=== PATIENT | male | born 1945 | race Caucasian/White ===

== ENCOUNTER 2021-11-27 13:04 | Inpatient (IN) ==
[2021-11-27 14:27] LABS: Albumin Globulin Ratio 0.7 (0.9-2); BUN Creatinine Ratio 15.4 (10-20); Bilirubin,Total 0.8 mg/dl (0.2-1.0); C Reactive Protein 9.21 mg/dl (0-0.5); Calcium 8.5 mg/dl (8.5-10.1); Est GFR (African American) 26.4 ml/min; Est GFR (Non-African American) 22.8 ml/min; Globulin 4.2 gm/dl (2.5-4.0); Potassium 5.4 mmol/L (3.5-5.1); Total Protein 7.2 gm/dl (6.0-8.3)
[2021-11-27 14:32] LABS: Hematocrit (blood only) 29.6 % (40.1-51.0); Hemoglobin 9.3 g/dl (14.0-18.0); Mean Corpuscular Hemoglobin 31.2 pg (25.0-34.0); Mean Corpuscular Hgb Conc 31.4 g/dL (32.0-36.0); Mean Corpuscular Volume 99.3 fL (80.0-100.0); Mean Platelet Volume 11.6 fL (9.4-12.4); Platelet Count 112 K/uL (130-400); RDW Coefficient of Variation 16.9 % (11.5-14.5); RDW Standard Deviation 61.1 fL (36.4-46.3); Red Blood Count 2.98 M/uL (4.63-6.08); White Blood Count 4.57 K/ul (4.8-10.8)
[2021-11-27 15:18] LABS: Basophils # (auto) 0.01 K/uL (0-0.2); Basophils % (auto) 0.2 %; Immature Granulocytes # (auto) 0.17 K/uL (0.00-0.02); Immature Granulocytes % (auto) 3.7 %; Lymphocytes # (auto) 1.21 K/uL (1.2-3.4); Lymphocytes % (auto) 26.5 %; Monocytes # (auto) 0.73 K/uL (0.24-0.82); Neutrophils # (auto) 2.45 K/uL (1.4-6.5); Neutrophils % (auto) 53.6 %
--- NOTE | 2021-11-27 15:30 | CT Scan Report ---
ABDOMEN AND PELVIS CT WITHOUT CONTRAST CT DOSE: 477.08 mGycm HISTORY: Acute right lower quadrant abdominal pain RLQ abd pain TECHNIQUE: Multiaxial CT images of the abdomen and pelvis were performed without contrast. A dose lo wering technique was utilized adhering to the principles of ALARA. COMPARISON STUDY: None. FINDINGS: Limited exam secondary to upper extremity positioning, respiratory motion artifact and lack of contrast. Trace right pleural effusion. Cardiomegaly with partially imaged pacer leads in extensi ve coronary artery calcifications. Mild right hemidiaphragmatic elevation. Mild subsegmental bibasila r atelectasis. No pneumatosis or pneumoperitoneum. The unenhanced spleen, moderately atrophic pancreas and adrenal glands are unremarkable. Cholelithias is without CT evidence of acute cholecystitis. No biliary ductal dilation. Unremarkable liver. No uro lith or hydronephrosis. Small amount of air within the urinary bladder lumen. Prostamegaly. Atheroscl erosis of the aorta without aneurysm. No lymphadenopathy. Mild nonspecific distal esophageal wall thickening. Mild periesophageal stranding. No bowel obstructi on. Normal appendix. Mild inferior rectal wall thickening with trace perirectal stranding. Colonic di verticulosis. Mild wall thickening of the sigmoid is likely chronic. Left upper quadrant varicosities of unknown etiology. Unremarkable soft tissues. Degenerative changes of the spine, pelvis and hips. There is no acute fracture identified. IMPRESSION: 1. No bowel obstruction or pneumoperitoneum. Normal appendix. 2. Colonic diverticulosis without definite CT evidence of acute diverticulitis. 3. Mild rectal wall thickening with trace perirectal stranding. Correlate clinically to exclude a mil d proctitis. 4. Cholelithiasis. 5. Trace right pleural effusion. 6. Mild distal esophageal wall thickening may represent esophagitis. 7. Small amount of air within the urinary bladder lumen may be secondary to instrumentation versus ga s-forming organism. Correlate with urinalysis. ACT 112: Negative or not required by law. The above report was generated using voice recognition software. It may contain grammatical, syntax o r spelling errors. Electronically signed by: Alexx Ordonez M.D. 11/27/2021 3:29 PM
--- NOTE | 2021-11-27 15:49 | CT Scan Report ---
CT foot LT wo con CLINICAL HISTORY: left heel wound recent poss osteo on 11/21 ct COMPARISON STUDY: 11/21/2021 CT DOSE: TECHNIQUE: Standard CT of the left foot is performed without IV contrast. Multiplanar reconstruction is performed. A dose lowering technique was utilized adhering to the principles of ALARA. FINDINGS: Bones: Bones are osteopenic. There is again resection of the dorsal calcaneus with indistinctness of the resection margin. Findings are again most characteristic for osteomyelitis. The remaining bones are intact. There is no evidence for an acute fracture or dislocation. There are no lytic or blastic lesions. Joints: The joint spaces are maintained. The bones are in anatomic alignment. Soft tissues: There is soft tissue deformity present involving the heel. However, there is no longer air within the soft tissues. Findings are again characteristic of cellulitis. There are no focal flui d collections. IMPRESSION: 1. Compared to the previous examination, CT findings are again most characteristic of osteomyelitis i nvolving the resected calcaneal margin. 2. Adjacent cellulitis is present with no evidence for air within the soft tissues. ACT 112: Negative or not required by law. Electronically signed by: Manohar Coto M.D. 11/27/2021 3:47 PM
[2021-11-27] MEDS ORDERED: DAPTOmycin 400 MG in SYRINGE 0 ML IV STA (16:09)
[2021-11-27] MEDS ORDERED: PIPERACILLIN/TAZOBACTAM 4.5 GM/120 ML BAG IV ONE (16:15)
--- NOTE | 2021-11-27 18:38 | History & Physical Report ---
Date of Service November 27, 2021 Assessment & Plan (1) Osteomyelitis of foot, left, acute: Plan: -Admit to medicine -Patient was only on Rocephin at [facility] -Inflammatory markers and procal elevated -Will continue with zosyn and dapto for now, tailor treatment to infectious workup -Will give fluid bolus as patient appears dry -Can consider ID consult for assistance with long-term abx treatment Present on Admission?: Yes (2) Fever: Plan: -Multiple different possible etiologies including OM of the left foot, covid +, possible UTI (UA pending) -Covered broadly with Abx at the current time, continue to monitor (3) COVID-19: Plan: -Unsure of vaccination status -Currently afebrile, hemodynamically stable and stable on RA -Continue symptomatic tx for now, start Dex and rem if no contraindications if patient becomes hypoxic (4) Hyperkalemia: Plan: -Noted to be 5.4 on ED labs -Likely due to dehydration -No acute EKG changes noted -Will give 1L NSS bolus now, monitor on tele, and repeat potassium later this evening (5) HTN (hypertension): Plan: -Will hold [employer]ER [employer]ACH[employer] antihypertensives for now with high risk of hypotensive with current infection (6) Hyperlipidemia: Plan: -[employer] statin (7) DM II (diabetes mellitus, type II), controlled: Plan: --Goal BSG Range: Qwx379 mg/dL, High 140mg/dL --Correction Factor: 35mg/dL/unit --Carbohydrate ratio = 11 g/unit --BSGs ACHS if eating, q6h if npo (8) CAD (coronary artery disease): Plan: -[employer] statin (9) PAD (peripheral artery disease): Plan: -[employer] statin (10) Stage 3b chronic kidney disease (CKD): Plan: -Monitor renal function (11) Lacunar stroke: Plan: -Appears to be at baseline neurologic status -Continue [employer] plavix Plan The patient was discussed with Dr. Ram at the time of admission History of Present Illness Chief Complaint: Fevers with known heel infection Primary Care Provider: Lynn Casey Justin is a 76 year old male with a PMH significant for known left heel wound after penetrating injury S/P Calcanectomy, Previous Lacunar stroke with baseline right-sided weakness and waxing mentation/orientation, sacral pressure injury, HTN, DLD, CAD S/P biventricular pacemaker placement, Systolic CHF, CKD stage 3B, PAD, DMII who presented to the [facility] ED for fevers. Per chart review and discussions with [facility] staff, the patient has been at [facility] for treatment of his left heel ulcer. It appears the heel cultures has grown MRSA and Enterobacter but [facility] was treating him with Ceftriaxone only. There was concern for possible osteomyelitis which increased since the patient has been spiking fevers while on ceftriaxone. In the ED the patient was found to have an elevated procal at 2.85, C- reactive protein at 9.21, ESR of 44, potassium of 5.4, and was found to be Coivd positive. Xray of the left foot revealed OM of the heel and surrounding cellulitis. CT of the abdomen and pelvis revealed mild rectal wall thickening with trace perirectal stranding. The patient was started on Zosyn and Daptomycin for the osteomyelitis and was found to be stable on room air. Per chart review and discussions with staff at [facility] the patient has baseline right-sided weakness with waxing mentation and orientation as a result of his previous stroke. EMS confirmed with nursing staff upon arrival that the patient was at his baseline neurologic status. At the time of the exam the patient was lying in bed in no acute distress. He was alert and responded to sternal rubbing and would answer questions for a short period of time. He noted some abdominal pain during my abdominal exam but would not interact more during the rest of my exam. Allergies Allergy/AdvReac Type Severity Reaction Status Date / Time atorvastatin Allergy Unknown Unknown Verified 11/27/21 18:05 ezetimibe Allergy Unknown Unknown Verified 11/27/21 18:05 rivaroxaban Allergy Unknown Unknown Verified 11/27/21 18:05 simvastatin Allergy Unknown Unknown Verified 11/27/21 18:05 sitagliptin Allergy Unknown Unknown Verified 11/27/21 18:05 sulfamethoxazole Allergy Unknown Unknown Verified 11/27/21 18:05 [From Bactrim] trimethoprim [From Bactrim] Allergy Unknown Unknown Verified 11/27/21 18:05 lactose AdvReac Unknown Unknown Verified 11/27/21 18:05 Home Medications Medication Instructions Recorded Confirmed Type acetaminophen 325 mg tablet 650 mg PO Q4H PRN Pain 11/27/21 11/27/21 History (Tylenol) ascorbic acid (vitamin C) 500 mg 500 mg PO BIDM 11/27/21 11/27/21 History tablet (Vitamin C) bisacodyl 10 mg rectal suppository 10 mg MI DAILY PRN Constipation 11/27/21 11/27/21 History ceftriaxone 1 gram intravenous 1 g IV DAILY 11/27/21 11/27/21 History solution clopidogrel 75 mg tablet (Plavix) 75 mg PO DAILY 11/27/21 11/27/21 History difluprednate 0.05 % eye drops 1 drp OPL DAILY 11/27/21 11/27/21 History diltiazem HCl 30 mg tablet 30 mg PO DAILY 11/27/21 11/27/21 History docusate sodium 100 mg capsule 100 mg PO BID 11/27/21 11/27/21 History enoxaparin 30 mg/0.3 mL 30 mg subcut QPM 11/27/21 11/27/21 History subcutaneous syringe (Lovenox) ferrous sulfate 325 mg (65 mg 325 mg PO BIDM 11/27/21 11/27/21 History iron) tablet folic acid 1 mg tablet 1 mg PO DAILY 11/27/21 11/27/21 History insulin regular human 100 unit/mL 1 sliding scale dose subcut ACHS 11/27/21 11/27/21 History injection solution (Humulin R Regular U-100 Insulin) latanoprost 0.005 % eye drops 1 drp OPB HS 11/27/21 11/27/21 History magnesium hydroxide 400 mg/5 mL 30 ml PO DAILY PRN Constipation 11/27/21 11/27/21 History oral suspension (Milk of Magnesia) mirtazapine 15 mg tablet 15 mg PO HS 11/27/21 11/27/21 History naloxone 4 mg/actuation nasal spray 4 mg intranasal ONCE PRN 11/27/21 11/27/21 History OVERSEDATION netarsudil 0.02 % eye drops 1 drp OPR HS 11/27/21 11/27/21 History nystatin 100,000 unit/mL oral 5 ml PO TID 11/27/21 11/27/21 History suspension ondansetron HCl 4 mg tablet 4 mg PO Q6H PRN NAUSEA/VOMITING 11/27/21 11/27/21 History oxycodone 5 mg tablet 10 mg PO Q8H PRN Pain 11/27/21 11/27/21 History pantoprazole 40 mg tablet,delayed 40 mg PO BID 11/27/21 11/27/21 History release polyethylene glycol 3350 17 17 g PO QDL PRN Constipation 11/27/21 11/27/21 History gram/dose oral powder (Miralax) potassium chloride 10 mEq 20 meq PO DAILY 11/27/21 11/27/21 History capsule,extended release rosuvastatin 10 mg tablet 5 mg PO DAILY 11/27/21 11/27/21 History sennosides 8.6 mg-docusate sodium 1 tab-cap PO QDL PRN Constipation 11/27/21 11/27/21 History 50 mg tablet (Senokot-S) tamsulosin 0.4 mg capsule 0.4 mg PO DAILY 11/27/21 11/27/21 History timolol 0.5 % eye drops 1 drp OPB BID 11/27/21 11/27/21 History Past Med/Surg History Medical History (Updated 11/28/21 @ 12:18 by GEORGE Linda) Lacunar stroke Systolic heart failure Social History Smoking Status: Never smoker Hx Alcohol Use: No Hx Substance Use: No Preferred Language: Malaysian 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: No Current Living Situation: Alone Current Living Situation Comment: Patient reports living at home alone Feels Safe at Home: Yes Safety Concerns: Feels Safe At This Time Assistive Devices: Walker Review of Systems Review of Systems: Patient would not interact or answer ROS questions Physical Exam Physical Exam: Physical Exam: General: In no acute distress, older than stated age, chachetic, poor hygiene, chronically ill HEENT: Normocephalic, atraumatic, no scleral icterus, left pupil is dilated and non-reactive to light (baseline per encompass), right pupil is round and reactive to light, dry mucus membranes, trachea midline, no thyromegaly Chest/Pulm: No respiratory distress, symmetrical chest expansion, clear breath sounds throughout Cardiac: RRR, no murmurs noted Abdomen: Negative for ascites and bruising, normoactive bowel sounds, soft, tender to palpation in the lower abdomen Musculoskeletal: patient with severe atrophy of the muscles of the BL upper and lower extremities, chronic left heel wound with surround erythema, right garcia skin tear noted, patient would move extremities voluntarily but with right weaker than left Neuro: Alert, sporadically cooperates with neuro exam, CN II-XII tested with chronic findings from previous stroke as listed above Psych: No acute distress, calm, not aggressive Results & Data Results & Data ([facility]) Vital Signs (Past 12 Hours) Vital Signs Temp Pulse Pulse Resp BP BP Pulse Ox 11/27/21 16:59 76 18 114/50 L 95 11/27/21 15:36 67 16 110/53 L 93 11/27/21 13:11 36.7 C 78 18 118/60 96 O2 Del Method 11/27/21 16:59 Room Air 11/27/21 15:36 11/27/21 13:11 Room Air Laboratory Results Abnormal lab results 11/27/21 11/27/21 11/27/21 Range/Units 13:57 13:57 13:57 WBC 4.57 L (4.8-10.8) K/ul RBC 2.98 L (4.63-6.08) M/uL Hgb 9.3 L (14.0-18.0) g/dl Hct 29.6 L (40.1-51.0) % MCHC 31.4 L (32.0-36.0) g/dL RDW Std Deviation 61.1 H (36.4-46.3) fL RDW Coeff of Rusty 16.9 H (11.5-14.5) % Plt Count 112 L (130-400) K/uL Immature Gran # (Auto) 0.17 H (0.00-0.02) K/uL ESR 44 H (0-20) mm/hr Potassium 5.4 H (3.5-5.1) mmol/L BUN 40 H (6-23) mg/dl Creatinine 2.60 H (0.6-1.4) mg/dl Glucose 209 H (70-99(Fasting)) mg/dl AST 59 H (13-39) U/L Alkaline Phosphatase 105 H (34-104) U/L C-Reactive Protein 9.21 H (0-0.5) mg/dl Albumin 3.0 L (3.4-5.0) gm/dl Globulin 4.2 H (2.5-4.0) gm/dl Albumin/Globulin Ratio 0.7 L (0.9-2) Procalcitonin (0-0.5) ng/ml SARS-CoV-2, RNA, NAAT (NEGATIVE) 11/27/21 11/27/21 Range/Units 13:57 14:20 WBC (4.8-10.8) K/ul RBC (4.63-6.08) M/uL Hgb (14.0-18.0) g/dl Hct (40.1-51.0) % MCHC (32.0-36.0) g/dL RDW Std Deviation (36.4-46.3) fL RDW Coeff of Rusty (11.5-14.5) % Plt Count (130-400) K/uL Immature Gran # (Auto) (0.00-0.02) K/uL ESR (0-20) mm/hr Potassium (3.5-5.1) mmol/L BUN (6-23) mg/dl Creatinine (0.6-1.4) mg/dl Glucose (70-99(Fasting)) mg/dl AST (13-39) U/L Alkaline Phosphatase (34-104) U/L C-Reactive Protein (0-0.5) mg/dl Albumin (3.4-5.0) gm/dl Globulin (2.5-4.0) gm/dl Albumin/Globulin Ratio (0.9-2) Procalcitonin 2.85 H (0-0.5) ng/ml SARS-CoV-2, RNA, NAAT POSITIVE A* (NEGATIVE) Diagnostic Findings Abdomen/Pelvis CT 11/27/21 14:[address] WITHOUT CONTRAST CT DOSE: 477.08 mGycm HISTORY: Acute right lower quadrant abdominal pain RLQ abd pain TECHNIQUE: Multiaxial CT images of the abdomen and pelvis were performed without contrast. A dose lowering technique was utilized adhering to the principles of ALARA. COMPARISON STUDY: None. FINDINGS: Limited exam secondary to upper extremity positioning, respiratory motion artifact and lack of contrast. Trace right pleural effusion. Cardiomegaly with partially imaged pacer leads in extensive coronary artery calcifications. Mild right hemidiaphragmatic elevation. Mild subsegmental bibasilar atelectasis. No pneumatosis or pneumoperitoneum. The unenhanced spleen, moderately atrophic pancreas and adrenal glands are unremarkable. Cholelithiasis without CT evidence of acute cholecystitis. No biliary ductal dilation. Unremarkable liver. No urolith or hydronephrosis. Small amount of air within the urinary bladder lumen. Prostamegaly. Atherosclerosis of the aorta without aneurysm. No lymphadenopathy. Mild nonspecific distal esophageal wall thickening. Mild periesophageal stranding. No bowel obstruction. Normal appendix. Mild inferior rectal wall thickening with trace perirectal stranding. Colonic diverticulosis. Mild wall thickening of the sigmoid is likely chronic. Left upper quadrant varicosities of unknown etiology. Unremarkable soft tissues. Degenerative changes of the spine, pelvis and hips. There is no acute fracture identified. IMPRESSION: 1. No bowel obstruction or pneumoperitoneum. Normal appendix. 2. Colonic diverticulosis without definite CT evidence of acute diverticulitis. 3. Mild rectal wall thickening with trace perirectal stranding. Correlate clinically to exclude a mild proctitis. 4. Cholelithiasis. 5. Trace right pleural effusion. 6. Mild distal esophageal wall thickening may represent esophagitis. 7. Small amount of air within the urinary bladder lumen may be secondary to instrumentation versus gas-forming organism. Correlate with urinalysis. ACT 112: Negative or not required by law. The above report was generated using voice recognition software. It may contain grammatical, syntax or spelling errors. Electronically signed by: Alexx Ordonez M.D. 11/27/2021 3:[address] 11/27/21 14:24 CT foot LT wo con CLINICAL HISTORY: left heel wound recent poss osteo on 11/21 ct COMPARISON STUDY: 11/21/2021 CT DOSE: TECHNIQUE: Standard CT of the left foot is performed without IV contrast. Multiplanar reconstruction is performed. A dose lowering technique was utilized adhering to the principles of ALARA. FINDINGS: Bones: Bones are osteopenic. There is again resection of the dorsal calcaneus with indistinctness of the resection margin. Findings are again most characteristic for osteomyelitis. The remaining bones are intact. There is no evidence for an acute fracture or dislocation. There are no lytic or blastic lesions. Joints: The joint spaces are maintained. The bones are in anatomic alignment. Soft tissues: There is soft tissue deformity present involving the heel. However, there is no longer air within the soft tissues. Findings are again characteristic of cellulitis. There are no focal fluid collections. IMPRESSION: 1. Compared to the previous examination, CT findings are again most characteristic of osteomyelitis involving the resected calcaneal margin. 2. Adjacent cellulitis is present with no evidence for air within the soft tissues. ACT 112: Negative or not required by law. Electronically signed by: Manohar Coto M.D. 11/27/2021 3:47 PM ECG Additional Comments: Atrial-sensed ventricular-paced rhythm with prolonged AV conduction Abnormal ECG No previous ECGs available Code Status & VTE Plan Code Status Full code VTE Prophylaxis Plan VTE Prophylaxis will be ordered: Yes Supervising Physician Co-Signing Physician Notes Patient seen and examined, chart reviewed, case discussed with Karlo Lraa PA-C and I agree with the assessment and plan as above except as otherwise noted. Labs and images reviewed Patient is 76-year-old male who presents with osteomyelitis of the left foot. On exam he appears chronically ill/cachectic, but no respiratory distress, heart rate is regular without murmurs. Left heel is with surrounding erythema and ulceration is weak compared to the right to dorsi/plantarflexion baseline left pupil nonreactive as noted. Antibiotics expanded to Zosyn/Dapto. Patient is COVID-positive, but asymptomatic without oxygen requirement. Does not meet criteria for remdesivir or dexamethasone at this time. Continue to follow O2, initiate steroids/remdesivir if hypoxia develops. CRP trended. Foot CT compared to prior shows osteomyelitis with resected calcaneal margin. Adjacent cellulitis without evidence of air/gas. Antibiotics expanded to Zosyn/Dapto, prior wound culture with pinpoint growth. Continue broad antibiotics, may consider ID consultation for long-term recommendations given failure to improve previously. Chronic issues/management as noted. PG Care Time/CCT Total # of Minutes Spent Total Time Spent with Patient: Total time spent is greater than 50% in coordination of care (as documented) at patient's floor/unit and/or counseling patient: [place] [address] Initial Inpt Care Lvl 1 Patient Type New Medical Decision Making Moderate Complexity Diagnoses Osteomyelitis of foot, left, acute M86.172 Fever R50.9 COVID-19 U07.1 Hyperkalemia E87.5 HTN (hypertension) I10 Hyperlipidemia E78.5 DM II (diabetes mellitus, type II), controlled E11.9 CAD (coronary artery disease) I25.10 PAD (peripheral artery disease) I73.9 Stage 3b chronic kidney disease (CKD) N18.32 Lacunar stroke I63.81
[2021-11-27 19:22] LABS: Appearance Urine Cloudy (Clear); Bilirubin Urine Negative (Negative); Blood Urine Negative (Negative); Color Urine Dark Yellow; Glucose Urine UA Negative (Negative); Ketones Urine Trace (Negative); Leukocyte Esterase Urine Negative (Negative); Nitrite Urine Negative (Negative); Protein Urine 2+ (Negative); RBC Urine Automated 0-4 /hpf (0-4); Specific Gravity Urine 1.023 (1.000-1.030); Urobilinogen Urine Negative (Negative)
[2021-11-27 19:47] LABS: Bacteria Urine Automated 1+ (Negative); Cast Urine Automated 0 /lpf (0-5)
[2021-11-27] MEDS ORDERED: SODIUM CHLORIDE 0.9% 1000ML 1,000 ML IV ONE (20:04)
--- NOTE | 2021-11-27 20:05 | Emergency Department Note ---
Impression & Plan Osteomyelitis of foot, left, acute, COVID-19, Cellulitis, Pancytopenia ED Provider Note INFORMANT: Patient is well as covering provider, Tarik Melendez [facility] PROVIDER(S): Froylan Bell MD CHIEF COMPLAINT: Fever PLAN: Disposition: Admitted Condition: Good Outpatient prescription management: none Referral: None MEDICAL DECISION MAKING: Patient presented to emergency department because of fever and issues with a left foot wound. A work-up was initiated. The patient was found to have a pancytopenia. He had an elevated creatinine at 2.6. No prior for comparison. The patient did have elevated inflammatory markers event with a ESR 44 and CRP of 9.2. Patient's LFTs were not significantly abnormal. Procalcitonin was elevated at 2.8. The patient had CT imaging done and this was concerning for cellulitis as well as osteomyelitis. Radiology questioned proctitis however no other acute intra-abdominal findings were noted. The patient was cultured from the blood as well as from the wound. I discussed this with the ED pharmacist and daptomycin and Zosyn were recommended for broad-spectrum coverage. I did contact his covering provider at [facility] and they noted the patient's surgeon did request that he be evaluated in the ER for an infectious work-up and IV antibiotics due to concerns about infection in the left heel. CT imaging does reveal osteomyelitis. The antibiotics above should cover. The patient does have a history of MRSA. Patient did also have a COVID test performed and this did reveal a positive result. Charge nurse did contact the [facility] to notify them. Patient's urinalysis did not reveal any gross abnormalities. [facility] The patient was evaluated in the emergency department and admitted for further management. Triage Nursing notes reviewed and agree them. Vital Signs: reviewed and remarkable for no significant abnormalities Differential diagnosis: Cellulitis, abscess, MRSA infection, DVT, necrotizing fasciitis, dermatitis, drug eruption, allergic reaction, as well as other pathologies. Diagnostics interpreted by me: ECG: Twelve-lead ECG reveals an atrial sensed ventricular paced rhythm with prolonged AV conduction at 76 bpm. No PVCs noted. Cardiac Monitoring: Cardiac monitoring ordered by me: The patient was placed on continuous cardiac monitoring and observed. Paced rhythm at 76. Imaging studies: CT scan of the abdomen pelvis revealed possible proctitis however no other acute intra-abdominal pathology noted. CT scan of the foot is concerning for cellulitis as well as osteomyelitis. No subcutaneous gas collections or abscesses reported. HPI: The patient is a 76 year old male who presents to the Emergency Room with complaints of fever. Patient was directed here from [facility] rehab. He was over there due to an infected wound on a left heel resection. The patient developed a fever despite being on IV Rocephin and the provider there was concerned. They contacted his surgeon in the [place] area and he was directed to be transferred to the emergency department here for an infectious work-up. The fever was noted today. The patient also notes the following associated symptoms, generalized weakness, some mild abdominal discomfort on the right side. Current pain is rated as 7/10. Pt denies LOC, headache, chills, diaphoresis, visual changes, neck pain, chest pain, breathing difficulties, nausea, vomiting,back pain, melena, hematochezia, urinary symptoms, numbness, lymphadenopathy, or other complaints. ROS: See above HPI for pertinent positives & negatives. A total of 10 systems reviewed and were otherwise negative. PAST MEDICAL HISTORY:See Below , right leg cellulitis, diabetes PAST SURGICAL HISTORY:See Below, FAMILY HISTORY:See Below SOCIAL HISTORY:See Below, non-smoker HOME MEDICATIONS:See Below ALLERGIES:See Below VITALS:See Below PHYSICAL EXAMINATION: GENERAL: Awake, uncomfortable appearing, in no distress HENT: Normocephalic, atraumatic. Oropharynx unremarkable. EYES: Normal conjunctiva. Sclera non-icteric. NECK: Inspection normal. Non-tender. Supple. No nuchal rigidity. FROM. No masses. RESPIRATORY: Clear to auscultation. No wheezes. No rales. Normal respiratory effort. CARDIAC: Normal rate. Normal rhythm. No murmurs. No rubs. Extremities warm and well perfused. Pulses equal. No JVD. GI: Soft, non-distended. Right flank tenderness to palpation. No rebound or guarding. No masses. RECTAL: Deferred. MUSCULOSKELETAL: Atraumatic. Chest examination reveals no tenderness. The back is symmetrical on inspection without obvious abnormality. There is no CVA tenderness to palpation. No joint edema. LOWER EXTREMITIES: Calves are equal size bilaterally and non-tender. No edema. Chronic venous discoloration noted on the right side. Examination of the left lower extremity reveals some erythema surrounding a surgical wound on the right heel. There is some mild purulence present. There is an eschar noted on the right second toe without purulence. NEURO: Normal sensorium. Mild decrease sensation in the toes and feet however no other focal sensory or motor deficits noted. SKIN: No rash or jaundice noted. Froylan Bell MD Past Med/Surg History Medical History (Updated 11/27/21 @ 19:58 by Karlo Lara PA-C) Lacunar stroke Systolic heart failure Social History Smoking Status: Never smoker Preferred Language: American Feels Safe at Home: Yes Allergies Allergies Allergy/AdvReac Type Severity Reaction Status Date / Time atorvastatin Allergy Unknown Unknown Verified 11/27/21 18:05 ezetimibe Allergy Unknown Unknown Verified 11/27/21 18:05 rivaroxaban Allergy Unknown Unknown Verified 11/27/21 18:05 simvastatin Allergy Unknown Unknown Verified 11/27/21 18:05 sitagliptin Allergy Unknown Unknown Verified 11/27/21 18:05 sulfamethoxazole Allergy Unknown Unknown Verified 11/27/21 18:05 [From Bactrim] trimethoprim [From Bactrim] Allergy Unknown Unknown Verified 11/27/21 18:05 lactose AdvReac Unknown Unknown Verified 11/27/21 18:05 Home Meds Home Medications Medication Instructions Recorded Confirmed acetaminophen 325 mg tablet 650 mg PO Q4H PRN Pain 11/27/21 11/27/21 (Tylenol) ascorbic acid (vitamin C) 500 mg 500 mg PO BIDM 11/27/21 11/27/21 tablet (Vitamin C) bisacodyl 10 mg rectal suppository 10 mg NV DAILY PRN Constipation 11/27/21 11/27/21 ceftriaxone 1 gram intravenous 1 g IV DAILY 11/27/21 11/27/21 solution clopidogrel 75 mg tablet (Plavix) 75 mg PO DAILY 11/27/21 11/27/21 difluprednate 0.05 % eye drops 1 drp OPL DAILY 11/27/21 11/27/21 diltiazem HCl 30 mg tablet 30 mg PO DAILY 11/27/21 11/27/21 docusate sodium 100 mg capsule 100 mg PO BID 11/27/21 11/27/21 enoxaparin 30 mg/0.3 mL 30 mg subcut QPM 11/27/21 11/27/21 subcutaneous syringe (Lovenox) ferrous sulfate 325 mg (65 mg 325 mg PO BIDM 11/27/21 11/27/21 iron) tablet folic acid 1 mg tablet 1 mg PO DAILY 11/27/21 11/27/21 insulin regular human 100 unit/mL 1 sliding scale dose subcut ACHS 11/27/21 11/27/21 injection solution (Humulin R Regular U-100 Insulin) latanoprost 0.005 % eye drops 1 drp OPB HS 11/27/21 11/27/21 magnesium hydroxide 400 mg/5 mL 30 ml PO DAILY PRN Constipation 11/27/21 11/27/21 oral suspension (Milk of Magnesia) mirtazapine 15 mg tablet 15 mg PO HS 11/27/21 11/27/21 naloxone 4 mg/actuation nasal spray 4 mg intranasal ONCE PRN 11/27/21 11/27/21 OVERSEDATION netarsudil 0.02 % eye drops 1 drp OPR HS 11/27/21 11/27/21 nystatin 100,000 unit/mL oral 5 ml PO TID 11/27/21 11/27/21 suspension ondansetron HCl 4 mg tablet 4 mg PO Q6H PRN NAUSEA/VOMITING 11/27/21 11/27/21 oxycodone 5 mg tablet 10 mg PO Q8H PRN Pain 11/27/21 11/27/21 pantoprazole 40 mg tablet,delayed 40 mg PO BID 11/27/21 11/27/21 release polyethylene glycol 3350 17 17 g PO QDL PRN Constipation 11/27/21 11/27/21 gram/dose oral powder (Miralax) potassium chloride 10 mEq 20 meq PO DAILY 11/27/21 11/27/21 capsule,extended release rosuvastatin 10 mg tablet 5 mg PO DAILY 11/27/21 11/27/21 sennosides 8.6 mg-docusate sodium 1 tab-cap PO QDL PRN Constipation 11/27/21 11/27/21 50 mg tablet (Senokot-S) tamsulosin 0.4 mg capsule 0.4 mg PO DAILY 11/27/21 11/27/21 timolol 0.5 % eye drops 1 drp OPB BID 11/27/21 11/27/21 Results & Data (ED) Vital Signs Vital Signs - 24 hr 11/27/21 13:11 11/27/21 15:36 11/27/21 16:59 Temperature 36.7 C Temperature Source Oral Pulse Rate 78 Pulse Rate [Left Finger] 67 76 Respiratory Rate 18 16 18 Blood Pressure 118/60 Blood Pressure [Left Arm] 110/53 L 114/50 L Blood Pressure Mean 79 Blood Pressure Mean [Left Arm] 72 71 Blood Pressure Position [Left Arm] Sitting Pulse Oximetry 96 93 95 Oxygen Delivery Method Room Air Room Air Sepsis Recent Fever Within 48 Hours Yes Sepsis New/Unexplained Change in Mental Status No Sepsis Action Taken by Nursing No Action Required 11/27/21 18:59 Temperature Temperature Source Pulse Rate Pulse Rate [Left Finger] Respiratory Rate 18 Blood Pressure Blood Pressure [Left Arm] 105/52 L Blood Pressure Mean Blood Pressure Mean [Left Arm] 69 Blood Pressure Position [Left Arm] Semi-fowlers Pulse Oximetry 95 Oxygen Delivery Method Room Air Sepsis Recent Fever Within 48 Hours Sepsis New/Unexplained Change in Mental Status Sepsis Action Taken by Nursing Laboratory Data Result diagrams: 11/27/21 13:57 11/27/21 13:57 Lab Results 11/27/21 11/27/21 11/27/21 Range/Units 13:57 13:57 13:57 WBC 4.57 L (4.8-10.8) K/ul RBC 2.98 L (4.63-6.08) M/uL Hgb 9.3 L (14.0-18.0) g/dl Hct 29.6 L (40.1-51.0) % MCV 99.3 (80.0-100.0) fL MCH 31.2 (25.0-34.0) pg MCHC 31.4 L (32.0-36.0) g/dL RDW Std Deviation 61.1 H (36.4-46.3) fL RDW Coeff of Rusty 16.9 H (11.5-14.5) % Plt Count 112 L (130-400) K/uL MPV 11.6 (9.4-12.4) fL Immature Gran % (Auto) 3.7 % Neut % (Auto) 53.6 % Lymph % (Auto) 26.5 % Moca % (Auto) 16.0 % Eos % (Auto) 0.0 % Baso % (Auto) 0.2 % Neut # (Auto) 2.45 (1.4-6.5) K/uL Lymph # (Auto) 1.21 (1.2-3.4) K/uL Moca # (Auto) 0.73 (0.24-0.82) K/uL Eos # (Auto) 0.00 (0-0.50) K/uL Baso # (Auto) 0.01 (0-0.2) K/uL Immature Gran # (Auto) 0.17 H (0.00-0.02) K/uL ESR 44 H (0-20) mm/hr Sodium 138 (136-145) mmol/L Potassium 5.4 H (3.5-5.1) mmol/L Chloride 105 (98-107) mmol/L Carbon Dioxide 25 (21-32) mmol/L Anion Gap 8 (3-11) BUN 40 H (6-23) mg/dl Creatinine 2.60 H (0.6-1.4) mg/dl Est Cr Clr Drug Dosing 23.0 ml/min Est GFR ( Amer) 26.4 ml/min Est GFR (Non-Af Amer) 22.8 ml/min BUN/Creatinine Ratio 15.4 (10-20) Glucose 209 H (70-99(Fasting)) mg/dl Lactate (0.4-2.0) mmol/L Calcium 8.5 (8.5-10.1) mg/dl Total Bilirubin 0.8 (0.2-1.0) mg/dl AST 59 H (13-39) U/L ALT 18 (7-52) U/L Alkaline Phosphatase 105 H (34-104) U/L C-Reactive Protein 9.21 H (0-0.5) mg/dl Total Protein 7.2 (6.0-8.3) gm/dl Albumin 3.0 L (3.4-5.0) gm/dl Globulin 4.2 H (2.5-4.0) gm/dl Albumin/Globulin Ratio 0.7 L (0.9-2) Procalcitonin (0-0.5) ng/ml Urine Color Urine Appearance (Clear) Urine pH (4.5-7.5) Ur Specific Eagle (1.000-1.030) Urine Protein (Negative) Urine Glucose (UA) (Negative) Urine Ketones (Negative) Urine Blood (Negative) Urine Nitrite (Negative) Urine Bilirubin (Negative) Urine Urobilinogen (Negative) Ur Leukocyte Esterase (Negative) Urine WBC (Auto) (0-5) /hpf Urine RBC (Auto) (0-4) /hpf U Hyaline Cast (Auto) (0-5) /lpf U Epithel Cells (Auto) (0-5) /lpf Urine Bacteria (Auto) (Negative) Urine Yeast SARS-CoV-2, RNA, NAAT (NEGATIVE) 11/27/21 11/27/21 11/27/21 Range/Units 13:57 14:20 15:48 WBC (4.8-10.8) K/ul RBC (4.63-6.08) M/uL Hgb (14.0-18.0) g/dl Hct (40.1-51.0) % MCV (80.0-100.0) fL MCH (25.0-34.0) pg MCHC (32.0-36.0) g/dL RDW Std Deviation (36.4-46.3) fL RDW Coeff of Rusty (11.5-14.5) % Plt Count (130-400) K/uL MPV (9.4-12.4) fL Immature Gran % (Auto) % Neut % (Auto) % Lymph % (Auto) % Moca % (Auto) % Eos % (Auto) % Baso % (Auto) % Neut # (Auto) (1.4-6.5) K/uL Lymph # (Auto) (1.2-3.4) K/uL Moca # (Auto) (0.24-0.82) K/uL Eos # (Auto) (0-0.50) K/uL Baso # (Auto) (0-0.2) K/uL Immature Gran # (Auto) (0.00-0.02) K/uL ESR (0-20) mm/hr Sodium (136-145) mmol/L Potassium (3.5-5.1) mmol/L Chloride (98-107) mmol/L Carbon Dioxide (21-32) mmol/L Anion Gap (3-11) BUN (6-23) mg/dl Creatinine (0.6-1.4) mg/dl Est Cr Clr Drug Dosing ml/min Est GFR ( Amer) ml/min Est GFR (Non-Af Amer) ml/min BUN/Creatinine Ratio (10-20) Glucose (70-99(Fasting)) mg/dl Lactate 1.8 (0.4-2.0) mmol/L Calcium (8.5-10.1) mg/dl Total Bilirubin (0.2-1.0) mg/dl AST (13-39) U/L ALT (7-52) U/L Alkaline Phosphatase (34-104) U/L C-Reactive Protein (0-0.5) mg/dl Total Protein (6.0-8.3) gm/dl Albumin (3.4-5.0) gm/dl Globulin (2.5-4.0) gm/dl Albumin/Globulin Ratio (0.9-2) Procalcitonin 2.85 H (0-0.5) ng/ml Urine Color Urine Appearance (Clear) Urine pH (4.5-7.5) Ur Specific [place] (1.000-1.030) Urine Protein (Negative) Urine Glucose (UA) (Negative) Urine Ketones (Negative) Urine Blood (Negative) Urine Nitrite (Negative) Urine Bilirubin (Negative) Urine Urobilinogen (Negative) Ur Leukocyte Esterase (Negative) Urine WBC (Auto) (0-5) /hpf Urine RBC (Auto) (0-4) /hpf U Hyaline Cast (Auto) (0-5) /lpf U Epithel Cells (Auto) (0-5) /lpf Urine Bacteria (Auto) (Negative) Urine Yeast SARS-CoV-2, RNA, NAAT POSITIVE A* (NEGATIVE) 11/27/21 Range/Units 18:28 WBC (4.8-10.8) K/ul RBC (4.63-6.08) M/uL Hgb (14.0-18.0) g/dl Hct (40.1-51.0) % MCV (80.0-100.0) fL MCH (25.0-34.0) pg MCHC (32.0-36.0) g/dL RDW Std Deviation (36.4-46.3) fL RDW Coeff of Rusty (11.5-14.5) % Plt Count (130-400) K/uL MPV (9.4-12.4) fL Immature Gran % (Auto) % Neut % (Auto) % Lymph % (Auto) % Moca % (Auto) % Eos % (Auto) % Baso % (Auto) % Neut # (Auto) (1.4-6.5) K/uL Lymph # (Auto) (1.2-3.4) K/uL Moca # (Auto) (0.24-0.82) K/uL Eos # (Auto) (0-0.50) K/uL Baso # (Auto) (0-0.2) K/uL Immature Gran # (Auto) (0.00-0.02) K/uL ESR (0-20) mm/hr Sodium (136-145) mmol/L Potassium (3.5-5.1) mmol/L Chloride (98-107) mmol/L Carbon Dioxide (21-32) mmol/L Anion Gap (3-11) BUN (6-23) mg/dl Creatinine (0.6-1.4) mg/dl Est Cr Clr Drug Dosing ml/min Est GFR ( Amer) ml/min Est GFR (Non-Af Amer) ml/min BUN/Creatinine Ratio (10-20) Glucose (70-99(Fasting)) mg/dl Lactate (0.4-2.0) mmol/L Calcium (8.5-10.1) mg/dl Total Bilirubin (0.2-1.0) mg/dl AST (13-39) U/L ALT (7-52) U/L Alkaline Phosphatase (34-104) U/L C-Reactive Protein (0-0.5) mg/dl Total Protein (6.0-8.3) gm/dl Albumin (3.4-5.0) gm/dl Globulin (2.5-4.0) gm/dl Albumin/Globulin Ratio (0.9-2) Procalcitonin (0-0.5) ng/ml Urine Color Dark Yellow Urine Appearance Cloudy A (Clear) Urine pH 5.0 (4.5-7.5) Ur Specific [place] 1.023 (1.000-1.030) Urine Protein 2+ H (Negative) Urine Glucose (UA) Negative (Negative) Urine Ketones Trace H (Negative) Urine Blood Negative (Negative) Urine Nitrite Negative (Negative) Urine Bilirubin Negative (Negative) Urine Urobilinogen Negative (Negative) Ur Leukocyte Esterase Negative (Negative) Urine WBC (Auto) 1-5 (0-5) /hpf Urine RBC (Auto) 0-4 (0-4) /hpf U Hyaline Cast (Auto) 0 (0-5) /lpf U Epithel Cells (Auto) 5-10 H (0-5) /lpf Urine Bacteria (Auto) 1+ H (Negative) Urine Yeast Not Reportable SARS-CoV-2, RNA, NAAT (NEGATIVE) Administered Medications Discontinued Medications Piperacillin Sod/Tazobactam Sod (Zosyn) 4.5 gm in 120 mls @ 240 mls/hr IV NOW ONE Stop: 11/27/21 16:44 Last Infusion: 11/27/21 16:55 Dose: 0 mls/hr Documented By: Admin: 11/27/21 16:22 Dose: 240 mls/hr Documented By: RUBI Daptomycin 400 mg/ Syringe 8 mls @ 4 mls/min IV NOW STA; Protocol Stop: 11/27/21 16:10 Last Admin: 11/27/21 17:42 Dose: 4 mls/min Documented By: MARILEE Imaging Data Radiologist's Impression: Abdomen/Pelvis CT 11/27/21 14:[address] WITHOUT CONTRAST CT DOSE: 477.08 mGycm HISTORY: Acute right lower quadrant abdominal pain RLQ abd pain TECHNIQUE: Multiaxial CT images of the abdomen and pelvis were performed without contrast. A dose lowering technique was utilized adhering to the principles of ALARA. COMPARISON STUDY: None. FINDINGS: Limited exam secondary to upper extremity positioning, respiratory motion artifact and lack of contrast. Trace right pleural effusion. Cardiomegaly with partially imaged pacer leads in extensive coronary artery calcifications. Mild right hemidiaphragmatic elevation. Mild subsegmental bibasilar atelectasis. No pneumatosis or pneumoperitoneum. The unenhanced spleen, moderately atrophic pancreas and adrenal glands are unremarkable. Cholelithiasis without CT evidence of acute cholecystitis. No biliary ductal dilation. Unremarkable liver. No urolith or hydronephrosis. Small amount of air within the urinary bladder lumen. Prostamegaly. Atherosclerosis of the aorta without aneurysm. No lymphadenopathy. Mild nonspecific distal esophageal wall thickening. Mild periesophageal stranding. No bowel obstruction. Normal appendix. Mild inferior rectal wall thickening with trace perirectal stranding. Colonic diverticulosis. Mild wall thickening of the sigmoid is likely chronic. Left upper quadrant varicosities of unknown etiology. Unremarkable soft tissues. Degenerative changes of the spine, pelvis and hips. There is no acute fracture identified. IMPRESSION: 1. No bowel obstruction or pneumoperitoneum. Normal appendix. 2. Colonic diverticulosis without definite CT evidence of acute diverticulitis. 3. Mild rectal wall thickening with trace perirectal stranding. Correlate clinically to exclude a mild proctitis. 4. Cholelithiasis. 5. Trace right pleural effusion. 6. Mild distal esophageal wall thickening may represent esophagitis. 7. Small amount of air within the urinary bladder lumen may be secondary to instrumentation versus gas-forming organism. Correlate with urinalysis. ACT 112: Negative or not required by law. The above report was generated using voice recognition software. It may contain grammatical, syntax or spelling errors. Electronically signed by: Alexx Ordonez M.D. 11/27/2021 3:[address] 11/27/21 14:24 CT foot LT wo con CLINICAL HISTORY: left heel wound recent poss osteo on 11/21 ct COMPARISON STUDY: 11/21/2021 CT DOSE: TECHNIQUE: Standard CT of the left foot is performed without IV contrast. Multiplanar reconstruction is performed. A dose lowering technique was utilized adhering to the principles of ALARA. FINDINGS: Bones: Bones are osteopenic. There is again resection of the dorsal calcaneus with indistinctness of the resection margin. Findings are again most characteristic for osteomyelitis. The remaining bones are intact. There is no evidence for an acute fracture or dislocation. There are no lytic or blastic lesions. Joints: The joint spaces are maintained. The bones are in anatomic alignment. Soft tissues: There is soft tissue deformity present involving the heel. However, there is no longer air within the soft tissues. Findings are again yovanny racteristic of cellulitis. There are no focal fluid collections. IMPRESSION: 1. Compared to the previous examination, CT findings are again most characteristic of osteomyelitis involving the resected calcaneal margin. 2. Adjacent cellulitis is present with no evidence for air within the soft tissues. ACT 112: Negative or not required by law. Electronically signed by: Manohar Coto M.D. 11/27/2021 3:47 PM Discharge Plan Visit Data Chief Complaint: Foot Injury/Pain Stated Complaint: L HEEL PAIN, REFFERRED BY PCP ED Provider: Froylan Bell Discharge Problem: Osteomyelitis of foot, left, acute, COVID-19, Cellulitis, Pancytopenia Forms Stand Alone Forms: [facility] Prescriptions Prescriptions: No Action latanoprost 0.005 % Drops 1 drp OPB HS nystatin 100,000 unit/mL Suspension 5 ml PO TID Rx Instructions: swish and swallow potassium chloride 10 mEq Capsule, Extended Release 20 meq PO DAILY acetaminophen [Tylenol] 325 mg Tablet 650 mg PO Q4H PRN (Reason: Pain) ondansetron HCl [Zofran] 4 mg Tablet 4 mg PO Q6H PRN (Reason: NAUSEA/VOMITING) sennosides-docusate sodium [Senokot-S] 8.6-50 mg Tablet 1 tab-cap PO QDL PRN (Reason: Constipation) clopidogrel [Plavix] 75 mg Tablet 75 mg PO DAILY ceftriaxone 1 gram Recon Soln 1 g IV DAILY Rx Instructions: UNSURE WHEN STARTED, NOT ON MED LIST magnesium hydroxide [Milk of Magnesia] 400 mg/5 mL Suspension 30 ml PO DAILY PRN (Reason: Constipation) ascorbic acid (vitamin C) [Vitamin C] 500 mg Tablet 500 mg PO BIDM tamsulosin 0.4 mg Capsule 0.4 mg PO DAILY bisacodyl 10 mg Suppository 10 mg NV DAILY PRN (Reason: Constipation) timolol 0.5 % Drops 1 drp OPB BID pantoprazole 40 mg Tablet,Delayed Release (Dr/Ec) 40 mg PO BID Rx Instructions: PRIOR TO MEALS. ferrous sulfate 325 mg (65 mg iron) Tablet 325 mg PO BIDM Humulin R Regular U-100 Insuln 100 unit/mL Solution 1 sliding scale dose SUBCUT ACHS docusate sodium 100 mg Capsule 100 mg PO BID folic acid 1 mg Tablet 1 mg PO DAILY mirtazapine 15 mg Tablet 15 mg PO HS polyethylene glycol 3350 [Miralax] 17 gram/dose Powder 17 g PO QDL PRN (Reason: Constipation) diltiazem HCl 30 mg Tablet 30 mg PO DAILY oxycodone 5 mg Tablet 10 mg PO Q8H PRN (Reason: Pain) enoxaparin [Lovenox] 30 mg/0.3 mL Syringe 30 mg SUBCUT QPM Rx Instructions: GIVEN AT 1900 rosuvastatin 10 mg Tablet 5 mg PO DAILY difluprednate 0.05 % Drops 1 drp OPL DAILY naloxone 4 mg/actuation [place],Non-Aerosol 4 mg INTRANASAL ONCE PRN (Reason: OVERSEDATION) netarsudil 0.02 % Drops 1 drp OPR HS Referrals Referrals: [facility] [Primary Care Provider] -
[2021-11-27] MEDS ORDERED: DEXTROSE 50% 50 ML SYRINGE IV PRN (21:18)
[2021-11-27] MEDS ORDERED: GLUCOSE 10 TAB/TUBE PO PRN (21:18)
[2021-11-27] MEDS ORDERED: CARBOHYDRATES FOR HYPOGLYCEMIA PO PRN (21:18)
[2021-11-27] MEDS ORDERED: GLUCAGON FOR INJ 1 MG VIAL SQ PRN (21:18)
[2021-11-27] MEDS ORDERED: GLUCOSE 40% GEL 15 GM TUBE PO PRN (21:18)
[2021-11-27] MEDS ORDERED: bisacodyL 10 MG SUPP PR PRN (21:18)
[2021-11-27] MEDS: PIPERACILLIN/TAZOBACTAM 4.5 GM in DEXTROSE 5% 100 ML IV SCH (22:17)
[2021-11-27] MEDS: ENOXAPARIN INJ 30 MG/0.3 ML SYR SQ SCH (23:30)
[2021-11-27] MEDS: LATANOPROST 0.005% OP SOLN 2.5 ML BTL OPB SCH (23:31)
[2021-11-27] MEDS: MIRTAZAPINE TAB 15 MG TAB PO SCH (23:31)
[2021-11-27] MEDS: TIMOLOL MALEATE 0.5% OP SOLN 5 ML BTL OPB SCH (23:32)
[2021-11-27] MEDS: DOCUSATE SODIUM 100 MG CAP PO SCH (23:32)
[2021-11-27] MEDS: PANTOprazole 40 MG TAB PO SCH (23:33)
[2021-11-27] MEDS: INSULIN ASPART PER UNIT SC SCH (23:47)
[2021-11-27] MEDS: oxyCODONE HCL IR 5 MG TAB (IMMEDIATE RELEASE) PO PRN (23:51)
[2021-11-28] MEDS: PIPERACILLIN/TAZOBACTAM 4.5 GM in DEXTROSE 5% 100 ML IV SCH ×3 (06:02→21:56)
[2021-11-28] MEDS ORDERED: ROSUVASTATIN CALCIUM 5 MG TAB PO SCH (09:00)
[2021-11-28] MEDS: TAMSULOSIN HCL 0.4 MG CAP PO SCH (09:14)
[2021-11-28] MEDS: FERROUS SULFATE 325 MG TAB PO SCH ×2 (09:15→17:33)
[2021-11-28] MEDS: ACETAMINOPHEN 325 MG TAB PO PRN (09:18)
[2021-11-28] MEDS: ASCORBIC ACID 500 MG TAB PO SCH ×2 (09:19→17:31)
[2021-11-28] MEDS: dilTIAZem HCL 30 MG TAB PO SCH (09:19)
[2021-11-28] MEDS: CLOPIDOGREL BISULFATE 75 MG TAB PO SCH (09:22)
[2021-11-28] MEDS: FOLIC ACID 1 MG TAB PO SCH (09:22)
[2021-11-28] MEDS: PANTOprazole 40 MG TAB PO SCH ×2 (09:23→17:33)
[2021-11-28] MEDS: DOCUSATE SODIUM 100 MG CAP PO SCH ×3 (09:23→21:36)
[2021-11-28] MEDS: TIMOLOL MALEATE 0.5% OP SOLN 5 ML BTL OPB SCH ×2 (09:24→21:26)
[2021-11-28] MEDS: INSULIN ASPART PER UNIT SC SCH ×4 (09:31→21:53)
--- NOTE | 2021-11-28 09:59 | Hospitalist Progress Note ---
Date of Service November 28, 2021 Assessment & Plan (1) Osteomyelitis of foot, left, acute: Plan: Original injury was 8months or greater ago has been complicated by poor vascular supply and faild attempts with arterial bypass to supply the foot Patient with acute on chronic osteomyelitis- without evidence of sepsis - Rocephin [facility]- changed to cover previous known bacteria - Inflammatory markers and procal elevated - Will continue with Zosyn and Dapto for now, pending blood, wound, and urine cx for completeness - Can consider ID consult for assistance with long-term abx treatment when culture data becomes available or pending surgical biopsy/treatment. - Will discuss with [facility] portable irrigation operator--- current recommendations are to attempt to get him back to primary surgeon- attempts at contacting him are not successful at this time - appreciate Orthopaedics assistance - But with radiological evidence of remaining osteo in resected section of calcaneus - WCN consulted - with waffle boots on - Previous surgical records for ortho procedure also requested as below (2) PAD (peripheral artery disease): Plan: - continue statin - Further information regarding his arterial surgery/grating/bypass- obtaining from [facility] [phone]- request fax back to medical surgical keith - consider LANCE/CT with runoffs if will assist with plan (3) Fever: Plan: Sepsis, POA -Multiple different possible etiologies including Osteomyelitis of the left foot, covid +, possible UTI (UA pending) -Covered broadly with Abx at the current time, continue to monitor - As above - All current sources should be covered with the above. If pulmonary source becomes more concern change to Vanco (4) Stage 3b chronic kidney disease (CKD): Plan: With Acute kidney failure on CKD III- however with no baseline renal function available for review - will continue to renally dose medications - avoid further nephrotoxic medications - follow - continue with IVF for support - If worsening continues obtain renal ultrasound and renal lytes (5) Anemia: Plan: Normocytic Anemia- likely related to AOCD and CKD - downtrending this morning - will send iron studies and b12 - rest of cell lines intact and no evidence of bleeding - continue PPI (6) COVID-19: Plan: -Unsure of vaccination status and onset of symptom date - tested on admission -Currently febrile, hemodynamically stable and stable on RA -Continue symptomatic tx for now, start Dex and rem if no contraindications if patient becomes hypoxic - turn cough and deep breathing every 2 hours (7) Hyperkalemia: Plan: -Noted to be 5.4 on admission down to 5.0 this morning following IVF overnight -No acute EKG changes noted -Will give 1L NSS bolus now, monitor on tele, and repeat potassium later this evening (8) HTN (hypertension): Plan: -Will hold ARTIST SCIENTIFIC antihypertensives for now with high risk of hypotensive with current infection (9) Hyperlipidemia: Plan: -ARTIST SCIENTIFIC statin (10) DM II (diabetes mellitus, type II), controlled: Plan: --Goal BSG Range: [id number] mg/dL, High 140mg/dL --Correction Factor: 35mg/dL/unit --Carbohydrate ratio = 11 g/unit --BSGs ACHS if eating, q6h if npo (11) CAD (coronary artery disease): Plan: Uncertain of severity as no records on admission continue with statin- however this is small dose continue with diltiazem (12) Lacunar stroke: Plan: CVA ~7 years ago- facial droop and some weakness -Appears to be at baseline neurologic status - improved mentation and commun ication pollard this morning -Continue plavix - statin as above - Up to a year ago he was self sufficient and since the injury to his foot he has had a decline. (13) Esophagitis: Plan: On going for the past month- consistent with CT scan findings - thrush in mouth - initiate fluconazole 200mg now and then 100mg orally daily - if unable to take oral change to IV (14) Dysphagia: Plan: Likely secondary to esohpagitis- appreciate SOCIAL SERVICES DIRECTOR - Pureed diet - meds with carrier - alternate solids and liquids - oral care treat above Admission and Anticipated Discharge Date Admission Date: November 27, 2021 Supervising Physician Co-Signing Physician Notes GEORGE Supervision Note: I did not personally see or examine the patient today, but I verified all bolton points of GEORGE Mancia's assessment and plan with the following exceptions/additions: None Subjective HD #1 following admission from [facility] where he is a resident following debridement and calcaneal resection for penetrating injury. This appears to have been positive for MRSA and Enterobacter with no culture data or sensitivities for review. The patient original surgery was done by Dr. Singh ([facility]). Patient is currently on Zosyn and Daptomycin as well as he is COVID positive on admission. Following some discussion with the primary team at [facility], they did discuss case with him yesterday and wanted him evaluated at nearest [facility]. The patient remains febrile with blood cultures pending and wound culture pending, biomarkers were elevated on admission with his CRP and PCT, he is mildly leukopenic on admission with improvement in today's labs. Patient remains with ultrasound guided IV access access as well. Following discussion with son- patient has been dealing with this wound on his foot for over the past 8-12 months. This originally occurred while he was walking and stepped on a piece of chewed up aluminum foil from the dog. He continued to have poor healing and was referred to vascular surgery for his PAD, which appears to be severe with son reporting that he has two stents and graft in place but unable to get flow past knee. He has gotten most of this care at [facility] in [place]. I will attempt to get his surgical and Vascular records from them to assist with decision making. Up to a year ago the patient was self sufficient and driving- following his injury his physical abilities declined and he became more sedintary and this led to further cognitive decline. [place] [facility] [place]. Bright appears to be associated with them. Continue skin management with offloading and turning q2 hours Review of Systems Review of Systems: REVIEW OF SYSTEMS: Patient not able to give full review of systems - says his surgery was at [place] - he has no family in the area Physical Exam Physical Exam: Physical Exam: General: In no acute distress, cachectic, chronically ill HEENT: Normocephalic, atraumatic, left pupil is dilated and non-reactive to light (baseline per [facility]), right pupil is round and reactive to light, dry mucus membranes, Chest/Pulm: No respiratory distress, symmetrical chest expansion, weak cough, decreased in the bases Cardiac: S1S2, no murmur, skin is warm and dry, no peripheral edema Abdomen: normoactive bowel sounds, soft, non tender sitting upright in bed Musculoskeletal: patient poor muscle tone, chronic left heel wound with surround erythema, right garcia skin tear noted, patient would move extremities voluntarily but with right weaker than left, pain with palpation to right and left toes Neuro: Alert, sporadically cooperates with neuro exam, history of lacunar stroke difficult exam with his CVA and weakness Psych: No acute distress, calm, not aggressive Skin- left foot with pad to heel, surrounding cellulitis minimal serous sang drainage, toes with black and blue yost on them. Pain to left foot and right foot with palpation. Results & Data Results & Data ([facility]) Vital Signs (Past 12 Hours) Vital Signs Temp Pulse Resp BP BP Pulse Ox O2 Del Method 11/28/21 08:06 39.3 C H 91 H 16 131/77 100 Room Air 11/28/21 06:11 37.8 C H 84 18 113/49 L 100 Room Air 11/27/21 23:25 90 158/46 H 94 Room Air 11/27/21 22:10 100 Room Air 11/27/21 21:30 100 Room Air Laboratory Results Abnormal lab results 11/27/21 11/27/21 11/27/21 Range/Units 13:57 13:57 13:57 WBC 4.57 L (4.8-10.8) K/ul RBC 2.98 L (4.63-6.08) M/uL Hgb 9.3 L (14.0-18.0) g/dl Hct 29.6 L (40.1-51.0) % MCHC 31.4 L (32.0-36.0) g/dL RDW Std Deviation 61.1 H (36.4-46.3) fL RDW Coeff of Rusty 16.9 H (11.5-14.5) % Plt Count 112 L (130-400) K/uL Immature Gran # (Auto) 0.17 H (0.00-0.02) K/uL ESR 44 H (0-20) mm/hr Potassium 5.4 H (3.5-5.1) mmol/L BUN 40 H (6-23) mg/dl Creatinine 2.60 H (0.6-1.4) mg/dl Glucose 209 H (70-99(Fasting)) mg/dl POC Glucose (70-99) mg/dl AST 59 H (13-39) U/L Alkaline Phosphatase 105 H (34-104) U/L C-Reactive Protein 9.21 H (0-0.5) mg/dl Albumin 3.0 L (3.4-5.0) gm/dl Globulin 4.2 H (2.5-4.0) gm/dl Albumin/Globulin Ratio 0.7 L (0.9-2) Procalcitonin (0-0.5) ng/ml Urine Appearance (Clear) Urine Protein (Negative) Urine Ketones (Negative) U Epithel Cells (Auto) (0-5) /lpf Urine Bacteria (Auto) (Negative) SARS-CoV-2, RNA, NAAT (NEGATIVE) 11/27/21 11/27/21 11/27/21 Range/Units 13:57 14:20 18:28 WBC (4.8-10.8) K/ul RBC (4.63-6.08) M/uL Hgb (14.0-18.0) g/dl Hct (40.1-51.0) % MCHC (32.0-36.0) g/dL RDW Std Deviation (36.4-46.3) fL RDW Coeff of Rusty (11.5-14.5) % Plt Count (130-400) K/uL Immature Gran # (Auto) (0.00-0.02) K/uL ESR (0-20) mm/hr Potassium (3.5-5.1) mmol/L BUN (6-23) mg/dl Creatinine (0.6-1.4) mg/dl Glucose (70-99(Fasting)) mg/dl POC Glucose (70-99) mg/dl AST (13-39) U/L Alkaline Phosphatase (34-104) U/L C-Reactive Protein (0-0.5) mg/dl Albumin (3.4-5.0) gm/dl Globulin (2.5-4.0) gm/dl Albumin/Globulin Ratio (0.9-2) Procalcitonin 2.85 H (0-0.5) ng/ml Urine Appearance Cloudy A (Clear) Urine Protein 2+ H (Negative) Urine Ketones Trace H (Negative) U Epithel Cells (Auto) 5-10 H (0-5) /lpf Urine Bacteria (Auto) 1+ H (Negative) SARS-CoV-2, RNA, NAAT POSITIVE A* (NEGATIVE) 11/27/21 11/27/21 11/28/21 Range/Units 20:52 23:23 08:02 WBC (4.8-10.8) K/ul RBC (4.63-6.08) M/uL Hgb (14.0-18.0) g/dl Hct (40.1-51.0) % MCHC (32.0-36.0) g/dL RDW Std Deviation (36.4-46.3) fL RDW Coeff of Rusty (11.5-14.5) % Plt Count (130-400) K/uL Immature Gran # (Auto) (0.00-0.02) K/uL ESR (0-20) mm/hr Potassium (3.5-5.1) mmol/L BUN (6-23) mg/dl Creatinine (0.6-1.4) mg/dl Glucose (70-99(Fasting)) mg/dl POC Glucose 160 H 177 H 166 H (70-99) mg/dl AST (13-39) U/L Alkaline Phosphatase (34-104) U/L C-Reactive Protein (0-0.5) mg/dl Albumin (3.4-5.0) gm/dl Globulin (2.5-4.0) gm/dl Albumin/Globulin Ratio (0.9-2) Procalcitonin (0-0.5) ng/ml Urine Appearance (Clear) Urine Protein (Negative) Urine Ketones (Negative) U Epithel Cells (Auto) (0-5) /lpf Urine Bacteria (Auto) (Negative) SARS-CoV-2, RNA, NAAT (NEGATIVE) Diagnostic Findings Abdomen/Pelvis CT 11/27/21 14:[address] WITHOUT CONTRAST CT DOSE: 477.08 mGycm HISTORY: Acute right lower quadrant abdominal pain RLQ abd pain TECHNIQUE: Multiaxial CT images of the abdomen and pelvis were performed without contrast. A dose lowering technique was utilized adhering to the principles of ALARA. COMPARISON STUDY: None. FINDINGS: Limited exam secondary to upper extremity positioning, respiratory motion artifact and lack of contrast. Trace right pleural effusion. Cardiomegaly with partially imaged pacer leads in extensive coronary artery calcifications. Mild right hemidiaphragmatic elevation. Mild subsegmental bibasilar atelectasis. No pneumatosis or pneumoperitoneum. The unenhanced spleen, moderately atrophic pancreas and adrenal glands are unremarkable. Cholelithiasis without CT evidence of acute cholecystitis. No biliary ductal dilation. Unremarkable liver. No urolith or hydronephrosis. Small amount of air within the urinary bladder lumen. Prostamegaly. Atherosclerosis of the aorta without aneurysm. No lymphadenopathy. Mild nonspecific distal esophageal wall thickening. Mild periesophageal stranding. No bowel obstruction. Normal appendix. Mild inferior rectal wall thickening with trace perirectal stranding. Colonic diverticulosis. Mild wall thickening of the sigmoid is likely chronic. Left upper quadrant varicosities of unknown etiology. Unremarkable soft tissues. Degenerative changes of the spine, pelvis and hips. There is no acute fracture identified. IMPRESSION: 1. No bowel obstruction or pneumoperitoneum. Normal appendix. 2. Colonic diverticulosis without definite CT evidence of acute diverticulitis. 3. Mild rectal wall thickening with trace perirectal stranding. Correlate clinically to exclude a mild proctitis. 4. Cholelithiasis. 5. Trace right pleural effusion. 6. Mild distal esophageal wall thickening may represent esophagitis. 7. Small amount of air within the urinary bladder lumen may be secondary to instrumentation versus gas-forming organism. Correlate with urinalysis. ACT 112: Negative or not required by law. The above report was generated using voice recognition software. It may contain grammatical, syntax or spelling errors. Electronically signed by: Alexx Ordonez M.D. 11/27/2021 3:[address] 11/27/21 14:24 CT foot LT wo con CLINICAL HISTORY: left heel wound recent poss osteo on 11/21 ct COMPARISON STUDY: 11/21/2021 CT DOSE: TECHNIQUE: Standard CT of the left foot is performed without IV contrast. Multiplanar reconstruction is performed. A dose lowering technique was utilized adhering to the principles of ALARA. FINDINGS: Bones: Bones are osteopenic. There is again resection of the dorsal calcaneus with indistinctness of the resection margin. Findings are again most characteristic for osteomyelitis. The remaining bones are intact. There is no evidence for an acute fracture or dislocation. There are no lytic or blastic lesions. Joints: The joint spaces are maintained. The bones are in anatomic alignment. Soft tissues: There is soft tissue deformity present involving the heel. However, there is no longer air within the soft tissues. Findings are again characteristic of cellulitis. There are no focal fluid collections. IMPRESSION: 1. Compared to the previous examination, CT findings are again most characteristic of osteomyelitis involving the resected calcaneal margin. 2. Adjacent cellulitis is present with no evidence for air within the soft tissues. ACT 112: Negative or not required by law. Electronically signed by: Manohar Coto M.D. 11/27/2021 3:47 PM Medications Administered Home Medications acetaminophen 325 mg tablet (Tylenol) 650 mg PO Q4H PRN Pain 11/27/21 [History Confirmed 11/27/21] ascorbic acid (vitamin C) 500 mg tablet (Vitamin C) 500 mg PO BIDM 11/27/21 [History Confirmed 11/27/21] bisacodyl 10 mg rectal suppository [address] DAILY PRN Constipation 11/27/21 [History Confirmed 11/27/21] ceftriaxone 1 gram intravenous solution 1 g IV DAILY 11/27/21 [History Confirmed 11/27/21] clopidogrel 75 mg tablet (Plavix) 75 mg PO DAILY 11/27/21 [History Confirmed 11/27/21] difluprednate 0.05 % eye drops 1 drp OPL DAILY 11/27/21 [History Confirmed 11/27/21] diltiazem HCl 30 mg tablet 30 mg PO DAILY 11/27/21 [History Confirmed 11/27/21] docusate sodium 100 mg capsule 100 mg PO BID 11/27/21 [History Confirmed 11/27/21] enoxaparin 30 mg/0.3 mL subcutaneous syringe (Lovenox) 30 mg subcut QPM 11/27/21 [History Confirmed 11/27/21] ferrous sulfate 325 mg (65 mg iron) tablet 325 mg PO BIDM 11/27/21 [History Confirmed 11/27/21] folic acid 1 mg tablet 1 mg PO DAILY 11/27/21 [History Confirmed 11/27/21] insulin regular human 100 unit/mL injection solution (Humulin R Regular U-100 Insulin) 1 sliding scale dose subcut ACHS 11/27/21 [History Confirmed 11/27/21] latanoprost 0.005 % eye drops 1 drp OPB HS 11/27/21 [History Confirmed 11/27/21] magnesium hydroxide 400 mg/5 mL oral suspension (Milk of Magnesia) 30 ml PO DAILY PRN Constipation 11/27/21 [History Confirmed 11/27/21] mirtazapine 15 mg tablet 15 mg PO HS 11/27/21 [History Confirmed 11/27/21] naloxone 4 mg/actuation nasal spray 4 mg intranasal ONCE PRN OVERSEDATION 11/27/21 [History Confirmed 11/27/21] netarsudil 0.02 % eye drops 1 drp OPR HS 11/27/21 [History Confirmed 11/27/21] nystatin 100,000 unit/mL oral suspension 5 ml PO TID 11/27/21 [History Confirmed 11/27/21] ondansetron HCl 4 mg tablet 4 mg PO Q6H PRN NAUSEA/VOMITING 11/27/21 [History Confirmed 11/27/21] oxycodone 5 mg tablet 10 mg PO Q8H PRN Pain 11/27/21 [History Confirmed 11/27/21] pantoprazole 40 mg tablet,delayed release 40 mg PO BID 11/27/21 [History Confirmed 11/27/21] polyethylene glycol 3350 17 gram/dose oral powder (Miralax) 17 g PO QDL PRN Constipation 11/27/21 [History Confirmed 11/27/21] potassium chloride 10 mEq capsule,extended release 20 meq PO DAILY 11/27/21 [History Confirmed 11/27/21] rosuvastatin 10 mg tablet 5 mg PO DAILY 11/27/21 [History Confirmed 11/27/21] sennosides 8.6 mg-docusate sodium 50 mg tablet (Senokot-S) 1 tab-cap PO QDL PRN Constipation 11/27/21 [History Confirmed 11/27/21] tamsulosin 0.4 mg capsule 0.4 mg PO DAILY 11/27/21 [History Confirmed 11/27/21] timolol 0.5 % eye drops 1 drp OPB BID 11/27/21 [History Confirmed 11/27/21] Active Medications Acetaminophen (Acetaminophen 325 Mg Tab) 650 mg PO Q6H PRN PRN Reason: Pain or Fever Stop: 12/28/21 08:30 Last Admin: 11/28/21 09:18 Dose: 650 mg Ascorbic Acid (Ascorbic Acid 500 Mg Tab) 500 mg PO BIDM ANTIONETTE Stop: 12/28/21 07:59 Last Admin: 11/28/21 09:19 Dose: 500 mg Bisacodyl (Bisacodyl 10 Mg Supp) [address] DAILY PRN PRN Reason: Constipation Stop: 12/27/21 21:17 Clopidogrel Bisulfate (Clopidogrel Bisulfate 75 Mg Tab) 75 mg PO DAILY ANTIONETTE Stop: 12/28/21 08:59 Last Admin: 11/28/21 09:22 Dose: 75 mg Dextrose (Dextrose 50% 50 Ml Syringe) 25 - 50 ml IV UD PRN; Protocol PRN Reason: Hypoglycemia Protocol Stop: 12/27/21 21:17 Diltiazem HCl (Diltiazem Hcl 30 Mg Tab) 30 mg PO DAILY ANTIONETTE Stop: 12/28/21 08:59 Last Admin: 11/28/21 09:19 Dose: 30 mg Docusate Sodium (Docusate Sodium 100 Mg Cap) 100 mg PO BID ANTIONETTE Stop: 12/27/21 21:17 Last Admin: 11/28/21 09:23 Dose: 100 mg Enoxaparin Sodium (Enoxaparin Inj 30 Mg/0.3 Ml Syr) 30 mg SQ Q24H ANTIONETTE Stop: 12/27/21 21:59 Last Admin: 11/27/21 23:30 Dose: 30 mg Ferrous Sulfate (Ferrous Sulfate 325 Mg Tab) 325 mg PO BIDM ANTIONETTE Stop: 12/28/21 07:59 Last Admin: 11/28/21 09:15 Dose: 325 mg Folic Acid (Folic Acid 1 Mg Tab) 1 mg PO DAILY ANTIONETTE Stop: 12/28/21 08:59 Last Admin: 11/28/21 09:22 Dose: 1 mg Glucagon (Glucagon For Inj 1 Mg Vial) 1 mg SQ UD PRN; Protocol PRN Reason: Hypoglycemia Protocol Stop: 12/27/21 21:17 Glucose (Glucose 40% Gel 15 Gm Tube) 15 - 30 gm PO UD PRN; Protocol PRN Reason: Hypoglycemia Protocol Stop: 12/27/21 21:17 Glucose (Glucose 10 Tab/Tube) 4 - 8 tab PO UD PRN; Protocol PRN Reason: Hypoglycemia Treatment Stop: 12/27/21 21:17 Piperacillin Sod/Tazobactam (Sod 4.5 gm/ Dextrose) 120 mls @ 30 mls/hr IV Q8H ANTIONETTE; Protocol Stop: 01/08/22 19:59 Last Admin: 11/28/21 06:02 Dose: 30 mls/hr Daptomycin 400 mg/ Syringe 8 mls @ 4 mls/min IV Q48H ANTIONETTE; Protocol Stop: 01/10/22 15:59 Insulin Aspart (Insulin Aspart Per Unit) 0 units SC ACHS ANTIONETTE Stop: 12/27/21 21:17 Last Admin: 11/28/21 09:31 Dose: 1 units Latanoprost (Latanoprost 0.005% Op Soln 2.5 Ml Btl) 1 drops OPB HS ANTIONETTE Stop: 12/27/21 22:29 Last Admin: 11/27/21 23:31 Dose: 1 drops Mirtazapine (Mirtazapine Tab 15 Mg Tab) 15 mg PO HS ANTIONETTE Stop: 12/27/21 21:17 Last Admin: 11/27/21 23:31 Dose: 15 mg Miscellaneous (Order Awaiting Action: Difluprednate 0.05 % Drops) 1 each N/A QS [facility] Stop: 12/28/21 00:00 Last Admin: 11/28/21 09:13 Dose: Not Given Miscellaneous (Order Awaiting Action: Netarsudil 0.02 % Drops) 1 each N/A QS AN[facility]IONETTE Stop: 12/28/21 00:00 Last Admin: 11/28/21 09:13 Dose: Not Given Miscellaneous (Carbohydrates For Hypoglycemia ) 15 - 30 gm PO UD PRN PRN Reason: Hypoglycemia Protocol Stop: 12/27/21 21:17 Oxycodone HCl (Oxycodone Hcl Ir 5 Mg Tab (Immediate Release)) 10 mg PO Q8H PRN PRN Reason: Severe Pain 7-10 Stop: 12/11/21 21:17 Last Admin: 11/27/21 23:51 Dose: 10 mg Pantoprazole Sodium (Pantoprazole 40 Mg Tab) 40 mg PO BID@0730,1630 [facility] Stop: 12/27/21 22:29 Last Admin: 11/28/21 09:23 Dose: 40 mg Rosuvastatin Calcium (Rosuvastatin Calcium 5 Mg Tab) 5 mg PO DAILY [facility] Stop: 12/28/21 08:59 Tamsulosin HCl (Tamsulosin Hcl 0.4 Mg Cap) 0.4 mg PO DAILY AN[facility]IONETTE Stop: 12/28/21 08:59 Last Admin: 11/28/21 09:14 Dose: 0.4 mg Timolol Maleate (Timolol Maleate 0.5% Op Soln 5 Ml Btl) 1 drops OPB BID ANTIONETTE Stop: 12/27/21 21:17 Last Admin: 08/12/22 09:24 Dose: 1 drops PG Care Time/CCT Total # of Minutes Spent Total Time Spent with Patient: Total time spent is greater than 50% in coordination of care (as documented) at patient's floor/unit and/or counseling patient: Prolonged Care Time 35 minutes prolonged time time spent outside patient dedicated time, discussing with consultants, obt aining outside medical records that are essential to current care, and discussing history and care plan with family Coding Level of Care Code 01130 Subseq Hosp Care Lvl 3 Diagnoses Osteomyelitis of foot, left, acute M86.172 PAD (peripheral artery disease) I73.9 Fever R50.9 Stage 3b chronic kidney disease (CKD) N18.32 Anemia D64.9 Anemia type: unspecified type COVID-19 U07.1 Hyperkalemia E87.5 HTN (hypertension) I10 Hypertension type: unspecified Hyperlipidemia E78.5 Hyperlipidemia type: unspecified DM II (diabetes mellitus, type II), controlled E11.9 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
[2021-11-28 10:36] LABS: Hematocrit (blood only) 25.6 % (40.1-51.0); Hemoglobin 8.1 g/dl (14.0-18.0); Immature Granulocytes % (auto) 1.6 %; Lymphocytes # (auto) 1.44 K/uL (1.2-3.4); Lymphocytes % (auto) 23.5 %; Mean Corpuscular Hemoglobin 30.9 pg (25.0-34.0); Mean Corpuscular Hgb Conc 31.6 g/dL (32.0-36.0); Mean Corpuscular Volume 97.7 fL (80.0-100.0); Mean Platelet Volume 12.1 fL (9.4-12.4); Monocytes # (auto) 0.68 K/uL (0.24-0.82); Monocytes % (auto) 11.1 %; Neutrophils # (auto) 3.92 K/uL (1.4-6.5); Neutrophils % (auto) 63.8 %; Nucleated RBC # (auto) 0.02 K/uL (0-0); Nucleated RBC % (auto) 0.3 %; Platelet Count 106 K/uL (130-400); RDW Coefficient of Variation 17.2 % (11.5-14.5); RDW Standard Deviation 61.6 fL (36.4-46.3); Red Blood Count 2.62 M/uL (4.63-6.08); White Blood Count 6.14 K/ul (4.8-10.8)
[2021-11-28 10:54] LABS: BUN Creatinine Ratio 15.2 (10-20); Calcium 7.9 mg/dl (8.5-10.1); Creatinine Clr Calc Pharmacy 22.2 ml/min; Est GFR (African American) 25.3 ml/min; Est GFR (Non-African American) 21.8 ml/min
[2021-11-28 12:51] LABS: Iron 44 mcg/dl (35-175); Total Iron Binding Cap Calc 125 mcg/dl (250-450); Transferrin (FE) Percent Satur 35 % (20-50); Unsaturated Iron Binding Cap 81 mcg/dl (155-355)
[2021-11-28] MEDS ORDERED: FLUCONAZOLE 100 MG TAB PO ONE (16:34)
[2021-11-28] MEDS ORDERED: DAPTOmycin 400 MG in SYRINGE 0 ML IV SCH (20:00)
--- NOTE | 2021-11-28 20:24 | Communication Note ---
Date of Service: November 28, 2021 patient has some nausea. holding off on antiemetic for now because of prolonged qtc qtc 533 atrial sensed v paced. ordering repeat ecg. holding home remeron.
[2021-11-28] MEDS: LATANOPROST 0.005% OP SOLN 2.5 ML BTL OPB SCH (21:26)
[2021-11-28] MEDS: ENOXAPARIN INJ 30 MG/0.3 ML SYR SQ SCH (21:56)
[2021-11-29] MEDS: PIPERACILLIN/TAZOBACTAM 4.5 GM in DEXTROSE 5% 100 ML IV SCH ×3 (05:38→21:08)
--- NOTE | 2021-11-29 06:01 | Electrocardiogram Report ---
Test Reason : Blood Pressure : / mmHG Vent. Rate : 076 BPM Atrial Rate : 076 BPM P-R Int : 286 ms QRS Dur : 174 ms QT Int : 474 ms P-R-T Axes : 111 -78 098 degrees QTc Int : 533 ms Poor data quality, interpretation may be adversely affected Atrial-sensed ventricular-paced rhythm with prolonged AV conduction Abnormal ECG No previous ECGs available Confirmed by Jarvis Robertson ([id number]) on 11/29/2021 6:01:07 AM Referred By: [facility] Confirmed By:Jarvis Robertson
[2021-11-29] MEDS: DOCUSATE SODIUM 100 MG CAP PO SCH ×2 (08:03→21:11)
[2021-11-29] MEDS: CLOPIDOGREL BISULFATE 75 MG TAB PO SCH (08:04)
[2021-11-29] MEDS: dilTIAZem HCL 30 MG TAB PO SCH (08:04)
[2021-11-29] MEDS: TAMSULOSIN HCL 0.4 MG CAP PO SCH (08:04)
[2021-11-29] MEDS: PANTOprazole 40 MG TAB PO SCH ×2 (08:04→16:29)
[2021-11-29] MEDS: FOLIC ACID 1 MG TAB PO SCH (08:04)
[2021-11-29] MEDS: ASCORBIC ACID 500 MG TAB PO SCH ×2 (08:04→16:28)
[2021-11-29] MEDS: FERROUS SULFATE 325 MG TAB PO SCH ×2 (08:04→16:29)
[2021-11-29] MEDS: TIMOLOL MALEATE 0.5% OP SOLN 5 ML BTL OPB SCH ×2 (08:04→21:11)
[2021-11-29 08:52] LABS: Hematocrit (blood only) 27.2 % (40.1-51.0); Hemoglobin 8.4 g/dl (14.0-18.0); Mean Corpuscular Hemoglobin 30.7 pg (25.0-34.0); Mean Corpuscular Hgb Conc 30.9 g/dL (32.0-36.0); Mean Corpuscular Volume 99.3 fL (80.0-100.0); Nucleated RBC # (auto) 0.03 K/uL (0-0); Nucleated RBC % (auto) 0.5 %; Platelet Count 112 K/uL (130-400); RDW Coefficient of Variation 17.2 % (11.5-14.5); RDW Standard Deviation 63.3 fL (36.4-46.3); Red Blood Count 2.74 M/uL (4.63-6.08); White Blood Count 5.63 K/ul (4.8-10.8)
[2021-11-29] MEDS ORDERED: FLUCONAZOLE 100 MG TAB PO SCH (09:00)
[2021-11-29 09:19] LABS: BUN Creatinine Ratio 14.7 (10-20); C Reactive Protein 12.6 mg/dl (0-0.5); Calcium 8.1 mg/dl (8.5-10.1); Est GFR (African American) 22.3 ml/min; Est GFR (Non-African American) 19.2 ml/min; Potassium 4.4 mmol/L (3.5-5.1)
[2021-11-29 09:23] LABS: Folate (Folic Acid) > 22.30 ng/ml (>5.38)
[2021-11-29 09:24] LABS: Vitamin B12 1235 pg/ml (180-914)
[2021-11-29] MEDS: INSULIN ASPART PER UNIT SC SCH ×4 (10:11→22:27)
--- NOTE | 2021-11-29 12:00 | Electrocardiogram Report ---
Test Reason : Blood Pressure : / mmHG Vent. Rate : 076 BPM Atrial Rate : 076 BPM P-R Int : 300 ms QRS Dur : 178 ms QT Int : 476 ms P-R-T Axes : 082 -80 098 degrees QTc Int : 535 ms Poor data quality, interpretation may be adversely affected Atrial-sensed ventricular-paced rhythm with prolonged AV conduction Abnormal ECG When compared with ECG of 27-NOV-2021 19:37, No significant change was found Confirmed by Alexander Alonso ([id number]) on 11/29/2021 12:00:36 PM Referred By: [facility] Confirmed By:Alexander Alonso
[2021-11-29] MEDS: oxyCODONE HCL IR 5 MG TAB (IMMEDIATE RELEASE) PO PRN (13:17)
--- NOTE | 2021-11-29 15:15 | Consultation Report ---
DATE OF CONSULTATION: 11/29/2021. HISTORY OF PRESENT ILLNESS: This is a 76-year-old gentleman who has had osteomyelitis of his left ca lcaneus for approximately 8 months. He has severe peripheral vascular disease. He was inpatient at [facility] under the care of Rolando Singh DPM and he was last treated with an attempted revascular ization with failed stenting x2 and a partial calcanectomy by Dr. Singh. The patient was at [facility] and noted to have fevers with blood cultures pending and wound cultures pending. Biomarkers were e levated on admission including CRP and procalcitonin. He was admitted to the hospitalist service and Orthopedics was consulted. The patient had prior recommendation for below-knee amputation; however, the patient refused at his last hospitalization. At this time, the patient is more amenable to ampu tation with discussion today. Currently, the patient is amenable to proceeding with surgery. 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 History of MRSA. Recent history of entero b acteremia. PAST SURGICAL HISTORY: 1. Multiple debridements left heel with most recent partial calcanectomy performed by MARIAJOSE Mares. 2. Pacemaker. ALLERGIES: ATORVASTATIN, EZETIMIBE, RIVAROXABAN, SIMVASTATIN, SITAGLIPTIN, SULFAMETHOXAZOLE, TRIMETHO PRIM, LACTOSE. MEDICATIONS: Please note the extensive list is in the medical record. SOCIAL HISTORY: Denies tobacco, alcohol or drug use. He lives at home with his . Walks with a walker. He is legally blind. He is retired. PHYSICAL EXAMINATION: This is a 76-year-old gentleman, lying supine in his hospital room bed. He is awake; however, he is unable to see, he has profound blindness. He answers some questions appropria tely, but most others fail to respond, or answers inappropriately. Focused examination of the left l ower extremity demonstrates multiple ischemic vascular ulcers and eschars, lesser toes. He has a ebni ining chronic appearing heel wound with the soft tissue dressing. Local cellulitis and a serous disc harge. Mild foul odor of the heel. Atrophic appearing skin. Dorsalis pedis and posterior tibial pul ses are nonpalpable. The foot is cool. There is tenderness to palpation of the left heel. Limited range of motion due to discomfort and guarding of the left lower extremity. CT scan reviewed demonstrating local abscess and features consistent with osteomyelitis, left calcane us. IMPRESSION: 1. Sepsis. 2. Osteomyelitis, left calcaneus. 3. Severe peripheral vascular disease with failed stenting. RECOMMENDATION: For left below-knee amputation. Discussed with the patient and discussed with the aramis crocker's son who is his power of claims attorney, Phill. Phill gave consent for the patient to undergo a l eft below-knee amputation, which will be scheduled for tomorrow. He will be n.p.o. after midnight. Consent was signed. Thank you for the opportunity to consult in the care of this patient. Job ID: [id number]
[2021-11-29] MEDS: DAPTOmycin 400 MG in SYRINGE 0 ML IV SCH (16:28)
--- NOTE | 2021-11-29 19:56 | Hospitalist Progress Note ---
Date of Service November 29, 2021 Assessment & Plan (1) Osteomyelitis of foot, left, acute: Plan: Original injury was 8months or greater ago has been complicated by poor vascular supply and failed attempts with arterial bypass to supply the foot Patient with acute on chronic osteomyelitis with evidence of sepsis POA - [facility]- changed to cover previous known bacteria - Inflammatory markers and procal elevated - CRP repeat is increased but procal decreasing mildly - Will continue with Zosyn and Dapto for now, pending blood, wound, and urine cx for completeness -- Urine with yeast currently - Can consider ID consult for assistance with long-term abx treatment when culture data becomes available or pending surgical biopsy/treatment. - Discussed with [facility] ortho - plan for BKA tomorrow. May benefit from 1 unit PRBC during or after. Will hold Plavix and Lovenox until post-op -- appreciate Orthopaedics assistance - But with radiological evidence of remaining osteo in resected section of calcaneus - WCN consulted - with waffle boots on - Previous surgical records for ortho procedure also requested - will obtain them from [facility] as we have received them a few days prior (2) PAD (peripheral artery disease): Plan: - continue statin - Further information regarding his arterial surgery/grating/bypass- obtaining from [facility] [phone] request fax back to medical surgical keith - consider LANCE/CT with runoffs if will assist with plan (3) Fever: Plan: Sepsis, POA -Multiple different possible etiologies including Osteomyelitis of the left foot, covid +, possible UTI (UA pending) -Covered broadly with Abx at the current time, continue to monitor - As above - All current sources should be covered with the above. If pulmonary source becomes more concern change to Vanco (4) Stage 3b chronic kidney disease (CKD): Plan: With Acute kidney failure on CKD III- however with no baseline renal function available for review - will continue to renally dose medications - avoid further nephrotoxic medications - will add gentle hydration - may benefit from one unit PRBC for volume which could help given his chronic anemia and (5) Anemia: Plan: Normocytic Anemia- likely related to AOCD and CKD - downtrending this morning. However at [facility] he baseline Hgb was around 8 and suspect this is baseline - B12/folate WNL; Iron low normal, TIBC 125 and ferriting 1953 - rest of cell lines intact and no evidence of bleeding - continue PPI (6) COVID-19: Plan: -Unsure of vaccination status and onset of symptom date - tested on admission -Currently febrile, hemodynamically stable and stable on RA -Continue asymptomatic tx for now, start Dex and rem if no contraindications if patient becomes hypoxic - turn cough and deep breathing every 2 hours (7) Hyperkalemia: Plan: -Noted to be 5.4 on admission down 4.4 -No acute EKG changes noted -Gentle hydration this evening and monitor labs in AM (8) HTN (hypertension): Plan: -Will hold PLATFORM OPERATIONS DIRECTOR antihypertensives for now with high risk of hypotensive with current infection (9) Hyperlipidemia: Plan: -PLATFORM OPERATIONS DIRECTOR statin (on hold with Dapto) (10) DM II (diabetes mellitus, type II), controlled: Plan: Continue SSI (11) CAD (coronary artery disease): Plan: Uncertain of severity as no records on admission continue with statin- however this is small dose continue with diltiazem (12) Lacunar stroke: Plan: CVA ~7 years ago- facial droop and some weakness -Continue plavix (temp hold for surgery) - statin as above - Up to a year ago he was self sufficient and since the injury to his foot he has had a decline. (13) Esophagitis: Plan: On going for the past month- consistent with CT scan findings. Was on treatment at [facility] - thrush in mouth - will use topical while awaiting improvement in renal function (14) Dysphagia: Plan: Likely secondary to esohpagitis- appreciate MANAGER PLUMBING - Pureed diet - meds with carrier - alternate solids and liquids - oral care treat above Admission and Anticipated Discharge Date Admission Date: November 27, 2021 Supervising Physician Co-Signing Physician Notes CARMEN Supervision Note: I did not personally see or examine the patient today, but I verified all bolton points of CARMEN Delcid's assessment and plan with the following exceptions/additions: None Subjective No acute events overnight. Patient states his foot pain is a bit better right now but did just have a pain medication. He did request something to drink and did assist him with drinking water. No signs of choking or aspiration noted. He remains on RA and vitals stable. Did have a mildly elevating temp this afternoon. They are anticipating a BKA tomorrow with Dr. Zhu. Will add gentle hydration to assist with Cr. He verbalizes no complaints. He is not very interactive which is a change from my visit with him while at [facility]. Discussed with nursing staff and he is generally reluctant to have position changes Review of Systems Review of Systems: 10 point review of systems completed. Unremarkable unless stated above Physical Exam Physical Exam: PHYSICAL EXAM General Appearance: Frail elderly male in NAD, cachectic, chronically ill appearing HEENT: Head is normocephalic/atraumatic; Hearing grossly intact; Mucous membranes dry; visual deficit noted; L pupil dilated and non-reactive Neck: Supple; Trachea midline; Neg JVD Heart: RRR with no M/G/R Lungs: CTA in all lung garcia bilaterally; Respirations unlabored; Neg accessory muscle use Abdomen: Soft, non-tender, non-distended; Positive BS x 4 quadrants Extremities: L heel wound with erythema; L toes with necrotic tissue Neurological: alert and cooperative; responses are slow and need to await answers Psychiatric: Appropriate mood/affect Skin: Normal Color; Warm/Dry; Neg rashes, ecchymosis, lacerations/ulcerations Results & Data Results & Data ([facility]) Vital Signs (Past 12 Hours) Vital Signs Temp Pulse Resp BP Pulse Ox O2 Del Method 11/29/21 16:36 37.7 C H 95 H 17 125/60 96 Room Air 11/29/21 10:54 Room Air 11/29/21 08:02 37.2 C 81 17 125/67 95 Room Air PG Care Time/CCT Total # of Minutes Spent Total Time Spent with Patient: Total time spent is greater than 50% in coordination of care (as documented) at patient's floor/unit and/or counseling patient: Coding Level of Care Code 30925 Subseq Hosp Care Lvl 3 Diagnoses Osteomyelitis of foot, left, acute M86.172 PAD (peripheral artery disease) I73.9 Fever R50.9 Stage 3b chronic kidney disease (CKD) N18.32 Anemia D64.9 Anemia type: unspecified type COVID-19 U07.1 Hyperkalemia E87.5 HTN (hypertension) I10 Hypertension type: unspecified Hyperlipidemia E78.5 Hyperlipidemia type: unspecified DM II (diabetes mellitus, type II), controlled E11.9 Diabetes mellitus grinder and plater insulin use: with mcc use CAD (coronary artery disease) I25.10 Lacunar stroke I63.81 Esophagitis K20.90 Dysphagia R13.10 (1) Anemia Anemia type: unspecified type Qualified Code(s): D64.9 - Anemia, unspecified (2) Hyperlipidemia Hyperlipidemia type: unspecified Qualified Code(s): E78.5 - Hyperlipidemia, unspecified (3) DM II (diabetes mellitus, type II), controlled Diabetes mellitus mcc insulin use: with grinder and plater use (4) HTN (hypertension) Hypertension type: unspecified Qualified Code(s): I10 - Essential (primary) hypertension
[2021-11-29] MEDS ORDERED: SODIUM CHLORIDE 0.9% 1000ML 1,000 ML IV SCH (20:00)
[2021-11-29] MEDS: LATANOPROST 0.005% OP SOLN 2.5 ML BTL OPB SCH (21:11)
[2021-11-30] MEDS ORDERED: Nursing to Pharmacy Communication SCH ×2 (01:00→21:30)
[2021-11-30] MEDS: CLOTRIMAZOLE 10 MG TROCHE BUCCAL SCH ×5 (05:37→18:46)
[2021-11-30] MEDS: PIPERACILLIN/TAZOBACTAM 4.5 GM in DEXTROSE 5% 100 ML IV SCH ×2 (05:37→16:07)
[2021-11-30] MEDS: INSULIN ASPART PER UNIT SC SCH ×4 (06:05→23:15)
[2021-11-30] MEDS: FERROUS SULFATE 325 MG TAB PO SCH ×2 (07:41→16:16)
[2021-11-30] MEDS: ASCORBIC ACID 500 MG TAB PO SCH ×2 (07:41→16:15)
[2021-11-30] MEDS: FOLIC ACID 1 MG TAB PO SCH (07:42)
[2021-11-30] MEDS: dilTIAZem HCL 30 MG TAB PO SCH (07:42)
[2021-11-30] MEDS: TAMSULOSIN HCL 0.4 MG CAP PO SCH (07:42)
[2021-11-30] MEDS: DOCUSATE SODIUM 100 MG CAP PO SCH ×2 (07:42→20:39)
[2021-11-30] MEDS: PANTOprazole 40 MG TAB PO SCH ×2 (07:43→16:18)
[2021-11-30] MEDS: TIMOLOL MALEATE 0.5% OP SOLN 5 ML BTL OPB SCH ×2 (10:04→20:40)
[2021-11-30 12:49] LABS: Hematocrit (blood only) 26.5 % (40.1-51.0); Hemoglobin 8.1 g/dl (14.0-18.0); Mean Corpuscular Hemoglobin 30.9 pg (25.0-34.0); Mean Corpuscular Hgb Conc 30.6 g/dL (32.0-36.0); Mean Corpuscular Volume 101.1 fL (80.0-100.0); Mean Platelet Volume 12.1 fL (9.4-12.4); Nucleated RBC # (auto) 0.03 K/uL (0-0); Nucleated RBC % (auto) 0.5 %; Platelet Count 101 K/uL (130-400); RDW Coefficient of Variation 17.5 % (11.5-14.5); RDW Standard Deviation 63.8 fL (36.4-46.3); Red Blood Count 2.62 M/uL (4.63-6.08); White Blood Count 5.99 K/ul (4.8-10.8)
[2021-11-30 12:55] LABS: BUN Creatinine Ratio 14.8 (10-20); C Reactive Protein 12.95 mg/dl (0-0.5); Calcium 7.8 mg/dl (8.5-10.1); Creatinine Clr Calc Pharmacy 19.2 ml/min; Est GFR (African American) 21.2 ml/min; Est GFR (Non-African American) 18.3 ml/min; Potassium 3.9 mmol/L (3.5-5.1)
--- NOTE | 2021-11-30 14:05 | Communication Note ---
Date of Service: November 30, 2021 Discussed the patient with Susannah Delcid as the patient was tentatively scheduled for a BKA with Dr. Saldana tomorrow. Per Susannah the patient is currently refusing to have surgery. I did inform Susannah that if the patient changes his mind, his anemia will need to be addressed and Type and Screen needs to be ordered priot to surgery. The patient should also have a preop echocardiogram done to assess his systolic function as he has a history of systolic heart failure.
[2021-11-30] MEDS ORDERED: SODIUM CHLORIDE 0.9% 250 ML IV PRN (16:46)
--- NOTE | 2021-11-30 17:31 | Hospitalist Progress Note ---
Date of Service November 30, 2021 Assessment & Plan (1) Osteomyelitis of foot, left, acute: Plan: Original injury was 8months or greater ago has been complicated by poor vascular supply and failed attempts with arterial bypass to supply the foot. -- Presented to [facility] on 10/17 with L heel noted to be open with drainage. He was found to be hypotensive. He was taken to the OR for a partial calcanectomy with debridement and primary closure on 10/19. Prior to this, he underwent stenting for PVD. He did have an arteriogram which showed moderate to severe disease. Angioplasties were performed which improved blood supply but did not completely resolve the LLE concerns. This was done on 10/23. The surgical cultures grew out MRSA and Enterobacter cloace. He completed Zosyn/Cipro/Clinda. He was then transferred to [facility] in [place]. After his stay at [facility] he was transferred to [facility]. His wounds were monitored and concern for worsening of his wounds. Arrangements for F/U with Dr. Bright was attempted but acute hospital admission occurred prior. He did have outpatient CTs while at [facility] concerning for ongoing cellulitis and possible OM. Imaging on admission confirmed these findings. Prior to this movement. He was found to have a UTI and was started on Rocephin for this. His Abx were broadened when arriving here to cover the foot/OM. Long discussion was had between patient, David (son), Froylan (son), and myself. Patient wants all life saving modalities. However, he does not want to have an amputation. He would like to have a discussion of his options before making a final determination. He understand his only option may be amputation but would like to see if there is any further chance for revascularization vs debridement vs other. He does agree, should his life be endangered he would agree to amputation but again would like to see what all options exist. He also agrees that should he not be able to make the decision his sons can do this and can opt to have an amputation. He understands that if acute decompensation occurs this could be rapid. He would want pressor support and emergent modalities utilized to save his life. We discussed revascularization (if even an option) will not cure the infection. We discussed his current medical state. His Cr is currently at 3.11 and he tends to be around 2. This could limit surgical intervention at this time. He is anemic and baseline is around 8. He did agree to blood transf usion. Since he has visual difficulties and arm weakness his son did sign the consent for him. Will transfuse one unit. Will order echo to assess cardiac status. He states he follows with [facility] and had an echo approx. 8-9 months ago. He has an ICD. Will reassess labs in AM to see if transfusion assists with renal function. Also with discussion with sons, they were concerned of a repeat CVA back when he went to [place]. They report they have asked for assessment of this as they report he was completely resolved of residual effects of his previous strokes. Did order Head CT and will see if we have anything we can potentially compare this to as he does have a known previous CVA. We will consult Vascular per request of patient and family. They are aware options may be limited to none as BKA has been recommended by multiple providers. Results of his arteriograms and duplex are in the hospitalists office. Patient's son David would like to be updated as he felt out of the loop when he was initially hospitalized which makes it difficult to assist with his father's care. He wants his father to make the decision he wants but also would like to assist in anyway he can. The son's presence today did assist with more cooperation with medications and repositioning. The son's do question if their father is giving up and do agree that if he would want no aggressive measures they would want to discuss palliative options. Patient with acute on chronic osteomyelitis with evidence of sepsis POA - Inflammatory markers and procal elevated - CRP repeat is increased but procal decreasing mildly - Will continue with Zosyn and Dapto for now -- Urine with yeast currently but denies symptoms (was on prolonged Diflucan for esophagitis/yeast in oral and topical modalities); BCx with NGTD, Foot Surface Wound NGTD - Can consider ID consult for assistance with long-term abx treatment when culture data becomes available or pending surgical biopsy/treatment. -[facility] following - patient does have periods of confusion however is largely coherent and A&O x 3; he would like to have further discussion with orthopedics to better understand his options - WCN consulted - Kin wen on -Have records from [facility] obtained from [facility] in Hospitalist office. If need review please discuss with assigned Hospitalist and can get uploaded into system (2) PAD (peripheral artery disease): Plan: - continue statin - Further information regarding his arterial surgery/grating/bypass- obtaining from [facility] [phone]- request fax back to medical surgical keith - consider LANCE/CT with runoffs if will assist with plan -Consult Vascular as above (3) Fever: Plan: Sepsis, POA -Multiple different possible etiologies including Osteomyelitis of the left foot, covid +, possible UTI (was started on treatment at [facility]) - cx here with yeast -Covered broadly with Abx at the current time, continue to monitor - As above - All current sources should be covered with the above. If pulmonary source becomes more concern change to Vanco - currently no evidence of such (4) Stage 3b chronic kidney disease (CKD): Plan: With Acute kidney failure on CKD III- however with no baseline renal function available for review. Running from 1.5-2 at [facility] - will continue to renally dose medications - avoid further nephrotoxic medications - Will assess if blood transfusion will assess with labs (5) Anemia: Plan: Normocytic Anemia- likely related to AOCD and CKD - At [facility] he baseline Hgb was around 8 and suspect this is baseline - B12/folate WNL; Iron low normal, TIBC 125 and ferritin 1953 - rest of cell lines intact and no evidence of bleeding - continue PPI -Transfuse 1 unit PRBC and reassess labs in AM (6) COVID-19: Plan: -Tested positive on admission; asymptomatic -Currently febrile, hemodynamically stable and stable on RA -Turn cough and deep breathing every 2 hours (7) Hyperkalemia: Plan: -Noted to be 5.4 on admission but currently resolved. Continue to monitor especially in setting of XAVIER (8) HTN (hypertension): Plan: -Will hold SECURITY AND COMPLIANCE PROJECT MANAGER antihypertensives for now with high risk of hypotensive with current infection (9) Hyperlipidemia: Plan: -SECURITY AND COMPLIANCE PROJECT MANAGER statin on hold with Dapto (10) DM II (diabetes mellitus, type II), controlled: Plan: Continue SSI (11) CAD (coronary artery disease): Plan: -Uncertain of severity as no records on admission; does have an ICD -continue with diltiazem (12) Lacunar stroke: Plan: CVA ~7 years ago- facial droop and some weakness -- Uncertain of location of stroke. Repeating Head CT per discussion above -Continue plavix - statin as above - Up to a year ago he was self sufficient and since the injury to his foot he has had a decline. (13) Esophagitis: Plan: On going for the past month- consistent with CT scan findings. Was on treatment at [facility] - thrush in mouth - will use topical while awaiting improvement in renal function -Ultimately will need EGD to reassess. Pt states still a bit bothersome but much improved compared to when this started (14) Dysphagia: Plan: Likely secondary to esohpagitis- appreciate TRANSPLANT RN - Pureed diet - meds with carrier - alternate solids and liquids - oral care treat above Plan Discussion with ortho and vascular so he can make a more informed decision. Wants to avoid amputation. Agrees to amputation should he become more unstable. Please keep lara Hernandez informed of current plan. Again [facility] records are in Hospitalist office and can be obtained for review. Spent 45 minutes in addition to my normal time of care. This includes discussion with patient/family, assessment, intervention, medications, and coordination of care. Admission and Anticipated Discharge Date Admission Date: November 27, 2021 Supervising Physician Co-Signing Physician Notes PA Supervision Note: I did not personally see or examine the patient today, but I verified all bolton points of CARMEN Delcid's assessment and plan with the following exceptions/additions: None Subjective No acute events overnight. Patient is more interactive today and ultimately does not want to have an amputation. He reports his pain is doing well today. He is thirsty and asks for drinks frequently. Cr is elevating but electrolytes stable. Making urine that is pale yellow to slightly dark yellow. He verbalizes no complaints. Had a long conversation with patient, son David, and son Froylan. Please see below for discussion and plan. Review of Systems Review of Systems: 10 point review of systems completed. Unremarkable unless stated above. Physical Exam Physical Exam: PHYSICAL EXAM General Appearance: Frail elderly male in NAD, cachectic, chronically ill appearing; alert and oriented x 3 HEENT: Head is normocephalic/atraumatic; Hearing grossly intact; Mucous membran es dry; visual deficit noted; L pupil dilated and non-reactive Neck: Supple; Trachea midline; Neg JVD Heart: RRR with no M/G/R Lungs: CTA in all lung garcia bilaterally; Respirations unlabored; Neg accessory muscle use Abdomen: Soft, non-tender, non-distended; Positive BS x 4 quadrants Extremities: L heel wound with erythema; L toes with necrotic tissue Neurological: alert and cooperative; responses are slow and need to await answers Psychiatric: Appropriate mood/affect Skin: Normal Color; Warm/Dry Results & Data Results & Data ([facility]) Vital Signs (Past 12 Hours) Vital Signs Pulse Resp BP Pulse Ox O2 Del Method 11/30/21 16:22 87 18 134/65 94 Room Air 11/30/21 10:07 75 16 128/66 96 Room Air PG Care Time/CCT Total # of Minutes Spent Total Time Spent with Patient: Total time spent is greater than 50% in coordination of care (as documented) at patient's floor/unit and/or counseling patient: Prolonged Care Time Spent 45 minutes in addition to my normal time of care. This includes discussion with patient/family, assessment, intervention, medications, and coordination of care. Coding Level of Care Code 40970 Subseq Hosp Care Lvl 3 (25 - SIGNIFICANT, SEPARATELY IDENTIFIABLE ) Diagnoses Osteomyelitis of foot, left, acute M86.172 PAD (peripheral artery disease) I73.9 Fever R50.9 Stage 3b chronic kidney disease (CKD) N18.32 Anemia D64.9 Anemia type: unspecified type COVID-19 U07.1 Hyperkalemia E87.5 HTN (hypertension) I10 Hypertension type: unspecified Hyperlipidemia E78.5 Hyperlipidemia type: unspecified DM II (diabetes mellitus, type II), controlled E11.9 Diabetes mellitus buttermaker helper insulin use: with fci use CAD (coronary artery disease) I25.10 Lacunar stroke I63.81 Esophagitis K20.90 Dysphagia R13.10 (1) Anemia Anemia type: unspecified type Qualified Code(s): D64.9 - Anemia, unspecified (2) Hyperlipidemia Hyperlipidemia type: unspecified Qualified Code(s): E78.5 - Hyperlipidemia, unspecified (3) DM II (diabetes mellitus, type II), controlled Diabetes mellitus fci insulin use: with buttermaker helper use (4) HTN (hypertension) Hypertension type: unspecified Qualified Code(s): I10 - Essential (primary) hypertension
--- NOTE | 2021-11-30 18:11 | CT Scan Report ---
CT OF THE HEAD WITHOUT CONTRAST CLINICAL HISTORY: Mental status changes; previous CVAs COMPARISON STUDY: No previous studies for comparison. CT DOSE: 537.48 mGy.cm TECHNIQUE: Helical axial images of the head were obtained without IV contrast. Automated exposure con trol was utilized for the study. A dose lowering technique was utilized adhering to the principles o f ALARA. FINDINGS: No acute intracranial hemorrhage, midline shift or mass effect is present. Scattered cortic al calcifications are noted. There is a small old infarct within the right occipital lobe. White deisi er hypodensity suggests small vessel disease. The ventricular system is unremarkable. The basal ciste rns are patent. No extra-axial collections are present. There are no findings to suggest acute dural sinus thrombosis or acute territorial infarct. No significant calvarial abnormalities are present. Vi sualized portions of the sinuses and mastoid air cells are clear. IMPRESSION: 1. No acute intracranial findings. 2. Old right occipital lobe infarct. 3. White matter hypodensities which favor small vessel disease. ACT 112: Negative or not required by law. Electronically signed by: Eduin Conley M.D. 11/30/2021 6:09 PM
--- NOTE | 2021-11-30 18:35 | XRay Report ---
XR chest 1V portable CLINICAL HISTORY: pre-operative assessment. Evaluate cardiopulmonary status COMPARISON STUDY: No previous studies for comparison. TECHNIQUE: 1 view of the chest FINDINGS: Single frontal view of the chest demonstrates the cardiomediastinal silhouette to be within normal li mits. Permanent cardiac pacer is in place. The lungs are clear of alveolar opacities. There is no mateusz dence for pleural effusion. There is no evidence for vascular congestion. There is no acute osseous p athology. IMPRESSION: 1. No acute cardiopulmonary disease. ACT 112: Negative or not required by law. Electronically signed by: Manohar Coto M.D. 11/30/2021 6:33 PM
[2021-11-30] MEDS: LATANOPROST 0.005% OP SOLN 2.5 ML BTL OPB SCH (20:40)
[2021-12-01] MEDS: CLOTRIMAZOLE 10 MG TROCHE BUCCAL SCH ×5 (06:08→19:21)
[2021-12-01] MEDS: PIPERACILLIN/TAZOBACTAM 4.5 GM in DEXTROSE 5% 100 ML IV SCH ×2 (06:08→19:18)
--- NOTE | 2021-12-01 08:15 | Hospitalist Progress Note ---
Date of Service December 01, 2021 Assessment & Plan (1) Osteomyelitis of foot, left, acute: Plan: Original injury was 8months or greater ago has been complicated by poor vascular supply and failed attempts with arterial bypass to supply the foot. -- Presented to [facility] on 10/17 with L heel noted to be open with drainage. He was found to be hypotensive. He was taken to the OR for a partial calcanectomy with debridement and primary closure on 10/19. Prior to this, he underwent stenting for PVD. He did have an arteriogram which showed moderate to severe disease. Angioplasties were performed which improved blood supply but did not completely resolve the LLE concerns. This was done on 10/23. The surgical cultures grew out MRSA and Enterobacter cloace. He completed Zosyn/Cipro/Clinda. He was then transferred to [facility] in [place]. After his stay at [facility] he was transferred to [facility]. His wounds were monitored and concern for worsening of his wounds. Arrangements for F/U with Dr. Bright was attempted but acute hospital admission occurred prior. He did have outpatient CTs while at [facility] concerning for ongoing cellulitis and possible OM. Imaging on admission confirmed these findings. Prior to this movement. He was found to have a UTI and was started on Rocephin for this. His Abx were broadened when arriving here to cover the foot/OM. Long discussion was had between patient, David (son), Froylan (son), and myself. Patient wants all life saving modalities. However, he does not want to have an amputation. He would like to have a discussion of his options before making a final determination. He understand his only option may be amputation but would like to see if there is any further chance for revascularization vs debridement vs other. He does agree, should his life be endangered he would agree to amputation but again would like to see what all options exist. He also agrees that should he not be able to make the decision his sons can do this and can opt to have an amputation. He understands that if acute decompensation occurs this could be rapid. He would want pressor support and emergent modalities utilized to save his life. We discussed revascularization (if even an option) will not cure the infection. We discussed his current medical state. His Cr is currently at 3.11 and he tends to be around 2. This could limit surgical intervention at this time. He is anemic and baseline is around 8. He did agree to blood transf usion. Since he has visual difficulties and arm weakness his son did sign the consent for him. Will transfuse one unit. Will order echo to assess cardiac status. He states he follows with [facility] and had an echo approx. 8-9 months ago. He has an ICD. Will reassess labs in AM to see if transfusion assists with renal function. Also with discussion with sons, they were concerned of a repeat CVA back when he went to [place]. They report they have asked for assessment of this as they report he was completely resolved of residual effects of his previous strokes. Did order Head CT and will see if we have anything we can potentially compare this to as he does have a known previous CVA. We will consult Vascular per request of patient and family. They are aware options may be limited to none as BKA has been recommended by multiple providers. Results of his arteriograms and duplex are in the hospitalists office. Patient's son David would like to be updated as he felt out of the loop when he was initially hospitalized which makes it difficult to assist with his father's care. He wants his father to make the decision he wants but also would like to assist in anyway he can. The son's presence today did assist with more cooperation with medications and repositioning. The son's do question if their father is giving up and do agree that if he would want no aggressive measures they would want to discuss palliative options. Patient with acute on chronic osteomyelitis with evidence of sepsis POA - Inflammatory markers and procal elevated - CRP repeat is increased but procal decreasing mildly - Will continue with Zosyn and Dapto for now -- Urine with yeast currently but denies symptoms (was on prolonged Diflucan for esophagitis/yeast in oral and topical modalities); BCx with NGTD, Foot Surface Wound NGTD - Can consider ID consult for assistance with long-term abx treatment when culture data becomes available or pending surgical biopsy/treatment. -UOC following - patient does have periods of confusion however is largely coherent and A&O x 3; he would like to have further discussion with orthopedics to better understand his options - WCN consulted - Kin wen on -Have records from [facility] obtained from [facility] in Hospitalist office. If need review please discuss with assigned Hospitalist and can get uploaded into system 12/01 Patient not NPO as initially had refused surgery and wanting vascular opinion Vascular consulted, no intervention, also XAVIER pre-cludes use of contrast Discussed with Dr Saldana, not able to operate until Wednesday. Stated if Dr Bar wanting/able to perform sooner can -- messaged Dr Bar, awaiting response. Otherwise make NPO after midnight wednesday Will resume AC w/ Lovenox SQ for now Continue Zosyn/Dapto for now Given 1u PRBC for hgb 8.1--> 9.6 and stable. additional unit ordered if needed WBC wnl, afebrile (2) PAD (peripheral artery disease): Plan: - continued statin , cautious use while on dapto and will check CK with AM labs --> placed on HOLD while on Dapto - Further information regarding his arterial surgery/grating/bypass- obtaining from [facility] [phone]- request fax back to medical surgical [facility] - consider LANCE/CT with runoffs if will assist with plan -Consult Vascular as above, no intervention planned (3) Fever: Plan: Sepsis, POA -Multiple different possible etiologies including Osteomyelitis of the left foot, covid +, possible UTI (was started on treatment at [facility]) - cx here with yeast -Covered broadly with Abx at the current time, continue to monitor - As above - All current sources should be covered with the above. If pulmonary source becomes more concern change to Vanco - currently no evidence of such (4) Stage 3b chronic kidney disease (CKD): Plan: With Acute kidney failure on CKD III- however with no baseline renal function available for review. Running from 1.5-2 at [facility] - will continue to renally dose medications - avoid further nephrotoxic medications - Will assess if blood transfusion will assess with labs Cr 3.11--> 2.89 after 1 u PRBC. Still appears dry on exam, will order additional NS @70cc/hr for today and monitor labs in AM (5) Anemia: Plan: Normocytic Anemia- likely related to AOCD and CKD - At [facility] he baseline Hgb was around 8 and suspect this is baseline - B12/folate WNL; Iron low normal, TIBC 125 and ferritin 1953 - rest of cell lines intact and no evidence of bleeding - continue PPI -Transfuse 1 unit PRBC 11/30 and hgb improved to 9.1 Monitor labs in AM (6) COVID-19: Plan: -Tested positive on admission; asymptomatic -Currently febrile, hemodynamically stable and stable on RA -Turn cough and deep breathing every 2 hours 97% on RA< no need for steroids currently Check CRP in AM, ?paxlovid (7) Hyperkalemia: Plan: -Noted to be 5.4 on admission but currently resolved with IVF Continue to monitor especially in setting of XAVIER (8) HTN (hypertension): Plan: -Will hold CLINICAL RESOURCE COORDINATOR antihypertensives for now with high risk of hypotensive with current infection BP stable (9) Hyperlipidemia: Plan: -CLINICAL RESOURCE COORDINATOR statin on hold with Dapto (10) DM II (diabetes mellitus, type II), controlled: Plan: Continue SSI (11) CAD (coronary artery disease): Plan: -Uncertain of severity as no records on admission; does have an ICD -continue with diltiazem ECHO with LV systolic function borderline reduced. EF 45-50%. BOrderline global hypokinesis of left ventricle. Mild concentric LVH. No prior sutdy for comparison (12) Lacunar stroke: Plan: CVA ~7 years ago- facial droop and some weakness -- Uncertain of location of stroke. Repeating Head CT per discussion above --> RIGHT OCCIPITAL LOBE INFARCT, OLD -Continue plavix - statin as above now on hold - Up to a year ago he was self sufficient and since the injury to his foot he has had a decline. (13) Esophagitis: Plan: On going for the past month- consistent with CT scan findings. Was on treatment at [facility] - thrush in mouth - will use topical while awaiting improvement in renal function -Ultimately will need EGD to reassess. 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 Admission and Anticipated Discharge Date Admission Date: November 27, 2021 Supervising Physician Co-Signing Physician Notes PA Supervision Note: I did not personally see or examine the patient today, but I verified all bolton points of CARMEN Lomas's assessment and plan with the following exceptions/additions: None Subjective Evaluated this afternoon. States "feeling crummy" but agreeable to amputation. Discussed Dr Saldana not able to perform until Wednesday now. Patient states he was not yet seen by Dr Saldana today. No pain presently, no fevr/chills, chest pain or shortness of breath. No nausea or vomiting but does endorse generalized weakness. Discussed will reach out to ortho/vascular to see if able to move up surgery at all, otherwise will remain inpatient on IV antibiotics until Wednesday for surgery. Review of Systems Review of Systems: All systems reviewed & are unremarkable except as noted in HPI & below Physical Exam Physical Exam: General Appearance: Frail elderly male, cachectic, chronically ill and fatigued appearing laying flat in bed, NAD; alert and oriented x 3 HEENT: Head is normocephalic/atraumatic; Hearing grossly intact; Mucous membranes dry; visual deficit noted; L pupil dilated and non-reactive Neck: Supple; Trachea midline; Neg JVD Heart: RRR with no M/G/R Lungs: CTA in all lung garcia bilaterally; Respirations unlabored; Neg accessory muscle use Abdomen: Soft, non-tender, non-distended; Positive BS x 4 quadrants Extremities: L heel wound with erythema with opening/drainage; L toes with necrotic tissue most prominently to 2/3/4th toes distally, extremities cool/shiny, non-tender Neurological: alert and cooperative; responses are slow and need to await answers Psychiatric: Appropriate mood/affect Skin: Normal Color; cool, dry Results & Data Results & Data ([facility]) Vital Signs (Past 12 Hours) Vital Signs Temp Pulse Resp BP Pulse Ox 11/30/21 22:39 36.8 C 73 18 122/57 L 96 11/30/21 21:25 37.1 C 82 18 108/61 95 11/30/21 20:55 37.1 C 82 18 108/61 95 11/30/21 20:50 37.5 C 11/30/21 20:25 37.5 C 89 18 135/63 98 Laboratory Results 12/01/21 12/01/2122 Range/Units 12:33 10:43 10:43 WBC 6.57 (4.8-10.8) K/ul RBC 3.21 L (4.63-6.08) M/uL Hgb 9.6 L (14.0-18.0) g/dl Hct 31.1 L (40.1-51.0) % MCV 96.9 (80.0-100.0) fL MCH 29.9 (25.0-34.0) pg MCHC 30.9 L (32.0-36.0) g/dL RDW Std Deviation 60.8 H (36.4-46.3) fL RDW Coeff of Rusty 17.2 H (11.5-14.5) % Plt Count 103 L (130-400) K/uL MPV 12.1 (9.4-12.4) fL Absolute Nucleated RBC 0.02 H (0-0) K/uL Nucleated RBC % (auto) 0.3 % Sodium 145 (136-145) mmol/L Potassium 3.7 (3.5-5.1) mmol/L Chloride 113 H (98-107) mmol/L Carbon Dioxide 22 (21-32) mmol/L Anion Gap 10 (3-11) BUN 43 H (6-23) mg/dl Creatinine 2.89 H (0.6-1.4) mg/dl Est Cr Clr Drug Dosing 20.7 ml/min Est GFR ( Amer) 23.2 ml/min Est GFR (Non-Af Amer) 20.0 ml/min BUN/Creatinine Ratio 14.9 (10-20) Glucose 154 H (70-99(Fasting)) mg/dl POC Glucose 173 H (70-99) mg/dl Calcium 8.0 L (8.5-10.1) mg/dl C-Reactive Protein 12.50 H (0-0.5) mg/dl Blood Type Blood Type Recheck Antibody Screen Crossmatch 12/01/21 11/30/21 11/30/21 Range/Units 09:00 22:32 20:49 WBC (4.8-10.8) K/ul RBC (4.63-6.08) M/uL Hgb (14.0-18.0) g/dl Hct (40.1-51.0) % MCV (80.0-100.0) fL MCH (25.0-34.0) pg MCHC (32.0-36.0) g/dL RDW Std Deviation (36.4-46.3) fL RDW Coeff of Rusty (11.5-14.5) % Plt Count (130-400) K/uL MPV (9.4-12.4) fL Absolute Nucleated RBC (0-0) K/uL Nucleated RBC % (auto) % Sodium (136-145) mmol/L Potassium (3.5-5.1) mmol/L Chloride (98-107) mmol/L Carbon Dioxide (21-32) mmol/L Anion Gap (3-11) BUN (6-23) mg/dl Creatinine (0.6-1.4) mg/dl Est Cr Clr Drug Dosing ml/min Est GFR ( Amer) ml/min Est GFR (Non-Af Amer) ml/min BUN/Creatinine Ratio (10-20) Glucose (70-99(Fasting)) mg/dl POC Glucose 169 H 236 H 203 H (70-99) mg/dl Calcium (8.5-10.1) mg/dl C-Reactive Protein (0-0.5) mg/dl Blood Type Blood Type Recheck Antibody Screen Crossmatch 11/30/21 11/30/21 11/30/21 Range/Units 18:13 17:41 12:06 WBC (4.8-10.8) K/ul RBC (4.63-6.08) M/uL Hgb (14.0-18.0) g/dl Hct (40.1-51.0) % MCV (80.0-100.0) fL MCH (25.0-34.0) pg MCHC (32.0-36.0) g/dL RDW Std Deviation (36.4-46.3) fL RDW Coeff of Rusty (11.5-14.5) % Plt Count (130-400) K/uL MPV (9.4-12.4) fL Absolute Nucleated RBC (0-0) K/uL Nucleated RBC % (auto) % Sodium (136-145) mmol/L Potassium (3.5-5.1) mmol/L Chloride (98-107) mmol/L Carbon Dioxide (21-32) mmol/L Anion Gap (3-11) BUN (6-23) mg/dl Creatinine (0.6-1.4) mg/dl Est Cr Clr Drug Dosing ml/min Est GFR ( Amer) ml/min Est GFR (Non-Af Amer) ml/min BUN/Creatinine Ratio (10-20) Glucose (70-99(Fasting)) mg/dl POC Glucose 195 H (70-99) mg/dl Calcium (8.5-10.1) mg/dl C-Reactive Protein (0-0.5) mg/dl Blood Type O Positive Blood Type Recheck O Positive Antibody Screen NEGATIVE Crossmatch See Detail Diagnostic Findings Chest X-Ray 11/30/21 16:50 XR chest 1V portable CLINICAL HISTORY: pre-operative assessment. Evaluate cardiopulmonary status COMPARISON STUDY: No previous studies for comparison. TECHNIQUE: 1 view of the chest FINDINGS: Single frontal view of the chest demonstrates the cardiomediastinal silhouette to be within normal limits. Permanent cardiac pacer is in place. The lungs are clear of alveolar opacities. There is no evidence for pleural effusion. There is no evidence for vascular congestion. There is no acute osseous pathology. IMPRESSION: 1. No acute cardiopulmonary disease. ACT 112: Negative or not required by law. Electronically signed by: Manohar Coto M.D. 11/30/2021 6:[address] 11/30/21 16:50 CT OF THE HEAD WITHOUT CONTRAST CLINICAL HISTORY: Mental status changes; previous CVAs COMPARISON STUDY: No previous studies for comparison. CT DOSE: 537.48 mGy.cm TECHNIQUE: Helical axial images of the head were obtained without IV contrast. Automated exposure control was utilized for the study. A dose lowering technique was utilized adhering to the principles of ALARA. FINDINGS: No acute intracranial hemorrhage, midline shift or mass effect is present. Scattered cortical calcifications are noted. There is a small old infarct within the right occipital lobe. White matter hypodensity suggests small vessel disease. The ventricular system is unremarkable. The basal cisterns are patent. No extra-axial collections are present. There are no findings to suggest acute dural sinus thrombosis or acute territorial infarct. No significant calvarial abnormalities are present. Visualized portions of the sinuses and mastoid air cells are clear. IMPRESSION: 1. No acute intracranial findings. 2. Old right occipital lobe infarct. 3. White matter hypodensities which favor small vessel disease. ACT 112: Negative or not required by law. Electronically signed by: Eduin Conley M.D. 11/30/2021 6:09 PM PG Care Time/CCT Total # of Minutes Spent Total Time Spent with Patient: Total time spent is greater than 50% in coordination of care (as documented) at patient's floor/unit and/or counseling patient: Coding Level of Care Code 50625 Subseq Hosp Care Lvl 3 Diagnoses Osteomyelitis of foot, left, acute M86.172 PAD (peripheral artery disease) I73.9 Fever R50.9 Stage 3b chronic kidney disease (CKD) N18.32 Anemia D64.9 Anemia type: unspecified type COVID-19 U07.1 Hyperkalemia E87.5 HTN (hypertension) I10 Hypertension type: unspecified Hyperlipidemia E78.5 Hyperlipidemia type: unspecified DM II (diabetes mellitus, type II), controlled E11.9 Diabetes mellitus salvage determiner insulin use: with halfway use CAD (coronary artery disease) I25.10 Lacunar stroke I63.81 Esophagitis K20.90 Dysphagia R13.10 (1) Anemia Anemia type: unspecified type Qualified Code(s): D64.9 - Anemia, unspecified (2) Hyperlipidemia Hyperlipidemia type: unspecified Qualified Code(s): E78.5 - Hyperlipidemia, unspecified (3) DM II (diabetes mellitus, type II), controlled Diabetes mellitus halfway insulin use: with halfway use (4) HTN (hypertension) Hypertension type: unspecified Qualified Code(s): I10 - Essential (primary) hypertension
[2021-12-01] MEDS: INSULIN ASPART PER UNIT SC SCH ×4 (09:04→21:46)
[2021-12-01] MEDS: SODIUM CHLORIDE 0.9% 500 ML IV SCH ×2 (09:18→20:36)
[2021-12-01] MEDS: FERROUS SULFATE 325 MG TAB PO SCH (09:25)
[2021-12-01] MEDS: ASCORBIC ACID 500 MG TAB PO SCH ×2 (09:25→17:39)
[2021-12-01] MEDS: PANTOprazole 40 MG TAB PO SCH ×2 (09:26→17:37)
[2021-12-01] MEDS: CLOPIDOGREL BISULFATE 75 MG TAB PO SCH (09:28)
[2021-12-01] MEDS: DOCUSATE SODIUM 100 MG CAP PO SCH ×2 (09:28→20:37)
[2021-12-01] MEDS: TAMSULOSIN HCL 0.4 MG CAP PO SCH (09:29)
[2021-12-01] MEDS: FOLIC ACID 1 MG TAB PO SCH (09:29)
[2021-12-01] MEDS: TIMOLOL MALEATE 0.5% OP SOLN 5 ML BTL OPB SCH ×2 (09:30→20:38)
--- NOTE | 2021-12-01 09:40 | Consultation ---
Date of Consultation December 01, 2021 Assessment & Plan (1) PAD (peripheral artery disease): Pt with known PAD and admitted with worsening of L heel wound and found to have significant worsening of renal function as well. Unfortunately, severity of XAVIER precludes use of IV contrast for imaging or endovascular evaluation/treatment, d/t risk of complete renal failure. Severe infection in heel does not allow for open bypass surgery(prior to which contrast study would also be required). Pt also seen by Dr Bar today. Does not recommend vascular surgical intervention at this time. Recommends pt consider LLE BKA procedure by ortho. Pt expresses understanding. Dr Bar discussed with pt's son, David, by phone as well. Please call if needed. Patient was seen, examined, and chart reviewed. Agree with exam and treatment plan of the Vascular PA. History of Present Illness Reason for Consultation: PAD, L foot wound Attending Physician: Karin Hayes MD History of Present Illness 76 yo m with multiple medical problems, including PAD, CAD, DMII, HTN, hyperlipidemia, CKD, CVA, anemia, systolic heart failure, admitted with COVID-19 and sepsis from L draining heel wound, seen in consultation today for PAD. Per previous notes, pt has previously been eval and treated at [facility], where he underwent LLE angio with intervention last month in an attempt at limb salvage after pt refused to have LLE BKA. He did undergo debridement of the wound, but it has continued to worsen since discharge. Was seen by ortho earlier this admission and advised to undergo LLE BKA due to extent of infection. Pt himself states he is hoping vascular surgery can do something to save his foot, but is willing to proceed with amputation if no other options. No new vascular imaging was ordered. Pt has not been ambulating since his foot injury. Pt also admitted with acute worsening of renal function, GFR 14. Pt admits fatigue/malaise. Denies fever, chest pain, SOB, abd pain, N/V, other new complaints. Allergies Allergy/AdvReac Type Severity Reaction Status Date / Time atorvastatin Allergy Unknown Unknown Verified 11/27/21 18:05 ezetimibe Allergy Unknown Unknown Verified 11/27/21 18:05 rivaroxaban Allergy Unknown Unknown Verified 11/27/21 18:05 simvastatin Allergy Unknown Unknown Verified 11/27/21 18:05 sitagliptin Allergy Unknown Unknown Verified 11/27/21 18:05 sulfamethoxazole Allergy Unknown Unknown Verified 11/27/21 18:05 [From Bactrim] trimethoprim [From Bactrim] Allergy Unknown Unknown Verified 11/27/21 18:05 lactose AdvReac Unknown Unknown Verified 11/27/21 18:05 Home Medications Medication Instructions Recorded Confirmed Type acetaminophen 325 mg tablet 650 mg PO Q4H PRN Pain 11/27/21 11/27/21 History (Tylenol) ascorbic acid (vitamin C) 500 mg 500 mg PO BIDM 11/27/21 11/27/21 History tablet (Vitamin C) bisacodyl 10 mg rectal suppository 10 mg NC DAILY PRN Constipation 11/27/21 11/27/21 History ceftriaxone 1 gram intravenous 1 g IV DAILY 11/27/21 11/27/21 History solution clopidogrel 75 mg tablet (Plavix) 75 mg PO DAILY 11/27/21 11/27/21 History difluprednate 0.05 % eye drops 1 drp OPL DAILY 11/27/21 11/27/21 History diltiazem HCl 30 mg tablet 30 mg PO DAILY 11/27/21 11/27/21 History docusate sodium 100 mg capsule 100 mg PO BID 11/27/21 11/27/21 History enoxaparin 30 mg/0.3 mL 30 mg subcut QPM 11/27/21 11/27/21 History subcutaneous syringe (Lovenox) ferrous sulfate 325 mg (65 mg 325 mg PO BIDM 11/27/21 11/27/21 History iron) tablet folic acid 1 mg tablet 1 mg PO DAILY 11/27/21 11/27/21 History insulin regular human 100 unit/mL 1 sliding scale dose subcut ACHS 11/27/21 11/27/21 History injection solution (Humulin R Regular U-100 Insulin) latanoprost 0.005 % eye drops 1 drp OPB HS 11/27/21 11/27/21 History magnesium hydroxide 400 mg/5 mL 30 ml PO DAILY PRN Constipation 11/27/21 11/27/21 History oral suspension (Milk of Magnesia) mirtazapine 15 mg tablet 15 mg PO HS 11/27/21 11/27/21 History naloxone 4 mg/actuation nasal spray 4 mg intranasal ONCE PRN 11/27/21 11/27/21 History OVERSEDATION netarsudil 0.02 % eye drops 1 drp OPR HS 11/27/21 11/27/21 History nystatin 100,000 unit/mL oral 5 ml PO TID 11/27/21 11/27/21 History suspension ondansetron HCl 4 mg tablet 4 mg PO Q6H PRN NAUSEA/VOMITING 11/27/21 11/27/21 History oxycodone 5 mg tablet 10 mg PO Q8H PRN Pain 11/27/21 11/27/21 History pantoprazole 40 mg tablet,delayed 40 mg PO BID 11/27/21 11/27/21 History release polyethylene glycol 3350 17 17 g PO QDL PRN Constipation 11/27/21 11/27/21 History gram/dose oral powder (Miralax) potassium chloride 10 mEq 20 meq PO DAILY 11/27/21 11/27/21 History capsule,extended release rosuvastatin 10 mg tablet 5 mg PO DAILY 11/27/21 11/27/21 History sennosides 8.6 mg-docusate sodium 1 tab-cap PO QDL PRN Constipation 11/27/21 11/27/21 History 50 mg tablet (Senokot-S) tamsulosin 0.4 mg capsule 0.4 mg PO DAILY 11/27/21 11/27/21 History timolol 0.5 % eye drops 1 drp OPB BID 11/27/21 11/27/21 History Patient History Medical History Lacunar stroke Systolic heart failure Social History Smoking Status: Never smoker Hx Alcohol Use: No Hx Substance Use: No Preferred Language: Cape Verdean Communication Ability: Impaired Cycle Specialist Required: No Current Living Situation: Alone Current Living Situation Comment: Patient reports living at home alone Feels Safe at Home: Yes Safety Concerns: Feels Safe At This Time Assistive Devices: Walker Review of Systems Review of Systems: All systems reviewed & are unremarkable except as noted in HPI & below Physical Exam Constitutional: + ill appearing (chronically), + thin and + disheveled; not in distress Neck: trachea midline Respiratory: normal respiratory effort, lungs clear to auscultation Auscultation: + diminished lung sounds Cardiovascular: Rate/Rhythm: regular rate and regular rhythm Vessels: femoral pulses present and radial pulses present; + abnormal peripheral pulses Extremities: normal capillary refill Gastrointestinal (Abdomen): Inspection/Auscultation: abdomen normal to inspection and normal bowel sounds Percussion/Palpation: abdomen soft; abdomen nontender Skin: + wound (L heel large open area, purulent drainage) Neurologic: moves all extremities and awake; not confused (mildly confused, repeats questions) Psychiatric: Orientation: alert and oriented x 3 Affect: + irritable affect Results & Data ([facility]) Vital Signs (Past 12 Hours) Vital Signs Temp Pulse Pulse Resp BP BP Pulse Ox 12/01/21 09:05 36.7 C 66 16 159/71 H 97 11/30/21 22:39 36.8 C 73 18 122/57 L 96 11/30/21 21:25 37.1 C 82 18 108/61 95 O2 Del Method 12/01/21 09:05 Room Air 11/30/21 22:39 11/30/21 21:25
[2021-12-01] MEDS: dilTIAZem HCL 30 MG TAB PO SCH (10:50)
[2021-12-01] MEDS: oxyCODONE HCL IR 5 MG TAB (IMMEDIATE RELEASE) PO PRN (10:51)
[2021-12-01 11:18] LABS: Hematocrit (blood only) 31.1 % (40.1-51.0); Hemoglobin 9.6 g/dl (14.0-18.0); Mean Corpuscular Hemoglobin 29.9 pg (25.0-34.0); Mean Corpuscular Hgb Conc 30.9 g/dL (32.0-36.0); Mean Corpuscular Volume 96.9 fL (80.0-100.0); Mean Platelet Volume 12.1 fL (9.4-12.4); Nucleated RBC # (auto) 0.02 K/uL (0-0); Nucleated RBC % (auto) 0.3 %; Platelet Count 103 K/uL (130-400); RDW Coefficient of Variation 17.2 % (11.5-14.5); RDW Standard Deviation 60.8 fL (36.4-46.3); Red Blood Count 3.21 M/uL (4.63-6.08); White Blood Count 6.57 K/ul (4.8-10.8)
[2021-12-01 11:31] LABS: BUN Creatinine Ratio 14.9 (10-20); C Reactive Protein 12.5 mg/dl (0-0.5); Creatinine Clr Calc Pharmacy 20.7 ml/min; Est GFR (African American) 23.2 ml/min; Potassium 3.7 mmol/L (3.5-5.1)
--- NOTE | 2021-12-01 12:30 | XCELERA ---
[id number] \\[id number]
[2021-12-01] MEDS: DAPTOmycin 400 MG in SYRINGE 0 ML IV SCH (17:32)
[2021-12-01] MEDS: LATANOPROST 0.005% OP SOLN 2.5 ML BTL OPB SCH (20:38)
[2021-12-01] MEDS: ENOXAPARIN INJ 30 MG/0.3 ML SYR SQ SCH (21:59)
[2021-12-01] MEDS ORDERED: SODIUM CHLORIDE 0.9% 1000ML 250 ML IV ONE (23:56)
[2021-12-02] MEDS: CLOTRIMAZOLE 10 MG TROCHE BUCCAL SCH ×5 (06:16→18:24)
[2021-12-02] MEDS: PIPERACILLIN/TAZOBACTAM 4.5 GM in DEXTROSE 5% 100 ML IV SCH ×3 (06:16→21:54)
[2021-12-02] MEDS: SODIUM CHLORIDE 0.9% 500 ML IV SCH ×2 (06:19→09:30)
[2021-12-02] MEDS: oxyCODONE HCL IR 5 MG TAB (IMMEDIATE RELEASE) PO PRN ×2 (09:26→22:18)
[2021-12-02] MEDS: INSULIN ASPART PER UNIT SC SCH ×4 (09:27→22:12)
[2021-12-02] MEDS: dilTIAZem HCL 30 MG TAB PO SCH (09:29)
[2021-12-02] MEDS: PANTOprazole 40 MG TAB PO SCH ×2 (09:29→16:05)
[2021-12-02] MEDS: DOCUSATE SODIUM 100 MG CAP PO SCH ×2 (09:29→21:53)
[2021-12-02] MEDS: FOLIC ACID 1 MG TAB PO SCH (09:29)
[2021-12-02] MEDS: CLOPIDOGREL BISULFATE 75 MG TAB PO SCH (09:29)
[2021-12-02] MEDS: ASCORBIC ACID 500 MG TAB PO SCH ×2 (09:29→16:05)
[2021-12-02] MEDS: TAMSULOSIN HCL 0.4 MG CAP PO SCH (09:29)
[2021-12-02] MEDS: TIMOLOL MALEATE 0.5% OP SOLN 5 ML BTL OPB SCH ×2 (09:30→21:53)
[2021-12-02 09:57] LABS: Basophils # (auto) 0.02 K/uL (0-0.2); Basophils % (auto) 0.3 %; Eosinophils % (auto) 1.7 %; Hematocrit (blood only) 30.2 % (40.1-51.0); Hemoglobin 9.4 g/dl (14.0-18.0); Immature Granulocytes % (auto) 1.7 %; Lymphocytes # (auto) 1.71 K/uL (1.2-3.4); Lymphocytes % (auto) 29.4 %; Mean Corpuscular Hemoglobin 30.3 pg (25.0-34.0); Mean Corpuscular Hgb Conc 31.1 g/dL (32.0-36.0); Mean Corpuscular Volume 97.4 fL (80.0-100.0); Mean Platelet Volume 11.6 fL (9.4-12.4); Monocytes # (auto) 0.74 K/uL (0.24-0.82); Monocytes % (auto) 12.7 %; Neutrophils # (auto) 3.14 K/uL (1.4-6.5); Neutrophils % (auto) 54.2 %; Platelet Count 103 K/uL (130-400); RDW Coefficient of Variation 17.3 % (11.5-14.5); RDW Standard Deviation 61.1 fL (36.4-46.3); White Blood Count 5.81 K/ul (4.8-10.8)
[2021-12-02 10:10] LABS: Albumin Globulin Ratio 0.6 (0.9-2); Albumin Level 2.4 gm/dl (3.4-5.0); BUN Creatinine Ratio 15.2 (10-20); Bilirubin,Total 0.7 mg/dl (0.2-1.0); C Reactive Protein 8.94 mg/dl (0-0.5); Creatinine Clr Calc Pharmacy 25.9 ml/min; Est GFR (African American) 30.4 ml/min; Est GFR (Non-African American) 26.3 ml/min; Globulin 3.7 gm/dl (2.5-4.0); Magnesium 2.1 mg/dl (1.7-2.4); Potassium 3.5 mmol/L (3.5-5.1); Total Protein 6.1 gm/dl (6.0-8.3)
[2021-12-02] MEDS ORDERED: SODIUM CHLORIDE 0.45 % 1,000 ML IV SCH (11:30)
[2021-12-02] MEDS ORDERED: SODIUM CHLOR 0.45% + 20MEQ KCL 20 MEQ/1,000 ML BAG IV SCH (12:15)
--- NOTE | 2021-12-02 12:16 | Hospitalist Progress Note ---
Date of Service December 02, 2021 Assessment & Plan (1) Osteomyelitis of foot, left, acute: Plan: Original injury was 8months or greater ago has been complicated by poor vascular supply and failed attempts with arterial bypass to supply the foot. -- Presented to [facility] on 10/17 with L heel noted to be open with drainage. He was found to be hypotensive. He was taken to the OR for a partial calcanectomy with debridement and primary closure on 10/19. Prior to this, he underwent stenting for PVD. He did have an arteriogram which showed moderate to severe disease. Angioplasties were performed which improved blood supply but did not completely resolve the LLE concerns. This was done on 10/23. The surgical cultures grew out MRSA and Enterobacter cloace. He completed Zosyn/Cipro/Clinda. He was then transferred to [facility] in [place]. After his stay at [facility] he was transferred to [facility]. His wounds were monitored and concern for worsening of his wounds. Arrangements for F/U with Dr. Bright was attempted but acute hospital admission occurred prior. He did have outpatient CTs while at [facility] concerning for ongoing cellulitis and possible OM. Imaging on admission confirmed these findings. Prior to this movement. He was found to have a UTI and was started on Rocephin for this. His Abx were broadened when arriving here to cover the foot/OM. Patient with acute on chronic osteomyelitis with evidence of sepsis POA Imaging with CT w/ findings most characteristic of osteomyelitis involving the resected calcaneal margin. Patient wanting all life saving modalities but initially declined amputation. Now agreeable however was not NPO and surgery put off until later this week Given 1u PRBC for hgb 8.1 and repeat hgb stable ECHO w/ LV systolic function borderline reduced (EF 45-50%), borderline global hypokineses of LV. Mild concentric LVH. Has ICD. (Last echo altoona 8-9 months ago) Vascular consulted in patient with PAD to see if any intervention to restore blood flow. No intervention Orthopedics on consult -- possible surgery on Wednesday unless able to perform sooner with Dr Hairston General surgery consulted for SACRAL ULCER, likely long standing but possible need for debridement ?coordination for BKA and debridement Per surgery, scheduled for to ensure time available but may want to wait couple more days given recent +COVID testing. Otherwise pending 24/[address] Saldana for amputation and can follow along for sacral wound Continue Daptomycin/Zosyn for now WBC wnl, afebrile Continue IVF, changed to 1/2NS +20k for 500cc/hr today as Cr improving and still slightly dehydrated on exam BCx NGTD CRP trending down Wound RN consulted Consider consult w/ ID pending course Continue Lovenox SQ for DVT prophylaxis Have records from [facility] obtained from [facility] in Hospitalist office. If need review please discuss with assigned Hospitalist and can get uploaded into system Continued inpatient stay awaiting surgery plans (2) Sacral ulcer: Plan: On admission, not initially noted by provider but documented by nursing. Likely from prolonged hospitalizations/rehab and wound RN saw patient 12/01 Discussed with wound RN, and possible need for debridement Discussed with general surgery, consult placed for Dr Hairston, and possible debridement with amputation on vs later given recent +COVID (3) PAD (peripheral artery disease): Plan: Continued statin on admit, placed on hold while on Dapto - Further information regarding his arterial surgery/grating/bypass- obtaining from [facility] [phone]- request fax back to medical surgical keith - consider LANCE/CT with runoffs if will assist with plan -Consult Vascular as above, no intervention planned (4) Fever: Plan: Sepsis, POA Multiple different possible etiologies including Osteomyelitis of the left foot, covid +, possible UTI (was started on treatment at [facility]) - cx here with yeast ALSO W SACRAL ULCER ABOVE Continue abx, no further fevers (5) Stage 3b chronic kidney disease (CKD): Plan: With Acute kidney failure on CKD III- however with no baseline renal function available for review. Running from 1.5-2 at [facility] - will continue to renally dose medications - avoid further nephrotoxic medications - Will assess if blood transfusion will assess with labs Cr 3.11--> 2.89 after 1 u PRBC on 12/01 Given 500cc NSS on 12/01 with improvement in Cr to 2.31 Changed to 1/2NS +20 k for another 500cc and will monitor BMP in AM (6) Anemia: Plan: Normocytic Anemia- likely related to AOCD and CKD At [facility] he baseline Hgb was around 8 and suspect this is baseline - B12/folate WNL; Iron low normal, TIBC 125 and ferritin 1953 (ferritin likely elevated, reactive 2nd to infection/COVID) - rest of cell lines intact and no evidence of bleeding Continue PPI s/p 1 u PRBC on 11/30 and repeat hgb stable additional unit on hold if needed Monitor for bleeding (7) COVID-19: Plan: Tested positive on admission; asymptomatic -Currently febrile, hemodynamically stable and stable on RA Turn cough and deep breathing every 2 hours (declines repositioning at times) 95% on RA< no need for steroids currently Check CRP in AM-- trending down Out of window for paxlovid Incentive spirometer encouraged (8) Hyperkalemia: Plan: Noted to be 5.4 on admission but currently resolved with IVF and added to IVF given K 3.5 on AM labs Monitor labs (9) HTN (hypertension): Plan: Will hold [employer] antihypertensives for now with high risk of hypotensive with current infection BP stable 149/73 (10) Hyperlipidemia: Plan: Statin on hold with Dapto (11) DM II (diabetes mellitus, type II), controlled: Plan: Continue SSI, BSGs improved and acceptable (12) CAD (coronary artery disease): Plan: Uncertain of severity as no records on admission; does have an ICD -continue with diltiazem ECHO with LV systolic function borderline reduced. EF 45-50%. Borderline global hypokinesis of left ventricle. Mild concentric LVH. No prior study for comparison Continues on plavix, statin on hold while on dapto no MAREK/ARB given CKD. On cardizem, no BB No CP/SOb reported (13) Lacunar stroke: Plan: CVA ~7 years ago- facial droop and some weakness -- Uncertain of location of stroke. Repeating Head CT per discussion above --> RIGHT OCCIPITAL LOBE INFARCT, OLD -Continue plavix - statin as above now on hold - Up to a year ago he was self sufficient and since the injury to his foot he has had a decline. (14) Esophagitis: Plan: On going for the past month- consistent with CT scan findings. Was on treatment at [facility] and [facility] Thrush in mouth - will use topical while awaiting improvement in renal function --> improving and will continue current Ultimately will need EGD to reassess. Pt states still a bit bothersome but much improved compared to when this started (15) Dysphagia: Plan: Likely secondary to esohpagitis- appreciate DIRECTOR MISSION - Pureed diet - meds with carrier - alternate solids and liquids - oral care treat above Plan Continued inpatient stay on abx while awaiting surgery Wednesday with Dr Saldana unless Dr Bar able to do sooner as patient agreeable to amputation now that no vascular intervention planned to help restore any blood flow/improvement in healing Updated son David 12/01, will call again later once surgery consultation completed regarding plan vs tomorrow (reported no updates when in prior facilities other than d/c planning -- please keep informed) Again, [facility] records are in Hospitalist office and can be obtained for review. Admission and Anticipated Discharge Date Admission Date: November 27, 2021 Supervising Physician Co-Signing Physician Notes Attending Attestation - Chart reviewed in detail, care plan d/w CARMEN Lomas. I agree with the bolton components of her documentation. Mike Noland MD Subjective Evaluated this morning, laying in bed, no acute distress. Still states he feels "terrible". Discussed sacrum, denies pain but irritable to allow for visualization. Discussed will reach out to general surgery as this may need debrided. He wouldn't want this done today as he is in a bad mood but will talk with the surgeon to see if needed. Also discussed same surgeon may consider doing amputation earlier in the week but will have to see how things progress. Denies fever/chills, chest pain, shortness of breath or abdominal pain. No nausea/vomiting but not great appetite. Updated son of plan last evening with delayed timing of surgery. He is on board with doing whatever his dad is agreeable for. Will need to update regarding sacral wound/possible need for debridement. Physical Exam Physical Exam: General: Frail, chronically ill appearing male laying in bed, NAD HEENT: normocephalic, atraumatic, L pupil dilated and non-reactive, mm slightly dry, trachea midline without deviation Resp: diminished in the bases, no w/c/r, on room air CV: RRR, no mr/g, no calf tenderness, cap refill prolonged, pulses diminished b/l LE GI: +BS, scaphoid, nontender : morales draining yellow urine MSK/Neuro: moves extremities, generalized muscular atrophy, R sided weakness (reported from prior CVA), Skin: extremities cool/shiny LLE with eschar/HEEL wound, slightly tender to palpation LLE foot with eschar on multiple toes (see wound imaging), non-tender to palpation, no spreading erythema Psych: alert to person/place/year, irritable, intermittent confusion to time Results & Data Results & Data ([facility]) Vital Signs (Past 12 Hours) Vital Signs Temp Pulse Resp BP Pulse Ox O2 Del Method 12/02/21 10:26 Room Air 12/02/21 08:51 36.7 C 89 16 149/73 H 95 Room Air 12/02/21 00:30 121/49 L Laboratory Results 12/02/21 12/02/21 12/02/21 Range/Units 13:00 09:15 09:15 WBC 5.81 (4.8-10.8) K/ul RBC 3.10 L (4.63-6.08) M/uL Hgb 9.4 L (14.0-18.0) g/dl Hct 30.2 L (40.1-51.0) % MCV 97.4 (80.0-100.0) fL MCH 30.3 (25.0-34.0) pg MCHC 31.1 L (32.0-36.0) g/dL RDW Std Deviation 61.1 H (36.4-46.3) fL RDW Coeff of Rusty 17.3 H (11.5-14.5) % Plt Count 103 L (130-400) K/uL MPV 11.6 (9.4-12.4) fL Immature Gran % (Auto) 1.7 % Neut % (Auto) 54.2 % Lymph % (Auto) 29.4 % Adams % (Auto) 12.7 % Eos % (Auto) 1.7 % Baso % (Auto) 0.3 % Neut # (Auto) 3.14 (1.4-6.5) K/uL Lymph # (Auto) 1.71 (1.2-3.4) K/uL Adams # (Auto) 0.74 (0.24-0.82) K/uL Eos # (Auto) 0.10 (0-0.50) K/uL Baso # (Auto) 0.02 (0-0.2) K/uL Immature Gran # (Auto) 0.10 H (0.00-0.02) K/uL Sodium 146 H (136-145) mmol/L Potassium 3.5 (3.5-5.1) mmol/L Chloride 117 H (98-107) mmol/L Carbon Dioxide 20 L (21-32) mmol/L Anion Gap 9 (3-11) BUN 35 H (6-23) mg/dl Creatinine 2.31 H D (0.6-1.4) mg/dl Est Cr Clr Drug Dosing 25.9 ml/min Est GFR ( Amer) 30.4 ml/min Est GFR (Non-Af Amer) 26.3 ml/min BUN/Creatinine Ratio 15.2 (10-20) Glucose 142 H (70-99(Fasting)) mg/dl POC Glucose 132 H (70-99) mg/dl Calcium 8.0 L (8.5-10.1) mg/dl Magnesium 2.1 (1.7-2.4) mg/dl Total Bilirubin 0.7 (0.2-1.0) mg/dl AST 29 (13-39) U/L ALT 13 (7-52) U/L Alkaline Phosphatase 76 (34-104) U/L Total Creatine Kinase 117 (30-223) U/L C-Reactive Protein 8.94 H (0-0.5) mg/dl Total Protein 6.1 (6.0-8.3) gm/dl Albumin 2.4 L (3.4-5.0) gm/dl Globulin 3.7 (2.5-4.0) gm/dl Albumin/Globulin Ratio 0.6 L (0.9-2) 12/02/21 12/02/21 12/01/21 Range/Units 08:44 00:01 20:45 WBC (4.8-10.8) K/ul RBC (4.63-6.08) M/uL Hgb (14.0-18.0) g/dl Hct (40.1-51.0) % MCV (80.0-100.0) fL MCH (25.0-34.0) pg MCHC (32.0-36.0) g/dL RDW Std Deviation (36.4-46.3) fL RDW Coeff of Rusty (11.5-14.5) % Plt Count (130-400) K/uL MPV (9.4-12.4) fL Immature Gran % (Auto) % Neut % (Auto) % Lymph % (Auto) % Adams % (Auto) % Eos % (Auto) % Baso % (Auto) % Neut # (Auto) (1.4-6.5) K/uL Lymph # (Auto) (1.2-3.4) K/uL Adams # (Auto) (0.24-0.82) K/uL Eos # (Auto) (0-0.50) K/uL Baso # (Auto) (0-0.2) K/uL Immature Gran # (Auto) (0.00-0.02) K/uL Sodium (136-145) mmol/L Potassium (3.5-5.1) mmol/L Chloride (98-107) mmol/L Carbon Dioxide (21-32) mmol/L Anion Gap (3-11) BUN (6-23) mg/dl Creatinine (0.6-1.4) mg/dl Est Cr Clr Drug Dosing ml/min Est GFR ( Amer) ml/min Est GFR (Non-Af Amer) ml/min BUN/Creatinine Ratio (10-20) Glucose (70-99(Fasting)) mg/dl POC Glucose 152 H 155 H 154 H (70-99) mg/dl Calcium (8.5-10.1) mg/dl Magnesium (1.7-2.4) mg/dl Total Bilirubin (0.2-1.0) mg/dl AST (13-39) U/L ALT (7-52) U/L Alkaline Phosphatase (34-104) U/L Total Creatine Kinase (30-223) U/L C-Reactive Protein (0-0.5) mg/dl Total Protein (6.0-8.3) gm/dl Albumin (3.4-5.0) gm/dl Globulin (2.5-4.0) gm/dl Albumin/Globulin Ratio (0.9-2) 12/01/21 Range/Units 17:34 WBC (4.8-10.8) K/ul RBC (4.63-6.08) M/uL Hgb (14.0-18.0) g/dl Hct (40.1-51.0) % MCV (80.0-100.0) fL MCH (25.0-34.0) pg MCHC (32.0-36.0) g/dL RDW Std Deviation (36.4-46.3) fL RDW Coeff of Rusty (11.5-14.5) % Plt Count (130-400) K/uL MPV (9.4-12.4) fL Immature Gran % (Auto) % Neut % (Auto) % Lymph % (Auto) % Adams % (Auto) % Eos % (Auto) % Baso % (Auto) % Neut # (Auto) (1.4-6.5) K/uL Lymph # (Auto) (1.2-3.4) K/uL Adams # (Auto) (0.24-0.82) K/uL Eos # (Auto) (0-0.50) K/uL Baso # (Auto) (0-0.2) K/uL Immature Gran # (Auto) (0.00-0.02) K/uL Sodium (136-145) mmol/L Potassium (3.5-5.1) mmol/L Chloride (98-107) mmol/L Carbon Dioxide (21-32) mmol/L Anion Gap (3-11) BUN (6-23) mg/dl Creatinine (0.6-1.4) mg/dl Est Cr Clr Drug Dosing ml/min Est GFR ( Amer) ml/min Est GFR (Non-Af Amer) ml/min BUN/Creatinine Ratio (10-20) Glucose (70-99(Fasting)) mg/dl POC Glucose 165 H (70-99) mg/dl Calcium (8.5-10.1) mg/dl Magnesium (1.7-2.4) mg/dl Total Bilirubin (0.2-1.0) mg/dl AST (13-39) U/L ALT (7-52) U/L Alkaline Phosphatase (34-104) U/L Total Creatine Kinase (30-223) U/L C-Reactive Protein (0-0.5) mg/dl Total Protein (6.0-8.3) gm/dl Albumin (3.4-5.0) gm/dl Globulin (2.5-4.0) gm/dl Albumin/Globulin Ratio (0.9-2) PG Care Time/CCT Total # of Minutes Spent Total Time Spent with Patient: Total time spent is greater than 50% in coordination of care (as documented) at patient's floor/unit and/or counseling patient: Coding Level of Care Code 65540 Subseq Hosp Care Lvl 3 Diagnoses Osteomyelitis of foot, left, acute M86.172 Sacral ulcer L98.429 PAD (peripheral artery disease) I73.9 Fever R50.9 Stage 3b chronic kidney disease (CKD) N18.32 Anemia D64.9 Anemia type: unspecified type COVID-19 U07.1 Hyperkalemia E87.5 HTN (hypertension) I10 Hypertension type: unspecified Hyperlipidemia E78.5 Hyperlipidemia type: unspecified DM II (diabetes mellitus, type II), controlled E11.9 Diabetes mellitus half-way insulin use: with termite control technician use CAD (coronary artery disease) I25.10 Lacunar stroke I63.81 Esophagitis K20.90 Dysphagia R13.10 (1) Anemia Anemia type: unspecified type Qualified Code(s): D64.9 - Anemia, unspecified (2) Hyperlipidemia Hyperlipidemia type: unspecified Qualified Code(s): E78.5 - Hyperlipidemia, unspecified (3) DM II (diabetes mellitus, type II), controlled Diabetes mellitus termite control technician insulin use: with termite control technician use (4) HTN (hypertension) Hypertension type: unspecified Qualified Code(s): I10 - Essential (primary) hypertension
--- NOTE | 2021-12-02 12:36 | Surgery Consultation ---
Date of Consultation December 02, 2021 Assessment & Plan (1) Osteomyelitis of foot, left, acute: This is a 76y M with a PMH of stroke, CKD, CAD, DM2, HTN, osteomyelitis of foot, who presented to the [facility] on 11/27/21 from [facility] with fevers and non healing LLE wound present for the last 8-12 months. On this visit a CT foot revealed osteomyelitis involving the resected calcaneal margin with adjacent cellulitis. Due to severe PAD and kidney disease it has been recommended by multiple providers that the best course of action would be for patient to undergo a L BKA. On exam patient's foot is tender, primarily on the heal where there is an open draining wound, along with noted eschars on multiple toes. Re viewed sacral ulcer pictures in patient's chart. Discussed with wound care team and will try to coordinate examination of the wound together tomorrow. Patient is also Covid-19 + this admission (11/27), but is asymptomatic, on room air, and not requiring any treatment for it at this time. We will discuss with hospitalist if patient would be a candidate for dual procedure on which would consist of a left BKA, possible Left AKA, with possible sacral wound debridement. Due to patient's Covid status it would be more ideal to wait for him to be fully recovered from this. If deemed okay from hospitalist standpoint and if recommended that urgent surgical intervention outweighs the risks of performing the procedures on top of + covid diagnosis, then we will tentatively place patient on the schedule for this upcoming . This will be with Dr. Hairston and largely dependent on patient's clinical status over the next 24- 48 hours. Otherwise if we do not proceed, we can monitor patient's sacral wound based on wound care's recommendations and ortho can proceed with L BKA as previously planned as their schedule allows. (2) PAD (peripheral artery disease): Patient examined confused regarding time and place appears in no distress left lower extremity as stated by Hillary Gonzales physician trust administrative assistant The chart was reviewed all the lab was evaluated x-ray seen spoke with his son Phill at [phone] and also Dr. Marlow my recommendation was to proceed with amputation prime concern below-knee amputation would not heal therefore I would most likely proceed with left AKA amputation discussed this with the son who felt the same way that the patient is not ambulatory much anymore and he rather have 1 surgery and have it heal rather than attempt a BK amputation that may not heal and will require an AKA amputation Even if we would proceed with a BKA and it would heal the patient I doubt would use and be able to use a prosthesis Regarding his COVID situation Dr. Marlow felt that the risk of waiting outweigh the risk from COVID complication Regarding the sacral decubiti at this time it is felt that it could be managed without debridement Surgery schedule for tomorrow for amputation (3) Sacral ulcer: Supervising Physician Co-Signing Physician Notes CARMEN Supervision Note: I did not personally see or examine the patient today, but I verified all bolton points of CARMEN Lomas's assessment and plan with the following exceptions/additions: None History of Present Illness Attending Physician: Mike Noland History of Present Illness This is a 76y M with a PMH of stroke, CKD, CAD, DM2, HTN, osteomyelitis of foot, who presented to the [facility] on 11/27/21 from [facility] with fevers. Of note majority of HPI is obtained from chart review and discussion with hospitalists as patient is a poor historian and appears mildly confused during my visit. It appears his left foot wound has been present over the last 8-12 months and due to peripheral arterial disease has had poor wound healing. He apparently underwent a calcanectomy on 10/19 and has had failed attempts of revascularization thereafter. He was recently at [facility] and due to worsening wound and fevers was brought here. A CT of the foot revealed osteomyelitis involving the resected calcaneal margin with adjacent cellulitis. Apparently patient was suppose to undergo left BKA yesterday, however the patient wanted to see if vascular had any options to salvage the foot. Unfortunately due to his kidney disease along with severe heel infection with inability to undergo contrast studies, their recommendations were to proceed with BKA at this point. Although ortho has been following, due to scheduling issues we were asked to consider BKA sooner in this patient. In addition, the patient has been evaluated by wound care this admission and they noticed his sacral wound has been deteriorating and may be on the cusp of requiring surgical debridement of this as well. Allergies Allergy/AdvReac Type Severity Reaction Status Date / Time atorvastatin Allergy Unknown Unknown Verified 11/27/21 18:05 ezetimibe Allergy Unknown Unknown Verified 11/27/21 18:05 rivaroxaban Allergy Unknown Unknown Verified 11/27/21 18:05 simvastatin Allergy Unknown Unknown Verified 11/27/21 18:05 sitagliptin Allergy Unknown Unknown Verified 11/27/21 18:05 sulfamethoxazole Allergy Unknown Unknown Verified 11/27/21 18:05 [From Bactrim] trimethoprim [From Bactrim] Allergy Unknown Unknown Verified 11/27/21 18:05 lactose AdvReac Unknown Unknown Verified 11/27/21 18:05 Home Medications Medication Instructions Recorded Confirmed Type acetaminophen 325 mg tablet 650 mg PO Q4H PRN Pain 11/27/21 11/27/21 History (Tylenol) ascorbic acid (vitamin C) 500 mg 500 mg PO BIDM 11/27/21 11/27/21 History tablet (Vitamin C) bisacodyl 10 mg rectal suppository 10 mg [place] DAILY PRN Constipation 11/27/21 11/27/21 History ceftriaxone 1 gram intravenous 1 g IV DAILY 11/27/21 11/27/21 History solution clopidogrel 75 mg tablet (Plavix) 75 mg PO DAILY 11/27/21 11/27/21 History difluprednate 0.05 % eye drops 1 drp OPL DAILY 11/27/21 11/27/21 History diltiazem HCl 30 mg tablet 30 mg PO DAILY 11/27/21 11/27/21 History docusate sodium 100 mg capsule 100 mg PO BID 11/27/21 11/27/21 History enoxaparin 30 mg/0.3 mL 30 mg subcut QPM 11/27/21 11/27/21 History subcutaneous syringe (Lovenox) ferrous sulfate 325 mg (65 mg 325 mg PO BIDM 11/27/21 11/27/21 History iron) tablet folic acid 1 mg tablet 1 mg PO DAILY 11/27/21 11/27/21 History insulin regular human 100 unit/mL 1 sliding scale dose subcut ACHS 11/27/21 11/27/21 History injection solution (Humulin R Regular U-100 Insulin) latanoprost 0.005 % eye drops 1 drp OPB HS 11/27/21 11/27/21 History magnesium hydroxide 400 mg/5 mL 30 ml PO DAILY PRN Constipation 11/27/21 11/27/21 History oral suspension (Milk of Magnesia) mirtazapine 15 mg tablet 15 mg PO HS 11/27/21 11/27/21 History naloxone 4 mg/actuation nasal spray 4 mg intranasal ONCE PRN 11/27/21 11/27/21 History OVERSEDATION netarsudil 0.02 % eye drops 1 drp OPR HS 11/27/21 11/27/21 History nystatin 100,000 unit/mL oral 5 ml PO TID 11/27/21 11/27/21 History suspension ondansetron HCl 4 mg tablet 4 mg PO Q6H PRN NAUSEA/VOMITING 11/27/21 11/27/21 History oxycodone 5 mg tablet 10 mg PO Q8H PRN Pain 11/27/21 11/27/21 History pantoprazole 40 mg tablet,delayed 40 mg PO BID 11/27/21 11/27/21 History release polyethylene glycol 3350 17 17 g PO QDL PRN Constipation 11/27/21 11/27/21 History gram/dose oral powder (Miralax) potassium chloride 10 mEq 20 meq PO DAILY 11/27/21 11/27/21 History capsule,extended release rosuvastatin 10 mg tablet 5 mg PO DAILY 11/27/21 11/27/21 History sennosides 8.6 mg-docusate sodium 1 tab-cap PO QDL PRN Constipation 11/27/21 11/27/21 History 50 mg tablet (Senokot-S) tamsulosin 0.4 mg capsule 0.4 mg PO DAILY 11/27/21 11/27/21 History timolol 0.5 % eye drops 1 drp OPB BID 11/27/21 11/27/21 History Patient History Medical History Lacunar stroke Systolic heart failure Social History Smoking Status: Never smoker Hx Alcohol Use: No Hx Substance Use: No Preferred Language: Czech Communication Ability: Impaired Greenhouse Manager Required: No Current Living Situation: Alone Current Living Situation Comment: Patient reports living at home alone Feels Safe at Home: Yes Safety Concerns: Feels Safe At This Time Assistive Devices: Walker Review of Systems Review of Systems: Unobtainable due to cognitive status Physical Exam Physical Exam: awake, answers yes and no to some questions but does not elaborate further when prompted or answer appropriately. mildly confused Constitutional: + ill appearing and + frail appearing Respiratory: normal respiratory effort Musculoskeletal: LLE noted to have eschar on toes in addition to eschar on L heal. tender to palpation Results & Data ([facility]) Vital Signs (Past 12 Hours) Vital Signs Temp Pulse Resp BP Pulse Ox O2 Del Method 12/02/21 10:26 Room Air 12/02/21 08:51 36.7 C 89 16 149/73 H 95 Room Air 12/02/21 00:30 121/[address] foot LT wo con CLINICAL HISTORY: left heel wound recent poss osteo on 11/21 ct COMPARISON STUDY: 11/21/2021 CT DOSE: TECHNIQUE: Standard CT of the left foot is performed without IV contrast. Multiplanar reconstruction is performed. A dose lowering technique was utilized adhering to the principles of ALARA. FINDINGS: Bones: Bones are osteopenic. There is again resection of the dorsal calcaneus with indistinctness of the resection margin. Findings are again most characteristic for osteomyelitis. The remaining bones are intact. There is no evidence for an acute fracture or dislocation. There are no lytic or blastic lesions. Joints: The joint spaces are maintained. The bones are in anatomic alignment. Soft tissues: There is soft tissue deformity present involving the heel. However, there is no longer air within the soft tissues. Findings are again characteristic of cellulitis. There are no focal fluid collections. IMPRESSION: 1. Compared to the previous examination, CT findings are again most characteristic of osteomyelitis involving the resected calcaneal margin. 2. Adjacent cellulitis is present with no evidence for air within the soft tissues. ACT 112: Negative or not required by law. Electronically signed by: Manohar Coto M.D. 11/27/2021 3:47 PM PG Care Time/CCT Total # of Minutes Spent Total Time Spent with Patient: Total time spent is greater than 50% in coordination of care (as documented) at patient's floor/unit and/or counseling patient: Coding Level of Care Code 26733 Initial Inpt Care Lvl 1 Diagnoses Osteomyelitis of foot, left, acute M86.172 PAD (peripheral artery disease) I73.9 Sacral ulcer L98.429
[2021-12-02] MEDS ORDERED: D5W AND LACTATED RINGERS IV SCH (17:00)
[2021-12-02] MEDS ORDERED: SODIUM BICARBONATE IV SCH (17:00)
[2021-12-02] MEDS: ENOXAPARIN INJ 30 MG/0.3 ML SYR SQ SCH (21:53)
[2021-12-02] MEDS: LATANOPROST 0.005% OP SOLN 2.5 ML BTL OPB SCH (21:54)
[2021-12-02] MEDS ORDERED: SODIUM BICARBONATE 8.4% 50 MEQ in SODIUM CHLORIDE 0.9% 1000ML 1,000 ML IV SCH (23:00)
[2021-12-03] MEDS: PIPERACILLIN/TAZOBACTAM 4.5 GM in DEXTROSE 5% 100 ML IV SCH ×3 (05:54→21:01)
[2021-12-03] MEDS: CLOTRIMAZOLE 10 MG TROCHE BUCCAL SCH ×5 (06:00→18:06)
--- NOTE | 2021-12-03 08:20 | Hospitalist Progress Note ---
Date of Service December 03, 2021 Assessment & Plan (1) Osteomyelitis of foot, left, acute: Plan: Original injury was 8months or greater ago has been complicated by poor vascular supply and failed attempts with arterial bypass to supply the foot. -- Presented to [facility] on 10/17 with L heel noted to be open with drainage. He was found to be hypotensive. He was taken to the OR for a partial calcanectomy with debridement and primary closure on 10/19. Prior to this, he underwent stenting for PVD. He did have an arteriogram which showed moderate to severe disease. Angioplasties were performed which improved blood supply but did not completely resolve the LLE concerns. This was done on 10/23. The surgical cultures grew out MRSA and Enterobacter cloace. He completed Zosyn/Cipro/Clinda. He was then transferred to [facility] in [place]. After his stay at [facility] he was transferred to [facility]. His wounds were monitored and concern for worsening of his wounds. Arrangements for F/U with Dr. Bright was attempted but acute hospital admission occurred prior. He did have outpatient CTs while at [facility] concerning for ongoing cellulitis and possible OM. Imaging on admission confirmed these findings. Prior to this movement. He was found to have a UTI and was started on Rocephin for this. His Abx were broadened when arriving here to cover the foot/OM. Patient with acute on chronic osteomyelitis with evidence of sepsis POA Imaging with CT w/ findings most characteristic of osteomyelitis involving the resected calcaneal margin. Patient wanting all life saving modalities but initially declined amputation. Now agreeable however was not NPO and surgery put off until later this week Given 1u PRBC for hgb 8.1 and repeat hgb stable and of note has been getting continuous IVF for cr ECHO w/ LV systolic function borderline reduced (EF 45-50%), borderline global hypokineses of LV. Mild concentric LVH. Has ICD. (Last echo altoona 8-9 months ago) Vascular consulted in patient with PAD to see if any intervention to restore blood flow. No intervention Orthopedics on consult -- possible surgery on Wednesday General surgery consulted for SACRAL ULCER, likely long standing but possible need for debridement ?coordination for BKA and debridement Per surgery, scheduled for to ensure time available but may want to wait couple more days given recent +COVID testing. Will make NPO after midnight as Dr Hairston agreeable for AKA tomorrow. Continue Daptomycin/Zosyn for now WBC wnl, afebrile CRP trending down on repeat BCx NGTD Given bicarb in IVF yesterday w/ 04/20 NSS --> Na 151 on am labs and will order 1L D5W @ 80cc/hr and repeat labs this evening 19:00 Cr improved to 2.0 SACRAL WOUND, at least stage 3, POA, likely due to prolonged stay at [facility] Wound RN consulted Mell applied but waiting couple of days to see if progresses prior to need for debridement with general surgery PA to get back to me from surgery regarding amputation possibly tomorrow vs on Wednesday as initially planned with Dr Saldana Consider consult w/ ID pending course Continue Lovenox SQ for DVT prophylaxis -- will place on hold for OR for AM Have records from [facility] obtained from [facility] in Hospitalist office. If need review please discuss with assigned Hospitalist and can get uploaded into system Continued inpatient stay awaiting surgery plans (2) Sacral ulcer: Plan: On admission, not initially noted by provider but documented by nursing. Likely from prolonged hospitalizations/rehab and wound RN saw patient 12/01 Discussed with wound RN, and possible need for debridement Discussed with general surgery, consult placed for Dr Hairston, and possible debridement with amputation on vs later given recent +COVID monitoring with mell for now, awaiting to hear back abotu amputation for tomorrow vs wednesday w/ cris as intiially planned (3) PAD (peripheral artery disease): Plan: Continued statin on admit, placed on hold while on Dapto - Further information regarding his arterial surgery/grating/bypass- obtaining from [facility] [phone]- request fax back to medical surgical keith -Consult Vascular as above, no intervention planned - consider LANCE/CT with runoffs if will assist with plan (4) Fever: Plan: Sepsis, POA Multiple different possible etiologies including Osteomyelitis of the left foot, covid +, possible UTI (was started on treatment at [facility]) - cx here with yeast ALSO W SACRAL ULCER ABOVE Continue abx, no further fevers (5) Stage 3b chronic kidney disease (CKD): Plan: With Acute kidney failure on CKD III- however with no baseline renal function available for review. Running from .5-2 at [facility] - will continue to renally dose medications - avoid further nephrotoxic medications - Will assess if blood transfusion will assess with labs Cr 3.11--> 2.89 after 1 u PRBC on 12/01 Given 500cc NSS on 12/01 with improvement in Cr to 2.31 Changed to 1/2NS +20 k for another 500cc and added bicarb 12/02 --> Cr 2.04 on AM labs Switched to D5W @ 80cc/hr for today for Na 151, Cl 119 Consider consult nephrology for continued management in this patient given complex issues as outlined above pending repeat labs (6) Anemia: Plan: Normocytic Anemia- likely related to AOCD and CKD At [facility] he baseline Hgb was around 8 and suspect this is baseline B12/folate WNL; Iron low normal, TIBC 125 and ferritin 1953 (ferritin likely elevated, reactive 2nd to infection/COVID) - rest of cell lines intact and no evidence of bleeding Continue PPI s/p 1 u PRBC on 11/30 and repeat hgb stable additional unit on hold if needed Monitor for bleeding (7) COVID-19: Plan: Tested positive on admission; asymptomatic -Currently febrile, hemodynamically stable and stable on RA Turn cough and deep breathing every 2 hours (declines repositioning at times) 97% on RA< no need for steroids currently Check CRP in AM-- trending down compared to previous Out of window for paxlovid Incentive spirometer encouraged (8) Hyperkalemia: Plan: Noted to be 5.4 on admission but currently resolved Monitor (9) HTN (hypertension): Plan: 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 EF 45-50%. Borderline global hypokinesis of left ventricle. Mild concentric LVH. No prior study for comparison Continues on plavix, statin on hold while on dapto no MAREK/ARB given CKD. On cardizem, no BB No CP/SOb reported (13) Lacunar stroke: Plan: CVA ~7 years ago- facial droop and some weakness -- Uncertain of location of stroke. Repeating Head CT per discussion above --> RIGHT OCCIPITAL LOBE INFARCT, OLD -Continue plavix - statin as above now on hold - Up to a year ago he was self sufficient and since the injury to his foot he has had a decline. (14) Esophagitis: Plan: On going for the past month- consistent with CT scan findings. Was on treatment at [facility] Thrush in mouth - will use topical while awaiting improvement in renal function --> improving and will continue current but reported poor appetite/irritable mood regarding need for surgery Ultimately will need EGD to reassess. 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 Will ask again tomorrow Admission and Anticipated Discharge Date Admission Date: November 27, 2021 Supervising Physician Co-Signing Physician Notes Attending Attestation - Chart reviewed in detail, care plan d/w CARMEN Lomas. I agree with the bolton components of her documentation. Mike Noland MD Subjective Eval this morning. Irritable but alert/oriented x 3. Agreeable to surgery but not happy about the overall picture. Does understand this is life threatening if not addressed. Not much of an appetite. Moved his bowels last 12/01, no abdominal pain. He does endorse pain in his rectal area in site of his sore. Asked if he would like anything for pain and he declined at this time. Pain to his legs bilaterally, tender to touch with warmth. Does not want me to call his son Phill just yet today with plan. He wants to speak with the surgeon first who would be doing the procedure. No fever/chills. No chest pain or shortness of breath. No nausea/vomiting. Questions/concerns addressed at this time. Review of Systems Review of Systems: All systems reviewed & are unremarkable except as noted in HPI & below Physical Exam Physical Exam: General: Frail, chronically ill appearing male laying in bed, NAD HEENT: normocephalic, atraumatic, L pupil dilated and non-reactive, mm slightly dry, trachea midline without deviation Resp: diminished in the bases, no w/c/r, on room air CV: RRR, no mr/g, no calf tenderness, cap refill prolonged, pulses diminished b/l LE GI: +BS, scaphoid, nontender : morales draining yellow urine MSK/Neuro: moves extremities, generalized muscular atrophy, R sided weakness (reported from prior CVA), Skin: extremities cool/shiny LLE with eschar/HEEL wound, slightly tender to palpation LLE foot with eschar on multiple toes (see wound imaging), non-tender to palpation, no spreading erythema tenderness to palpation b/l LE with increased warmth sacral wound unable to be examined due to patient cooperation/willingness to turn for me Psych: alert to person/place/year, irritable Results & Data Results & Data ([facility]) Vital Signs (Past 12 Hours) Vital Signs Temp Pulse Resp BP Pulse Ox O2 Del Method 12/02/21 21:49 36.6 C 85 16 155/79 H 98 Room Air Laboratory Results 12/02/21 12/02/21 12/02/21 Range/Units 21:48 17:39 13:00 WBC (4.8-10.8) K/ul RBC (4.63-6.08) M/uL Hgb (14.0-18.0) g/dl Hct (40.1-51.0) % MCV (80.0-100.0) fL MCH (25.0-34.0) pg MCHC (32.0-36.0) g/dL RDW Std Deviation (36.4-46.3) fL RDW Coeff of Rusty (11.5-14.5) % Plt Count (130-400) K/uL MPV (9.4-12.4) fL Immature Gran % (Auto) % Neut % (Auto) % Lymph % (Auto) % [place] % (Auto) % Eos % (Auto) % Baso % (Auto) % Neut # (Auto) (1.4-6.5) K/uL Lymph # (Auto) (1.2-3.4) K/uL [place] # (Auto) (0.24-0.82) K/uL Eos # (Auto) (0-0.50) K/uL Baso # (Auto) (0-0.2) K/uL Immature Gran # (Auto) (0.00-0.02) K/uL Sodium (136-145) mmol/L Potassium (3.5-5.1) mmol/L Chloride (98-107) mmol/L Carbon Dioxide (21-32) mmol/L Anion Gap (3-11) BUN (6-23) mg/dl Creatinine (0.6-1.4) mg/dl Est Cr Clr Drug Dosing ml/min Est GFR ( Amer) ml/min Est GFR (Non-Af Amer) ml/min BUN/Creatinine Ratio (10-20) Glucose (70-99(Fasting)) mg/dl POC Glucose 165 H 135 H 132 H (70-99) mg/dl Calcium (8.5-10.1) mg/dl Magnesium (1.7-2.4) mg/dl Total Bilirubin (0.2-1.0) mg/dl AST (13-39) U/L ALT (7-52) U/L Alkaline Phosphatase (34-104) U/L Total Creatine Kinase (30-223) U/L C-Reactive Protein (0-0.5) mg/dl Total Protein (6.0-8.3) gm/dl Albumin (3.4-5.0) gm/dl Globulin (2.5-4.0) gm/dl Albumin/Globulin Ratio (0.9-2) 12/02/21 12/02/21 12/02/21 Range/Units 09:15 09:15 08:44 WBC 5.81 (4.8-10.8) K/ul RBC 3.10 L (4.63-6.08) M/uL Hgb 9.4 L (14.0-18.0) g/dl Hct 30.2 L (40.1-51.0) % MCV 97.4 (80.0-100.0) fL MCH 30.3 (25.0-34.0) pg MCHC 31.1 L (32.0-36.0) g/dL RDW Std Deviation 61.1 H (36.4-46.3) fL RDW Coeff of Rusty 17.3 H (11.5-14.5) % Plt Count 103 L (130-400) K/uL MPV 11.6 (9.4-12.4) fL Immature Gran % (Auto) 1.7 % Neut % (Auto) 54.2 % Lymph % (Auto) 29.4 % [place] % (Auto) 12.7 % Eos % (Auto) 1.7 % Baso % (Auto) 0.3 % Neut # (Auto) 3.14 (1.4-6.5) K/uL Lymph # (Auto) 1.71 (1.2-3.4) K/uL [place] # (Auto) 0.74 (0.24-0.82) K/uL Eos # (Auto) 0.10 (0-0.50) K/uL Baso # (Auto) 0.02 (0-0.2) K/uL Immature Gran # (Auto) 0.10 H (0.00-0.02) K/uL Sodium 146 H (136-145) mmol/L Potassium 3.5 (3.5-5.1) mmol/L Chloride 117 H (98-107) mmol/L Carbon Dioxide 20 L (21-32) mmol/L Anion Gap 9 (3-11) BUN 35 H (6-23) mg/dl Creatinine 2.31 H D (0.6-1.4) mg/dl Est Cr Clr Drug Dosing 25.9 ml/min Est GFR ( Amer) 30.4 ml/min Est GFR (Non-Af Amer) 26.3 ml/min BUN/Creatinine Ratio 15.2 (10-20) Glucose 142 H (70-99(Fasting)) mg/dl POC Glucose 152 H (70-99) mg/dl Calcium 8.0 L (8.5-10.1) mg/dl Magnesium 2.1 (1.7-2.4) mg/dl Total Bilirubin 0.7 (0.2-1.0) mg/dl AST 29 (13-39) U/L ALT 13 (7-52) U/L Alkaline Phosphatase 76 (34-104) U/L Total Creatine Kinase 117 (30-223) U/L C-Reactive Protein 8.94 H (0-0.5) mg/dl Total Protein 6.1 (6.0-8.3) gm/dl Albumin 2.4 L (3.4-5.0) gm/dl Globulin 3.7 (2.5-4.0) gm/dl Albumin/Globulin Ratio 0.6 L (0.9-2) PG Care Time/CCT Total # of Minutes Spent Total Time Spent with Patient: Total time spent is greater than 50% in coordination of care (as documented) at patient's floor/unit and/or counseling patient: Coding Level of Care Code 96687 Subseq Hosp Care Lvl 3 Diagnoses Osteomyelitis of foot, left, acute M86.172 Sacral ulcer L98.429 PAD (peripheral artery disease) I73.9 Fever R50.9 Stage 3b chronic kidney disease (CKD) N18.32 Anemia D64.9 Anemia type: unspecified type COVID-19 U07.1 Hyperkalemia E87.5 HTN (hypertension) I10 Hypertension type: unspecified Hyperlipidemia E78.5 Hyperlipidemia type: unspecified DM II (diabetes mellitus, type II), controlled E11.9 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
[2021-12-03] MEDS: DOCUSATE SODIUM 100 MG CAP PO SCH ×2 (08:43→20:35)
[2021-12-03] MEDS: CLOPIDOGREL BISULFATE 75 MG TAB PO SCH (08:43)
[2021-12-03] MEDS: TAMSULOSIN HCL 0.4 MG CAP PO SCH ×2 (08:43→15:36)
[2021-12-03] MEDS: dilTIAZem HCL 30 MG TAB PO SCH (08:43)
[2021-12-03] MEDS: FOLIC ACID 1 MG TAB PO SCH (08:44)
[2021-12-03] MEDS: PANTOprazole 40 MG TAB PO SCH ×2 (08:44→15:36)
[2021-12-03] MEDS: ASCORBIC ACID 500 MG TAB PO SCH ×2 (08:44→15:37)
[2021-12-03] MEDS: INSULIN ASPART PER UNIT SC SCH ×4 (08:45→21:05)
[2021-12-03] MEDS: TIMOLOL MALEATE 0.5% OP SOLN 5 ML BTL OPB SCH ×2 (08:45→20:34)
[2021-12-03 10:21] LABS: Hematocrit (blood only) 29.4 % (40.1-51.0); Hemoglobin 9.1 g/dl (14.0-18.0); Mean Corpuscular Hemoglobin 30.6 pg (25.0-34.0); Mean Platelet Volume 11.9 fL (9.4-12.4); Platelet Count 103 K/uL (130-400); RDW Coefficient of Variation 17.2 % (11.5-14.5); RDW Standard Deviation 61.9 fL (36.4-46.3); Red Blood Count 2.97 M/uL (4.63-6.08); White Blood Count 5.14 K/ul (4.8-10.8)
[2021-12-03 10:45] LABS: Albumin Globulin Ratio 0.6 (0.9-2); Albumin Level 2.3 gm/dl (3.4-5.0); BUN Creatinine Ratio 13.7 (10-20); Bilirubin,Total 0.8 mg/dl (0.2-1.0); Calcium 7.9 mg/dl (8.5-10.1); Creatinine Clr Calc Pharmacy 29.3 ml/min; Est GFR (African American) 35.4 ml/min; Est GFR (Non-African American) 30.5 ml/min; Globulin 3.7 gm/dl (2.5-4.0); Potassium 3.9 mmol/L (3.5-5.1)
[2021-12-03] MEDS ORDERED: POTASSIUM CHLORIDE 10 MEQ in DEXTROSE 5% 1,000 ML IV SCH (14:00)
--- NOTE | 2021-12-03 14:47 | Surgery Progress Note ---
Date of Service December 03, 2021 Assessment & Plan (1) Osteomyelitis of foot, left, acute: Plan: -Pt evaluated with wound care this AM to assess sacral ulcer. Area of black eschar may be amenable to chemical debridement at this time. Eschar was excoriated and will order santyl. May take a few days to notice improvement. No need for surgical intervention at this time. Wound care will reach out should wound further deteriorate -Regarding LLE foot wound, we have been asked to evaluate patient for a BKA vs AKA. Vascular has no further options for re-vascularization at this point. Our team discussed with the hospitalist services who note that although he has a Cov id, he has been asymptomatic and not requiring treatment, therefore recommending okay to proceed with intervention this admission. -Dr. Hairston has discussed plans for an AKA with his son who is agreeable with the plan. -Keep NPO at midnight (2) Sacral ulcer: Admission and Anticipated Discharge Date Admission Date: November 27, 2021 Subjective Patient does not answer questions appropriately. Irritable, does not want to be moved to evaluate buttocks. Keeps saying "why don't you just go home" Physical Exam Physical Exam: awake, irritable Skin: sacral ulcer with black eschar. left lower foot with multiple eschars on toe and draining wound of L heal Results & Data ([facility]) Vital Signs (Past 12 Hours) Vital Signs Temp Pulse Resp BP Pulse Ox O2 Del Method 12/03/21 08:31 36.7 C 88 14 138/74 97 Room Air PG Care Time/CCT Total # of Minutes Spent Total Time Spent with Patient: Total time spent is greater than 50% in coordination of care (as documented) at patient's floor/unit and/or counseling patient: Coding Level of Care Code 76881 Subseq Hosp Care Lvl 1 Diagnoses Osteomyelitis of foot, left, acute M86.172 Sacral ulcer L98.429
[2021-12-03] MEDS: DAPTOmycin 400 MG in SYRINGE 0 ML IV SCH (15:32)
[2021-12-03] MEDS: LATANOPROST 0.005% OP SOLN 2.5 ML BTL OPB SCH (20:35)
[2021-12-03 22:11] LABS: BUN Creatinine Ratio 13.1 (10-20); Calcium 7.9 mg/dl (8.5-10.1); Creatinine Clr Calc Pharmacy 30.2 ml/min; Est GFR (African American) 36.7 ml/min; Est GFR (Non-African American) 31.6 ml/min; Potassium 3.3 mmol/L (3.5-5.1)
[2021-12-04] MEDS: POTASSIUM CHLORIDE / WTR 10 MEQ/100 ML PLCT IV SCH ×3 (00:58→03:57)
[2021-12-04] MEDS: PIPERACILLIN/TAZOBACTAM 4.5 GM in DEXTROSE 5% 100 ML IV SCH ×3 (05:57→21:43)
[2021-12-04] MEDS: CLOTRIMAZOLE 10 MG TROCHE BUCCAL SCH ×5 (06:00→18:28)
[2021-12-04] MEDS ORDERED: SODIUM CHLORIDE 0.9% 250 ML IV PRN (07:02)
--- NOTE | 2021-12-04 07:10 | Hospitalist Progress Note ---
Date of Service December 04, 2021 Assessment & Plan (1) Osteomyelitis of foot, left, acute: Plan: Original injury was 8months or greater ago has been complicated by poor vascular supply and failed attempts with arterial bypass to supply the foot. -- Presented to [facility] on 10/17 with L heel noted to be open with drainage. He was found to be hypotensive. He was taken to the OR for a partial calcanectomy with debridement and primary closure on 10/19. Prior to this, he underwent stenting for PVD. He did have an arteriogram which showed moderate to severe disease. Angioplasties were performed which improved blood supply but did not completely resolve the LLE concerns. This was done on 10/23. The surgical cultures grew out MRSA and Enterobacter cloace. He completed Zosyn/Cipro/Clinda. He was then transferred to [facility] in [place]. After his stay at [facility] he was transferred to [facility]. His wounds were monitored and concern for worsening of his wounds. Arrangements for F/U with Dr. Bright was attempted but acute hospital admission occurred prior. He did have outpatient CTs while at [facility] concerning for ongoing cellulitis and possible OM. Imaging on admission confirmed these findings. Prior to this movement. He was found to have a UTI and was started on Rocephin for this. His Abx were broadened when arriving here to cover the foot/OM. Have records from [facility] obtained from [facility] in Hospitalist office. Patient wanting all life saving modalities but initially declined amputation. Now agreeable however was not NPO and surgery put off until later this week, today ECHO w/ LV systolic function borderline reduced (EF 45-50%), borderline global hypokineses of LV. Mild concentric LVH. Has ICD. (Last echo altoona 8-9 months ago) Patient with acute on chronic osteomyelitis with evidence of sepsis POA Imaging with CT w/ findings most characteristic of osteomyelitis involving the resected calcaneal margin. Vascular consulted in patient with PAD to see if any intervention to restore blo od flow. - No intervention Orthopedics on consult Dr Saldana, but wasn't NPO Wednesday. Yovanny to do AKA today General surgery consulted (Dr Hairston) for SACRAL ULCER - likely long standing but possible need for debridement, also for consideration for amputation. - Santyl for now and monitoring (santly not yet up from pharmacy). Wound rn to continue to monitor as well -> NPO for AKA for LLE today Continue Daptomycin/Zosyn for now --> given amputation today, likely moot point, however if long lines operator abx needed pharmacy suggesting changing Zosyn to Cefepime based on recent isolation of en terobacter WBC wnl, afebrile CRP trending down on repeat, but elevated today BCx NGTD after 5 days XAVIER: Cr improving --> 1.77 currently BUN 23 and will d/c IVF after surgery if PO intake improves s/p 1u PRBC for hgb 8.1 and repeat hgb stable - of note, has been getting continuous IVF for cr. Hgb 9.4 currently. Additional unit on hold if needed after sugery D5W +10meq KCL ordered for elevated Na 151 --> 146 on AM labs and will continue Also got 3K riders overnight for K 3.3 Continue Lovenox SQ for DVT prophylaxis - placed on hold for OR, consider heparin post-op given CKD (2) Sacral ulcer: Plan: On admission, not initially noted by provider but documented by nursing. Likely from prolonged hospitalizations/rehab and wound RN saw patient 12/01 Discussed with wound RN, and possible need for debridement if no improvement with [facility] General surgery on consult and will continue to monitor with wound to see if nee d for debridement if no improvement (3) PAD (peripheral artery disease): Plan: Continued statin on admit, placed on hold while on Dapto - Further information regarding his arterial surgery/grating/bypass- obtaining from [facility] [phone] fax back to medical surgical keith -Consult Vascular as above, no intervention planned AKA planned today (4) Fever: Plan: Sepsis, POA Multiple different possible etiologies including Osteomyelitis of the left foot, covid +, possible UTI (was started on treatment at [facility]) - cx here with yeast ALSO W SACRAL ULCER ABOVE Continue abx, no further fevers (5) Stage 3b chronic kidney disease (CKD): Plan: With Acute kidney failure on CKD III- however with no baseline renal function available for review. Running from 1.5-2 at [facility] - will continue to renally dose medications - avoid further nephrotoxic medications Cr 3.11--> 2.89 after 1 u PRBC on 12/01 IVF provided, switched to D5W given hypernatremia Cr improved to 1.77 and possible closer to baseline given BUN now normal Continue IVF while NPO for surgery and monitor labs in AM (6) Anemia: Plan: Normocytic Anemia- likely related to AOCD and CKD At [facility] he baseline Hgb was around 8 and suspect this is baseline B12/folate WNL; Iron low normal, TIBC 125 and ferritin 1953 (ferritin likely elevated, reactive 2nd to infection/COVID)- rest of cell lines intact and no evidence of bleeding Continue PPI s/p 1 u PRBC on 11/30 and repeat hgb stable additional unit on hold if needed Monitor for bleeding Hgb stable 9.4 (7) COVID-19: Plan: Tested positive on admission; asymptomatic -Currently febrile, hemodynamically stable and stable on RA Turn cough and deep breathing every 2 hours (declines repositioning at times) 97% on RA< no need for steroids currently Check CRP in AM-- trending down compared to previous however again elevated ?related to infection LLE -- surgery as above and can monitor Out of window for paxlovid Incentive spirometer encouraged (8) Hyperkalemia: Plan: Noted to be 5.4 on admission but currently resolved and actually lower on repeat K replacement ordered and keep closer to 4 post -op BMP in AM (9) HTN (hypertension): 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 EF 45-50%. Borderline global hypokinesis of left ventricle. Mild concentric LVH. No prior study for comparison Continues on plavix, statin on hold while on dapto no MAREK/ARB given CKD. On cardizem, no BB No CP/SOb reported (13) Lacunar stroke: Plan: CVA ~7 years ago- facial droop and some weakness -- Uncertain of location of stroke. Repeating Head CT per discussion above --> RIGHT OCCIPITAL LOBE INFARCT, OLD -Continue plavix - statin as above now on hold - Up to a year ago he was self sufficient and since the injury to his foot he has had a decline. (14) Esophagitis: Plan: On going for the past month- consistent with CT scan findings. Was on treatment at [facility] Thrush in mouth - will use topical while awaiting improvement in renal function --> improving and will continue current but reported poor appetite/irritable mood regarding need for surgery Ultimately will need EGD to reassess. 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 I agree with the bolton components of her documentation. Mike Noland MD Subjective Patient evaluated this morning, just got cleaned up. Having pain to his bottom but using santyl (not yet sent up by pharmacy). Left leg with pain but not wanting medications. Patient states in the hospital, year 2021 and he is going for surgery today. Unhappy about need for amputation but understands this prolonged infection and if left untreated could result in . Denies any fever/chills, no chest pain or shortness of breath, abdominal pain or nausea at this time. Awaiting OR. Review of Systems Review of Systems: All systems reviewed & are unremarkable except as noted in HPI & below Physical Exam Physical Exam: General: Frail, chronically ill appearing male laying in bed, NAD HEENT: normocephalic, atraumatic, L pupil dilated and non-reactive, mm slightly dry, trachea midline without deviation Resp: diminished in the bases, no w/c/r, on room air 98% CV: RRR, no mr/g, cap refill prolonged, pulses diminished b/l LE, tender to palpation LLE GI: +BS, scaphoid, nontender : morales draining clear yellow urine MSK/Neuro: moves extremities, generalized muscular atrophy, R sided weakness (reported from prior CVA), Skin: extremities cool/shiny LLE with eschar/HEEL wound, slightly tender to palpation LLE foot with eschar on multiple toes (see wound imaging), tenderness to palpation b/l LE with increased warmth sacral wound with escahr and granulomatosis tissue, assisted RN to turn for placement of antoinette pad currently Psych: alert to person/inhospital , year at times, cooperative but irritable about need for surgery Results & Data Results & Data ([facility]) Vital Signs (Past 12 Hours) Vital Signs Temp Pulse Resp BP Pulse Ox O2 Del Method 12/04/21 01:11 36.7 C 84 16 163/79 H 97 Room Air 12/03/21 19:15 Room Air Laboratory Results 12/04/21 12/04/21 12/04/21 Range/Units 10:00 08:42 07:08 WBC (4.8-10.8) K/ul RBC (4.63-6.08) M/uL Hgb (14.0-18.0) g/dl Hct (40.1-51.0) % MCV (80.0-100.0) fL MCH (25.0-34.0) pg MCHC (32.0-36.0) g/dL RDW Std Deviation (36.4-46.3) fL RDW Coeff of Rusty (11.5-14.5) % Plt Count (130-400) K/uL MPV (9.4-12.4) fL PT 13.0 H (9.0-12.0) Seconds INR 1.2 H (0.9-1.1) Sodium (136-145) mmol/L Potassium (3.5-5.1) mmol/L Chloride (98-107) mmol/L Carbon Dioxide (21-32) mmol/L Anion Gap (3-11) BUN (6-23) mg/dl Creatinine (0.6-1.4) mg/dl Est Cr Clr Drug Dosing ml/min Est GFR ( Amer) ml/min Est GFR (Non-Af Amer) ml/min BUN/Creatinine Ratio (10-20) Glucose (70-99(Fasting)) mg/dl POC Glucose 147 H 150 H (70-99) mg/dl Calcium (8.5-10.1) mg/dl Magnesium (1.7-2.4) mg/dl Total Bilirubin (0.2-1.0) mg/dl AST (13-39) U/L ALT (7-52) U/L Alkaline Phosphatase (34-104) U/L C-Reactive Protein (0-0.5) mg/dl Total Protein (6.0-8.3) gm/dl Albumin (3.4-5.0) gm/dl Globulin (2.5-4.0) gm/dl Albumin/Globulin Ratio (0.9-2) Blood Type Antibody Screen Crossmatch 12/04/21 12/04/21 12/04/21 Range/Units 07:08 07:08 07:08 WBC 5.50 (4.8-10.8) K/ul RBC 3.13 L (4.63-6.08) M/uL Hgb 9.4 L (14.0-18.0) g/dl Hct 30.2 L (40.1-51.0) % MCV 96.5 (80.0-100.0) fL MCH 30.0 (25.0-34.0) pg MCHC 31.1 L (32.0-36.0) g/dL RDW Std Deviation 58.7 H (36.4-46.3) fL RDW Coeff of Rusty 16.6 H (11.5-14.5) % Plt Count 109 L (130-400) K/uL MPV 11.2 (9.4-12.4) fL PT (9.0-12.0) Seconds INR (0.9-1.1) Sodium 146 H (136-145) mmol/L Potassium 3.6 (3.5-5.1) mmol/L Chloride 117 H (98-107) mmol/L Carbon Dioxide 23 (21-32) mmol/L Anion Gap 6 (3-11) BUN 23 (6-23) mg/dl Creatinine 1.77 H (0.6-1.4) mg/dl Est Cr Clr Drug Dosing 33.8 ml/min Est GFR ( Amer) 42.0 ml/min Est GFR (Non-Af Amer) 36.2 ml/min BUN/Creatinine Ratio 13.0 (10-20) Glucose 152 H (70-99(Fasting)) mg/dl POC Glucose (70-99) mg/dl Calcium 7.9 L (8.5-10.1) mg/dl Magnesium 1.8 (1.7-2.4) mg/dl Total Bilirubin 0.9 (0.2-1.0) mg/dl AST 25 (13-39) U/L ALT 13 (7-52) U/L Alkaline Phosphatase 89 (34-104) U/L C-Reactive Protein 10.47 H (0-0.5) mg/dl Total Protein 6.3 (6.0-8.3) gm/dl Albumin 2.5 L (3.4-5.0) gm/dl Globulin 3.8 (2.5-4.0) gm/dl Albumin/Globulin Ratio 0.7 L (0.9-2) Blood Type O Positive Antibody Screen NEGATIVE Crossmatch See Detail 12/03/21 12/03/21 12/03/21 Range/Units 21:39 20:51 17:41 WBC (4.8-10.8) K/ul RBC (4.63-6.08) M/uL Hgb (14.0-18.0) g/dl Hct (40.1-51.0) % MCV (80.0-100.0) fL MCH (25.0-34.0) pg MCHC (32.0-36.0) g/dL RDW Std Deviation (36.4-46.3) fL RDW Coeff of Rusty (11.5-14.5) % Plt Count (130-400) K/uL MPV (9.4-12.4) fL PT (9.0-12.0) Seconds INR (0.9-1.1) Sodium 150 H (136-145) mmol/L Potassium 3.3 L (3.5-5.1) mmol/L Chloride 119 H (98-107) mmol/L Carbon Dioxide 23 (21-32) mmol/L Anion Gap 8 (3-11) BUN 26 H (6-23) mg/dl Creatinine 1.98 H (0.6-1.4) mg/dl Est Cr Clr Drug Dosing 30.2 ml/min Est GFR ( Amer) 36.7 ml/min Est GFR (Non-Af Amer) 31.6 ml/min BUN/Creatinine Ratio 13.1 (10-20) Glucose 126 H (70-99(Fasting)) mg/dl POC Glucose 124 H 159 H (70-99) mg/dl Calcium 7.9 L (8.5-10.1) mg/dl Magnesium (1.7-2.4) mg/dl Total Bilirubin (0.2-1.0) mg/dl AST (13-39) U/L ALT (7-52) U/L Alkaline Phosphatase (34-104) U/L C-Reactive Protein (0-0.5) mg/dl Total Protein (6.0-8.3) gm/dl Albumin (3.4-5.0) gm/dl Globulin (2.5-4.0) gm/dl Albumin/Globulin Ratio (0.9-2) Blood Type Antibody Screen Crossmatch 12/03/21 Range/Units 12:32 WBC (4.8-10.8) K/ul RBC (4.63-6.08) M/uL Hgb (14.0-18.0) g/dl Hct (40.1-51.0) % MCV (80.0-100.0) fL MCH (25.0-34.0) pg MCHC (32.0-36.0) g/dL RDW Std Deviation (36.4-46.3) fL RDW Coeff of Rusty (11.5-14.5) % Plt Count (130-400) K/uL MPV (9.4-12.4) fL PT (9.0-12.0) Seconds INR (0.9-1.1) Sodium (136-145) mmol/L Potassium (3.5-5.1) mmol/L Chloride (98-107) mmol/L Carbon Dioxide (21-32) mmol/L Anion Gap (3-11) BUN (6-23) mg/dl Creatinine (0.6-1.4) mg/dl Est Cr Clr Drug Dosing ml/min Est GFR ( Amer) ml/min Est GFR (Non-Af Amer) ml/min BUN/Creatinine Ratio (10-20) Glucose (70-99(Fasting)) mg/dl POC Glucose 136 H (70-99) mg/dl Calcium (8.5-10.1) mg/dl Magnesium (1.7-2.4) mg/dl Total Bilirubin (0.2-1.0) mg/dl AST (13-39) U/L ALT (7-52) U/L Alkaline Phosphatase (34-104) U/L C-Reactive Protein (0-0.5) mg/dl Total Protein (6.0-8.3) gm/dl Albumin (3.4-5.0) gm/dl Globulin (2.5-4.0) gm/dl Albumin/Globulin Ratio (0.9-2) Blood Type Antibody Screen Crossmatch PG Care Time/CCT Total # of Minutes Spent Total Time Spent with Patient: Total time spent is greater than 50% in coordination of care (as documented) at patient's floor/unit and/or counseling patient: Coding Level of Care Code 90077 Subseq Hosp Care Lvl 3 Diagnoses Osteomyelitis of foot, left, acute M86.172 Sacral ulcer L98.429 PAD (peripheral artery disease) I73.9 Fever R50.9 Stage 3b chronic kidney disease (CKD) N18.32 Anemia D64.9 Anemia type: unspecified type COVID-19 U07.1 Hyperkalemia E87.5 HTN (hypertension) I10 Hypertension type: unspecified Hyperlipidemia E78.5 Hyperlipidemia type: unspecified DM II (diabetes mellitus, type II), controlled E11.9 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
[2021-12-04 07:27] LABS: Hematocrit (blood only) 30.2 % (40.1-51.0); Hemoglobin 9.4 g/dl (14.0-18.0); Mean Corpuscular Hgb Conc 31.1 g/dL (32.0-36.0); Mean Corpuscular Volume 96.5 fL (80.0-100.0); Mean Platelet Volume 11.2 fL (9.4-12.4); Platelet Count 109 K/uL (130-400); RDW Coefficient of Variation 16.6 % (11.5-14.5); RDW Standard Deviation 58.7 fL (36.4-46.3); Red Blood Count 3.13 M/uL (4.63-6.08)
[2021-12-04] MEDS ORDERED: POTASSIUM CHLORIDE 10 MEQ in DEXTROSE 5% 1,000 ML IV SCH (07:30)
[2021-12-04 07:41] LABS: INR 1.2 (0.9-1.1)
[2021-12-04 07:51] LABS: Albumin Globulin Ratio 0.7 (0.9-2); Albumin Level 2.5 gm/dl (3.4-5.0); Bilirubin,Total 0.9 mg/dl (0.2-1.0); C Reactive Protein 10.47 mg/dl (0-0.5); Calcium 7.9 mg/dl (8.5-10.1); Creatinine Clr Calc Pharmacy 33.8 ml/min; Est GFR (Non-African American) 36.2 ml/min; Globulin 3.8 gm/dl (2.5-4.0); Magnesium 1.8 mg/dl (1.7-2.4); Potassium 3.6 mmol/L (3.5-5.1); Total Protein 6.3 gm/dl (6.0-8.3)
--- NOTE | 2021-12-04 07:58 | Anesthesiology Consultation ---
Date of Service December 04, 2021 Assessment & Plan (1) Encounter for pre-operative examination: Chart Review Chart Review: Acceptable Risk for Surgery History Surgery Operation Date: 11/30/21 11:30 Proposed Procedures p Left Below Knee Amputation(Left) - Kt Saldana DO Operation Date: 12/01/21 07:00 Proposed Procedures p Left Below Knee Amputation - Kt Saldana DO Operation Date: 12/04/21 10:40 Proposed Procedures p Left Below Knee Amputation, Possible Above Knee Amputation - Ortiz Hairston MD, FACS s Sacral Wound Debridement - Ortiz Hairston MD, FACS Height/Weight Height: 5 ft 8 in Weight: 70.8 kg Allergies Allergy/AdvReac Type Severity Reaction Status Date / Time atorvastatin Allergy Unknown Unknown Verified 11/27/21 18:05 ezetimibe Allergy Unknown Unknown Verified 11/27/21 18:05 rivaroxaban Allergy Unknown Unknown Verified 11/27/21 18:05 simvastatin Allergy Unknown Unknown Verified 11/27/21 18:05 sitagliptin Allergy Unknown Unknown Verified 11/27/21 18:05 sulfamethoxazole Allergy Unknown Unknown Verified 11/27/21 18:05 [From Bactrim] trimethoprim [From Bactrim] Allergy Unknown Unknown Verified 11/27/21 18:05 lactose AdvReac Unknown Unknown Verified 11/27/21 18:05 Medications Home Medications Medication Instructions Recorded Confirmed Last Taken acetaminophen 325 mg tablet 650 mg PO Q4H PRN Pain 11/27/21 11/27/21 Unknown (Tylenol) ascorbic acid (vitamin C) 500 mg 500 mg PO BIDM 11/27/21 11/27/21 11/27/21 08:00 tablet (Vitamin C) bisacodyl 10 mg rectal suppository 10 mg [place] DAILY PRN Constipation 11/27/21 11/27/21 Unknown ceftriaxone 1 gram intravenous 1 g IV DAILY 11/27/21 11/27/21 Unknown solution clopidogrel 75 mg tablet (Plavix) 75 mg PO DAILY 11/27/21 11/27/21 11/27/21 difluprednate 0.05 % eye drops 1 drp OPL DAILY 11/27/21 11/27/21 11/27/21 diltiazem HCl 30 mg tablet 30 mg PO DAILY 11/27/21 11/27/21 11/27/21 docusate sodium 100 mg capsule 100 mg PO BID 11/27/21 11/27/21 11/27/21 08:00 enoxaparin 30 mg/0.3 mL 30 mg subcut QPM 11/27/21 11/27/21 11/26/21 subcutaneous syringe (Lovenox) ferrous sulfate 325 mg (65 mg 325 mg PO BIDM 11/27/21 11/27/21 11/27/21 08:00 iron) tablet folic acid 1 mg tablet 1 mg PO DAILY 11/27/21 11/27/21 11/27/21 insulin regular human 100 unit/mL 1 sliding scale dose subcut ACHS 11/27/21 11/27/21 Unknown injection solution (Humulin R Regular U-100 Insulin) latanoprost 0.005 % eye drops 1 drp OPB HS 11/27/21 11/27/21 11/26/21 magnesium hydroxide 400 mg/5 mL 30 ml PO DAILY PRN Constipation 11/27/21 11/27/21 Unknown oral suspension (Milk of Magnesia) mirtazapine 15 mg tablet 15 mg PO HS 11/27/21 11/27/21 11/26/21 naloxone 4 mg/actuation nasal spray 4 mg intranasal ONCE PRN 11/27/21 11/27/21 Unknown OVERSEDATION netarsudil 0.02 % eye drops 1 drp OPR HS 11/27/21 11/27/21 11/26/21 nystatin 100,000 unit/mL oral 5 ml PO TID 11/27/21 11/27/21 11/27/21 suspension ondansetron HCl 4 mg tablet 4 mg PO Q6H PRN NAUSEA/VOMITING 11/27/21 11/27/21 Unknown oxycodone 5 mg tablet 10 mg PO Q8H PRN Pain 11/27/21 11/27/21 Unknown pantoprazole 40 mg tablet,delayed 40 mg PO BID 11/27/21 11/27/21 11/27/21 07:00 release polyethylene glycol 3350 17 17 g PO QDL PRN Constipation 11/27/21 11/27/21 Unknown gram/dose oral powder (Miralax) potassium chloride 10 mEq 20 meq PO DAILY 11/27/21 11/27/21 11/27/21 capsule,extended release rosuvastatin 10 mg tablet 5 mg PO DAILY 11/27/21 11/27/21 11/27/21 sennosides 8.6 mg-docusate sodium 1 tab-cap PO QDL PRN Constipation 11/27/21 11/27/21 Unknown 50 mg tablet (Senokot-S) tamsulosin 0.4 mg capsule 0.4 mg PO DAILY 11/27/21 11/27/21 11/27/21 timolol 0.5 % eye drops 1 drp OPB BID 11/27/21 11/27/21 11/27/21 08:00 Active Medications Generic Name Dose Route Start Last Admin Trade Name Freq PRN Reason Stop Dose Admin Acetaminophen 650 mg 11/28/21 08:31 11/28/21 09:18 Acetaminophen 325 Mg Tab PO 12/28/21 08:30 650 mg Q6H PRN Administration Pain or Fever Ascorbic Acid 500 mg 11/28/21 08:00 12/03/21 15:37 Ascorbic Acid 500 Mg Tab PO 12/28/21 07:59 500 mg BIDM ANTIONETTE Administration Clopidogrel Bisulfate 75 mg 11/28/21 09:00 12/03/21 08:43 Clopidogrel Bisulfate 75 Mg Tab PO 12/28/21 08:59 75 mg DAILY ANTIONETTE Administration Clotrimazole 10 mg 11/30/21 07:00 12/04/21 06:00 Clotrimazole 10 Mg Nini BUCCAL 12/09/21 08:59 Not Given 5XDQ3H [facility] Diltiazem HCl 30 mg 11/28/21 09:00 12/03/21 08:43 Diltiazem Hcl 30 Mg Tab PO 12/28/21 08:59 30 mg DAILY ANTIONETTE Administration Docusate Sodium 100 mg 11/27/21 21:18 12/03/21 20:35 Docusate Sodium 100 Mg Cap PO 12/27/21 21:17 100 mg BID ANTIONETTE Administration Enoxaparin Sodium 30 mg 11/27/21 22:00 12/02/21 21:53 Enoxaparin Inj 30 Mg/0.3 Ml Syr SQ 12/27/21 21:59 30 mg Q24H ANTIONETTE Administration Ferrous Sulfate 325 mg 11/28/21 08:00 12/01/21 09:25 Ferrous Sulfate 325 Mg Tab PO 12/28/21 07:59 325 mg BIDM ANTIONETTE Administration Folic Acid 1 mg 11/28/21 09:00 12/03/21 08:44 Folic Acid 1 Mg Tab PO 12/28/21 08:59 1 mg DAILY ANTIONETTE Administration Daptomycin 400 mg/ Syringe 8 mls @ 4 mls/min 11/29/21 16:00 12/03/21 15:32 IV 01/10/22 15:59 4 mls/min Q48H ANTIONETTE Administration Protocol Piperacillin Sod/Tazobactam 120 mls @ 30 mls/hr 12/02/21 14:00 12/04/21 05:57 Sod 4.5 gm/ Dextrose IV 01/13/22 13:59 30 mls/hr Q8H ANTIONETTE Administration Protocol Insulin Aspart 0 units 11/30/21 21:00 12/03/21 21:05 Insulin Aspart Per Unit SC 12/30/21 20:59 Not Given ACHS ANTIONETTE Latanoprost 1 drops 11/27/21 22:30 12/03/21 20:35 Latanoprost 0.005% Op Soln 2.5 Ml Btl OPB 12/27/21 22:29 1 drops HS ANTIONETTE Administration Mirtazapine 15 mg 11/27/21 21:18 11/27/21 23:31 Mirtazapine Tab 15 Mg Tab PO 12/27/21 21:17 15 mg HS ANTIONETTE Administration Miscellaneous 1 each 11/28/21 00:00 12/03/21 23:19 Order Awaiting Action: Difluprednate 0.05 % Drops N/A 12/28/21 00:00 Not Given QS ANTIONETTE Miscellaneous 1 each 11/28/21 00:00 12/03/21 23:20 Order Awaiting Action: Netarsudil 0.02 % Drops N/A 12/28/21 00:00 Not Given QS ANTIONETTE Oxycodone HCl 10 mg 11/27/21 21:18 12/02/21 22:18 Oxycodone Hcl Ir 5 Mg Tab (Immediate Release) PO 12/11/21 21:17 10 mg Q8H PRN Administration Severe Pain 7-10 Pantoprazole Sodium 40 mg 11/27/21 22:30 12/03/21 15:36 Pantoprazole 40 Mg Tab PO 12/27/21 22:29 40 mg BID@0730,1630 ANTIONETTE Administration Tamsulosin HCl 0.4 mg 11/28/21 09:00 12/03/21 15:36 Tamsulosin Hcl 0.4 Mg Cap PO 12/28/21 08:59 0.4 mg DAILY ANTIONETTE Administration Timolol Maleate 1 drops 11/27/21 21:18 12/03/21 20:34 Timolol Maleate 0.5% Op Soln 5 Ml Btl OPB 12/27/21 21:17 1 drops BID ANTIONETTE Administration NPO Date Last Intake of Fluids: 12/03/21 Time Last Intake of Fluids: 23:59 Date Last Intake of Solids: 12/03/21 Time Last Intake of Solids: 23:59 Past Medical History Medical History (Updated 12/04/21 @ 08:04 by Rubens Polk MD) Anemia of chronic disease CAD (coronary artery disease) DM II (diabetes mellitus, type II), controlled HTN (hypertension) Lacunar stroke PAD (peripheral artery disease) Stage 3b chronic kidney disease (CKD) Systolic heart failure Past Surgical History Surgical History (Updated 12/04/21 @ 08:04 by Rubens Polk MD) No significant past surgical history Social History Smoking Status: Never smoker Hx Alcohol Use: No Hx Substance Use: No Physical Exam Vital Signs Last Vital Signs Temp 36.7 C 12/04/21 01:11 Pulse 84 12/04/21 01:11 Resp 16 12/04/21 01:11 BP 163/79 H 12/04/21 01:11 Pulse Ox 97 12/04/21 01:11 O2 Del Method 12/04/21 01:11 Testing Laboratory Results 12/04/21 07:08 12/04/21 07:08 PT 13.0 Seconds (9.0-12.0) H 12/04/21 07:08 INR 1.2 (0.9-1.1) H 12/04/21 07:08 Urine Color Dark Yellow 11/27/21 18:28 Urine Appearance Cloudy (Clear) A 11/27/21 18:28 Urine pH 5.0 (4.5-7.5) 11/27/21 18:28 Ur Specific [place] 1.023 (1.000-1.030) 11/27/21 18:28 Urine Protein 2+ (Negative) H 11/27/21 18:28 Urine Glucose (UA) Negative (Negative) 11/27/21 18:28 Urine Ketones Trace (Negative) H 11/27/21 18:28 Urine Nitrite Negative (Negative) 11/27/21 18:28 Ur Leukocyte Esterase Negative (Negative) 11/27/21 18:28 Urine WBC (Auto) 1-5 /hpf (0-5) 11/27/21 18:28 Urine RBC (Auto) 0-4 /hpf (0-4) 11/27/21 18:28 U Hyaline Cast (Auto) 0 /lpf (0-5) 11/27/21 18:28 U Epithel Cells (Auto) 5-10 /lpf (0-5) H 11/27/21 18:28 Urine Bacteria (Auto) 1+ (Negative) H 11/27/21 18:28 Blood Type O Positive 11/30/21 17:41 Antibody Screen NEGATIVE 11/30/21 17:41 11/27/21 15:48 Aerobic Blood Culture - Final Blood No growth in Aerobic bottle after 5 days. Anaerobic Blood Culture - Final 11/27/21 13:57 Aerobic Blood Culture - Final Blood No growth in Aerobic bottle after 5 days. Anaerobic Blood Culture - Final No growth in Anaerobic bottle after 5 days. 11/27/21 18:28 Urine Culture - Final Urine,Indwelling Cath Yeast not Conchis albicans/dub 11/27/21 14:20 Gram Stain - Final Foot Wound Culture - Final Moderate counts mixed probable skin microbiota. No further identifications or sensitivities to follow. 12/03/21 20:51 POC Glucose 124 H Electrocardiogram Date: 11/28/21 paced at 76 Echocardiogram Date: 12/01/21 EF: 45-50% Valvular Disease: + no significant valvular disease
[2021-12-04] MEDS: dilTIAZem HCL 30 MG TAB PO SCH (08:46)
[2021-12-04] MEDS: INSULIN ASPART PER UNIT SC SCH ×4 (08:46→21:40)
[2021-12-04] MEDS: ASCORBIC ACID 500 MG TAB PO SCH ×2 (08:46→17:03)
[2021-12-04] MEDS: PANTOprazole 40 MG TAB PO SCH ×2 (08:46→17:03)
[2021-12-04] MEDS: CLOPIDOGREL BISULFATE 75 MG TAB PO SCH (08:46)
[2021-12-04] MEDS: DOCUSATE SODIUM 100 MG CAP PO SCH ×2 (08:47→21:42)
[2021-12-04] MEDS: TAMSULOSIN HCL 0.4 MG CAP PO SCH (08:47)
[2021-12-04] MEDS: TIMOLOL MALEATE 0.5% OP SOLN 5 ML BTL OPB SCH ×2 (08:47→21:42)
[2021-12-04] MEDS: FOLIC ACID 1 MG TAB PO SCH (08:47)
[2021-12-04] MEDS ORDERED: GLYCOPYRROLATE 0.2 MG/ML VIAL ONE (08:50)
[2021-12-04] MEDS ORDERED: ONDANSETRON INJ 2 MG/ML 2 ML VIAL ONE (08:50)
[2021-12-04] MEDS ORDERED: MIDAZOLAM HCL 1 MG/ML 2ML VIAL ONE (08:50)
[2021-12-04] MEDS ORDERED: NEOSTIGMINE METHYLSULFATE 1 MG/ML 10ML VIAL ONE (08:50)
[2021-12-04] MEDS ORDERED: DEXAMETHASONE SOD INJ 4 MG/ML VIAL ONE (08:50)
[2021-12-04] MEDS ORDERED: fentaNYL citrate 100 MCG/2 ML VIAL ONE (08:50)
[2021-12-04] MEDS ORDERED: PROPOFOL IV EMULSION 10 MG/ML 20 ML VIAL IV ONE (08:50)
[2021-12-04] MEDS ORDERED: ceFAZolin 330 MG/ML 1 GM VIAL ONE ×2 (11:09)
[2021-12-04] MEDS ORDERED: KETAMINE 50 MG/5 ML SYRINGE ONE (11:09)
[2021-12-04] MEDS ORDERED: ONDANSETRON INJ 2 MG/ML 2 ML VIAL IV PRN (11:29)
[2021-12-04] MEDS ORDERED: ATROPINE SULFATE 0.1 MG/ML 10ML SYR IV PRN (11:29)
[2021-12-04] MEDS ORDERED: HYDROmorphone INJ 1 MG/ML SYRINGE IV PRN ×2 (11:29→14:37)
[2021-12-04] MEDS ORDERED: BUPIVACAINE 0.5 % 5 MG/1 ML MPF 30ML VIAL ONE (11:36)
[2021-12-04] MEDS ORDERED: EPINEPHrine INJ 1 MG/ML AMP ONE (11:36)
--- NOTE | 2021-12-04 11:44 | History & Physical Bridge Note ---
Date of Service December 04, 2021 History & Physical Bridge Note I have examined the patient, reviewed the History & Physical and in the interval since the performance of the History & Physical I have noted the following changes of clinical significance: no changes noted pt marked permit signed Supervising Physician Co-Signing Physician Notes PA Supervision Note: I did not personally see or examine the patient today, but I verified all bolton points of CARMEN Lomas's assessment and plan with the following exceptions/additions: None
--- NOTE | 2021-12-04 12:40 | Post Operative Brief Note ---
PG Immediate Post Op with CF Date of Surgery December 04, 2021 Pre & Post Diagnosis Operation Date: 11/30/21 11:30 <No data on this case meets the specified criteria> Operation Date: 12/01/21 07:00 <No data on this case meets the specified criteria> Operation Date: 12/04/21 10:40 Pre-Op Diagnosis: Osteomyelitis of foot, left, acute Post-Op Diagnosis: Osteomyelitis of foot, left, acute I identified the patient and participated in the time-out.: Yes Procedure Operation Date: 11/30/21 11:30 <No data on this case meets the specified criteria> Operation Date: 12/01/21 07:00 <No data on this case meets the specified criteria> Operation Date: 12/04/21 10:40 Actual Procedures p Left Above Knee Amputation(Left) - Ortiz Hairston MD, FACS Surgeon Ortiz Hairston MD, FACS Wood Barrel Reconditioner b benji self Estimated Blood Loss 125 Findings Consistent with Post-Op Diagnosis
--- NOTE | 2021-12-04 12:59 | Operative Report ---
PG Post Operative Report Pre & Post Diagnosis Operation Date: 11/30/21 11:30 <No data on this case meets the specified criteria> Operation Date: 12/01/21 07:00 <No data on this case meets the specified criteria> Operation Date: 12/04/21 10:40 Pre-Op Diagnosis: Osteomyelitis of foot, left, acute Post-Op Diagnosis: Osteomyelitis of foot, left, acute I identified the patient and participated in the time-out.: Yes Procedure Operation Date: 11/30/21 11:30 <No data on this case meets the specified criteria> Operation Date: 12/01/21 07:00 <No data on this case meets the specified criteria> Operation Date: 12/04/21 10:40 Actual Procedures p Left Above Knee Amputation(Left) - Ortiz Hairston MD, FACS The patient was brought into the operating room theater general endotracheal anesthesia the left lower extremity was prepped from below the knee to the upper left thigh properly draped timeout was had patient identified Where initially planned to consider BK amputation versus AK amputation but after talking to the son in the preop area patient is on calf tenderness just on exam and he was not ambulatory for the last few months with consider discussing above-knee amputation with marked flaps [place] anterior and posterior and distal third of the thigh using the knife we scored the skin to subcutaneous tissue to the muscular layer having accomplished this we then approached the anterior flap first or using electrocautery freed up the muscles around the femur sufficient enough that we were able to free up the periosteum with a periosteal elevator approximately 2 inches or plus proximal to the edge of the superior flap a Shelia clamp was placed posterior to the femur at that level and a Gigli saw was passed posteriorly and using that we resected the femur without any difficulty at this point we used a fillet knife to develop all the posterior flap some bleeding from an open femoral artery was appreciated we control that for hemostat and also controlled the vein we then the vein and the artery ligated the artery with 2-0 silk suture and also a ligature of 2-0 silk the vein was doubly tied with 2-0 silk suture the nerve was pulled back and tied with 2-0 silk a few bleeders in the muscular layer posteriorly genicular branches were ligated with 2-0 silk at this point we noticed that the femur would lay better with cover the posterior flap and anterior flap if we resected more and using a saw we took off another 2inches. We scraped anteriorly the edge of the femur with rasp this point we approximated the 2 edges I first using multiple sutures in the posterior anterior muscle fibers in subcutaneous fashion in the lateral aspect we modified the skin edge so we can [place] a little bit more practically and aligned the posterior and anterior flap which we did then we used 2 Vicryl for all this procedure interrupted and skin edges was approximated with umesh Xeroform gauze Curlex ABD pads were used for cover and reinforced with an Kingsley bandage the procedure was tolerated well by the patient estimate blood loss 125 cc AddendumB Rj Colin was present throughout the procedure and helped with exposure retraction and wound closure I talked to his son Phill at [phone] and explained to them the operative procedure he was a little bit taken back thinking that surgery was going to be done tomorrow there was miscommunication but I did assure him that the his father was coherent this morning know what was going on or yesterday he was not and all questions were answered regarding anticipated hospital stay and possibly going to a rehab center and also discussed with him the status of the decubiti right now we are treating nonoperatively Surgeon Ortiz Hairston MD, FACS Dial Buffer b rj colin Estimated Blood Loss 125 Findings Consistent with Post-Op Diagnosis Proximal vascular arterial insufficiency and ostial calcaneus Specimens Left above-knee amputation Drains None Indications Osteomyelitis of the calcaneus left with significant peripheral vascular disease not amendable to revascularization Description of Procedure merda I attest to the content of the Intraoperative Record and any orders documented therein. Any exceptions are noted below.
[2021-12-04] MEDS ORDERED: HYDROmorphone INJ 0.5 MG/0.5 ML SYR IV PRN (14:37)
[2021-12-04] MEDS: COLLAGENASE OINT 30 GM TUBE EXT SCH (14:43)
--- NOTE | 2021-12-04 15:36 | Anesthesiology Progress Note ---
Date of Service December 04, 2021 Anesthesia Post Procedure Vital Signs Vital Signs: Temp Pulse Pulse Resp BP BP Pulse Ox 12/04/21 15:09 36.6 C 89 16 134/68 98 12/04/21 14:39 36.6 C 89 16 118/72 96 12/04/21 14:15 81 20 124/76 97 12/04/21 14:00 82 22 109/57 L 92 12/04/21 13:45 90 19 109/67 92 12/04/21 13:05 81 24 122/75 100 12/04/21 13:10 93 H 22 111/58 L 100 12/04/21 13:00 71 21 85/50 L 100 12/04/21 13:30 36.4 C L 90 17 117/57 L 93 12/04/21 13:20 85 21 99/62 L 95 12/04/21 12:53 36.7 C 92 H 24 93/58 L 100 12/04/21 09:49 36.7 C 78 20 163/79 H 98 12/04/21 08:32 12/04/21 09:02 36.6 C 85 16 121/59 L 98 12/04/21 01:11 36.7 C 84 16 163/79 H 97 12/03/21 19:15 O2 Del Method O2 Flow Rate 12/04/21 15:09 Room Air 12/04/21 14:39 Room Air 12/04/21 14:15 Nasal Cannula 2 12/04/21 14:00 Room Air 12/04/21 13:45 Room Air 12/04/21 13:05 Oxymask 6 12/04/21 13:10 Oxymask 6 12/04/21 13:00 Oxymask 6 12/04/21 13:30 Room Air 12/04/21 13:20 Room Air 12/04/21 12:53 Oxymask 6 12/04/21 09:49 Room Air 12/04/21 08:32 Room Air 12/04/21 09:02 Room Air 12/04/21 01:11 Room Air 12/03/21 19:15 Room Air Pain Intensity Left Heel: Pain Intensity: 8 Right Arm: Pain Intensity: 6 Generalized: Pain Intensity: 3 Transfer of Care Handoff Completed per policy Notes Mental Status: alert / awake / arousable Patient Amnestic to Procedure: Yes Nausea / Vomiting: adequately controlled Pain: adequately controlled Airway Patency, RR, SpO2: stable & adequate BP & HR: stable & adequate Hydration State: stable & adequate Anesthetic Complications: no major complications apparent
[2021-12-04] MEDS ORDERED: DAPTOmycin 400 MG in SYRINGE 0 ML IV SCH (16:00)
[2021-12-04] MEDS: LATANOPROST 0.005% OP SOLN 2.5 ML BTL OPB SCH (21:43)
[2021-12-05] MEDS: oxyCODONE HCL IR 5 MG TAB (IMMEDIATE RELEASE) PO PRN (05:06)
[2021-12-05] MEDS: PIPERACILLIN/TAZOBACTAM 4.5 GM in DEXTROSE 5% 100 ML IV SCH (06:23)
[2021-12-05] MEDS: CLOTRIMAZOLE 10 MG TROCHE BUCCAL SCH ×6 (06:24→18:27)
[2021-12-05 08:39] LABS: Hematocrit (blood only) 29.2 % (40.1-51.0); Hemoglobin 9.2 g/dl (14.0-18.0); Mean Corpuscular Hemoglobin 30.4 pg (25.0-34.0); Mean Corpuscular Hgb Conc 31.5 g/dL (32.0-36.0); Mean Corpuscular Volume 96.4 fL (80.0-100.0); Mean Platelet Volume 11.6 fL (9.4-12.4); Platelet Count 124 K/uL (130-400); RDW Coefficient of Variation 16.2 % (11.5-14.5); RDW Standard Deviation 57.1 fL (36.4-46.3); Red Blood Count 3.03 M/uL (4.63-6.08); White Blood Count 7.42 K/ul (4.8-10.8)
[2021-12-05 08:53] LABS: Calcium 7.8 mg/dl (8.5-10.1); Creatinine Clr Calc Pharmacy 37.9 ml/min; Est GFR (African American) 48.2 ml/min; Est GFR (Non-African American) 41.6 ml/min; Magnesium 1.6 mg/dl (1.7-2.4); Potassium 3.8 mmol/L (3.5-5.1)
[2021-12-05 08:58] LABS: Basophils # (auto) 0.02 K/uL (0-0.2); Basophils % (auto) 0.3 %; Eosinophils # (auto) 0.08 K/uL (0-0.50); Eosinophils % (auto) 1.1 %; Immature Granulocytes # (auto) 0.06 K/uL (0.00-0.02); Immature Granulocytes % (auto) 0.8 %; Lymphocytes # (auto) 1.18 K/uL (1.2-3.4); Lymphocytes % (auto) 15.9 %; Monocytes # (auto) 0.93 K/uL (0.24-0.82); Monocytes % (auto) 12.5 %; Neutrophils # (auto) 5.15 K/uL (1.4-6.5); Neutrophils % (auto) 69.4 %
[2021-12-05] MEDS: PANTOprazole 40 MG TAB PO SCH ×2 (09:14→17:51)
[2021-12-05] MEDS: FOLIC ACID 1 MG TAB PO SCH (09:14)
[2021-12-05] MEDS: dilTIAZem HCL 30 MG TAB PO SCH (09:14)
[2021-12-05] MEDS: CLOPIDOGREL BISULFATE 75 MG TAB PO SCH (09:14)
[2021-12-05] MEDS: TIMOLOL MALEATE 0.5% OP SOLN 5 ML BTL OPB SCH ×2 (09:14→21:03)
[2021-12-05] MEDS: TAMSULOSIN HCL 0.4 MG CAP PO SCH (09:14)
[2021-12-05] MEDS: DOCUSATE SODIUM 100 MG CAP PO SCH ×3 (09:14→21:00)
[2021-12-05] MEDS: ASCORBIC ACID 500 MG TAB PO SCH ×2 (09:14→17:51)
[2021-12-05] MEDS: COLLAGENASE OINT 30 GM TUBE EXT SCH (09:15)
[2021-12-05] MEDS: INSULIN ASPART PER UNIT SC SCH ×4 (09:43→21:39)
[2021-12-05] MEDS: LANTUS PER UNIT CHARGE SQ SCH (09:43)
[2021-12-05] MEDS: MAGNESIUM SULFATE / D5W 1 GM/100 ML BAG IV SCH ×2 (09:49→11:43)
--- NOTE | 2021-12-05 11:29 | Surgery Progress Note ---
Date of Service December 05, 2021 Assessment & Plan (1) Osteomyelitis of foot, left, acute: Plan: 12/05/21POD#1 status post left above-knee amputation We will leave the dressing on today and plan to change in the next day or so -Pt evaluated with wound care this AM to assess sacral ulcer. Area of black eschar may be amenable to chemical debridement at this time. Eschar was excoriated and will order santyl. May take a few days to notice improvement. No need for surgical intervention at this time. Wound care will reach out should wound further deteriorate -Regarding LLE foot wound, we have been asked to evaluate patient for a BKA vs AKA. Vascular has no further options for re-vascularization at this point. Our team discussed with the hospitalist services who note that although he has a Covid, he has been asymptomatic and not requiring treatment, therefore recommending okay to proceed with intervention this admission. -Dr. Hairston has discussed plans for an AKA with his son who is agreeable with the plan. -Keep NPO at midnight (2) Sacral ulcer: Admission and Anticipated Discharge Date Admission Date: November 27, 2021 Subjective Patient is not voicing any complaints although he is not communicating coherently we were able to ask him if he had any pain and he said no Physical Exam Physical Exam: The dressing on the left AKA amputation site is intact there is no seepage or spotting of blood on the dressing Results & Data ([facility]) Vital Signs (Past 12 Hours) Vital Signs Temp Pulse Resp BP Pulse Ox O2 Del Method 12/05/21 08:45 Room Air 12/05/21 05:20 36.9 C 72 18 131/73 96 Room Air PG Care Time/CCT Total # of Minutes Spent Total Time Spent with Patient: Total time spent is greater than 50% in coordination of care (as documented) at patient's floor/unit and/or counseling patient: Coding Level of Care Code None Diagnoses Osteomyelitis of foot, left, acute M86.172 Sacral ulcer L98.429
[2021-12-05] MEDS: ROSUVASTATIN CALCIUM 5 MG TAB PO SCH (11:43)
[2021-12-05] MEDS: LATANOPROST 0.005% OP SOLN 2.5 ML BTL OPB SCH (21:00)
--- NOTE | 2021-12-05 21:45 | Hospitalist Progress Note ---
Date of Service December 05, 2021 Assessment & Plan (1) Osteomyelitis of foot, left, acute: Plan: Original injury was 8+ months ago. Presented to [facility] on 10/17 with Left heel wound/ulcer with drainage. 10/19 - partial calcanectomy with debridement and primary closure on 10/19. Cultures with MRSA/enterobacter. 10/23 - arteriogram of LLE with moderate to severe disease. Angioplasties were performed. Completed course of broad-spectrum IV abx. Transferred from [facility] to [facility] in [place]. Spent ~3 weeks there. Then transferred to [facility]. CT of left foot while at [facility] (/11/21) concerning for ongoing cellulitis and possible osteomyelitis. 11/27 CT - osteomyelitis and cellulitis worse. Gen surg consult by Dr Hairston - advised AKA of LLE. He is now POD #1 from the AKA. Can stop broad-spectrum IV antibiotics as source of infection (FOOT) is now gone and blood cultures are negative. Appreciate gen surg assistance. (2) Sacral decubitus ulcer: Plan: POA. Wound care nurse saw, and santyl's for chemical debridement advised. Per wound - ulcer is unstageable at this time. General surgery is aware of this ulcer, and if surgical debridement is ultimately needed, they would be willing. Needs better nutrition, frequent turning, etc. (3) Sepsis: Plan: 2nd to #1. COVID could be playing a role. recent UTI as well. sacral decub without over infection at this time. (4) PAD (peripheral artery disease): Plan: LLE. s/p intervention this summer at [facility] in October. Cont statin. Cont plavix. (5) Stage 3b chronic kidney disease (CKD): Plan: Records suggest baseline of 1.5-2. BMP today stable. Repeat in am. (6) Anemia: Plan: Likely anemia of chronic disease. B12/folate WNL. Iron low normal, TIBC 125 and ferritin 1953 (ferritin likely reactive). s/p 1 u PRBC on 11/30 and repeat hgb stable repeat cbc in am for stability (7) COVID-19: Plan: Tested positive on admission; asymptomatic No evidence of pneumonia on exam or cxr confusion could be in part due to COVID infection No indication for dexamethasone or Remdesivir Cont airborne isolation (8) Hyperkalemia: Plan: resolved (9) HTN (hypertension): Plan: BPs today acceptable (10) Hyperlipidemia: Plan: Stopping daptomycin thus - resume statin (11) DM II (diabetes mellitus, type II), controlled: Plan: Continue Novolog SSI BSGs controlled Check a1c while here (12) CAD (coronary artery disease): Plan: ECHO with LV systolic function borderline reduced. EF 45-50%. Borderline global hypokinesis of left ventricle. Mild concentric LVH. No prior study for comparison. Continue plavix. Continue statin. no MAREK/ARB given CKD. (13) Lacunar stroke: Plan: CVA ~7 years ago. Uncertain of location of stroke. CT head here - old R occipital lobe cva. If mental status continues to be poor - and if ICD is MRI compatible - consider MRI brain to r/o subacute cva. (14) Esophagitis: Plan: cont PPI twice daily (15) Dysphagia: Plan: Likely secondary to esohpagitis Cont Pureed diet (16) Acute kidney failure NEC: Plan: resolved likely was sepsis-associated XAVIER bmp am (17) Acute metabolic encephalopathy: Plan: multifactorial - infection L foot, COVID-19 infection, recent UTI, etc supportive care consider MRI brain if symptoms persist (18) DVT prophylaxis: Plan: resume lovenox am (19) Candidiasis of mouth and esophagus: Plan: appears resolved (20) Chronic pain syndrome: Plan: per sons he has been on chronic oxycodone for several years PDMP demonstrates such - has been on oxycodone since 2019 thus, current confusion is likely not from narcotics since he likely has tolerance to them Plan sons extensively updated at bedside will need PT/OT when able to participate Admission and Anticipated Discharge Date Admission Date: November 27, 2021 Subjective patient was very confused and not cooperative during the visit unable to follow commands 2 sons at bedside 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 they also stated that his mentation has been poor over the last 2-3 months, waxing/waning today is "bad day" - a few days ago pre-op his mentation was better appetite has been poor patient unable to provide any meaningful history or ROS Review of Systems Review of Systems: Unobtainable due to cognitive status Physical Exam Physical Exam: gen - confused, chronically ill-appearing, a little agitated mouth - MM dry, unable to visualize posterior throat, the limited amount of mucosa I could see did not show thrush ears - hearing impaired - severe neck - no JVD heart - 2/6 systolic murmur, RRR, s1 s2 lungs - decreased BS bases b/l, no rales abd - soft, NT, ND, BS+ ext - left AKA with dressings over stump; right foot w/o edema, warm, pulses 1- 2+ right foot psych - oriented to person only Results & Data Results & Data ([facility]) Vital Signs (Past 12 Hours) Vital Signs Temp Pulse Resp BP BP Pulse Ox O2 Del Method 12/05/21 21:02 37.9 C H 85 16 134/63 96 Room Air 12/05/21 18:00 37.3 C 57 L 18 134/88 94 Room Air 12/05/21 11:40 36.5 C 100 H 16 128/90 93 Room Air Laboratory Results Laboratory Results - last 24 hr 12/05/21 12/05/21 12/05/21 08:12 08:12 09:07 WBC 7.42 RBC 3.03 L Hgb 9.2 L Hct 29.2 L MCV 96.4 MCH 30.4 MCHC 31.5 L RDW Std Deviation 57.1 H RDW Coeff of Rusty 16.2 H Plt Count 124 L MPV 11.6 Immature Gran % (Auto) 0.8 Neut % (Auto) 69.4 Lymph % (Auto) 15.9 Norton % (Auto) 12.5 Eos % (Auto) 1.1 Baso % (Auto) 0.3 Neut # (Auto) 5.15 Lymph # (Auto) 1.18 L Norton # (Auto) 0.93 H Eos # (Auto) 0.08 Baso # (Auto) 0.02 Immature Gran # (Auto) 0.06 H Sodium 144 Potassium 3.8 Chloride 116 H Carbon Dioxide 22 Anion Gap 6 BUN 19 Creatinine 1.58 H Est Cr Clr Drug Dosing 37.9 Est GFR ( Amer) 48.2 Est GFR (Non-Af Amer) 41.6 BUN/Creatinine Ratio 12.0 Glucose 148 H POC Glucose 192 H Calcium 7.8 L Magnesium 1.6 L 12/05/21 12/05/21 12/05/21 11:43 17:53 20:52 WBC RBC Hgb Hct MCV MCH MCHC RDW Std Deviation RDW Coeff of Rusty Plt Count MPV Immature Gran % (Auto) Neut % (Auto) Lymph % (Auto) Norton % (Auto) Eos % (Auto) Baso % (Auto) Neut # (Auto) Lymph # (Auto) Norton # (Auto) Eos # (Auto) Baso # (Auto) Immature Gran # (Auto) Sodium Potassium Chloride Carbon Dioxide Anion Gap BUN Creatinine Est Cr Clr Drug Dosing Est GFR ( Amer) Est GFR (Non-Af Amer) BUN/Creatinine Ratio Glucose POC Glucose 135 H 136 H 137 H Calcium Magnesium PG Care Time/CCT Total # of Minutes Spent Total Time Spent with Patient: Total time spent is greater than 50% in coordination of care (as documented) at patient's floor/unit and/or counseling patient: Coding Level of Care Code 36556 Subseq Hosp Care Lvl 3 Diagnoses Osteomyelitis of foot, left, acute M86.172 Sacral decubitus ulcer L89.159 Sepsis A41.9 PAD (peripheral artery disease) I73.9 Stage 3b chronic kidney disease (CKD) N18.32 Anemia D64.9 Anemia type: unspecified type COVID-19 U07.1 Hyperkalemia E87.5 HTN (hypertension) I10 Hypertension type: unspecified Hyperlipidemia E78.5 Hyperlipidemia type: unspecified DM II (diabetes mellitus, type II), controlled E11.9 Diabetes mellitus nursing home insulin use: with intermediate manager use CAD (coronary artery disease) I25.10 Lacunar stroke I63.81 Esophagitis K20.90 Dysphagia R13.10 Acute kidney failure NEC N17.8 Acute metabolic encephalopathy G93.41 DVT prophylaxis Z29.9 Candidiasis of mouth and esophagus B37.81; B37.0 Chronic pain syndrome G89.4 (1) Anemia Anemia type: unspecified type Qualified Code(s): D64.9 - Anemia, unspecified (2) Hyperlipidemia Hyperlipidemia type: unspecified Qualified Code(s): E78.5 - Hyperlipidemia, unspecified (3) DM II (diabetes mellitus, type II), controlled Diabetes mellitus intermediate manager insulin use: with intermediate manager use (4) HTN (hypertension) Hypertension type: unspecified Qualified Code(s): I10 - Essential (primary) hypertension
[2021-12-06] MEDS: CLOTRIMAZOLE 10 MG TROCHE BUCCAL SCH ×5 (06:27→18:15)
[2021-12-06 08:30] LABS: Hematocrit (blood only) 28.3 % (40.1-51.0); Hemoglobin 8.7 g/dl (14.0-18.0); Mean Corpuscular Hemoglobin 30.5 pg (25.0-34.0); Mean Corpuscular Hgb Conc 30.7 g/dL (32.0-36.0); Mean Corpuscular Volume 99.3 fL (80.0-100.0); Mean Platelet Volume 11.4 fL (9.4-12.4); Platelet Count 134 K/uL (130-400); RDW Coefficient of Variation 16.3 % (11.5-14.5); RDW Standard Deviation 58.9 fL (36.4-46.3); Red Blood Count 2.85 M/uL (4.63-6.08); White Blood Count 7.13 K/ul (4.8-10.8)
[2021-12-06 08:41] LABS: BUN Creatinine Ratio 11.8 (10-20); Calcium 7.9 mg/dl (8.5-10.1); Creatinine Clr Calc Pharmacy 35.4 ml/min; Est GFR (African American) 44.4 ml/min; Est GFR (Non-African American) 38.3 ml/min; Potassium 3.5 mmol/L (3.5-5.1)
[2021-12-06] MEDS: FOLIC ACID 1 MG TAB PO SCH (09:36)
[2021-12-06] MEDS: PANTOprazole 40 MG TAB PO SCH (09:36)
[2021-12-06] MEDS: ROSUVASTATIN CALCIUM 5 MG TAB PO SCH (09:37)
[2021-12-06] MEDS: dilTIAZem HCL 30 MG TAB PO SCH (09:37)
[2021-12-06] MEDS: ASCORBIC ACID 500 MG TAB PO SCH (09:37)
[2021-12-06] MEDS: TAMSULOSIN HCL 0.4 MG CAP PO SCH (09:38)
[2021-12-06] MEDS: DOCUSATE SODIUM 100 MG CAP PO SCH ×2 (09:38→21:37)
[2021-12-06] MEDS: CLOPIDOGREL BISULFATE 75 MG TAB PO SCH (09:38)
[2021-12-06] MEDS: COLLAGENASE OINT 30 GM TUBE EXT SCH (09:47)
[2021-12-06] MEDS: TIMOLOL MALEATE 0.5% OP SOLN 5 ML BTL OPB SCH ×2 (09:47→21:38)
[2021-12-06] MEDS: LANTUS PER UNIT CHARGE SQ SCH (09:54)
[2021-12-06] MEDS: INSULIN ASPART PER UNIT SC SCH ×4 (09:55→21:55)
[2021-12-06] MEDS: PANTOprazole 40 MG in SYRINGE 0 ML IV SCH ×2 (16:27→21:38)
[2021-12-06] MEDS: SUCRALFATE 1 GM/10 ML UDC PO SCH ×2 (16:31→21:37)
--- NOTE | 2021-12-06 20:10 | Hospitalist Progress Note ---
Date of Service December 06, 2021 Assessment & Plan (1) Osteomyelitis of foot, left, acute: Plan: Original injury was 8+ months ago. Presented to [facility] on 10/17 with Left heel wound/ulcer with drainage. 10/19 - partial calcanectomy with debridement and primary closure on 10/19. Cultures with MRSA/enterobacter. 10/23 - arteriogram of [facility] with moderate to severe disease. Angioplasties were performed. Completed course of broad-spectrum IV abx. Transferred from [facility] to [facility] in [place]. Spent ~3 weeks there. Then transferred to [facility]. CT of left foot while at [facility] (/11/21) concerning for ongoing cellulitis and possible osteomyelitis. 11/27 CT - osteomyelitis and cellulitis worse. Gen surg consult by Dr Hairston - advised AKA of [facility]. He is now POD #2 from the E AKA. Broad-spectrum IV antibiotics were stopped as source of infection (FOOT) is now gone and blood cultures are negative. Sacral decub does not appear infected. Appreciate gen surg assistance. (2) Sacral decubitus ulcer: Plan: POA. Wound care nurse saw, and santyl's for chemical debridement advised. Per wound - ulcer is unstageable at this time. I inspected the wound - no surrounding cellulitis. General surgery is aware of this ulcer, and if surgical debridement is ultimately needed, they would be willing. Needs better nutrition, frequent turning, etc. (3) Sepsis: Plan: 2nd to #1. COVID could be playing a role. recent UTI as well. sacral decub without overt infection at this time. (4) PAD (peripheral artery disease): Plan: LLE. s/p intervention this summer at [facility] in October. Cont statin. Cont plavix albeit cautiously in light of heme+ stool. (5) Stage 3b chronic kidney disease (CKD): Plan: Records suggest baseline of 1.5-2. BMP today stable. Repeat in am. (6) Anemia: Plan: Likely anemia of chronic disease. But now with heme+ stool. B12/folate WNL. Iron low normal, TIBC 125 and ferritin 1953 (ferritin likely reactive). s/p 1 u PRBC on 11/30 and repeat hgb stable repeat cbc in am for stability in light of heme + stool (7) COVID-19: Plan: Tested positive on admission; no pulmonary symptoms fortunately No evidence of pneumonia on exam or cxr confusion could be in part due to COVID infection low-grade fever likely due to COVID No indication for dexamethasone or Remdesivir Cont airborne isolation (8) Hyperkalemia: Plan: resolved (9) HTN (hypertension): Plan: BPs today acceptable (10) Hyperlipidemia: Plan: statin (11) DM II (diabetes mellitus, type II), controlled: Plan: Continue Novolog SSI BSGs controlled (12) CAD (coronary artery disease): Plan: ECHO with LV systolic function borderline reduced. EF 45-50%. Borderline global hypokinesis of left ventricle. Mild concentric LVH. No prior study for comparison. Continue plavix. Continue statin. no MAREK/ARB given CKD. (13) Lacunar stroke: Plan: CVA ~7 years ago. Uncertain of location of stroke. CT head here - old R occipital lobe cva. If mental status continues to be poor - and if ICD is MRI compatible - consider MRI brain to r/o subacute cva. (14) Esophagitis: Plan: cont PPI twice daily in light of heme+ stool / melena -- add carafate qid, hold lovenox keep plavix due to prior h/o stroke, CAD, and PAD (15) Dysphagia: Plan: Likely secondary to esohpagitis Cont Pureed diet if he can tolerate (16) Acute kidney failure NEC: Plan: resolved likely was sepsis-associated XAVIER bmp am (17) Acute metabolic encephalopathy: Plan: multifactorial - infection L foot, COVID-19 infection, recent UTI, etc supportive care consider MRI brain if symptoms persist (18) DVT prophylaxis: Plan: hold lovenox (19) Candidiasis of mouth and esophagus: Plan: appears resolved (20) Chronic pain syndrome: Plan: per sons he has been on chronic oxycodone for several years PDMP demonstrates such - has been on oxycodone since 2019 thus, current confusion is likely not from narcotics since he likely has tolerance to them (21) Heme positive stool: Plan: 2nd esophagitis? cont PPI IV bid add carafate hold lovenox cbc am Plan sons extensively updated at bedside yesterday will need PT/OT when able to participate prognosis is guarded in light of numerous medical issues, FTT, COVID, etc Admission and Anticipated Discharge Date Admission Date: November 27, 2021 Subjective patient unable to provide any meaningful history very confused - stated he was at home in [place] was very hard to understand - speech was marbly during the visit he had a large melena stool staff came to clean him up - I inspected his sacral decub during that time Review of Systems Review of Systems: Unobtainable due to cognitive status Physical Exam Physical Exam: gen - confused, chronically ill-appearing, lethargic, marbly speech mouth - MM dry ears - hearing impaired - severe neck - no JVD heart - 2/6 systolic murmur, RRR, s1 s2 lungs - decreased BS bases b/l, no rales, no wheeze abd - soft, NT, ND, BS+ ext - left AKA with dressings over stump; right foot w/o edema, warm, pulses 1- 2+ right foot psych - oriented to person only skin - sacral decub with black eschar/denuded skin, no cellulitis Results & Data Results & Data ([facility]) Vital Signs (Past 12 Hours) Vital Signs Temp Pulse Resp BP BP Pulse Ox O2 Del Method 12/06/21 14:52 37.4 C 73 18 147/78 H 93 Room Air 12/06/21 09:30 Room Air 12/06/21 09:27 37 C 73 16 160/54 H 94 Room Air Laboratory Results Laboratory Results - last 24 hr 12/05/21 12/06/21 12/06/21 20:52 06:54 06:54 WBC 7.13 RBC 2.85 L Hgb 8.7 L Hct 28.3 L MCV 99.3 MCH 30.5 MCHC 30.7 L RDW Std Deviation 58.9 H RDW Coeff of Rusty 16.3 H Plt Count 134 MPV 11.4 Sodium 145 Potassium 3.5 Chloride 115 H Carbon Dioxide 22 Anion Gap 8 BUN 20 Creatinine 1.69 H Est Cr Clr Drug Dosing 35.4 Est GFR ( Amer) 44.4 Est GFR (Non-Af Amer) 38.3 BUN/Creatinine Ratio 11.8 Glucose 117 H POC Glucose 137 H Calcium 7.9 L Stool Occult Bld Scrn 12/06/21 12/06/21 12/06/21 09:33 12:56 15:00 WBC RBC Hgb Hct MCV MCH MCHC RDW Std Deviation RDW Coeff of Rusty Plt Count MPV Sodium Potassium Chloride Carbon Dioxide Anion Gap BUN Creatinine Est Cr Clr Drug Dosing Est GFR ( Amer) Est GFR (Non-Af Amer) BUN/Creatinine Ratio Glucose POC Glucose 149 H 180 H Calcium Stool Occult Bld Scrn Positive A 12/06/21 17:52 WBC RBC Hgb Hct MCV MCH MCHC RDW Std Deviation RDW Coeff of Rusty Plt Count MPV Sodium Potassium Chloride Carbon Dioxide Anion Gap BUN Creatinine Est Cr Clr Drug Dosing Est GFR ( Amer) Est GFR (Non-Af Amer) BUN/Creatinine Ratio Glucose POC Glucose 93 Calcium Stool Occult Bld Scrn PG Care Time/CCT Total # of Minutes Spent Total Time Spent with Patient: Total time spent is greater than 50% in coordination of care (as documented) at patient's floor/unit and/or counseling patient: Coding Level of Care Code 75407 Subseq Hosp Care Lvl 2 Diagnoses Osteomyelitis of foot, left, acute M86.172 Sacral decubitus ulcer L89.159 Sepsis A41.9 PAD (peripheral artery disease) I73.9 Stage 3b chronic kidney disease (CKD) N18.32 Anemia D64.9 Anemia type: unspecified type COVID-19 U07.1 Hyperkalemia E87.5 HTN (hypertension) I10 Hypertension type: unspecified Hyperlipidemia E78.5 Hyperlipidemia type: unspecified DM II (diabetes mellitus, type II), controlled E11.9 Diabetes mellitus long term care pharmacist insulin use: with long term care pharmacist use CAD (coronary artery disease) I25.10 Lacunar stroke I63.81 Esophagitis K20.90 Dysphagia R13.10 Acute kidney failure NEC N17.8 Acute metabolic encephalopathy G93.41 DVT prophylaxis Z29.9 Candidiasis of mouth and esophagus B37.81; B37.0 Chronic pain syndrome G89.4 Heme positive stool R19.5 (1) Anemia Anemia type: unspecified type Qualified Code(s): D64.9 - Anemia, unspecified (2) Hyperlipidemia Hyperlipidemia type: unspecified Qualified Code(s): E78.5 - Hyperlipidemia, unspecified (3) DM II (diabetes mellitus, type II), controlled Diabetes mellitus chcf insulin use: with chcf use (4) HTN (hypertension) Hypertension type: unspecified Qualified Code(s): I10 - Essential (primary) hypertension
[2021-12-06] MEDS: LATANOPROST 0.005% OP SOLN 2.5 ML BTL OPB SCH (21:38)
[2021-12-06] MEDS: oxyCODONE HCL IR 5 MG TAB (IMMEDIATE RELEASE) PO PRN (21:56)
[2021-12-07] MEDS: CLOTRIMAZOLE 10 MG TROCHE BUCCAL SCH ×5 (06:35→18:36)
[2021-12-07] MEDS: oxyCODONE HCL IR 5 MG TAB (IMMEDIATE RELEASE) PO PRN (06:43)
[2021-12-07 08:42] LABS: Hematocrit (blood only) 30.3 % (40.1-51.0); Hemoglobin 9.2 g/dl (14.0-18.0); Mean Corpuscular Hemoglobin 30.3 pg (25.0-34.0); Mean Corpuscular Hgb Conc 30.4 g/dL (32.0-36.0); Mean Corpuscular Volume 99.7 fL (80.0-100.0); Mean Platelet Volume 11.4 fL (9.4-12.4); Platelet Count 148 K/uL (130-400); RDW Coefficient of Variation 16.1 % (11.5-14.5); RDW Standard Deviation 59.1 fL (36.4-46.3); Red Blood Count 3.04 M/uL (4.63-6.08); White Blood Count 8.07 K/ul (4.8-10.8)
[2021-12-07] MEDS: PANTOprazole 40 MG in SYRINGE 0 ML IV SCH ×2 (08:46→21:26)
[2021-12-07] MEDS: dilTIAZem HCL 30 MG TAB PO SCH (08:48)
[2021-12-07] MEDS: DOCUSATE SODIUM 100 MG CAP PO SCH ×2 (08:48→21:26)
[2021-12-07] MEDS: CLOPIDOGREL BISULFATE 75 MG TAB PO SCH (08:48)
[2021-12-07] MEDS: FOLIC ACID 1 MG TAB PO SCH (08:49)
[2021-12-07] MEDS: SUCRALFATE 1 GM/10 ML UDC PO SCH ×4 (08:49→21:25)
[2021-12-07] MEDS: ROSUVASTATIN CALCIUM 5 MG TAB PO SCH (08:49)
[2021-12-07] MEDS: TAMSULOSIN HCL 0.4 MG CAP PO SCH (08:49)
[2021-12-07] MEDS: TIMOLOL MALEATE 0.5% OP SOLN 5 ML BTL OPB SCH ×2 (08:50→21:28)
[2021-12-07 09:04] LABS: BUN Creatinine Ratio 13.2 (10-20); Creatinine Clr Calc Pharmacy 35.8 ml/min; Est GFR (African American) 45.1 ml/min; Est GFR (Non-African American) 38.9 ml/min; Potassium 3.5 mmol/L (3.5-5.1)
[2021-12-07] MEDS: INSULIN ASPART PER UNIT SC SCH ×4 (09:05→21:28)
[2021-12-07] MEDS: LANTUS PER UNIT CHARGE SQ SCH (09:06)
[2021-12-07] MEDS: COLLAGENASE OINT 30 GM TUBE EXT SCH (09:37)
[2021-12-07] MEDS: SODIUM CHLOR 0.45% + 20MEQ KCL 20 MEQ/1,000 ML BAG IV SCH (11:41)
--- NOTE | 2021-12-07 19:32 | CT Scan Report ---
HEAD CT NONCONTRAST CT DOSE: 537.48 mGy.cm HISTORY: h/o CVA; altered mental status; eval new CVA/ICH TECHNIQUE: Multiaxial CT images of the head were performed without the use of intravenous contrast. A utomated exposure control was utilized for this study. A dose lowering technique was utilized adheri ng to the principles of ALARA. Comparison: Head CT 11/30/2021. Findings: The paranasal sinuses and mastoid air cells are clear. The calvarium and skull base are int act. There is no mass, hematoma, midline shift, acute infarct. White matter hypodensity is nonspecifi c but suggestive of microvascular ischemic change. The ventricles and sulci demonstrate mild age-rela brittanie involutional changes. Old right occipital lobe infarct again noted. Impression: No significant change compared to the prior study. No acute intracranial abnormality. ACT 112: Negative or not required by law. Electronically signed by: Surendra Higgins M.D. 12/07/2021 7:31 PM
--- NOTE | 2021-12-07 20:18 | Hospitalist Progress Note ---
Date of Service December 07, 2021 Assessment & Plan (1) Acute metabolic encephalopathy: Plan: SEVERE. ongoing. multifactorial - infection L foot, COVID-19 infection, recent UTI, hospital psychosis, ?baseline memory issues, etc CT head obtained today - no acute process, no ICH. check VBG, check ammonia, check crp, recheck u/a/urine culture, blood cx's. low threshold for abx again. COVID-19 could be contributing significantly - still with low-grade fevers, etc. has VERY old ICD - placed at [facility] 10+ years ago? doubt it is MRI compatible. son unsure which multimedia specialist he sees in [place]. (2) Osteomyelitis of foot, left, acute: Plan: Original injury was 8+ months ago. Presented to [facility] on 10/17 with Left heel wound/ulcer with drainage. 10/19 - partial calcanectomy with debridement and primary closure on 10/19. Cultures with MRSA/enterobacter. 10/23 - arteriogram of [facility] with moderate to severe disease. Angioplasties were performed. Completed course of broad-spectrum IV abx. Transferred from [facility] to [facility] in [place]. Spent ~3 weeks there. Then transferred to [facility]. CT of left foot while at [facility] (/11/21) concerning for ongoing cellulitis and possible osteomyelitis. 11/27 CT - osteomyelitis and cellulitis worse. Gen surg consult by Dr Hairston - advised AKA of [facility]. He is now POD #3 from the E AKA. Broad-spectrum IV antibiotics were stopped as source of infection (FOOT) is now gone and prior blood cultures are negative. Sacral decub does not appear infected. Appreciate gen surg assistance. (3) Sacral decubitus ulcer: Plan: POA. Wound care nurse saw, and santyl's for chemical debridement advised. Per wound - ulcer is unstageable at this time. I inspected the wound - no surrounding cellulitis. General surgery is aware of this ulcer, and if surgical debridement is ultimately needed, they would be willing. Needs better nutrition but uncertain if that will happen given his failure to thrive. Consider remeron, but uncertain he would tolerate the sedative effects. Cont frequent turning, etc. (4) Sepsis: Plan: Ongoing. Still with low-grade fever last pm. COVID could be playing a role. recent UTI as well. sacral decub without overt infection at this time. see #1 above. (5) PAD (peripheral artery disease): Plan: LLE. s/p intervention this summer at [facility] in October. Cont statin. Cont plavix albeit cautiously in light of heme+ stool. Son reports he has had blood in stool "for months." (6) Stage 3b chronic kidney disease (CKD): Plan: Records suggest baseline of 1.5-2. BMP today stable. Repeat in am. (7) Anemia: Plan: Likely anemia of chronic disease. But now with heme+ stool. B12/folate WNL. Iron low normal, TIBC 125 and ferritin 1953 (ferritin likely reactive). s/p 1 u PRBC on 11/30 and repeat hgb stable repeat cbc today with acceptable H/H. (8) COVID-19: Plan: Tested positive on admission; no pulmonary symptoms fortunately No evidence of pneumonia on exam or cxr confusion could be in part due to COVID infection low-grade fever likely due to COVID No indication for dexamethasone or Remdesivir Cont airborne isolation (9) Hyperkalemia: Plan: resolved (10) HTN (hypertension): Plan: BPs today acceptable (11) Hyperlipidemia: Plan: statin (12) DM II (diabetes mellitus, type II), controlled: Plan: Continue Novolog SSI BSGs controlled (13) CAD (coronary artery disease): Plan: ECHO with LV systolic function borderline reduced. EF 45-50%. Borderline global hypokinesis of left ventricle. Mild concentric LVH. No prior study for comparison. Continue plavix. Continue statin. no MAREK/ARB given CKD. (14) Lacunar stroke: Plan: CVA ~7 years ago. Uncertain of location of stroke. CT head here - old R occipital lobe cva. Repeat head CT today negative If mental status continues to be poor - and if ICD is MRI compatible - consider MRI brain to r/o subacute cva. (15) Esophagitis: Plan: cont PPI twice daily in light of heme+ stool / melena -- added carafate qid, hold lovenox - but uncertain he can take PO meds given his altered MS keep plavix due to prior h/o stroke, CAD, and PAD (16) Dysphagia: Plan: Likely secondary to esohpagitis Cont Pureed diet if he can tolerate (17) Acute kidney failure NEC: Plan: resolved likely was sepsis-associated XAVIER bmp am (18) DVT prophylaxis: Plan: hold lovenox as above (19) Candidiasis of mouth and esophagus: Plan: appears resolved (20) Chronic pain syndrome: Plan: per sons he has been on chronic oxycodone for several years PDMP demonstrates such - has been on oxycodone since 2019 thus, current confusion is likely not from narcotics since he likely has tolerance to them (21) Heme positive stool: Plan: 2nd esophagitis? cont PPI IV bid add carafate hold lovenox cbc am Plan hypernatremia - recurrent - start hypotonic fluids updated son, jess Hernandez explained events of this weekend and ongoing lethargy, confusion, FTT, etc David is realistic - he has seen his father decline for months - knows his "time might be nearing the end" David mentioned that he wants his father as comfortable as possible in the days ahead will see how he does next 48 hours and then go from there strongly consider palliative care consultation need code status discussion as well prognosis very poor Admission and Anticipated Discharge Date Admission Date: November 27, 2021 Subjective patient very confused and lethargic during the visit eyes open, but follows commands poorly when asked if he was having pain he said no staff report NO po intake but able to take AM meds 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[facility] and he was able to talk a little about this but otherwise was fairly noncommunicative Review of Systems Review of Systems: Unobtainable due to cognitive status Physical Exam Physical Exam: gen - confused, chronically ill-appearing, lethargic, marbly and hoarse speech - very difficult to understand him; eyes open, just staring at the window eyes - left pupil is about 4mm, right pupil about 2mm; uncertain chronicity mouth - MM dry ears - hearing impaired - severe neck - no JVD heart - 2/6 systolic murmur, RRR, s1 s2 lungs - decreased BS bases b/l, no rales, no wheeze abd - soft, NT, ND, BS+ ext - left AKA with dressings over stump; right foot w/o edema, pulses 1-2+ right foot; hands and feet are cold psych - oriented to person only neuro - handgrips seem equal Results & Data Results & Data ([facility]) Vital Signs (Past 12 Hours) Vital Signs Temp Pulse Resp BP Pulse Ox O2 Del Method 12/07/21 17:56 36.6 C 86 16 135/71 96 Room Air 12/07/21 12:49 36.4 C L 86 16 150/87 H 96 Room Air 12/07/21 08:45 Room Air 12/07/21 08:46 36.5 C 86 16 128/78 96 Room Air Laboratory Results Laboratory Results - last 24 hr 12/04/21 12/06/21 12/07/21 07:08 21:44 08:27 WBC 8.07 RBC 3.04 L Hgb 9.2 L Hct 30.3 L MCV 99.7 MCH 30.3 MCHC 30.4 L RDW Std Deviation 59.1 H RDW Coeff of Rusty 16.1 H Plt Count 148 MPV 11.4 Sodium Potassium Chloride Carbon Dioxide Anion Gap BUN Creatinine Est Cr Clr Drug Dosing Est GFR ( Amer) Est GFR (Non-Af Amer) BUN/Creatinine Ratio Glucose POC Glucose 145 H Calcium Magnesium Crossmatch See Detail 12/07/21 12/07/21 12/07/21 08:27 08:43 11:48 WBC RBC Hgb Hct MCV MCH MCHC RDW Std Deviation RDW Coeff of Rusty Plt Count MPV Sodium 147 H Potassium 3.5 Chloride 116 H Carbon Dioxide 22 Anion Gap 9 BUN 22 Creatinine 1.67 H Est Cr Clr Drug Dosing 35.8 Est GFR ( Amer) 45.1 Est GFR (Non-Af Amer) 38.9 BUN/Creatinine Ratio 13.2 Glucose 149 H POC Glucose 155 H 138 H Calcium 8.0 L Magnesium 2.0 Crossmatch 12/07/21 17:59 WBC RBC Hgb Hct MCV MCH MCHC RDW Std Deviation RDW Coeff of Rusty Plt Count MPV Sodium Potassium Chloride Carbon Dioxide Anion Gap BUN Creatinine Est Cr Clr Drug Dosing Est GFR ( Amer) Est GFR (Non-Af Amer) BUN/Creatinine Ratio Glucose POC Glucose 107 H Calcium Magnesium Crossmatch Diagnostic Findings Head CT 12/07/21 17:[address] DOSE: 537.48 mGy.cm HISTORY: h/o CVA; altered mental status; eval new CVA/ICH TECHNIQUE: Multiaxial CT images of the head were performed without the use of intravenous contrast. Automated exposure control was utilized for this study. A dose lowering technique was utilized adhering to the principles of ALARA. Comparison: Head CT 11/30/2021. Findings: The paranasal sinuses and mastoid air cells are clear. The calvarium and skull base are intact. There is no mass, hematoma, midline shift, acute infarct. White matter hypodensity is nonspecific but suggestive of microvascular ischemic change. The ventricles and sulci demonstrate mild age-related involutional changes. Old right occipital lobe infarct again noted. Impression: No significant change compared to the prior study. No acute intracranial abnormality. ACT 112: Negative or not required by law. Electronically signed by: Surendra Higgins M.D. 12/07/2021 7:31 PM PG Care Time/CCT Total # of Minutes Spent Total Time Spent with Patient: Total time spent is greater than 50% in coordination of care (as documented) at patient's floor/unit and/or counseling patient: Coding Level of Care Code 17482 Subseq Hosp Care Lvl 3 Diagnoses Acute metabolic encephalopathy G93.41 Osteomyelitis of foot, left, acute M86.172 Sacral decubitus ulcer L89.159 Sepsis A41.9 PAD (peripheral artery disease) I73.9 Stage 3b chronic kidney disease (CKD) N18.32 Anemia D64.9 Anemia type: unspecified type COVID-19 U07.1 Hyperkalemia E87.5 HTN (hypertension) I10 Hypertension type: unspecified Hyperlipidemia E78.5 Hyperlipidemia type: unspecified DM II (diabetes mellitus, type II), controlled E11.9 Diabetes mellitus alf insulin use: with intermediate teacher use CAD (coronary artery disease) I25.10 Lacunar stroke I63.81 Esophagitis K20.90 Dysphagia R13.10 Acute kidney failure NEC N17.8 DVT prophylaxis Z29.9 Candidiasis of mouth and esophagus B37.81; B37.0 Chronic pain syndrome G89.4 Heme positive stool R19.5 (1) Anemia Anemia type: unspecified type Qualified Code(s): D64.9 - Anemia, unspecified (2) Hyperlipidemia Hyperlipidemia type: unspecified Qualified Code(s): E78.5 - Hyperlipidemia, unspecified (3) DM II (diabetes mellitus, type II), controlled Diabetes mellitus intermediate teacher insulin use: with intermediate teacher use (4) HTN (hypertension) Hypertension type: unspecified Qualified Code(s): I10 - Essential (primary) hypertension
[2021-12-07 21:25] LABS: Base Excess VBG 0.5 mEq/L; HCO3 VBG 25 mmol/L; Oxygen Saturation VBG < 60.0 %; PCO2 VBG 41 mmHg (38-50); PO2 VBG 29 mmHg
[2021-12-07] MEDS: LATANOPROST 0.005% OP SOLN 2.5 ML BTL OPB SCH (21:27)
[2021-12-07 22:50] LABS: Appearance Urine Cloudy (Clear); Bilirubin Urine Negative (Negative); Blood Urine 2+ (Negative); Color Urine Yellow; Epithelial Cell Urine Auto >30 /lpf (0-5); Glucose Urine UA Negative (Negative); Ketones Urine Trace (Negative); Leukocyte Esterase Urine Trace (Negative); Nitrite Urine Negative (Negative); Protein Urine 2+ (Negative); Specific Gravity Urine 1.014 (1.000-1.030); Urobilinogen Urine Negative (Negative)
[2021-12-08] MEDS: oxyCODONE HCL IR 5 MG TAB (IMMEDIATE RELEASE) PO PRN ×2 (00:02→18:48)
[2021-12-08] MEDS: SODIUM CHLOR 0.45% + 20MEQ KCL 20 MEQ/1,000 ML BAG IV SCH (00:05)
[2021-12-08 00:15] LABS: Bacteria Urine Automated 1+ (Negative)
[2021-12-08] MEDS: CLOTRIMAZOLE 10 MG TROCHE BUCCAL SCH ×5 (05:51→21:28)
--- NOTE | 2021-12-08 08:53 | Surgery Progress Note ---
Date of Service December 08, 2021 Assessment & Plan (1) Osteomyelitis of foot, left, acute: Plan: 12/08/21 POD#4 status post left above-knee amputation We will be changing dressing on as a needed basis when the primary service feels that the patient can tolerate some physical therapy including some transfer therapy from the surgical point of view can start anytime 12/05/21POD#1 status post left above-knee amputation We will leave the dressing on today and plan to change in the next day or so -Pt evaluated with wound care this AM to assess sacral ulcer. Area of black eschar may be amenable to chemical debridement at this time. Eschar was excoriated and will order santyl. May take a few days to notice improvement. No need for surgical intervention at this time. Wound care will reach out should wound further deteriorate -Regarding LLE foot wound, we have been asked to evaluate patient for a BKA vs AKA. Vascular has no further options for re-vascularization at this point. Our team discussed with the hospitalist services who note that although he has a Covid, he has been asymptomatic and not requiring treatment, therefore recommending okay to proceed with intervention this admission. -Dr. Hairston has discussed plans for an AKA with his son who is agreeable with the plan. -Keep NPO at midnight (2) Sacral ulcer: Admission and Anticipated Discharge Date Admission Date: November 27, 2021 Subjective Patient is a bit combative this morning IV team was called to start an IV and draw blood for lab Physical Exam Physical Exam: Combative but responds appropriately to verbal stimuli Left AKA site dressing was removed the incision is healing well there is no drainage no cellulitis umesh intact Results & Data ([facility]) Vital Signs (Past 12 Hours) Vital Signs Temp Pulse Resp BP Pulse Ox O2 Del Method 12/07/21 21:30 37 C 86 14 154/79 H 96 Room Air PG Care Time/CCT Total # of Minutes Spent Total Time Spent with Patient: Total time spent is greater than 50% in coordination of care (as documented) at patient's floor/unit and/or counseling patient: Coding Level of Care Code None Diagnoses Osteomyelitis of foot, left, acute M86.172 Sacral ulcer L98.429
[2021-12-08] MEDS: FLUCONAZOLE 100 MG/50 ML BAG IV SCH (09:03)
[2021-12-08] MEDS: CEFEPIME 2,000 MG in SYRINGE 0 ML IV SCH (09:03)
[2021-12-08] MEDS: PANTOprazole 40 MG in SYRINGE 0 ML IV SCH ×2 (09:08→21:28)
[2021-12-08 09:10] LABS: Hematocrit (blood only) 28.6 % (40.1-51.0); Hemoglobin 8.8 g/dl (14.0-18.0); Mean Corpuscular Hemoglobin 30.9 pg (25.0-34.0); Mean Corpuscular Hgb Conc 30.8 g/dL (32.0-36.0); Mean Corpuscular Volume 100.4 fL (80.0-100.0); Mean Platelet Volume 11.7 fL (9.4-12.4); Platelet Count 174 K/uL (130-400); RDW Coefficient of Variation 15.5 % (11.5-14.5); RDW Standard Deviation 57.3 fL (36.4-46.3); Red Blood Count 2.85 M/uL (4.63-6.08); White Blood Count 6.25 K/ul (4.8-10.8)
[2021-12-08] MEDS: INSULIN ASPART PER UNIT SC SCH ×4 (09:13→21:31)
[2021-12-08] MEDS: SUCRALFATE 1 GM/10 ML UDC PO SCH ×4 (09:17→21:28)
[2021-12-08] MEDS: CLOPIDOGREL BISULFATE 75 MG TAB PO SCH (09:17)
[2021-12-08] MEDS: dilTIAZem HCL 30 MG TAB PO SCH (09:18)
[2021-12-08] MEDS: DOCUSATE SODIUM 100 MG CAP PO SCH ×2 (09:18→21:28)
[2021-12-08] MEDS: FOLIC ACID 1 MG TAB PO SCH (09:18)
[2021-12-08] MEDS: ROSUVASTATIN CALCIUM 5 MG TAB PO SCH (09:19)
[2021-12-08] MEDS: TAMSULOSIN HCL 0.4 MG CAP PO SCH (09:19)
[2021-12-08] MEDS: TIMOLOL MALEATE 0.5% OP SOLN 5 ML BTL OPB SCH ×2 (09:20→21:29)
[2021-12-08 09:32] LABS: BUN Creatinine Ratio 13.6 (10-20); Calcium 7.7 mg/dl (8.5-10.1); Creatinine Clr Calc Pharmacy 37.5 ml/min; Est GFR (African American) 52.6 ml/min; Est GFR (Non-African American) 45.4 ml/min; Potassium 3.7 mmol/L (3.5-5.1)
[2021-12-08] MEDS: LANTUS PER UNIT CHARGE SQ SCH (10:47)
[2021-12-08] MEDS: COLLAGENASE OINT 30 GM TUBE EXT SCH (11:25)
--- NOTE | 2021-12-08 20:59 | Hospitalist Progress Note ---
Date of Service December 08, 2021 Assessment & Plan (1) Acute metabolic encephalopathy: Plan: SEVERE. ongoing. multifactorial - COVID-19 infection, recent UTI, hospital psychosis, ?baseline memory issues/cognitive impairment with prior CVA, recent surgery/anesthesia for left leg (AKA), etc CT head 12/07 negative for acute process. checked VBG, ammonia, repeat u/a and urine culture, blood cx's on 12/07 -- started cefepime + diflucan based on u/a findings and concern for recurrent UTI along with very elevated CRP (18). new infection could be contributing to his altered MS. COVID-19 could be contributing significantly as well - still with low-grade fevers at times, etc. has VERY old ICD - placed at [facility] 10+ years ago. doubt it is MRI compatible. sees Dr Potter in [place] and device is a [employer] device. interrogation requested; last interrogation September 08 per the cardiology office. if MRI compatible could consider MRI brain. cont supportive care. (2) Osteomyelitis of foot, left, acute: Plan: Original injury was 8+ months ago. Presented to [facility] on 10/17 with Left heel wound/ulcer with drainage. 10/19 - partial calcanectomy with debridement and primary closure on 10/19. Cultures with MRSA/enterobacter. 10/23 - arteriogram of LLE with moderate to severe disease. Angioplasties were performed. Completed course of broad-spectrum IV abx. Transferred from [facility] to [facility] in [place]. Spent ~3 weeks there. Then transferred to [facility]. CT of left foot while at [facility] (/11/21) concerning for ongoing cellulitis and possible osteomyelitis. 11/27 CT - osteomyelitis and cellulitis worse. Gen surg consult by Dr Hairston - advised AKA of LLE. He is now POD #[address] LLE [address] Hairston examined the stump and changed dressings today - by report the stump is stable and free of infection. Broad-spectrum IV antibiotics were stopped following the AKA as source of infection (FOOT) was removed. Sacral decub has not appeared infected. Now with worsening mental status - see #1 above regarding abx/antifungals. (3) Sacral decubitus ulcer: Plan: POA. Wound care nurse saw, and santyl's for chemical debridement advised. Per wound - ulcer is unstageable at this time. I inspected the wound - no surrounding cellulitis. General surgery is aware of this ulcer, and if surgical debridement is ultimately needed, they would be willing. Needs better nutrition but uncertain if that will happen given his failure to thrive. Consider remeron, but uncertain he would tolerate the sedative effects. Cont frequent turning, etc. (4) Sepsis: Plan: POA - 2nd to left foot osteomyelitis +/- COVID +/- pre-admission UTI. Appeared to be resolving. Now with intermittent low-grade fevers at times. COVID still could be playing a role. ?new UTI (see #1 above). sacral decub without overt infection at this time. (5) PAD (peripheral artery disease): Plan: LLE. s/p intervention this summer at [facility] in October. Cont statin. Cont plavix albeit cautiously in light of heme+ stool. Son reports he has had blood in stool "for months." (6) Stage 3b chronic kidney disease (CKD): Plan: Records suggest baseline of 1.5-2. BMP today stable. Repeat in am. (7) Anemia: Plan: Likely anemia of chronic disease. But now with heme+ stool. B12/folate WNL. Iron low normal, TIBC 125 and ferritin 1953 (ferritin likely reactive). s/p 1 u PRBC on 11/30 and repeat hgb stable repeat cbc today with acceptable H/H. again son reports he has had heme+ stool / blood in stool for several months; unable to do w/u due to other pressing health issues. (8) COVID-19: Plan: Tested positive on admission; no pulmonary symptoms fortunately No evidence of pneumonia on exam or cxr confusion could be in part due to COVID infection low-grade fever likely due to COVID No indication for dexamethasone or Remdesivir Cont airborne isolation (9) Hyperkalemia: Plan: resolved (10) HTN (hypertension): Plan: BPs today acceptable (11) Hyperlipidemia: Plan: statin (12) DM II (diabetes mellitus, type II), controlled: Plan: Continue Novolog SSI BSGs controlled (13) CAD (coronary artery disease): Plan: ECHO with LV systolic function borderline reduced. EF 45-50%. Borderline global hypokinesis of left ventricle. Mild concentric LVH. No prior study for comparison. Continue plavix. Continue statin. no MAREK/ARB given CKD. (14) Lacunar stroke: Plan: CVA ~[address] head here - old R occipital lobe cva. Repeat head CT 12/07 negative If mental status continues to be poor - and if ICD is MRI compatible - consider MRI brain to r/o subacute cva. (15) Esophagitis: Plan: cont PPI twice daily in light of heme+ stool / melena -- added carafate qid, hold lovenox - but uncertain he can take PO meds reliably given his altered MS keep plavix due to prior h/o stroke, CAD, and PAD (16) Dysphagia: Plan: Likely secondary to esohpagitis Cont Pureed diet if he can tolerate (17) Acute kidney failure NEC: Plan: resolved likely was sepsis-associated XAVIER bmp am (18) DVT prophylaxis: Plan: hold lovenox as above (19) Candidiasis of mouth and esophagus: Plan: appears resolved (20) Chronic pain syndrome: Plan: per sons he has been on chronic oxycodone for several years PDMP demonstrates such - has been on oxycodone since 2019 thus, current confusion is likely not from narcotics since he likely has toleran ce to them (21) Heme positive stool: Plan: 2nd esophagitis? cont PPI IV bid added carafate hold lovenox cbc today remains stable Plan hypernatremia - recurrent - started hypotonic fluids; Na 146 today - cont 1/2 NS updated son, David, 12/07 and jess explained events of this weekend and ongoing lethargy, confusion, FTT, etc David is realistic - he has seen his father decline for months - knows his "time might be nearing the end" David mentioned that he wants his father as comfortable as possible in the days ahead if he continues to decline David was tearful on the phone this evening will see how he does next 48 hours and then go from there suspect we will need to consult palliative care Dr Coyle soon need code status discussion as well prognosis very very poor Admission and Anticipated Discharge Date Admission Date: November 27, 2021 Subjective patient more awake today but [id number] remains VERY confused thinks he is in [place] but doesn't know what type of building we are in when asked why he is here he can't tell me (apparently told staff earlier today he was here because of a "broken leg") during the visit his lights were on and the blinds were up - he said over and over "turn the lights on" - "turn it up" he c/o "hurting all over" he admitted to feeling depressed staff report minimal PO intake (water, food, etc) Review of Systems Review of Systems: gen - weak cv - no cp, no orthopnea pulm - no cough, no dyspnea GI - no pain musculo - diffuse myalgias Physical Exam Physical Exam: gen - confused, chronically ill-appearing, staring out into the room, speech more understandable today but still very weak eyes - left pupil is about 4mm, right pupil about 2mm; uncertain chronicity mouth - MM dry ears - hearing impaired - severe neck - no JVD heart - 2/6 systolic murmur, RRR, s1 s2 lungs - decreased BS bases b/l, no rales, no wheeze abd - soft, NT, ND, BS+ ext - left AKA with dressings over stump; right foot w/o edema, pulses 1-2+ right foot psych - oriented to person only neuro - handgrips seem equal, maybe slightly less strength on left; no facial droop Results & Data Results & Data ([facility]) Vital Signs (Past 12 Hours) Vital Signs Temp Pulse Resp BP Pulse Ox O2 Del Method 12/08/21 17:55 36.7 C 80 16 164/102 H 97 Room Air 12/08/21 09:00 Room Air Laboratory Results Laboratory Results - last 24 hr 12/08/21 12/08/21 12/08/21 08:34 08:34 08:57 WBC 6.25 RBC 2.85 L Hgb 8.8 L Hct 28.6 L MCV 100.4 H MCH 30.9 MCHC 30.8 L RDW Std Deviation 57.3 H RDW Coeff of Rusty 15.5 H Plt Count 174 MPV 11.7 Sodium 146 H Potassium 3.7 Chloride 117 H Carbon Dioxide 23 Anion Gap 6 BUN 20 Creatinine 1.47 H Est Cr Clr Drug Dosing 37.5 Est GFR ( Amer) 52.6 Est GFR (Non-Af Amer) 45.4 BUN/Creatinine Ratio 13.6 Glucose 100 H POC Glucose 106 H Calcium 7.7 L 08/22/22 08/22/22 08/22/22 12:44 17:48 21:22 WBC RBC Hgb Hct MCV MCH MCHC RDW Std Deviation RDW Coeff of Rusty Plt Count MPV Sodium Potassium Chloride Carbon Dioxide Anion Gap BUN Creatinine Est Cr Clr Drug Dosing Est GFR ( Amer) Est GFR (Non-Af Amer) BUN/Creatinine Ratio Glucose POC Glucose 125 H 108 H 95 Calcium Diagnostic Findings blood cx's 12/07 negative to date urine cx 12/07 negative to date PG Care Time/CCT Total # of Minutes Spent Total Time Spent with Patient: Total time spent is greater than 50% in coordination of care (as documented) at patient's floor/unit and/or counseling patient: Coding Level of Care Code 53289 Subseq Hosp Care Lvl 3 Diagnoses Acute metabolic encephalopathy G93.41 Osteomyelitis of foot, left, acute M86.172 Sacral decubitus ulcer L89.159 Sepsis A41.9 PAD (peripheral artery disease) I73.9 Stage 3b chronic kidney disease (CKD) N18.32 Anemia D64.9 Anemia type: unspecified type COVID-19 U07.1 Hyperkalemia E87.5 HTN (hypertension) I10 Hypertension type: unspecified Hyperlipidemia E78.5 Hyperlipidemia type: unspecified DM II (diabetes mellitus, type II), controlled E11.9 Diabetes mellitus [facility] insulin use: with [facility] use CAD (coronary artery disease) I25.10 Lacunar stroke I63.81 Esophagitis K20.90 Dysphagia R13.10 Acute kidney failure NEC N17.8 DVT prophylaxis Z29.9 Candidiasis of mouth and esophagus B37.81; B37.0 Chronic pain syndrome G89.4 Heme positive stool R19.5 (1) Anemia Anemia type: unspecified type Qualified Code(s): D64.9 - Anemia, unspecified (2) Hyperlipidemia Hyperlipidemia type: unspecified Qualified Code(s): E78.5 - Hyperlipidemia, unspecified (3) DM II (diabetes mellitus, type II), controlled Diabetes mellitus extermination inspector insulin use: with extermination inspector use (4) HTN (hypertension) Hypertension type: unspecified Qualified Code(s): I10 - Essential (primary) hypertension
[2021-12-08] MEDS: LATANOPROST 0.005% OP SOLN 2.5 ML BTL OPB SCH (21:30)
[2021-12-09] MEDS: CEFEPIME 2,000 MG in SYRINGE 0 ML IV SCH ×2 (06:14→06:58)
[2021-12-09] MEDS: CLOTRIMAZOLE 10 MG TROCHE BUCCAL SCH (06:15)
[2021-12-09] MEDS: oxyCODONE HCL IR 5 MG TAB (IMMEDIATE RELEASE) PO PRN ×2 (06:18→20:28)
--- NOTE | 2021-12-09 07:45 | Hospitalist Progress Note ---
Date of Service December 09, 2021 Assessment & Plan (1) Acute metabolic encephalopathy: Plan: SEVERE, improvement in energy, eating some food this morning (diet advanced) ongoing. multifactorial - COVID-19 infection, recent UTI, hospital psychosis, ?baseline memory issues/cognitive impairment with prior CVA, recent surgery/anesthesia for left leg (AKA), etc CT head 12/07 negative for acute process. checked VBG, ammonia, repeat u/a and urine culture, blood cx's on 12/07 * -- started cefepime + diflucan based on u/a findings and concern for recurrent UTI along with very elevated CRP (18). * Urine cx no growth on preliminary (was on abx for osteo previously) COVID-19 could be contributing significantly as well - still with low-grade fevers at times, etc. Much improved, ?covid encephalopathy has VERY old ICD - placed at [facility] 10+ years ago, doubt MRI compatible. Follows with Dr Abbey Salazar, [employer] device (last interrogation September 08) Discussed with medical assistant secretary, rep to come today for interrogation cont supportive care consulted Dr coyle for tomorrow for goals of care (2) Osteomyelitis of foot, left, acute: Plan: Original injury was 8+ months ago. Presented to [facility] on 10/17 with Left heel wound/ulcer with drainage. 10/19 - partial calcanectomy with debridement and primary closure on 10/19. Cultures with MRSA/enterobacter. 10/23 - arteriogram of E with moderate to severe disease. Angioplasties were performed. Completed course of broad-spectrum IV abx. Transferred from [facility] to [facility] in [place]. Spent ~3 we eks there. Then transferred to [facility]. CT of left foot while at [facility] (/11/21) concerning for ongoing cellulitis and possible osteomyelitis. 11/27 CT - osteomyelitis and cellulitis worse. Gen surg consult by Dr Hairston - advised AKA of E. POD #5 from the E AKA. Dr Hairston examined the stump and changed dressings 12/08 - by report the s tump is stable and free of infection. Broad-spectrum IV antibiotics were stopped following the AKA as source of infection (FOOT) was removed. See above regarding cefepime/antifungals for AMS/fungal UTI Sacral decub has not appeared infected. (3) Sacral decubitus ulcer: Plan: POA. Wound care nurse saw, and santyl's for chemical debridement advised. Per wound - ulcer is unstageable at this time. Inspected the wound - no surrounding cellulitis. General surgery is aware of this ulcer, and if surgical debridement is ultimately needed, they would be willing. Needs better nutrition but uncertain if that will happen given his failure to thrive. --Advanced diet given preferences/avoidance of danish ices and jello as he said he doesn't want sweets Consider remeron for mood/appetite, but uncertain he would tolerate the sedative effects--> had been on previously per med rec, can trial dose for tonight (last dose 11/26) Cont frequent turning, etc. (4) Sepsis: Plan: POA - 2nd to left foot osteomyelitis +/- COVID +/- pre-admission UTI. Appeared to be resolving. Now with intermittent low-grade fevers at times. COVID still could be playing a role. ?new UTI (see #1 above) however urine cx no growth on preliminary and monitor sacral decub without overt infection at this time. (5) PAD (peripheral artery disease): Plan: LLE. s/p intervention this summer at [facility] in October. Cont statin. Cont plavix albeit cautiously in light of heme+ stool -- hgb stable Son reports he has had blood in stool "for months." (6) Stage 3b chronic kidney disease (CKD): Plan: Records suggest baseline of 1.5-2. Copious IVF as well as PRBC transfusion provided over past week, given Cr 3.11 on 11/30 and has made significant improvements Cr 1.41 on AM labs, completed 2L 1/2NSS +20meq Kcl reports improvement in appetite/PO intake and diet advanced given lack of choice s for patient maintain aspiration precautions Monitor ability to keep up with PO intake, mm with improvement on exam but slightly dry, holding off on further IV for now BMP in AM (7) Anemia: Plan: Likely anemia of chronic disease. But now with heme+ stool. B12/folate WNL. Iron low normal, TIBC 125 and ferritin 1953 (ferritin likely reactive). s/p 1 u PRBC on 11/30 and repeat hgb stable again son reports he has had heme+ stool / blood in stool for several months; on oral iron BID per outpt meds. CTAP on admission with mild rectal wall thickening w/ trace perirectal standing, poss mild proctitis (OSEI defer due to sacral ulcer/willingness to participate). Does note left upper quadrant varicosities of unknown etiology. Unremarkable liver but noncontrast imaging unable to do work-up outpatient due to other pressing health issues and will need outpt f/u pending course Continues on protonix IV BID, added 12/06, carafate QID. will check mag level w/ am labs (8) COVID-19: Plan: Tested positive on admission; no pulmonary symptoms fortunately No evidence of pneumonia on exam or cxr confusion could be in part due to COVID infection low-grade fever possibly due to COVID , has been over 2 week course, no indication for dexamethasone or Remdesivir Airborne isolation discontinued 12/09 (last low grade temp 37.9C) (9) Hyperkalemia: Plan: resolved (10) HTN (hypertension): Plan: BPs acceptable 115/54, continues on diltiazem (11) Hyperlipidemia: Plan: statin (12) DM II (diabetes mellitus, type II), controlled: Plan: Continue Novolog SSI BSGs controlled (13) CAD (coronary artery disease): Plan: ECHO with LV systolic function borderline reduced. EF 45-50%. Borderline global hypokinesis of left ventricle. Mild concentric LVH. No prior study for comparison. Continue plavix, statin no MAREK/ARB given CKD. (14) Lacunar stroke: Plan: CVA ~[address] head here - old R occipital lobe cva. Repeat head CT 12/07 negative If mental status continues to be poor - and if ICD is MRI compatible - consider MRI brain to r/o subacute cva. (15) Esophagitis: Plan: cont PPI twice daily in light of heme+ stool / melena -- added protonix IV BID, carafate qid, holding lovenox (has not gotten since prior to AKA), uncertain about ability to reliably take PO meds given AMS however appears improved/stable today w/ likely underlying delirium keep plavix due to prior h/o stroke, CAD, and PAD Advanced to pureed diet (16) Dysphagia: Plan: Likely secondary to esohpagitis --> had been on clear liquid diet >3 days, patient reporting not likely sweet items danish ice/gello Getting tx w/ fluconazole IV now that kidney function improved started 11/18 Advance to pureed diet as above (17) Acute kidney failure NEC: Plan: resolved likely was sepsis-associated XAVIER bmp am with improvement and remains stable (18) DVT prophylaxis: Plan: hold lovenox as above given melena observed by prior provider last week (reported had been ongoing issue) (19) Candidiasis of mouth and esophagus: Plan: appears resolved (20) Chronic pain syndrome: Plan: per sons he has been on chronic oxycodone for several years PDMP demonstrates such - has been on oxycodone since 2019 thus, current confusion is likely not from narcotics since he likely has tolerance to them (21) Heme positive stool: Plan: 2nd esophagitis? cont PPI IV bid added carafate hold lovenox cbc today remains stable Plan hypernatremia resolved with 1/2NSS updated son, David, 12/07 and 12/08 explained events of this weekend and ongoing lethargy, confusion, FTT, etc David is realistic - he has seen his father decline for months - knows his "time might be nearing the end" David mentioned that he wants his father as comfortable as possible in the days ahead if he continues to decline David was tearful on the phone 12/[address] Coyle tomorrow, need code status discussion as well given very poor prognosis however patient is eating more/appears w/ more energy for myself and nurses compared to days past. continue to monitor. suspect manager intermediate placement/palliative pending next 24-48 hours Admission and Anticipated Discharge Date Admission Date: November 27, 2021 Supervising Physician Co-Signing Physician Notes PA Supervision Note: I did not personally see or examine the patient today, but I verified all bolton points of CARMEN Lomas's assessment and plan with the following exceptions/additions: None Subjective Patient evaluated this morning. States that he did eat something for breakfast, does not want anything else at this time. Patient stating having pain in his left leg but does not want any pain control. States he hadn't been sleeping well but that he got some sleep last night. Discussed sons visited the other day, patient unaware that they visited. He knows he's in the hospital and that he had surgery but is otherwise mildly confused, possible delirium in setting of prolonged hospitalization. LLE stump looks good, dressing c/d/i, tender to palpation, no drainage. RLE in wale boot. Confirmed with RN he did drink about 60-70% of the broth from his tray but didn't want the danish ice or jello as he said that "I don't like the sweet shit." Prior provider concerned about aspirating and on clear liquid diet. Will advance to pureed to provide more choices. Also discussed getting palliative on board for goals of care. Patient withdrawn at this idea but discussed needing to get better nutrition for healing. Pacemaker interrogation not completed yesterday, asked medical assistant secretary to call. They will be by later today to perform. [employer]. Review of Systems Review of Systems: All systems reviewed & are unremarkable except as noted in HPI & below Physical Exam Physical Exam: General: frail, chronically ill appearing gentleman sitting in bed, no acute distress, looking outside the room at the buildings speech clear and following commands, NAD HEENT: head normocephalic, atraumatic, L pupil >R (chronic), mm slightly dry (improved from days prior), hard of hearing Resp: clear to auscultation, diminished in the bases, not great inspiratory effort, no wheezing/rales, 97% on RA Chest: L sided pacemaker CV: RRR, +murmur, no calf tenderness, pulses 1-2 RLE GI:+BS, soft, nontender : morales bag with clearer urine but appears with sediment in tubing MSK: LEFT AKA with dressing c/d/i RLE without edema Neuro/Psych: alert to person, knows he is in the hospital, slight right sided weakness compared to the left with mailroom messenger strength Skin: sacral ulcer with santyl/dressing Results & Data Results & Data ([facility]) Vital Signs (Past 12 Hours) Vital Signs Temp Pulse Resp BP Pulse Ox O2 Del Method 12/08/21 21:38 37.2 C 96 H 20 142/72 H 97 Room Air Laboratory Results 12/09/21 12/09/21 12/09/21 Range/Units 08:23 08:19 08:19 WBC 5.23 (4.8-10.8) K/ul RBC 2.95 L (4.63-6.08) M/uL Hgb 9.1 L (14.0-18.0) g/dl Hct 29.3 L (40.1-51.0) % MCV 99.3 (80.0-100.0) fL MCH 30.8 (25.0-34.0) pg MCHC 31.1 L (32.0-36.0) g/dL RDW Std Deviation 54.9 H (36.4-46.3) fL RDW Coeff of Rusty 15.1 H (11.5-14.5) % Plt Count 168 (130-400) K/uL MPV 11.3 (9.4-12.4) fL Sodium 144 (136-145) mmol/L Potassium 3.8 (3.5-5.1) mmol/L Chloride 114 H (98-107) mmol/L Carbon Dioxide 22 (21-32) mmol/L Anion Gap 8 (3-11) BUN 18 (6-23) mg/dl Creatinine 1.41 H (0.6-1.4) mg/dl Est Cr Clr Drug Dosing 39.8 ml/min Est GFR ( Amer) 55.3 ml/min Est GFR (Non-Af Amer) 47.7 ml/min BUN/Creatinine Ratio 12.8 (10-20) Glucose 86 (70-99(Fasting)) mg/dl POC Glucose 89 (70-99) mg/dl Calcium 7.9 L (8.5-10.1) mg/dl 12/08/21 12/08/21 12/08/21 Range/Units 21:22 17:48 12:44 WBC (4.8-10.8) K/ul RBC (4.63-6.08) M/uL Hgb (14.0-18.0) g/dl Hct (40.1-51.0) % MCV (80.0-100.0) fL MCH (25.0-34.0) pg MCHC (32.0-36.0) g/dL RDW Std Deviation (36.4-46.3) fL RDW Coeff of Rusty (11.5-14.5) % Plt Count (130-400) K/uL MPV (9.4-12.4) fL Sodium (136-145) mmol/L Potassium (3.5-5.1) mmol/L Chloride (98-107) mmol/L Carbon Dioxide (21-32) mmol/L Anion Gap (3-11) BUN (6-23) mg/dl Creatinine (0.6-1.4) mg/dl Est Cr Clr Drug Dosing ml/min Est GFR ( Amer) ml/min Est GFR (Non-Af Amer) ml/min BUN/Creatinine Ratio (10-20) Glucose (70-99(Fasting)) mg/dl POC Glucose 95 108 H 125 H (70-99) mg/dl Calcium (8.5-10.1) mg/dl PG Care Time/CCT Total # of Minutes Spent Total Time Spent with Patient: Total time spent is greater than 50% in coordination of care (as documented) at patient's floor/unit and/or counseling patient: Coding Level of Care Code 65138 Subseq Hosp Care Lvl 3 Diagnoses Acute metabolic encephalopathy G93.41 Osteomyelitis of foot, left, acute M86.172 Sacral decubitus ulcer L89.159 Sepsis A41.9 PAD (peripheral artery disease) I73.9 Stage 3b chronic kidney disease (CKD) N18.32 Anemia D64.9 Anemia type: unspecified type COVID-19 U07.1 Hyperkalemia E87.5 HTN (hypertension) I10 Hypertension type: unspecified Hyperlipidemia E78.5 Hyperlipidemia type: unspecified DM II (diabetes mellitus, type II), controlled E11.9 Diabetes mellitus retirement insulin use: with retirement use CAD (coronary artery disease) I25.10 Lacunar stroke I63.81 Esophagitis K20.90 Dysphagia R13.10 Acute kidney failure NEC N17.8 DVT prophylaxis Z29.9 Candidiasis of mouth and esophagus B37.81; B37.0 Chronic pain syndrome G89.4 Heme positive stool R19.5 (1) Anemia Anemia type: unspecified type Qualified Code(s): D64.9 - Anemia, unspecified (2) Hyperlipidemia Hyperlipidemia type: unspecified Qualified Code(s): E78.5 - Hyperlipidemia, unspecified (3) DM II (diabetes mellitus, type II), controlled Diabetes mellitus retirement insulin use: with retirement use (4) HTN (hypertension) Hypertension type: unspecified Qualified Code(s): I10 - Essential (primary) hypertension
[2021-12-09] MEDS: FLUCONAZOLE 100 MG/50 ML BAG IV SCH (08:21)
[2021-12-09] MEDS: ROSUVASTATIN CALCIUM 5 MG TAB PO SCH (08:35)
[2021-12-09] MEDS: DOCUSATE SODIUM 100 MG CAP PO SCH ×2 (08:35→20:27)
[2021-12-09] MEDS: PANTOprazole 40 MG in SYRINGE 0 ML IV SCH ×2 (08:35→20:27)
[2021-12-09] MEDS: CLOPIDOGREL BISULFATE 75 MG TAB PO SCH (08:35)
[2021-12-09] MEDS: SUCRALFATE 1 GM/10 ML UDC PO SCH ×4 (08:35→20:27)
[2021-12-09] MEDS: dilTIAZem HCL 30 MG TAB PO SCH (08:35)
[2021-12-09] MEDS: FOLIC ACID 1 MG TAB PO SCH (08:35)
[2021-12-09] MEDS: TAMSULOSIN HCL 0.4 MG CAP PO SCH (08:36)
[2021-12-09] MEDS: TIMOLOL MALEATE 0.5% OP SOLN 5 ML BTL OPB SCH ×2 (08:36→20:29)
[2021-12-09] MEDS: INSULIN ASPART PER UNIT SC SCH ×4 (08:37→20:45)
[2021-12-09 08:42] LABS: Hematocrit (blood only) 29.3 % (40.1-51.0); Hemoglobin 9.1 g/dl (14.0-18.0); Mean Corpuscular Hemoglobin 30.8 pg (25.0-34.0); Mean Corpuscular Hgb Conc 31.1 g/dL (32.0-36.0); Mean Corpuscular Volume 99.3 fL (80.0-100.0); Mean Platelet Volume 11.3 fL (9.4-12.4); Platelet Count 168 K/uL (130-400); RDW Coefficient of Variation 15.1 % (11.5-14.5); RDW Standard Deviation 54.9 fL (36.4-46.3); Red Blood Count 2.95 M/uL (4.63-6.08); White Blood Count 5.23 K/ul (4.8-10.8)
[2021-12-09] MEDS: LANTUS PER UNIT CHARGE SQ SCH (08:57)
[2021-12-09] MEDS: COLLAGENASE OINT 30 GM TUBE EXT SCH (08:57)
[2021-12-09 09:05] LABS: BUN Creatinine Ratio 12.8 (10-20); Calcium 7.9 mg/dl (8.5-10.1); Creatinine Clr Calc Pharmacy 39.8 ml/min; Est GFR (African American) 55.3 ml/min; Est GFR (Non-African American) 47.7 ml/min; Potassium 3.8 mmol/L (3.5-5.1)
[2021-12-09] MEDS: LATANOPROST 0.005% OP SOLN 2.5 ML BTL OPB SCH (20:30)
[2021-12-09] MEDS: MIRTAZAPINE TAB 15 MG TAB PO SCH (21:28)
[2021-12-10] MEDS: CEFEPIME 2,000 MG in SYRINGE 0 ML IV SCH (06:17)
--- NOTE | 2021-12-10 07:52 | Hospitalist Progress Note ---
Date of Service December 10, 2021 Assessment & Plan (1) Acute metabolic encephalopathy: Plan: SEVERE, improvement in energy, eating some food this morning (diet advanced) ongoing. multifactorial - COVID-19 infection, recent UTI, hospital psychosis, ?baseline memory issues/cognitive impairment with prior CVA, recent surgery/anesthesia for left leg (AKA), etc CT head 12/07 negative for acute process. checked VBG, ammonia, repeat u/a and urine culture, blood cx's on 12/07 * -- started cefepime + diflucan based on u/a findings and concern for recurrent UTI along with very elevated CRP (18). * Urine cx w/ yeast, discussed with pharmacy and discontinued Cefepime (due to possible confusion) and continued Fluconazole * Repeat urine cx after morales catheter exchange and monitor, may need to add back abx coverage pending but initial urine cx with yeast as well * Will give 500cc 1/2Nss for today given poor appetite (had been better afternoon 12/09 w/ advancement to pureed, he requested son bring "special drink" which was discussed with nikolay and patient loves Britni Torres, drinks 4-5 day at home.) COVID-19 could be contributing significantly as well - still with low-grade fevers at times, etc. Much improved, ?covid encephalopathy, UTI has VERY old ICD - placed at [facility] [place] 10+ years ago, doubt MRI compatible. Follows with Dr Abbey Salazar, [employer] device (last interrogation September 08) Discussed with medical records secretary, rep to come today for interrogation --> did have NSVT 7-10 beats on 12/01 and 12/03. cont supportive care consulted Dr mcfadden for tomorrow for goals of care (2) Osteomyelitis of foot, left, acute: Plan: Original injury was 8+ months ago. Presented to [facility] on 10/17 with Left heel wound/ulcer with drainage. 10/19 - partial calcanectomy with debridement and primary closure on 10/19. Cultures with MRSA/enterobacter. 10/23 - arteriogram of LLE with moderate to severe disease. Angioplasties were performed. Completed course of broad-spectrum IV abx. Transferred from [facility] to [facility] in [place]. Spent ~3 weeks there. Then transferred to [facility]. CT of left foot while at [facility] (/11/21) concerning for ongoing cellulitis and possible osteomyelitis. 11/27 CT - osteomyelitis and cellulitis worse. Gen surg consult by Dr Hairston - advised AKA of LLE. POD #6 from the LLE AKA. Dr Hairston examined the stump and changed dressings 12/08 - by report the stump is stable and free of infection. Broad-spectrum IV antibiotics were stopped following the AKA as source of infection (FOOT) was removed. See above regarding cefepime/antifungals for AMS/fungal UTI Sacral decub has not appeared infected but surgery to continue to follow along (3) Sacral decubitus ulcer: Plan: POA. Wound care nurse saw, and santyl's for chemical debridement advised. Per wound - ulcer is unstageable at this time. Inspected the wound - no surrounding cellulitis. General surgery is aware of this ulcer, and if surgical debridement is ultimately needed, they would be willing. Needs better nutrition but uncertain if that will happen given his failure to thrive. --Advanced diet given preferences/avoidance of mosotho ices and jello as he said he doesn't want sweets Consider remeron for mood/appetite, but uncertain he would tolerate the sedative effects--> had been on previously per med rec, can trial dose for tonight (last dose 11/26)--> did give dose evening 12/09 but will hold off further given sedating effects but did try for mood/appetite but compounded w/ cefepime could contribute to slightly worse confusion Cont frequent turning, etc. (4) Sepsis: Plan: POA - 2nd to left foot osteomyelitis +/- COVID +/- pre-admission UTI. Appeared to be resolving. Now with intermittent low-grade fevers at times. COVID still could be playing a role. ?new UTI (see #1 above) --> yeast on preliminary cx Changed catheter and repeat urine cx following sacral decub without overt infection at this time. (5) PAD (peripheral artery disease): Plan: LLE. s/p intervention this summer at [facility] in October. Cont statin. Cont plavix albeit cautiously in light of heme+ stool -- hgb stable Son reports he has had blood in stool "for months." Nikolay states concerns for slow GI bleed but had been dealing with other pressing issues regarding the osteo/infection to his LLE (6) Stage 3b chronic kidney disease (CKD): Plan: Records suggest baseline of 1.5-2. Copious IVF as well as PRBC transfusion provided over past week, given Cr 3.11 on 11/30 and has made significant improvements Cr 1.41 on AM labs, completed 2L 1/2NSS +20meq Kcl on 12/08, poor PO appetite for 12/10 (compared to yesterdaY) and will order 500cc 1/2NS. diet advanced, maintain aspiration precautions BMP in AM (7) Anemia: Plan: Likely anemia of chronic disease. But now with heme+ stool. B12/folate WNL. Iron low normal, TIBC 125 and ferritin 1953 (ferritin likely reactive). s/p 1 u PRBC on 11/30 and repeat hgb stable 9.1 again son reports he has had heme+ stool / blood in stool for several months; on oral iron BID per outpt meds. CTAP on admission with mild rectal wall thickening w/ trace perirectal standing, poss mild proctitis (OSEI defer due to sacral ulcer/willingness to participate). Does note left upper quadrant varicosities of unknown etiology. Unremarkable liver but noncontrast imaging unable to do work-up outpatient due to other pressing health issues and will need outpt f/u pending course Continues on protonix IV BID, added 12/06, carafate QID (8) COVID-19: Plan: Tested positive on admission; no pulmonary symptoms fortunately No evidence of pneumonia on exam or cxr confusion could be in part due to COVID infection low-grade fever possibly due to COVID , has been over 2 week course, no indication for dexamethasone or Remdesivir Airborne isolation discontinued 12/09 (last low grade temp 37.9C) (9) Hyperkalemia: Plan: resolved (10) HTN (hypertension): Plan: BPs acceptable 119/60, continues on diltiazem (11) Hyperlipidemia: Plan: statin (12) DM II (diabetes mellitus, type II), controlled: Plan: Continue Novolog SSI BSGs controlled BSGs slightly low this morning, had not been getting much ISS yesterday Decreased long acting for AM, advancement of diet Loosen parameters for ISS Monitor (13) CAD (coronary artery disease): Plan: ECHO with LV systolic function borderline reduced. EF 45-50%. Borderline global hypokinesis of left ventricle. Mild concentric LVH. No prior study for comparis on. Continue plavix, statin no MAREK/ARB given CKD. (14) Lacunar stroke: Plan: CVA ~[address] head here - old R occipital lobe cva. Repeat head CT 12/07 negative If mental status continues to be poor - and if ICD is MRI compatible - consider MRI brain to r/o subacute cva. Treating UTI as above, continue to monitor but will ask to see if compatible tomorrow if continued decline (15) Esophagitis: Plan: cont PPI twice daily in light of heme+ stool / melena -- added protonix IV BID, carafate qid -- continued holding lovenox (has not gotten since prior to AKA), uncertain about ability to reliably take PO meds given AMS however appears improved/stable today w/ likely underlying delirium keep plavix due to prior h/o stroke, CAD, and PAD Advanced to pureed diet, tolerated 12/09 but not wanting much today Fluconazole IV as above as had been doing PO swishes while Cr up to 3 weeks past Monitor PO intake/dietary following. Taking pills w/ boost (16) Dysphagia: Plan: Likely secondary to esohpagitis --> had been on clear liquid diet >3 days, patient reporting not likely sweet items mosotho ice/gello Getting tx w/ fluconazole IV now that kidney function improved started 11/18 Advance to pureed diet as above (17) Acute kidney failure NEC: Plan: resolved likely was sepsis-associated XAVIER Cr stable (18) DVT prophylaxis: Plan: hold lovenox as above given melena observed by prior provider last week (reported had been ongoing issue) high risk for DVT (19) Candidiasis of mouth and esophagus: Plan: appears resolved (20) Chronic pain syndrome: Plan: per sons he has been on chronic oxycodone for several years PDMP demonstrates such - has been on oxycodone since 2019 thus, current confusion is likely not from narcotics since he likely has tolerance to them (21) Heme positive stool: Plan: 2nd esophagitis? cont PPI IV bid added carafate hold lovenox cbc today remains stable Plan updated son, David 12/10 Treating UTI, if no improvement over next 24 hours will see about family meeting/goals of care. Very reasonable. He states prior conversations with his father and never wanting to be in a skilled nursing/dependent on medical care. Consider palliative/hospice pending course this week. Palliative medicine consulted Admission and Anticipated Discharge Date Admission Date: November 27, 2021 Supervising Physician Co-Signing Physician Notes PA Supervision Note: I did not personally see or examine the patient today, but I verified all bolton points of CARMEN Lomas's assessment and plan with the following exceptions/additions: None Subjective Eval this morning states he feels terrible and wants to go home remains confused ate better yesterday but only wanting water this morning does not remember his sons visiting thought 2027 but knows in [place]. wanting me to call his son and have him "bring him something to drink, he knows what I want". Per Nikolay, patient wants [place] flavor Vit[employer]. Has been drinking 2-3 a day for the past 4-5 years. Internal bleeding concerning. Lots of pain with any kind of movement. Family did say he had some "fabulous" stories of events. He states that his father told him in the past he would never want to be in a home moving forward but they are unable to take care of him. They don't want a zero quality of life, but also don't want him to go through more trauma. Lives about an hour away outside of [place]. Review of Systems Review of Systems: All systems reviewed & are unremarkable except as noted in HPI & below Physical Exam Physical Exam: General: frail, chronically ill appearing gentleman sitting in bed, no acute distress, looking outside the room at the buildings speech clear and following commands at times, NAD but reported "feeling like crap" "want to go home" HEENT: head normocephalic, atraumatic, L pupil >R (chronic), mm slightly dry (improved from days prior), hard of hearing Resp: clear to auscultation, diminished in the bases, not great inspiratory effort, no wheezing/rales, 97% on RA Chest: L sided pacemaker in place CV: RRR, +murmur, no calf tenderness, pulses 1-2 RLE GI:+BS, soft, nontender : morales bag with clearer urine but appears with sediment in tubing (improved) MSK: LEFT AKA with dressing c/d/i, tender to palpation RLE without edema Neuro/Psych: alert to person, knows he is in the hospital, slight right sided weakness compared to the left with hide buffer strength, stated year 2027 and in [place] but unaware of amputation last week or that he is in the hospital Skin: sacral ulcer with santyl/dressing Results & Data Results & Data ([facility]) Vital Signs (Past 12 Hours) Vital Signs Temp Pulse Resp BP BP Pulse Ox O2 Del Method 12/10/21 07:34 36.9 C 92 H 18 119/60 96 Room Air 12/09/21 21:21 37.2 C 84 18 145/65 H 98 Room Air Laboratory Results 12/10/21 12/10/21 12/10/21 Range/Units 12:13 12:05 08:45 WBC (4.8-10.8) K/ul RBC (4.63-6.08) M/uL Hgb (14.0-18.0) g/dl Hct (40.1-51.0) % MCV (80.0-100.0) fL MCH (25.0-34.0) pg MCHC (32.0-36.0) g/dL RDW Std Deviation (36.4-46.3) fL RDW Coeff of Rusty (11.5-14.5) % Plt Count (130-400) K/uL MPV (9.4-12.4) fL Sodium 144 (136-145) mmol/L Potassium 3.8 (3.5-5.1) mmol/L Chloride 115 H (98-107) mmol/L Carbon Dioxide 22 (21-32) mmol/L Anion Gap 7 (3-11) BUN 17 (6-23) mg/dl Creatinine 1.47 H (0.6-1.4) mg/dl Est Cr Clr Drug Dosing 38.2 ml/min Est GFR ( Amer) 52.6 ml/min Est GFR (Non-Af Amer) 45.4 ml/min BUN/Creatinine Ratio 11.6 (10-20) Glucose 75 (70-99(Fasting)) mg/dl POC Glucose 120 H (70-99) mg/dl Calcium 8.1 L (8.5-10.1) mg/dl Magnesium 1.8 (1.7-2.4) mg/dl Total Bilirubin 1.0 (0.2-1.0) mg/dl AST 37 (13-39) U/L ALT 16 (7-52) U/L Alkaline Phosphatase 131 H (34-104) U/L Total Protein 6.4 (6.0-8.3) gm/dl Albumin 2.4 L (3.4-5.0) gm/dl Globulin 4.0 (2.5-4.0) gm/dl Albumin/Globulin Ratio 0.6 L (0.9-2) Urine Color Yellow Urine Appearance Clear (Clear) Urine pH 5.0 (4.5-7.5) Ur Specific [place] 1.015 (1.000-1.030) Urine Protein 1+ H (Negative) Urine Glucose (UA) Negative (Negative) Urine Ketones 1+ H (Negative) Urine Blood 2+ H (Negative) Urine Nitrite Negative (Negative) Urine Bilirubin Negative (Negative) Urine Urobilinogen Negative (Negative) Ur Leukocyte Esterase 1+ H (Negative) Urine WBC (Auto) 10-30 H (0-5) /hpf Urine RBC (Auto) 5-10 H (0-4) /hpf U Hyaline Cast (Auto) 5-10 H (0-5) /lpf U Epithel Cells (Auto) >30 H (0-5) /lpf Urine Bacteria (Auto) 1+ H (Negative) Ur Renal Epithelial Cell 0-5 (0-5) /lpf Granular Casts 10-20 H (0) /lpf Urine Yeast Budding A (None Prsent) 12/10/21 12/10/21 12/09/21 Range/Units 08:45 08:11 20:38 WBC 5.24 (4.8-10.8) K/ul RBC 2.96 L (4.63-6.08) M/uL Hgb 9.1 L (14.0-18.0) g/dl Hct 29.4 L (40.1-51.0) % MCV 99.3 (80.0-100.0) fL MCH 30.7 (25.0-34.0) pg MCHC 31.0 L (32.0-36.0) g/dL RDW Std Deviation 55.3 H (36.4-46.3) fL RDW Coeff of Rusty 15.5 H (11.5-14.5) % Plt Count 162 (130-400) K/uL MPV 11.3 (9.4-12.4) fL Sodium (136-145) mmol/L Potassium (3.5-5.1) mmol/L Chloride (98-107) mmol/L Carbon Dioxide (21-32) mmol/L Anion Gap (3-11) BUN (6-23) mg/dl Creatinine (0.6-1.4) mg/dl Est Cr Clr Drug Dosing ml/min Est GFR ( Amer) ml/min Est GFR (Non-Af Amer) ml/min BUN/Creatinine Ratio (10-20) Glucose (70-99(Fasting)) mg/dl POC Glucose 75 77 (70-99) mg/dl Calcium (8.5-10.1) mg/dl Magnesium (1.7-2.4) mg/dl Total Bilirubin (0.2-1.0) mg/dl AST (13-39) U/L ALT (7-52) U/L Alkaline Phosphatase (34-104) U/L Total Protein (6.0-8.3) gm/dl Albumin (3.4-5.0) gm/dl Globulin (2.5-4.0) gm/dl Albumin/Globulin Ratio (0.9-2) Urine Color Urine Appearance (Clear) Urine pH (4.5-7.5) Ur Specific [place] (1.000-1.030) Urine Protein (Negative) Urine Glucose (UA) (Negative) Urine Ketones (Negative) Urine Blood (Negative) Urine Nitrite (Negative) Urine Bilirubin (Negative) Urine Urobilinogen (Negative) Ur Leukocyte Esterase (Negative) Urine WBC (Auto) (0-5) /hpf Urine RBC (Auto) (0-4) /hpf U Hyaline Cast (Auto) (0-5) /lpf U Epithel Cells (Auto) (0-5) /lpf Urine Bacteria (Auto) (Negative) Ur Renal Epithelial Cell (0-5) /lpf Granular Casts (0) /lpf Urine Yeast (None Prsent) 12/09/21 12/09/21 12/09/21 Range/Units 20:36 17:11 17:10 WBC (4.8-10.8) K/ul RBC (4.63-6.08) M/uL Hgb (14.0-18.0) g/dl Hct (40.1-51.0) % MCV (80.0-100.0) fL MCH (25.0-34.0) pg MCHC (32.0-36.0) g/dL RDW Std Deviation (36.4-46.3) fL RDW Coeff of Rusty (11.5-14.5) % Plt Count (130-400) K/uL MPV (9.4-12.4) fL Sodium (136-145) mmol/L Potassium (3.5-5.1) mmol/L Chloride (98-107) mmol/L Carbon Dioxide (21-32) mmol/L Anion Gap (3-11) BUN (6-23) mg/dl Creatinine (0.6-1.4) mg/dl Est Cr Clr Drug Dosing ml/min Est GFR ( Amer) ml/min Est GFR (Non-Af Amer) ml/min BUN/Creatinine Ratio (10-20) Glucose (70-99(Fasting)) mg/dl POC Glucose 68 L* 86 66 L* (70-99) mg/dl Calcium (8.5-10.1) mg/dl Magnesium (1.7-2.4) mg/dl Total Bilirubin (0.2-1.0) mg/dl AST (13-39) U/L ALT (7-52) U/L Alkaline Phosphatase (34-104) U/L Total Protein (6.0-8.3) gm/dl Albumin (3.4-5.0) gm/dl Globulin (2.5-4.0) gm/dl Albumin/Globulin Ratio (0.9-2) Urine Color Urine Appearance (Clear) Urine pH (4.5-7.5) Ur Specific [place] (1.000-1.030) Urine Protein (Negative) Urine Glucose (UA) (Negative) Urine Ketones (Negative) Urine Blood (Negative) Urine Nitrite (Negative) Urine Bilirubin (Negative) Urine Urobilinogen (Negative) Ur Leukocyte Esterase (Negative) Urine WBC (Auto) (0-5) /hpf Urine RBC (Auto) (0-4) /hpf U Hyaline Cast (Auto) (0-5) /lpf U Epithel Cells (Auto) (0-5) /lpf Urine Bacteria (Auto) (Negative) Ur Renal Epithelial Cell (0-5) /lpf Granular Casts (0) /lpf Urine Yeast (None Prsent) PG Care Time/CCT Total # of Minutes Spent Total Time Spent with Patient: Total time spent is greater than 50% in coordination of care (as documented) at patient's floor/unit and/or counseling patient: Coding Level of Care Code 00440 Subseq Hosp Care Lvl 3 Diagnoses Acute metabolic encephalopathy G93.41 Osteomyelitis of foot, left, acute M86.172 Sacral decubitus ulcer L89.159 Sepsis A41.9 PAD (peripheral artery disease) I73.9 Stage 3b chronic kidney disease (CKD) N18.32 Anemia D64.9 Anemia type: unspecified type COVID-19 U07.1 Hyperkalemia E87.5 HTN (hypertension) I10 Hypertension type: unspecified Hyperlipidemia E78.5 Hyperlipidemia type: unspecified DM II (diabetes mellitus, type II), controlled E11.9 Diabetes mellitus ferry terminal agent insulin use: with ferry terminal agent use CAD (coronary artery disease) I25.10 Lacunar stroke I63.81 Esophagitis K20.90 Dysphagia R13.10 Acute kidney failure NEC N17.8 DVT prophylaxis Z29.9 Candidiasis of mouth and esophagus B37.81; B37.0 Chronic pain syndrome G89.4 Heme positive stool R19.5 (1) Anemia Anemia type: unspecified type Qualified Code(s): D64.9 - Anemia, unspecified (2) Hyperlipidemia Hyperlipidemia type: unspecified Qualified Code(s): E78.5 - Hyperlipidemia, unspecified (3) DM II (diabetes mellitus, type II), controlled Diabetes mellitus senior care insulin use: with ferry terminal agent use (4) HTN (hypertension) Hypertension type: unspecified Qualified Code(s): I10 - Essential (primary) hypertension
[2021-12-10] MEDS: TIMOLOL MALEATE 0.5% OP SOLN 5 ML BTL OPB SCH ×2 (08:47→21:03)
[2021-12-10] MEDS: ROSUVASTATIN CALCIUM 5 MG TAB PO SCH (08:47)
[2021-12-10] MEDS: SUCRALFATE 1 GM/10 ML UDC PO SCH ×4 (08:47→21:04)
[2021-12-10] MEDS: FOLIC ACID 1 MG TAB PO SCH (08:47)
[2021-12-10] MEDS: DOCUSATE SODIUM 100 MG CAP PO SCH ×2 (08:47→21:04)
[2021-12-10] MEDS: TAMSULOSIN HCL 0.4 MG CAP PO SCH (08:48)
[2021-12-10] MEDS: COLLAGENASE OINT 30 GM TUBE EXT SCH (08:48)
[2021-12-10] MEDS: dilTIAZem HCL 30 MG TAB PO SCH (08:48)
[2021-12-10] MEDS: CLOPIDOGREL BISULFATE 75 MG TAB PO SCH (08:48)
[2021-12-10] MEDS ORDERED: THIAMINE HCL 100 MG in SYRINGE 9 ML IV SCH (09:00)
[2021-12-10 09:05] LABS: Hematocrit (blood only) 29.4 % (40.1-51.0); Hemoglobin 9.1 g/dl (14.0-18.0); Mean Corpuscular Hemoglobin 30.7 pg (25.0-34.0); Mean Corpuscular Volume 99.3 fL (80.0-100.0); Mean Platelet Volume 11.3 fL (9.4-12.4); Platelet Count 162 K/uL (130-400); RDW Coefficient of Variation 15.5 % (11.5-14.5); RDW Standard Deviation 55.3 fL (36.4-46.3); Red Blood Count 2.96 M/uL (4.63-6.08); White Blood Count 5.24 K/ul (4.8-10.8)
[2021-12-10] MEDS: INSULIN ASPART PER UNIT SC SCH ×4 (09:16→21:00)
[2021-12-10] MEDS: PANTOprazole 40 MG in SYRINGE 0 ML IV SCH ×2 (09:18→20:15)
[2021-12-10] MEDS: FLUCONAZOLE 100 MG/50 ML BAG IV SCH (09:19)
[2021-12-10 10:02] LABS: Albumin Globulin Ratio 0.6 (0.9-2); Albumin Level 2.4 gm/dl (3.4-5.0); BUN Creatinine Ratio 11.6 (10-20); Calcium 8.1 mg/dl (8.5-10.1); Creatinine Clr Calc Pharmacy 38.2 ml/min; Est GFR (African American) 52.6 ml/min; Est GFR (Non-African American) 45.4 ml/min; Magnesium 1.8 mg/dl (1.7-2.4); Potassium 3.8 mmol/L (3.5-5.1); Total Protein 6.4 gm/dl (6.0-8.3)
[2021-12-10 12:30] LABS: Appearance Urine Clear (Clear); Bilirubin Urine Negative (Negative); Blood Urine 2+ (Negative); Color Urine Yellow; Epithelial Cell Urine Auto >30 /lpf (0-5); Glucose Urine UA Negative (Negative); Ketones Urine 1+ (Negative); Leukocyte Esterase Urine 1+ (Negative); Nitrite Urine Negative (Negative); Protein Urine 1+ (Negative); Specific Gravity Urine 1.015 (1.000-1.030); Urobilinogen Urine Negative (Negative)
[2021-12-10 12:43] LABS: Renal Epithelial Cells Urine 0-5 /lpf (0-5)
[2021-12-10 12:45] LABS: Bacteria Urine Automated 1+ (Negative)
[2021-12-10] MEDS ORDERED: SODIUM CHLORIDE 0.45 % 1,000 ML IV SCH (13:15)
[2021-12-10] MEDS ORDERED: MAGNESIUM HYDROXIDE SUSP 30 ML UDC PO ONE (17:54)
[2021-12-10] MEDS: POLYETHYLENE (MIRALAX) 17 GM PACK PO SCH (18:05)
[2021-12-10] MEDS: THIAMINE HCL 200 MG in SODIUM CHLORIDE 0.9% 50 ML IV SCH (20:15)
[2021-12-10] MEDS: LATANOPROST 0.005% OP SOLN 2.5 ML BTL OPB SCH (21:03)
[2021-12-11] MEDS ORDERED: SODIUM CHLORIDE 0.9% 1000ML 500 ML IV ONE (03:52)
[2021-12-11] MEDS: oxyCODONE HCL IR 5 MG TAB (IMMEDIATE RELEASE) PO PRN (04:17)
--- NOTE | 2021-12-11 07:40 | Hospitalist Progress Note ---
Date of Service December 11, 2021 Assessment & Plan (1) Acute metabolic encephalopathy: Plan: SEVERE, improvement in energy, eating some food this morning (diet advanced) ongoing. multifactorial - COVID-19 infection, recent UTI, hospital psychosis, ?baseline memory issues/cognitive impairment with prior CVA, recent surgery/anesthesia for left leg (AKA), etc CT head 12/07 negative for acute process. checked VBG, ammonia, repeat u/a and urine culture, blood cx's on 12/07 Started cefepime/diflucan based on UA findings concerning for UTI and CRP 18 (however multiple reasons for elevated CRP) Cefepime discontinued (thought also causing confusion), stopped fluconazole changed morales 12/10, repeat same w/ yeast and likely colonized from chronic morales over the past year IMPROVEMENT in mentation with stopping these medications, however does still have poor appetite. 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 Follows with Dr Abbey Salazar, [employer] (last interrogation September 08) Discussed with timber framer helper, rep to come today for interrogation --> did have NSVT 7-10 beats on 12/01 and 12/03. cont supportive care, no further IVF for today consulted Dr coyle for goals of care -- discussed with Dr Coyle Patient son nikolay wanting to monitor in hospital for couple days to see his prognosis but overall plan for [facility] but if no meaningful improvement towards independence will consider hospice after [facility]. Remains inpatient for now (2) Osteomyelitis of foot, left, acute: Plan: Original injury was 8+ months ago. Presented to [facility] on 10/17 with Left heel wound/ulcer with drainage. 10/19 - partial calcanectomy with debridement and primary closure on 10/19. Cultures with MRSA/enterobacter. 10/23 - arteriogram of LLE with moderate to severe disease. Angioplasties were performed. Completed course of broad-spectrum IV abx. Transferred from [facility] to [facility] in [place]. Spent ~3 weeks there. Then transferred to [facility]. CT of left foot while at [facility] (/11/21) concerning for ongoing cellulitis and possible osteomyelitis. 11/27 CT - osteomyelitis and cellulitis worse. Gen surg consult by Dr Hairston - advised AKA of LLE. POD #[id number] the LLE AKA. Dr Hairston examined the stump and changed dressings 12/08 - by report the stump is stable and free of infection. Eval by PA 12/11, looks good. Recommended continued f/u with wound after discharge for sacral ulcer, continue santyl Broad-spectrum IV antibiotics were stopped following the AKA as source of infection (FOOT) was removed. See above regarding cefepime/antifungals for AMS/fungal UTI, now stopped (3) Sacral decubitus ulcer: Plan: POA. Wound care nurse saw, and santyl's for chemical debridement advised. Per wound - ulcer is unstageable at this time. Inspected the wound - no surrounding cellulitis. General surgery is aware of this ulcer, and if surgical debridement is ultimately needed, they would be willing but looking good and rec'd santyl and continued f/u wound center at [facility] Needs better nutrition but uncertain if that will happen given his failure to thrive. --Advanced diet given preferences/avoidance of slovenian ices and jello as he said he doesn't want sweets Encouraged PO intake, moving his bowels Considered remeron for mood/appetite 12/09 but some sedating effects and held further with improvement in mentation Cont frequent turning, etc. (4) Sepsis: Plan: POA - 2nd to left foot osteomyelitis +/- COVID +/- pre-admission UTI. Appeared to be resolving. Now with intermittent low-grade fevers at times. COVID still could be playing a role -- suspect it is given delirium appears primary issue but overall cognition does appear improved from last week/days prior Changed catheter and repeat urine cx following-- see above sacral decub without overt infection at this time, continued santyl/wound care (5) PAD (peripheral artery disease): Plan: LLE. s/p intervention this summer at [facility] in October. Cont statin. Cont plavix albeit cautiously in light of heme+ stool -- hgb stable Son reports he has had blood in stool "for months." -- of note PO iron on prior medication list and can be contributing to having seen "dark stools previously" Hgb remains stable despite continued amounts of IVF for dehydration, Cr at baseline even improved compared to priors Nikolay states concerns for slow GI bleed but had been dealing with other pressing issues regarding the osteo/infection to his LLE and patient previously declined endoscopy (6) Stage 3b chronic kidney disease (CKD): Plan: Records suggest baseline of 1.5-2. Copious IVF as well as PRBC transfusion provided over past week, given Cr 3.11 on 11/30 and has made significant improvements Given additional 500cc 1/2NSS on 12/10 for poor PO intake Cr1.34 on AM labs, BUN 20 Encourage PO and holding off further IVF for now BMP in AM (7) Anemia: Plan: Likely anemia of chronic disease. Melena for months (was on PO iron BID outpatient med list) But now with heme+ stool, witnessed black stools in days prior s/p 1 u PRBC on 11/30 B12/folate WNL. Iron studies without deficiency. Ferritin elevated 742, reactive from COVID and infection as above (was 1953 on admit) hgb has remained stable despite IVF. again son reports he has had heme+ stool / blood in stool for several months; on oral iron BID per outpt meds. CTAP on admission with mild rectal wall thickening w/ trace perirectal standing, poss mild proctitis (OSEI defer due to sacral ulcer/willingness to participate). Does note left upper quadrant varicosities of unknown etiology. Unremarkable liver but noncontrast imaging unable to do work-up outpatient due to other pressing health issues and will need outpt f/u pending course Continues on protonix IV BID, added 12/06, carafate QID --> switched Protonix to PO BID (8) COVID-19: Plan: Tested positive on admission; no pulmonary symptoms fortunately No evidence of pneumonia on exam or cxr confusion could be in part due to COVID infection low-grade fever possibly due to COVID , has been over 2 week course, no indication for dexamethasone or Remdesivir Airborne isolation discontinued 12/09 (last low grade temp 37.9C), remains afebrile (9) Hyperkalemia: Plan: resolved (10) HTN (hypertension): Plan: BPs acceptable 119/60, continues on diltiazem (11) Hyperlipidemia: Plan: statin (12) DM II (diabetes mellitus, type II), controlled: Plan: Continue Novolog SSI BSGs controlled after loosening ISS parameters Monitor (13) CAD (coronary artery disease): Plan: ECHO with LV systolic function borderline reduced. EF 45-50%. Borderline global hypokinesis of left ventricle. Mild concentric LVH. No prior study for comparison. Continue plavix, statin no MAREK/ARB given CKD. (14) Lacunar stroke: Plan: CVA ~[address] head here - old R occipital lobe cva. Repeat head CT 12/07 negative If mental status continues to be poor - and if ICD is MRI compatible - consider MRI brain to r/o subacute cva. (15) Esophagitis: Plan: cont PPI twice daily in light of heme+ stool / melena -- added protonix IV BID, carafate qid -- continued but changed protonix to PO BID holding lovenox (has not gotten since prior to AKA) given witnessed melena -- monitor for any DVT. RLE looks good. No concerns for PE at this time. keep plavix due to prior h/o stroke, CAD, and PAD Continue advanced diet pureed. will see if speech to re-eval to see if able to advance further if patient willing to participate (16) Dysphagia: Plan: Likely secondary to esophagitis --> tx w/ topical on admit for nuno no pain with swallowing reported, advanced to pureed. speech to repeat eval to see if able to advance further for more options/see if patient with improvement in PO intake if more options provided (17) Acute kidney failure NEC: Plan: resolved likely was sepsis-associated XAVIER Cr stable and actually down to 1.34 today monitor (18) DVT prophylaxis: Plan: hold lovenox as above given melena observed by prior provider last week (reported had been ongoing issue) high risk for DVT (19) Candidiasis of mouth and esophagus: Plan: appears resolved (20) Chronic pain syndrome: Plan: per sons he has been on chronic oxycodone for several years PDMP demonstrates such - has been on oxycodone since 2019 thus, current confusion is likely not from narcotics since he likely has tole yumi to them -- getting oxycodone 1-2x/day (21) Heme positive stool: Plan: 2nd esophagitis?, acute on chronic, prior on PO iron cont PPI IV bid, switched to PO as above added carafate hold lovenox cbc today remains stable Plan updated sonDavid 12/10 palliative consulted -- son wants to continue inpatient stay as patient about 20-30% of normal cognitive function per son and if no improvement over next 2-3 days plans for [facility] with eventual transition to hospice if not able to regain meaningful level of independence CM following Admission and Anticipated Discharge Date Admission Date: November 27, 2021 Supervising Physician Co-Signing Physician Notes CARMEN Supervision Note: I did not personally see or examine the patient today, but I verified all bolton points of CARMEN Lomas's assessment and plan with the following exceptions/additions: None Subjective Patient evaluated. Not hungry, moments of clarity. Wanting vitamin water. Dark liquid BM this morning. Having pain in his rectum but not wanting medication. Discussed not wanting to be in the hospital. He stated RN just changed his dressing to his leg and back when asked to look. Able to answer simple questions fairly well but any that take prolonged thought not so much. Seen by palliative and discussed with son. Will anticipate some rehab and not hospice just yet but pending clinical course if not able to regain some independence. Per CM discussion with son, still planning for [facility] but wanting to see how he does here for a couple of days first. Review of Systems Review of Systems: All systems reviewed & are unremarkable except as noted in HPI & below Physical Exam Physical Exam: General: frail, chronically ill appearing gentleman sitting in bed, no acute distress speech clear and following commands at times, NAD but reported "feeling like crap", endorsed "wanting to go home" HEENT: head normocephalic, atraumatic, L pupil >R (chronic), mmm (improved from days prior), hard of hearing Resp: clear to auscultation, diminished in the bases, not great inspiratory effort but improved, no wheezing/rales, 97% on RA Chest: L sided pacemaker in place CV: RRR, +murmur, no calf tenderness, pulses 1-2 RLE GI:+BS, soft, nontender : morales bag with clearer urine (improved) MSK: LEFT AKA with dressing c/d/i, appropriately tender to palpation RLE without edema, extremities perfused Neuro/Psych: alert to person, knows he is in the hospital, slight right sided weakness compared to the left with client architect strength, not alert to time, but answering questions appropriately at times Skin: sacral ulcer with Santyl/dressing, pink tissue Results & Data Results & Data ([facility]) Vital Signs (Past 12 Hours) Vital Signs Temp Pulse Resp BP BP Pulse Ox O2 Del Method 12/11/21 07:28 36.3 C L 85 16 150/67 H 98 Room Air 12/10/21 20:44 Room Air 12/10/21 22:17 37.3 C 82 18 131/73 93 Laboratory Results 12/11/21 12/11/21 12/11/21 Range/Units 11:57 08:38 08:38 WBC (4.8-10.8) K/ul RBC (4.63-6.08) M/uL Hgb (14.0-18.0) g/dl Hct (40.1-51.0) % MCV (80.0-100.0) fL MCH (25.0-34.0) pg MCHC (32.0-36.0) g/dL RDW Std Deviation (36.4-46.3) fL RDW Coeff of Rusty (11.5-14.5) % Plt Count (130-400) K/uL MPV (9.4-12.4) fL Immature Gran % (Auto) % Neut % (Auto) % Lymph % (Auto) % Dundy % (Auto) % Eos % (Auto) % Baso % (Auto) % Neut # (Auto) (1.4-6.5) K/uL Lymph # (Auto) (1.2-3.4) K/uL Dundy # (Auto) (0.24-0.82) K/uL Eos # (Auto) (0-0.50) K/uL Baso # (Auto) (0-0.2) K/uL Immature Gran # (Auto) (0.00-0.02) K/uL Sodium 144 (136-145) mmol/L Potassium 3.5 (3.5-5.1) mmol/L Chloride 114 H (98-107) mmol/L Carbon Dioxide 22 (21-32) mmol/L Anion Gap 8 (3-11) BUN 20 (6-23) mg/dl Creatinine 1.34 (0.6-1.4) mg/dl Est Cr Clr Drug Dosing 41.9 ml/min Est GFR ( Amer) 58.8 ml/min Est GFR (Non-Af Amer) 50.7 ml/min BUN/Creatinine Ratio 14.9 (10-20) Glucose 124 H (70-99(Fasting)) mg/dl POC Glucose 130 H (70-99) mg/dl Calcium 7.8 L (8.5-10.1) mg/dl Magnesium 1.9 (1.7-2.4) mg/dl Iron 44 (35-175) mcg/dl TIBC 103 L (250-450) mcg/dl Unsaturated IBC 59 L (155-355) mcg/dl Transferrin % Sat 43 (20-50) % Ferritin 742.1 H (8-388) ng/ml Total Bilirubin 0.6 (0.2-1.0) mg/dl AST 46 H (13-39) U/L ALT 21 (7-52) U/L Alkaline Phosphatase 168 H (34-104) U/L Total Protein 6.1 (6.0-8.3) gm/dl Albumin 2.3 L (3.4-5.0) gm/dl Globulin 3.8 (2.5-4.0) gm/dl Albumin/Globulin Ratio 0.6 L (0.9-2) 12/11/21 12/11/21 12/10/21 Range/Units 08:38 08:01 20:31 WBC 5.58 (4.8-10.8) K/ul RBC 2.83 L (4.63-6.08) M/uL Hgb 8.6 L (14.0-18.0) g/dl Hct 27.7 L (40.1-51.0) % MCV 97.9 (80.0-100.0) fL MCH 30.4 (25.0-34.0) pg MCHC 31.0 L (32.0-36.0) g/dL RDW Std Deviation 55.6 H (36.4-46.3) fL RDW Coeff of Rusty 15.6 H (11.5-14.5) % Plt Count 159 (130-400) K/uL MPV 11.4 (9.4-12.4) fL Immature Gran % (Auto) 1.1 % Neut % (Auto) 59.3 % Lymph % (Auto) 25.6 % Dundy % (Auto) 12.2 % Eos % (Auto) 1.3 % Baso % (Auto) 0.5 % Neut # (Auto) 3.31 (1.4-6.5) K/uL Lymph # (Auto) 1.43 (1.2-3.4) K/uL Dundy # (Auto) 0.68 (0.24-0.82) K/uL Eos # (Auto) 0.07 (0-0.50) K/uL Baso # (Auto) 0.03 (0-0.2) K/uL Immature Gran # (Auto) 0.06 H (0.00-0.02) K/uL Sodium (136-145) mmol/L Potassium (3.5-5.1) mmol/L Chloride (98-107) mmol/L Carbon Dioxide (21-32) mmol/L Anion Gap (3-11) BUN (6-23) mg/dl Creatinine (0.6-1.4) mg/dl Est Cr Clr Drug Dosing ml/min Est GFR ( Amer) ml/min Est GFR (Non-Af Amer) ml/min BUN/Creatinine Ratio (10-20) Glucose (70-99(Fasting)) mg/dl POC Glucose 126 H 119 H (70-99) mg/dl Calcium (8.5-10.1) mg/dl Magnesium (1.7-2.4) mg/dl Iron (35-175) mcg/dl TIBC (250-450) mcg/dl Unsaturated IBC (155-355) mcg/dl Transferrin % Sat (20-50) % Ferritin (8-388) ng/ml Total Bilirubin (0.2-1.0) mg/dl AST (13-39) U/L ALT (7-52) U/L Alkaline Phosphatase (34-104) U/L Total Protein (6.0-8.3) gm/dl Albumin (3.4-5.0) gm/dl Globulin (2.5-4.0) gm/dl Albumin/Globulin Ratio (0.9-2) // Range/Units 17:03 WBC (4.8-10.8) K/ul RBC (4.63-6.08) M/uL Hgb (14.0-18.0) g/dl Hct (40.1-51.0) % MCV (80.0-100.0) fL MCH (25.0-34.0) pg MCHC (32.0-36.0) g/dL RDW Std Deviation (36.4-46.3) fL RDW Coeff of Rusty (11.5-14.5) % Plt Count (130-400) K/uL MPV (9.4-12.4) fL Immature Gran % (Auto) % Neut % (Auto) % Lymph % (Auto) % Dundy % (Auto) % Eos % (Auto) % Baso % (Auto) % Neut # (Auto) (1.4-6.5) K/uL Lymph # (Auto) (1.2-3.4) K/uL Dundy # (Auto) (0.24-0.82) K/uL Eos # (Auto) (0-0.50) K/uL Baso # (Auto) (0-0.2) K/uL Immature Gran # (Auto) (0.00-0.02) K/uL Sodium (136-145) mmol/L Potassium (3.5-5.1) mmol/L Chloride (98-107) mmol/L Carbon Dioxide (21-32) mmol/L Anion Gap (3-11) BUN (6-23) mg/dl Creatinine (0.6-1.4) mg/dl Est Cr Clr Drug Dosing ml/min Est GFR ( Amer) ml/min Est GFR (Non-Af Amer) ml/min BUN/Creatinine Ratio (10-20) Glucose (70-99(Fasting)) mg/dl POC Glucose 119 H (70-99) mg/dl Calcium (8.5-10.1) mg/dl Magnesium (1.7-2.4) mg/dl Iron (35-175) mcg/dl TIBC (250-450) mcg/dl Unsaturated IBC (155-355) mcg/dl Transferrin % Sat (20-50) % Ferritin (8-388) ng/ml Total Bilirubin (0.2-1.0) mg/dl AST (13-39) U/L ALT (7-52) U/L Alkaline Phosphatase (34-104) U/L Total Protein (6.0-8.3) gm/dl Albumin (3.4-5.0) gm/dl Globulin (2.5-4.0) gm/dl Albumin/Globulin Ratio (0.9-2) PG Care Time/CCT Total # of Minutes Spent Total Time Spent with Patient: Total time spent is greater than 50% in coordination of care (as documented) at patient's floor/unit and/or counseling patient: Coding Level of Care Code 20492 Subseq Hosp Care Lvl 3 Diagnoses Acute metabolic encephalopathy G93.41 Osteomyelitis of foot, left, acute M86.172 Sacral decubitus ulcer L89.159 Sepsis A41.9 PAD (peripheral artery disease) I73.9 Stage 3b chronic kidney disease (CKD) N18.32 Anemia D64.9 Anemia type: unspecified type COVID-19 U07.1 Hyperkalemia E87.5 HTN (hypertension) I10 Hypertension type: unspecified Hyperlipidemia E78.5 Hyperlipidemia type: unspecified DM II (diabetes mellitus, type II), controlled E11.9 Diabetes mellitus [employer] insulin use: with senior living use CAD (coronary artery disease) I25.10 Lacunar stroke I63.81 Esophagitis K20.90 Dysphagia R13.10 Acute kidney failure NEC N17.8 DVT prophylaxis Z29.9 Candidiasis of mouth and esophagus B37.81; B37.0 Chronic pain syndrome G89.4 Heme positive stool R19.5 (1) Anemia Anemia type: unspecified type Qualified Code(s): D64.9 - Anemia, unspecified (2) Hyperlipidemia Hyperlipidemia type: unspecified Qualified Code(s): E78.5 - Hyperlipidemia, unspecified (3) DM II (diabetes mellitus, type II), controlled Diabetes mellitus [employer] insulin use: with [employer] customer [employer] use (4) HTN (hypertension) Hypertension type: unspecified Qualified Code(s): I10 - Essential (primary) hypertension
[2021-12-11 09:21] LABS: Basophils # (auto) 0.03 K/uL (0-0.2); Basophils % (auto) 0.5 %; Eosinophils # (auto) 0.07 K/uL (0-0.50); Eosinophils % (auto) 1.3 %; Hematocrit (blood only) 27.7 % (40.1-51.0); Hemoglobin 8.6 g/dl (14.0-18.0); Immature Granulocytes # (auto) 0.06 K/uL (0.00-0.02); Immature Granulocytes % (auto) 1.1 %; Lymphocytes # (auto) 1.43 K/uL (1.2-3.4); Lymphocytes % (auto) 25.6 %; Mean Corpuscular Hemoglobin 30.4 pg (25.0-34.0); Mean Corpuscular Volume 97.9 fL (80.0-100.0); Mean Platelet Volume 11.4 fL (9.4-12.4); Monocytes # (auto) 0.68 K/uL (0.24-0.82); Monocytes % (auto) 12.2 %; Neutrophils # (auto) 3.31 K/uL (1.4-6.5); Neutrophils % (auto) 59.3 %; Platelet Count 159 K/uL (130-400); RDW Coefficient of Variation 15.6 % (11.5-14.5); RDW Standard Deviation 55.6 fL (36.4-46.3); Red Blood Count 2.83 M/uL (4.63-6.08); White Blood Count 5.58 K/ul (4.8-10.8)
[2021-12-11] MEDS: FLUCONAZOLE 100 MG/50 ML BAG IV SCH (09:27)
[2021-12-11] MEDS: TIMOLOL MALEATE 0.5% OP SOLN 5 ML BTL OPB SCH ×2 (09:35→20:22)
[2021-12-11] MEDS: INSULIN ASPART PER UNIT SC SCH ×4 (09:37→21:08)
[2021-12-11 09:41] LABS: Albumin Globulin Ratio 0.6 (0.9-2); Albumin Level 2.3 gm/dl (3.4-5.0); BUN Creatinine Ratio 14.9 (10-20); Bilirubin,Total 0.6 mg/dl (0.2-1.0); Calcium 7.8 mg/dl (8.5-10.1); Creatinine Clr Calc Pharmacy 41.9 ml/min; Est GFR (African American) 58.8 ml/min; Est GFR (Non-African American) 50.7 ml/min; Globulin 3.8 gm/dl (2.5-4.0); Magnesium 1.9 mg/dl (1.7-2.4); Potassium 3.5 mmol/L (3.5-5.1); Total Protein 6.1 gm/dl (6.0-8.3)
[2021-12-11] MEDS: LANTUS PER UNIT CHARGE SQ SCH (09:48)
[2021-12-11] MEDS: POLYETHYLENE (MIRALAX) 17 GM PACK PO SCH (09:53)
[2021-12-11] MEDS: DOCUSATE SODIUM 100 MG CAP PO SCH ×2 (09:53→20:22)
[2021-12-11] MEDS: SUCRALFATE 1 GM/10 ML UDC PO SCH ×4 (09:55→20:22)
[2021-12-11] MEDS: dilTIAZem HCL 30 MG TAB PO SCH (10:00)
[2021-12-11] MEDS: CLOPIDOGREL BISULFATE 75 MG TAB PO SCH (10:01)
[2021-12-11] MEDS: TAMSULOSIN HCL 0.4 MG CAP PO SCH (10:02)
[2021-12-11] MEDS: FOLIC ACID 1 MG TAB PO SCH (10:03)
[2021-12-11] MEDS: ROSUVASTATIN CALCIUM 5 MG TAB PO SCH (10:04)
[2021-12-11] MEDS: PANTOprazole 40 MG in SYRINGE 0 ML IV SCH (10:06)
[2021-12-11] MEDS: THIAMINE HCL 200 MG in SODIUM CHLORIDE 0.9% 50 ML IV SCH ×2 (10:12→20:45)
--- NOTE | 2021-12-11 12:01 | Surgery Progress Note ---
Date of Service December 11, 2021 Assessment & Plan (1) Osteomyelitis of foot, left, acute: Plan: s/p left AKA on 12/04 no surgical issues at this time pt reports dressing was changed this AM, but will discuss with nursing. current dressing is in place c/d/i. may continue to change on an as needed basis hospitalists currently treating UTI and a consult is in to palliative for goals of care Admission and Anticipated Discharge Date Admission Date: November 27, 2021 Subjective Patient seen. Pleasant this AM. When asked him if he has pain and where he states "everywhere". He says that his AKA dressing was changed this AM. Physical Exam Physical Exam: awake, lying in bed. no distress Musculoskeletal: Left AKA dressing (sanjiv) bandage in place. c/d/i Results & [facility] ([facility]) Vital Signs (Past 12 Hours) Vital Signs Temp Pulse Resp BP Pulse Ox O2 Del Method 12/11/21 11:29 Room Air 12/11/21 07:28 36.3 C L 85 16 150/67 H 98 Room Air PG Care Time/CCT Total # of Minutes Spent Total Time Spent with Patient: Total time spent is greater than 50% in coordination of care (as documented) at patient's floor/unit and/or counseling patient: Coding Level of Care Code None Diagnoses Osteomyelitis of foot, left, acute M86.172
[2021-12-11 12:48] LABS: Ferritin 742.1 ng/ml (8-388)
--- NOTE | 2021-12-11 13:50 | Palliative Care Consultation ---
Date of Consultation December 11, 2021 Assessment & Plan (1) Palliative care encounter: While he has had some improvement in his mental status, Mr. Canales is not able to participate in goals of care discussion at this time. I called his son, David Canales, to arrange meeting to discuss goals of care. No answer. Will keep trying. I was able to speak with David on the phone. He tells me that for at least a month prior to admission, Justin had been having delirium with poor appetite and po intake at home. He understands his father's current status and that in general, his prognosis is not good. He asked about what to expect for improvement in Justin' mental status which unfortunately is difficult to predict. He has multiple potential causes for delirium and while he has had some improvement with treatment, David feels that he is about 20-30% of his normal cognitive function. He tells me that he and his father had multiple conversations about goals of care and that Justin would definitely not consider his current situation a good quality of life. David also feels that at this time, the level of care that he would require is not doable at home. He is considering a shift of treatment focus to symptom management and comfort but would like to wait and see how Justin does over the next several days. If he does not show significant improvement, he feels that his father would want a comfort focused approach. However, for now, he would like to continue the current level of care. (2) Acute metabolic encephalopathy: History of Present Illness Reason for Consultation: goals of care Requesting Physician: TRACE Ma Attending Physician: Karin Hayes MD History of Present Illness 76 yo gentleman with history of CAD and biventricular pacemaker, systolic heart failure, diabetes, previous CVA and PAD. He has a chronic left heel wound due to penetrating injury and had calcanectomy prior to this admission. He had been at [facility] for rehab prior to admission. He was admitted with severe encephalopathy with sepsis and osteomyelitis of the left foot. He is s/p left AKA. He also tested positive for covid on admission. He is being treated for esophagitis with dysphagia and has poor po intake leading to bump in creatinine which has improved with IVF. He does also have heme positive stools. He continues to be confused but is able to answer some questions. He can tell me where he lives and the names of his two sons. 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 He does not respond when asked if he's having pain but later tells me that he hasn't been comfortable for several months. He does have a history of chronic pain and is chronically on oxycodone which he takes up to three times a day. He had one dose today. Allergies Allergy/AdvReac Type Severity Reaction Status Date / Time atorvastatin Allergy Unknown Unknown Verified 11/27/21 18:05 ezetimibe Allergy Unknown Unknown Verified 11/27/21 18:05 rivaroxaban Allergy Unknown Unknown Verified 11/27/21 18:05 simvastatin Allergy Unknown Unknown Verified 11/27/21 18:05 sitagliptin Allergy Unknown Unknown Verified 11/27/21 18:05 sulfamethoxazole Allergy Unknown Unknown Verified 11/27/21 18:05 [From Bactrim] trimethoprim [From Bactrim] Allergy Unknown Unknown Verified 11/27/21 18:05 lactose AdvReac Unknown Unknown Verified 11/27/21 18:05 Home Medications Medication Instructions Recorded Confirmed Type acetaminophen 325 mg tablet 650 mg PO Q4H PRN Pain 11/27/21 11/27/21 History (Tylenol) ascorbic acid (vitamin C) 500 mg 500 mg PO BIDM 11/27/21 11/27/21 History tablet (Vitamin C) bisacodyl 10 mg rectal suppository 10 mg TX DAILY PRN Constipation 11/27/21 11/27/21 History ceftriaxone 1 gram intravenous 1 g IV DAILY 11/27/21 11/27/21 History solution clopidogrel 75 mg tablet (Plavix) 75 mg PO DAILY 11/27/21 11/27/21 History difluprednate 0.05 % eye drops 1 drp OPL DAILY 11/27/21 11/27/21 History diltiazem HCl 30 mg tablet 30 mg PO DAILY 11/27/21 11/27/21 History docusate sodium 100 mg capsule 100 mg PO BID 11/27/21 11/27/21 History enoxaparin 30 mg/0.3 mL 30 mg subcut QPM 11/27/21 11/27/21 History subcutaneous syringe (Lovenox) ferrous sulfate 325 mg (65 mg 325 mg PO BIDM 11/27/21 11/27/21 History iron) tablet folic acid 1 mg tablet 1 mg PO DAILY 11/27/21 11/27/21 History insulin regular human 100 unit/mL 1 sliding scale dose subcut ACHS 11/27/21 11/27/21 History injection solution (Humulin R Regular U-100 Insulin) latanoprost 0.005 % eye drops 1 drp OPB HS 11/27/21 11/27/21 History magnesium hydroxide 400 mg/5 mL 30 ml PO DAILY PRN Constipation 11/27/21 11/27/21 History oral suspension (Milk of Magnesia) mirtazapine 15 mg tablet 15 mg PO HS 11/27/21 11/27/21 History naloxone 4 mg/actuation nasal spray 4 mg intranasal ONCE PRN 11/27/21 11/27/21 History OVERSEDATION netarsudil 0.02 % eye drops 1 drp OPR HS 11/27/21 11/27/21 History nystatin 100,000 unit/mL oral 5 ml PO TID 11/27/21 11/27/21 History suspension ondansetron HCl 4 mg tablet 4 mg PO Q6H PRN NAUSEA/VOMITING 11/27/21 11/27/21 History oxycodone 5 mg tablet 10 mg PO Q8H PRN Pain 11/27/21 11/27/21 History pantoprazole 40 mg tablet,delayed 40 mg PO BID 11/27/21 11/27/21 History release polyethylene glycol 3350 17 17 g PO QDL PRN Constipation 11/27/21 11/27/21 History gram/dose oral powder (Miralax) potassium chloride 10 mEq 20 meq PO DAILY 11/27/21 11/27/21 History capsule,extended release rosuvastatin 10 mg tablet 5 mg PO DAILY 11/27/21 11/27/21 History sennosides 8.6 mg-docusate sodium 1 tab-cap PO QDL PRN Constipation 11/27/21 11/27/21 History 50 mg tablet (Senokot-S) tamsulosin 0.4 mg capsule 0.4 mg PO DAILY 11/27/21 11/27/21 History timolol 0.5 % eye drops 1 drp OPB BID 11/27/21 11/27/21 History Patient History Medical History Anemia of chronic disease CAD (coronary artery disease) DM II (diabetes mellitus, type II), controlled HTN (hypertension) Lacunar stroke PAD (peripheral artery disease) Stage 3b chronic kidney disease (CKD) Systolic heart failure Surgical History History of left above knee amputation (12/04/21) Left Above Knee Amputation(Left) - Ortiz Hairston MD, FACS No significant past surgical history Social History Smoking Status: Never smoker Hx Alcohol Use: No Hx Substance Use: No Preferred Language: Indian Communication Ability: Impaired Clinical Physician Assistant Required: No Current Living Situation: Alone Current Living Situation Comment: Patient reports living at home alone Feels Safe at Home: Yes Assistive Devices: Walker Review of Systems Review of Systems: Unobtainable due to cognitive status PPS 30% Physical Exam Constitutional: + ill appearing Respiratory: normal respiratory effort; no labored breathing Musculoskeletal: left AKA Neurologic: Speech / Cognition: + abnormal cognition Genitourinary: morales catheter Results & Data ([facility]) Vital Signs (Past 12 Hours) Vital Signs Temp Pulse Resp BP Pulse Ox O2 Del Method 12/11/21 11:29 Room Air 12/11/21 07:28 97.3 F L 85 16 150/67 H 98 Room Air PG Care Time/CCT Total # of Minutes Spent Total Time Spent: 60 Total Time Spent with Patient: Total time spent is greater than 50% in coordination of care (as documented) at patient's floor/unit and/or counseling patient: goals of care, family education and support. Coding Level of Care Code 16106 Initial Inpt Care Lvl 2 Diagnoses Palliative care encounter Z51.5 Acute metabolic encephalopathy G93.41
[2021-12-11] MEDS: COLLAGENASE OINT 30 GM TUBE EXT SCH (14:28)
[2021-12-11] MEDS: LATANOPROST 0.005% OP SOLN 2.5 ML BTL OPB SCH (20:22)
[2021-12-11] MEDS: PANTOprazole 40 MG TAB PO SCH (20:22)
[2021-12-12] MEDS: INSULIN ASPART PER UNIT SC SCH ×4 (08:04→21:03)
[2021-12-12] MEDS: ACETAMINOPHEN 325 MG TAB PO PRN (08:08)
[2021-12-12] MEDS: dilTIAZem HCL 30 MG TAB PO SCH (08:09)
[2021-12-12] MEDS: COLLAGENASE OINT 30 GM TUBE EXT SCH (08:09)
[2021-12-12] MEDS: TAMSULOSIN HCL 0.4 MG CAP PO SCH (08:09)
[2021-12-12] MEDS: CLOPIDOGREL BISULFATE 75 MG TAB PO SCH (08:10)
[2021-12-12] MEDS: POLYETHYLENE (MIRALAX) 17 GM PACK PO SCH (08:10)
[2021-12-12] MEDS: PANTOprazole 40 MG TAB PO SCH ×2 (08:10→20:57)
[2021-12-12] MEDS: TIMOLOL MALEATE 0.5% OP SOLN 5 ML BTL OPB SCH ×2 (08:11→20:57)
[2021-12-12] MEDS: SUCRALFATE 1 GM/10 ML UDC PO SCH ×4 (08:19→20:57)
[2021-12-12] MEDS: LANTUS PER UNIT CHARGE SQ SCH (08:26)
[2021-12-12] MEDS: THIAMINE HCL 200 MG in SODIUM CHLORIDE 0.9% 50 ML IV SCH (08:26)
[2021-12-12] MEDS: ROSUVASTATIN CALCIUM 5 MG TAB PO SCH (08:38)
[2021-12-12] MEDS: FOLIC ACID 1 MG TAB PO SCH (08:38)
[2021-12-12] MEDS: DOCUSATE SODIUM 100 MG CAP PO SCH ×2 (08:38→20:57)
--- NOTE | 2021-12-12 08:49 | Surgery Progress Note ---
Date of Service December 12, 2021 Assessment & Plan (1) Osteomyelitis of foot, left, acute: Plan: 12/12/21 POD#8 status post left AKA amputation The patient is much more alert and stated at this time we will ask physical therapy to see him with the idea that it may help him transfer if possible As far as the amputation site I plan to leave the umesh in for least another month or so the area can be washed over and dressing changed as need be s/p left AKA on 12/04 no surgical issues at this time pt reports dressing was changed this AM, but will discuss with nursing. current dressing is in place c/d/i. may continue to change on an as needed basis hospitalists currently treating UTI and a consult is in to palliative for goals of care Admission and Anticipated Discharge Date Admission Date: November 27, 2021 Subjective Much more alert today and as best I can tell he is denying any pain in the operative site except when someone moves it Physical Exam Physical Exam: Is much more alert and have seen him in the past The operative procedure was explained to the patient again The amputation site dressing was changed incision is healing well there is no drainage or cellulitis or edema Results & Data ([facility]) Vital Signs (Past 12 Hours) Vital Signs Temp Pulse Resp BP BP Pulse Ox O2 Del Method 12/12/21 07:38 36.7 C 82 16 128/69 91 Room Air 12/11/21 22:39 36.1 C L 69 16 133/62 98 Room Air PG Care Time/CCT Total # of Minutes Spent Total Time Spent with Patient: Total time spent is greater than 50% in coordination of care (as documented) at patient's floor/unit and/or counseling patient: Coding Level of Care Code None Diagnoses Osteomyelitis of foot, left, acute M86.172
[2021-12-12 09:01] LABS: Hematocrit (blood only) 29.3 % (40.1-51.0); Hemoglobin 9.3 g/dl (14.0-18.0); Mean Corpuscular Hemoglobin 30.9 pg (25.0-34.0); Mean Corpuscular Hgb Conc 31.7 g/dL (32.0-36.0); Mean Corpuscular Volume 97.3 fL (80.0-100.0); Mean Platelet Volume 11.1 fL (9.4-12.4); Platelet Count 154 K/uL (130-400); RDW Coefficient of Variation 15.4 % (11.5-14.5); RDW Standard Deviation 54.8 fL (36.4-46.3); Red Blood Count 3.01 M/uL (4.63-6.08); White Blood Count 5.28 K/ul (4.8-10.8)
[2021-12-12 09:23] LABS: Albumin Globulin Ratio 0.6 (0.9-2); Albumin Level 2.5 gm/dl (3.4-5.0); BUN Creatinine Ratio 13.1 (10-20); Bilirubin,Total 0.7 mg/dl (0.2-1.0); Calcium 8.2 mg/dl (8.5-10.1); Creatinine Clr Calc Pharmacy 43.1 ml/min; Est GFR (Non-African American) 52.6 ml/min; Globulin 3.9 gm/dl (2.5-4.0); Potassium 3.5 mmol/L (3.5-5.1); Total Protein 6.4 gm/dl (6.0-8.3)
--- NOTE | 2021-12-12 14:38 | Hospitalist Progress Note ---
Date of Service December 12, 2021 Assessment & Plan (1) Acute metabolic encephalopathy: Plan: SEVERE, now much improved multifactorial - COVID-19 infection, Left heel OM and subsequent AKA, recent UTI, hospital psychosis, ?baseline memory issues/cognitive impairment with prior CVA, XAVIER CT head 12/07 negative for acute process. checked VBG, ammonia, repeat u/a and urine culture, blood cx's on 12/07 Ur cx with Yeast not albicans-has had Melendez for a logng time now, likely colonization, no need to treat Was started on high dose IV thiamine on 12/10 and perhaps this helped him improve? B1 level pending Is eating more now, still with pain and on chronic opioids More awake and alert, interactive Waxes and wanes renal function normalized -continue supportive care, promote good rest/wake cycles -encourage po intake-needs assistance -needs mobilization if can tolerate -convert to po thiamine 200mg po bid and continue x 1 month, f/u on B1 level when available (2) Osteomyelitis of foot, left, acute: Plan: Original injury was 8+ months ago. Presented to [facility] on 10/17 with Left heel wound/ulcer with drainage. 10/19 - partial calcanectomy with debridement and primary closure on 10/19. C ultures with MRSA/enterobacter. 10/23 - arteriogram of LLE with moderate to severe disease. Angioplasties were performed. Completed course of broad-spectrum IV abx. Transferred from [facility] to [facility] in [place]. Spent ~3 weeks there. Then transferred to [facility]. CT of left foot while at [facility] (/11/21) concerning for ongoing cellulitis and possible osteomyelitis. 11/27 CT - osteomyelitis and cellulitis worse. Gen surg consult by Dr Hairston - advised AKA of LLE. 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 Plan to leave umesh in place x 1 more month completed course of abx broad spectrum after AKA -needs rehab placement (3) Sacral decubitus ulcer: Plan: POA. Wound care nurse recommends santyl for chemical debridement, cover w/ Optifoam, offload pressure Recommend f/u with Wound Nurse at rehab Per wound - ulcer is unstageable at this time. General surgery is aware of this ulcer, and if surgical debridement is ultimately needed, they would be willing but looking good and rec'd santyl and continued f/u wound center at discharge Needs better nutrition but uncertain if that will happen given his failure to thrive. (4) Sepsis: Plan: POA - 2nd to left foot osteomyelitis +/- COVID +/- pre-admission UTI. Now resolved Had some recurrent intermittent low-grade fevers at times but now resolved again for many days after second sepsis workup was pursued (5) PAD (peripheral artery disease): Plan: LLE. Now s/p AKA s/p intervention this summer at [facility] in October. Cont statin. Cont plavix (6) Stage 3b chronic kidney disease (CKD): Plan: Records suggest baseline of 1.5-2. Copious IVF as well as PRBC transfusion provided initially after had DANNY on admission Instrument Repair Technician back to baseline -Avoid nephrotoxins -renally dose meds when appropriate -follow BMP (7) Anemia: Plan: Likely anemia of chronic disease. There was a question of melena for months but was on PO iron BID outpatient med list Apparently had witnessed black stools by RN x 3 on 12/01 and 12/03, all brown since then s/p 1 u PRBC on 11/30 the day prior to witnessed black stool for drop in hgb B12/folate WNL. Iron studies without deficiency. Ferritin elevated 742, reactive from COVID and infection as above (was 1954 on admit) hgb has remained stable for 10 days now at 8-9 CTAP on admission with mild rectal wall thickening w/ trace perirectal standing, poss mild proctitis. Does note left upper quadrant varicosities of unknown etiology. Unremarkable liver but noncontrast imaging unable to do work-up outpatient due to other pressing health issues and will need outpt f/u pending course with possible GI w/u as outpt if desired Continues on protonix po BID, carafate QID -ok to restart DVT prophylaxis given high risk for DVT with prolonged hospitalization, recent surgery, infection (8) HTN (hypertension): Plan: BPs acceptable -is on very low dose of immediate release diltiazem-no need for this as only lasts 6 hours and BPs controlled -dc dilt monitor BPs (9) Hyperlipidemia: Plan: statin (10) DM II (diabetes mellitus, type II), controlled: Plan: Continue Novolog SSI BSGs controlled Monitor (11) CAD (coronary artery disease): Plan: ECHO with LV systolic function borderline reduced. EF 45-50%. Borderline global hypokinesis of left ventricle. Mild concentric LVH. No prior study for comparison. Continue plavix, statin no MAREK/ARB given CKD (12) Lacunar stroke: Plan: CVA ~[address] head here - old R occipital lobe cva. Repeat head CT 12/07 negative -continue Plavix, statin (13) Esophagitis: Plan: noted to have thickened esophagus distally on CT abd/pel on admission -cont PPI twice daily -continue carafate x 2 week course -completed course of fluconazole for oral/esophageal Candidiasis (14) Dysphagia: Plan: Likely secondary to esophagitis no pain with swallowing reported, advanced to minced and moist by SPeech on 12/12 (15) Acute kidney failure NEC: Plan: resolved likely was sepsis-associated XAVIER (16) Chronic pain syndrome: Plan: per sons he has been on chronic oxycodone for several years PDMP demonstrates such - has been on oxycodone since 2019 restart oxycodone as dropped off med list yesterday (17) COVID-19: Plan: Tested positive on admission; no pulmonary symptoms fortunately No evidence of pneumonia on exam or cxr now off precautions Plan updated son, David 12/12 Plan to see if continued improvement in mental status over next day then dc to [facility] this weekend Admission and Anticipated Discharge Date Admission Date: November 27, 2021 Subjective Seems to be be doing much better today than what has been previously documented. Awake, alert, interactive. Answering questions appropriately. Does report pain all the time in back. Is eating more today with upgrade to minced and moist diet after repeat Speech eval. When asked about going to rehab, he says he's not too sure he likes [facility], but understands that's his only chance to get strong again enough to get home which is his goal. When I told the patient I would call his son and discuss the plans for possible rehab, he said "My son tries to have too much control over me." I had a long talk with his son David on the phone about patient's current condition and plans for moving forward. Review of Systems Review of Systems: All systems reviewed & are unremarkable except as noted in HPI & below Physical Exam Constitutional: WD/WN, vitals as above Eyes: + anicteric sclerae Neck: trachea midline, no thyromegaly Respiratory: normal respiratory effort, lungs clear to auscultation Cardiovascular: RRR, no murmur, no edema Chest (Breasts): Chest: normal inspection of chest Gastrointestinal (Abdomen): normal bowel sounds, soft, nontender, no hepatosplenomegaly Musculoskeletal: Extremities: + extremities abnormal to inspection (LLE AKA with dressing in place), no cyanosis and no clubbing Skin: no rashes, warm and dry (multiple areas ecchymosis arms) Neurologic: moves all extremities and awake; no focal motor deficits Speech / Cognition: normal speech Motor/Sensory: no tremor Psychiatric: Orientation: alert, oriented to person, oriented to place and cooperative Lymphatic: no lymphedema Results & Data Results & Data ([facility]) Vital Signs (Past 12 Hours) Vital Signs Temp Pulse Resp BP Pulse Ox O2 Del Method 12/12/21 08:51 Room Air 12/12/21 07:38 36.7 C 82 16 128/69 91 Room Air Laboratory Results 12/12/21 12/12/21 12/12/21 Range/Units 20:53 17:21 11:59 WBC (4.8-10.8) K/ul RBC (4.63-6.08) M/uL Hgb (14.0-18.0) g/dl Hct (40.1-51.0) % MCV (80.0-100.0) fL MCH (25.0-34.0) pg MCHC (32.0-36.0) g/dL RDW Std Deviation (36.4-46.3) fL RDW Coeff of Rusty (11.5-14.5) % Plt Count (130-400) K/uL MPV (9.4-12.4) fL Sodium (136-145) mmol/L Potassium (3.5-5.1) mmol/L Chloride (98-107) mmol/L Carbon Dioxide (21-32) mmol/L Anion Gap (3-11) BUN (6-23) mg/dl Creatinine (0.6-1.4) mg/dl Est Cr Clr Drug Dosing ml/min Est GFR ( Amer) ml/min Est GFR (Non-Af Amer) ml/min BUN/Creatinine Ratio (10-20) Glucose (70-99(Fasting)) mg/dl POC Glucose 127 H 113 H 148 H (70-99) mg/dl Calcium (8.5-10.1) mg/dl Total Bilirubin (0.2-1.0) mg/dl AST (13-39) U/L ALT (7-52) U/L Alkaline Phosphatase (34-104) U/L Total Protein (6.0-8.3) gm/dl Albumin (3.4-5.0) gm/dl Globulin (2.5-4.0) gm/dl Albumin/Globulin Ratio (0.9-2) 12/12/21 12/12/21 12/12/21 Range/Units 08:47 08:47 08:02 WBC 5.28 (4.8-10.8) K/ul RBC 3.01 L (4.63-6.08) M/uL Hgb 9.3 L (14.0-18.0) g/dl Hct 29.3 L (40.1-51.0) % MCV 97.3 (80.0-100.0) fL MCH 30.9 (25.0-34.0) pg MCHC 31.7 L (32.0-36.0) g/dL RDW Std Deviation 54.8 H (36.4-46.3) fL RDW Coeff of Rusty 15.4 H (11.5-14.5) % Plt Count 154 (130-400) K/uL MPV 11.1 (9.4-12.4) fL Sodium 144 (136-145) mmol/L Potassium 3.5 (3.5-5.1) mmol/L Chloride 113 H (98-107) mmol/L Carbon Dioxide 22 (21-32) mmol/L Anion Gap 9 (3-11) BUN 17 (6-23) mg/dl Creatinine 1.30 (0.6-1.4) mg/dl Est Cr Clr Drug Dosing 43.1 ml/min Est GFR ( Amer) 61.0 ml/min Est GFR (Non-Af Amer) 52.6 ml/min BUN/Creatinine Ratio 13.1 (10-20) Glucose 127 H (70-99(Fasting)) mg/dl POC Glucose 117 H (70-99) mg/dl Calcium 8.2 L (8.5-10.1) mg/dl Total Bilirubin 0.7 (0.2-1.0) mg/dl AST 46 H (13-39) U/L ALT 23 (7-52) U/L Alkaline Phosphatase 177 H (34-104) U/L Total Protein 6.4 (6.0-8.3) gm/dl Albumin 2.5 L (3.4-5.0) gm/dl Globulin 3.9 (2.5-4.0) gm/dl Albumin/Globulin Ratio 0.6 L (0.9-2) PG Care Time/CCT Total # of Minutes Spent Total Time Spent with Patient: Total time spent is greater than 50% in coordination of care (as documented) at patient's floor/unit and/or counseling patient: Coding Level of Care Code 93206 Subseq Hosp Care Lvl 3 Diagnoses Acute metabolic encephalopathy G93.41 Osteomyelitis of foot, left, acute M86.172 Sacral decubitus ulcer L89.159 Sepsis A41.9 PAD (peripheral artery disease) I73.9 Stage 3b chronic kidney disease (CKD) N18.32 Anemia D64.9 Anemia type: unspecified type HTN (hypertension) I10 Hypertension type: unspecified Hyperlipidemia E78.5 Hyperlipidemia type: unspecified DM II (diabetes mellitus, type II), controlled E11.9 Diabetes mellitus gis manager insulin use: with gis manager use CAD (coronary artery disease) I25.10 Lacunar stroke I63.81 Esophagitis K20.90 Dysphagia R13.10 Acute kidney failure NEC N17.8 Chronic pain syndrome G89.4 COVID-19 U07.1 (1) Anemia Anemia type: unspecified type Qualified Code(s): D64.9 - Anemia, unspecified (2) Hyperlipidemia Hyperlipidemia type: unspecified Qualified Code(s): E78.5 - Hyperlipidemia, unspecified (3) DM II (diabetes mellitus, type II), controlled Diabetes mellitus gis manager insulin use: with custodial use (4) HTN (hypertension) Hypertension type: unspecified Qualified Code(s): I10 - Essential (primary) hypertension
[2021-12-12] MEDS: ENOXAPARIN INJ 30 MG/0.3 ML SYR SQ SCH (20:57)
[2021-12-12] MEDS: LATANOPROST 0.005% OP SOLN 2.5 ML BTL OPB SCH (20:57)
[2021-12-12] MEDS: THIAMINE HCL 100 MG TAB PO SCH (20:57)
[2021-12-13] MEDS: FOLIC ACID 1 MG TAB PO SCH (08:21)
[2021-12-13] MEDS: PANTOprazole 40 MG TAB PO SCH ×2 (08:21→19:49)
[2021-12-13] MEDS: THIAMINE HCL 100 MG TAB PO SCH ×2 (08:21→19:49)
[2021-12-13] MEDS: ROSUVASTATIN CALCIUM 5 MG TAB PO SCH (08:21)
[2021-12-13] MEDS: DOCUSATE SODIUM 100 MG CAP PO SCH ×2 (08:21→19:49)
[2021-12-13] MEDS: SUCRALFATE 1 GM/10 ML UDC PO SCH ×5 (08:21→19:57)
[2021-12-13] MEDS: CLOPIDOGREL BISULFATE 75 MG TAB PO SCH (08:22)
[2021-12-13] MEDS: TAMSULOSIN HCL 0.4 MG CAP PO SCH (08:22)
[2021-12-13] MEDS: COLLAGENASE OINT 30 GM TUBE EXT SCH ×2 (08:22→20:13)
[2021-12-13] MEDS: TIMOLOL MALEATE 0.5% OP SOLN 5 ML BTL OPB SCH ×2 (08:23→19:50)
[2021-12-13] MEDS: POLYETHYLENE (MIRALAX) 17 GM PACK PO SCH (08:24)
[2021-12-13] MEDS: INSULIN ASPART PER UNIT SC SCH ×4 (09:34→22:28)
[2021-12-13] MEDS: LANTUS PER UNIT CHARGE SQ SCH (09:37)
--- NOTE | 2021-12-13 14:26 | Hospitalist Progress Note ---
Date of Service December 13, 2021 Assessment & Plan (1) Acute metabolic encephalopathy: Plan: SEVERE, now improved but persists multifactorial - COVID-19 infection, Left heel OM and subsequent AKA, recent UTI, hospital psychosis, ?baseline memory issues/cognitive impairment with prior CVA, XAVIER CT head 12/07 negative for acute process. checked VBG, ammonia, repeat u/a and urine culture, blood cx's on 12/07 Ur cx with Yeast not albicans-has had Melendez for a logng time now, likely colonization, no need to treat Was started on high dose IV thiamine on 12/10 and perhaps this helped him improve? Still waxing and waning but overall slightly improved B1 level pending Is eating more now, still with pain and on chronic opioids More awake and alert, interactive renal function normalized -continue supportive care, promote good rest/wake cycles -encourage po intake-needs assistance -needs mobilization if can tolerate -convert to po thiamine 200mg po bid and continue x 1 month, f/u on B1 level when available (2) Osteomyelitis of foot, left, acute: Plan: Original injury was 8+ months ago. Presented to [facility] on 10/17 with Left heel wound/ulcer with drainage. 10/19 - partial calcanectomy with debridement and primary closure on 10/19. Cultures with MRSA/enterobacter. 10/23 - arteriogram of LLE with moderate to severe disease. Angioplasties were performed. Completed course of broad-spectrum IV abx. Transferred from [facility] to [facility] in [place]. Spent ~3 weeks there. Then transferred to [facility]. CT of left foot while at [facility] (/11/21) concerning for ongoing cellulitis and possible osteomyelitis. 11/27 CT - osteomyelitis and cellulitis worse. Gen surg consult by Dr Hairston - advised AKA of LLE. 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 Plan to leave umesh in place x 1 more month completed course of abx broad spectrum after AKA -needs rehab placement (3) Sacral decubitus ulcer: Plan: POA. Wound care nurse recommends santyl for chemical debridement, cover w/ Optifoam, offload pressure Recommend f/u with Wound Nurse at rehab Per wound - ulcer is unstageable at this time. General surgery is aware of this ulcer, and if surgical debridement is ultimately needed, they would be willing but looking good and rec'd santyl and continued f/u wound center at discharge Needs better nutrition but uncertain if that will happen given his failure to thrive. (4) Sepsis: Plan: POA - 2nd to left foot osteomyelitis +/- COVID +/- pre-admission UTI. Now resolved Had some recurrent intermittent low-grade fevers at times but now resolved again for many days after second sepsis workup was pursued (5) PAD (peripheral artery disease): Plan: LLE. Now s/p AKA s/p intervention this summer at [facility] in October. Cont statin. Cont plavix (6) Stage 3b chronic kidney disease (CKD): Plan: Records suggest baseline of 1.5-2. 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 There was a question of melena for months but was on PO iron BID outpatient med list Apparently had witnessed black stools by RN x 3 on 12/01 and 12/03, all brown since then s/p 1 u PRBC on 11/30 the day prior to witnessed black stool for drop in hgb B12/folate WNL. Iron studies without deficiency. Ferritin elevated 742, reactive from COVID and infection as above (was 1954 on admit) hgb has remained stable for 10 days now at 8-9 CTAP on admission with mild rectal wall thickening w/ trace perirectal standing, poss mild proctitis. Does note left upper quadrant varicosities of unknown etiology. Unremarkable liver but noncontrast imaging unable to do work-up outpatient due to other pressing health issues and will need outpt f/u pending course with possible GI w/u as outpt if desired Continues on protonix po BID, carafate QID -ok to restart DVT prophylaxis given high risk for DVT with prolonged hospitalization, recent surgery, infection (8) HTN (hypertension): Plan: BPs acceptable -is on very low dose of immediate release diltiazem-no need for this as only lasts 6 hours and BPs controlled -dc dilt monitor BPs (9) Hyperlipidemia: Plan: statin (10) DM II (diabetes mellitus, type II), controlled: Plan: Continue Novolog SSI BSGs controlled Monitor (11) CAD (coronary artery disease): Plan: ECHO with LV systolic function borderline reduced. EF 45-50%. Borderline global hypokinesis of left ventricle. Mild concentric LVH. No prior study for comparison. Continue plavix, statin no MAREK/ARB given CKD (12) Lacunar stroke: Plan: CVA ~[address] head here - old R occipital lobe cva. Repeat head CT 12/07 negative -continue Plavix, statin (13) Esophagitis: Plan: noted to have thickened esophagus distally on CT abd/pel on admission -cont PPI twice daily -continue carafate x 2 week course -completed course of fluconazole for oral/esophageal Candidiasis (14) Dysphagia: Plan: Likely secondary to esophagitis no pain with swallowing reported, advanced to minced and moist by SPeech on 12/12 (15) Acute kidney failure NEC: Plan: resolved likely was sepsis-associated XAVIER (16) Chronic pain syndrome: Plan: per sons he has been on chronic oxycodone for several years PDMP demonstrates such - has been on oxycodone since 2019 restart oxycodone as dropped off med list yesterday (17) COVID-19: Plan: Tested positive on admission; no pulmonary symptoms fortunately No evidence of pneumonia on exam or cxr now off precautions Plan updated son, David 12/12 and again 12/13 Plan to see if continued improvement in mental status over next day then dc to [facility] -does not seem very likely he will be able to participate in rehab. Admission and Anticipated Discharge Date Admission Date: November 27, 2021 Subjective Pt a bit more confused today than yesterday. Is not eating more than one or two bites of food even when fed by nurse. Had brown BM today, no blood. Pt has no pain at rest but says pain with movement. He is unsure if he wants to participate in rehab Review of Systems Review of Systems: All systems reviewed & are unremarkable except as noted in HPI & below Physical Exam Constitutional: WD/WN, vitals as above Eyes: + anicteric sclerae Neck: trachea midline, no thyromegaly Respiratory: normal respiratory effort, lungs clear to auscultation Cardiovascular: RRR, no murmur, no edema Chest (Breasts): Chest: normal inspection of chest Gastrointestinal (Abdomen): normal bowel sounds, soft, nontender, no hepatosplenomegaly Musculoskeletal: Extremities: + extremities abnormal to inspection (LLE AKA with dressing in place), no cyanosis and no clubbing Skin: no rashes, warm and dry (multiple areas ecchymosis arms) Neurologic: moves all extremities and awake; no focal motor deficits Speech / Cognition: normal speech Motor/Sensory: no tremor Psychiatric: Orientation: alert, oriented to person, oriented to place and cooperative Lymphatic: no lymphedema Results & Data Results & Data ([facility]) Vital Signs (Past 12 Hours) Vital Signs Temp Pulse Resp BP Pulse Ox O2 Del Method 12/13/21 09:00 Room Air 12/13/21 08:38 36.5 C 62 16 124/57 L 97 Room Air PG Care Time/CCT Total # of Minutes Spent Total Time Spent with Patient: Total time spent is greater than 50% in coordination of care (as documented) at patient's floor/unit and/or counseling patient: Coding Level of Care Code 77647 Subseq Hosp Care Lvl 2 Diagnoses Acute metabolic encephalopathy G93.41 Osteomyelitis of foot, left, acute M86.172 Sacral decubitus ulcer L89.159 Sepsis A41.9 PAD (peripheral artery disease) I73.9 Stage 3b chronic kidney disease (CKD) N18.32 Anemia D64.9 Anemia type: unspecified type HTN (hypertension) I10 Hypertension type: unspecified Hyperlipidemia E78.5 Hyperlipidemia type: unspecified DM II (diabetes mellitus, type II), controlled E11.9 Diabetes mellitus detention insulin use: with detention use CAD (coronary artery disease) I25.10 Lacunar stroke I63.81 Esophagitis K20.90 Dysphagia R13.10 Acute kidney failure NEC N17.8 Chronic pain syndrome G89.4 COVID-19 U07.1 (1) Anemia Anemia type: unspecified type Qualified Code(s): D64.9 - Anemia, unspecified (2) Hyperlipidemia Hyperlipidemia type: unspecified Qualified Code(s): E78.5 - Hyperlipidemia, unspecified (3) DM II (diabetes mellitus, type II), controlled Diabetes mellitus detention insulin use: with middle or intermediate school principal use (4) HTN (hypertension) Hypertension type: unspecified Qualified Code(s): I10 - Essential (primary) hypertension
[2021-12-13] MEDS: LATANOPROST 0.005% OP SOLN 2.5 ML BTL OPB SCH (19:50)
[2021-12-13] MEDS: ENOXAPARIN INJ 30 MG/0.3 ML SYR SQ SCH (19:50)
[2021-12-14] MEDS: ACETAMINOPHEN 325 MG TAB PO PRN (06:14)
[2021-12-14] MEDS: THIAMINE HCL 100 MG TAB PO SCH ×2 (08:24→22:13)
[2021-12-14] MEDS: PANTOprazole 40 MG TAB PO SCH ×2 (08:24→22:13)
[2021-12-14] MEDS: TIMOLOL MALEATE 0.5% OP SOLN 5 ML BTL OPB SCH ×2 (08:24→22:13)
[2021-12-14] MEDS: SUCRALFATE 1 GM/10 ML UDC PO SCH ×4 (08:24→22:10)
[2021-12-14] MEDS: ROSUVASTATIN CALCIUM 5 MG TAB PO SCH (08:25)
[2021-12-14] MEDS: FOLIC ACID 1 MG TAB PO SCH (08:25)
[2021-12-14] MEDS: DOCUSATE SODIUM 100 MG CAP PO SCH ×2 (08:25→22:13)
[2021-12-14] MEDS: CLOPIDOGREL BISULFATE 75 MG TAB PO SCH (08:25)
[2021-12-14] MEDS: TAMSULOSIN HCL 0.4 MG CAP PO SCH (08:25)
[2021-12-14] MEDS: POLYETHYLENE (MIRALAX) 17 GM PACK PO SCH (08:25)
[2021-12-14] MEDS: LANTUS PER UNIT CHARGE SQ SCH (09:15)
[2021-12-14] MEDS: INSULIN ASPART PER UNIT SC SCH ×4 (09:16→23:46)
--- NOTE | 2021-12-14 19:11 | Hospitalist Progress Note ---
Date of Service December 14, 2021 Assessment & Plan (1) Acute metabolic encephalopathy: Plan: SEVERE, now improved but persists multifactorial - COVID-19 infection, Left heel OM and subsequent AKA, recent UTI, hospital psychosis, ?baseline memory issues/cognitive impairment with prior CVA, XAVIER CT head 12/07 negative for acute process. checked VBG, ammonia, repeat u/a and urine culture, blood cx's on 12/07 Ur cx with Yeast not albicans-has had Melendez for a long time now, likely colonization, no need to treat Was started on high dose IV thiamine on 12/10 and perhaps this helped him improve? Still waxing and waning but overall slightly improved B1 level pending Still not eating much at all, but is more awake and alert, interactive than previous reports renal function normalized -continue supportive care, promote good rest/wake cycles -encourage po intake-needs assistance -needs mobilization if can tolerate-awaiting PT/OT to reevaluate on Wednesday -convert to po thiamine 200mg po bid and continue x 1 month, f/u on B1 level when available -Unclear if he will be able to participate with rehab (2) Osteomyelitis of foot, left, acute: Plan: Original injury was 8+ months ago. Presented to [facility] on 10/17 with Left heel wound/ulcer with drainage. 10/19 - partial calcanectomy with debridement and primary closure on 10/19. Cultures with MRSA/enterobacter. 10/23 - arteriogram of LLE with moderate to severe disease. Angioplasties were performed. Completed course of broad-spectrum IV abx. Transferred from [facility] to [facility] in [place]. Spent ~3 weeks there. Then transferred to [facility]. CT of left foot while at [facility] (/11/21) concerning for ongoing cellulitis and possible osteomyelitis. 11/27 CT - osteomyelitis and cellulitis worse. Gen surg consult by Dr Hairston - advised AKA of LLE. 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 Plan to leave umesh in place x 1 more month completed course of abx broad spectrum after AKA Remains afebrile -needs rehab placement -Continue oxycodone from home at 10 mg p.o. every 8 hours as needed pain (3) Sacral decubitus ulcer: Plan: POA. Wound care nurse recommends santyl for chemical debridement, cover w/ Optifoam, offload pressure Recommend f/u with Wound Nurse at rehab Per wound - ulcer is unstageable at this time. General surgery is aware of this ulcer, and if surgical debridement is ultimately needed, they would be willing but looking good and rec'd santyl and continued f/u wound center at discharge Needs better nutrition but uncertain if that will happen given his failure to thrive. (4) Sepsis: Plan: POA - 2nd to left foot osteomyelitis +/- COVID +/- pre-admission UTI. Now resolved Had some recurrent intermittent low-grade fevers at times but now resolved again for many days after second sepsis workup was pursued (5) PAD (peripheral artery disease): Plan: LLE. Now s/p AKA s/p intervention this summer at [facility] in October. Cont statin. Cont plavix (6) Stage 3b chronic kidney disease (CKD): Plan: Records suggest baseline of 1.5-2. 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 There was a question of melena for months but was on PO iron BID outpatient med list Apparently had witnessed black stools by RN x 3 on 12/01 and 12/03, all brown since then s/p 1 u PRBC on 11/30 the day prior to witnessed black stool for drop in hgb B12/folate WNL. Iron studies without deficiency. Ferritin elevated 742, reactive from COVID and infection as above (was 1954 on admit) hgb has remained stable for 10 days now at 8-9 CTAP on admission with mild rectal wall thickening w/ trace perirectal standing, poss mild proctitis. Does note left upper quadrant varicosities of unknown etiology. Unremarkable liver but noncontrast imaging unable to do GI work-up as an outpatient due to other pressing health issues- will need outpt f/u with GI w/u if desired Continues on protonix po BID, carafate QID -Have since restarted DVT prophylaxis given high risk for DVT with prolonged hospitalization, recent surgery, infection -Follow CBC periodically-we will obtain in the morning (8) HTN (hypertension): Plan: BPs acceptable -Was on very low dose of immediate release diltiazem-no need for this as only lasts 6 hours and BPs controlled -Have since discontinued the p.o. diltiazem monitor BPs-remain low normal (9) Hyperlipidemia: Plan: Continue statin (10) DM II (diabetes mellitus, type II), controlled: Plan: Blood sugars are very well controlled and he has not required any supplemental insulin in 6 days Continue Lantus 6 units once daily Continue Novolog SSI BSGs controlled Check hemoglobin A1c in the morning (11) CAD (coronary artery disease): Plan: ECHO with LV systolic function borderline reduced. EF 45-50%. Borderline global hypokinesis of left ventricle. Mild concentric LVH. No prior study for comparison. Continue plavix, statin no MAREK/ARB given CKD (12) Lacunar stroke: Plan: CVA ~[address] head [address] - old R occipital lobe cva. Repeat head CT 12/07 negative -continue Plavix, statin (13) Esophagitis: Plan: noted to have thickened esophagus distally on CT abd/pel on admission -cont PPI twice daily -continue carafate x 2 week course -completed course of fluconazole for oral/esophageal Candidiasis (14) Dysphagia: Plan: Likely secondary to esophagitis no pain with swallowing reported, advanced to minced and moist by SPeech on 12/12 (15) Acute kidney failure NEC: Plan: resolved likely was sepsis-associated XAVIER (16) Chronic pain syndrome: Plan: per sons he has been on chronic oxycodone for several years PDMP demonstrates such - has been on oxycodone since 2019 -Continue as needed oxycodone (17) COVID-19: Plan: Tested positive on admission; no pulmonary symptoms fortunately No evidence of pneumonia on exam or cxr now off precautions Plan updated son, David 12/12 and again 12/13 Plan to see if continued improvement in mental status over next day then dc to [facility] -does not seem very likely he will be able to participate in rehab. Possible discharge to rehab on Wednesday/Wednesday Admission and Anticipated Discharge Date Admission Date: November 27, 2021 Subjective Patient seems to be in better spirits today, he got cleaned up and had his hair washed. He is alert and interactive, still mildly confused at times. He reports that he ate a lot of food today, however nursing reports that he only took 1 bite of mashed potatoes for dinner. He continues to say that he does not want to go to [facility] as the people there were "too rough" with him. He then points to the floor in front of the bed and asks "is that the ocean over there?" He did have a bowel movement today that was dark brown in color as per nursing Review of Systems Review of Systems: All systems reviewed & are unremarkable except as noted in HPI & below Physical Exam Constitutional: WD/WN, vitals as above Eyes: + anicteric sclerae Neck: trachea midline, no thyromegaly Respiratory: normal respiratory effort, lungs clear to auscultation Cardiovascular: RRR, no murmur, no edema Chest (Breasts): Chest: normal inspection of chest Gastrointestinal (Abdomen): normal bowel sounds, soft, nontender, no hepatosplenomegaly Musculoskeletal: Extremities: + extremities abnormal to inspection (LLE AKA with dressing in place), no cyanosis and no clubbing Skin: no rashes, warm and dry (multiple areas ecchymosis arms) Neurologic: moves all extremities and awake; no focal motor deficits Speech / Cognition: normal speech Motor/Sensory: no tremor Psychiatric: Orientation: alert, oriented to person, oriented to place and cooperative Lymphatic: no lymphedema Results & Data Results & Data ([facility]) Vital Signs (Past 12 Hours) Vital Signs Temp Pulse Resp BP Pulse Ox O2 Del Method 12/14/21 07:33 36.4 C L 67 18 103/62 97 Room Air 12/14/21 07:33 Room Air Laboratory Results 12/14/21 12/14/21 12/14/21 Range/Units 20:26 17:26 12:08 POC Glucose 110 H 95 127 H (70-99) mg/dl 12/14/21 Range/Units 08:58 POC Glucose 108 H (70-99) mg/dl PG Care Time/CCT Total # of Minutes Spent Total Time Spent with Patient: Total time spent is greater than 50% in coordination of care (as documented) at patient's floor/unit and/or counseling patient: Coding Level of Care Code 34808 Subseq Hosp Care Lvl 2 Diagnoses Acute metabolic encephalopathy G93.41 Osteomyelitis of foot, left, acute M86.172 Sacral decubitus ulcer L89.159 Sepsis A41.9 PAD (peripheral artery disease) I73.9 Stage 3b chronic kidney disease (CKD) N18.32 Anemia D64.9 Anemia type: unspecified type HTN (hypertension) I10 Hypertension type: unspecified Hyperlipidemia E78.5 Hyperlipidemia type: unspecified DM II (diabetes mellitus, type II), controlled E11.9 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 use: with exterminator termite use CAD (coronary artery disease) I25.10 Lacunar stroke I63.81 Esophagitis K20.90 Dysphagia R13.10 Acute kidney failure NEC N17.8 Chronic pain syndrome G89.4 COVID-19 U07.1 (1) Anemia Anemia type: unspecified type Qualified Code(s): D64.9 - Anemia, unspecified (2) Hyperlipidemia Hyperlipidemia type: unspecified Qualified Code(s): E78.5 - Hyperlipidemia, unspecified (3) DM II (diabetes mellitus, type II), controlled Diabetes mellitus [facility] insulin use: with [facility] use (4) HTN (hypertension) Hypertension type: unspecified Qualified Code(s): I10 - Essential (primary) hypertension
[2021-12-14] MEDS: LATANOPROST 0.005% OP SOLN 2.5 ML BTL OPB SCH (22:13)
[2021-12-14] MEDS: ENOXAPARIN INJ 30 MG/0.3 ML SYR SQ SCH (22:13)
[2021-12-15 07:27] LABS: Hemoglobin 8.5 g/dl (14.0-18.0); Mean Corpuscular Hemoglobin 30.7 pg (25.0-34.0); Mean Corpuscular Hgb Conc 31.5 g/dL (32.0-36.0); Mean Corpuscular Volume 97.5 fL (80.0-100.0); Mean Platelet Volume 11.4 fL (9.4-12.4); Platelet Count 140 K/uL (130-400); RDW Coefficient of Variation 15.6 % (11.5-14.5); RDW Standard Deviation 54.5 fL (36.4-46.3); Red Blood Count 2.77 M/uL (4.63-6.08); White Blood Count 4.62 K/ul (4.8-10.8)
[2021-12-15 07:44] LABS: BUN Creatinine Ratio 15.4 (10-20); Creatinine Clr Calc Pharmacy 55.3 ml/min; Est GFR (African American) 79.9 ml/min; Est GFR (Non-African American) 68.9 ml/min
[2021-12-15 07:54] LABS: Basophils # (auto) 0.02 K/uL (0-0.2); Basophils % (auto) 0.4 %; Eosinophils # (auto) 0.04 K/uL (0-0.50); Eosinophils % (auto) 0.9 %; Immature Granulocytes # (auto) 0.06 K/uL (0.00-0.02); Immature Granulocytes % (auto) 1.3 %; Lymphocytes # (auto) 1.65 K/uL (1.2-3.4); Lymphocytes % (auto) 35.7 %; Monocytes # (auto) 0.62 K/uL (0.24-0.82); Monocytes % (auto) 13.4 %; Neutrophils # (auto) 2.23 K/uL (1.4-6.5); Neutrophils % (auto) 48.3 %
[2021-12-15 08:05] LABS: Estimated Average Glucose 111 mg/dl; Hemoglobin A1C 5.5 % (4.5-5.6)
--- NOTE | 2021-12-15 08:05 | Hospitalist Progress Note ---
Date of Service December 15, 2021 Assessment & Plan (1) Acute metabolic encephalopathy: Plan: SEVERE, now improved but persists multifactorial - COVID-19 infection, Left heel OM and subsequent AKA, recent UTI, hospital psychosis, ?baseline memory issues/cognitive impairment with prior CVA, XAVIER CT head 12/07 negative for acute process. checked VBG, ammonia, repeat u/a and urine culture, blood cx's on 12/07 Ur cx with Yeast not albicans-has had Morales for a long time now, likely colonization, no need to treat Was started on high dose IV thiamine on 12/10 and perhaps this helped him improve? Still waxing and waning but overall slightly improved B1 level pending Still not eating much at all, but is more awake and alert, interactive than previous reports renal function normalized and actually 1.04 on AM labs -- no further IV hydration for now and encouraged PO (continued barrier), did not want diet advanced. -continue supportive care, promote good rest/wake cycles -encourage po intake-needs assistance -needs mobilization if can tolerate-awaiting PT/OT to reevaluate -converted to po thiamine 200mg po bid and continue x 1 month, f/u on B1 level when available -- had refused multiple AM medications -Unclear if he will be able to participate with rehab Discussed with son Phill, to visit tomorrow (12/16), and see how his father is doing in person. He states plan for [facility] at present, however I did relay his father did NOT want to go back there. It seemed as though he would be much more well suited to be at home with family/palliative but will see how meeting goes tomorrow afternoon/evening and go from there. CM following Of note, they are from [place] (patient stated thats where HE LIVES)/[facility] --- pending rehab vs palliative ?ability to look closer to home/cut back on transport (2) Osteomyelitis of foot, left, acute: Plan: Original injury was 8+ months ago. Presented to [facility] on 10/17 with Left heel wound/ulcer with drainage. 10/19 - partial calcanectomy with debridement and primary closure on 10/19. Cultures with MRSA/enterobacter. 10/23 - arteriogram of LLE with moderate to severe disease. Angioplasties were performed. Completed course of broad-spectrum IV abx. Transferred from [facility] to [facility] in [place]. Spent ~3 weeks there. Then transferred to [facility]. CT of left foot while at [facility] (/11/21) concerning for ongoing cellulitis and possible osteomyelitis. 11/27 CT - osteomyelitis and cellulitis worse. Gen surg consult by Dr Hairston - advised AKA of LLE. 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 Plan to leave umesh in place x 1 more month completed course of abx broad spectrum after AKA Remains afebrile -needs rehab placement -Continue oxycodone from home at 10 mg p.o. every 8 hours as needed pain (3) Sacral decubitus ulcer: Plan: POA. Wound care nurse recommends santyl for chemical debridement, cover w/ Optifoam, offload pressure Recommend f/u with Wound Nurse at rehab Per wound - ulcer is unstageable at this time. General surgery is aware of this ulcer, and if surgical debridement is ultimately needed, they would be willing but looking good and rec'd santyl and continued f/u wound center at discharge Needs better nutrition but uncertain if that will happen given his failure to thrive. (4) Sepsis: Plan: POA - 2nd to left foot osteomyelitis +/- COVID +/- pre-admission UTI. Now resolved Had some recurrent intermittent low-grade fevers at times but now resolved again for many days after second sepsis workup was pursued (5) PAD (peripheral artery disease): Plan: LLE. Now s/p AKA s/p intervention this summer at [facility] in October. Cont statin. Cont plavix of note, refused meds this AM taking meds with boost for the most part. clearer today as well, and making it known he does NOT want any further intervention (6) Stage 3b chronic kidney disease (CKD): Plan: Records suggest baseline of 1.5-2. 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 There was a question of melena for months but was on PO iron BID outpatient med list Apparently had witnessed black stools by RN x 3 on 12/01 and 12/03, all brown since then s/p 1 u PRBC on 11/30 the day prior to witnessed black stool for drop in hgb B12/folate WNL. Iron studies without deficiency. Ferritin elevated 742, reactive from COVID and infection as above (was 1953 on admit) hgb has remained stable for 10 days now at 8-9 CTAP on admission with mild rectal wall thickening w/ trace perirectal standing, poss mild proctitis. Does note left upper quadrant varicosities of unknown etiology. Unremarkable liver but noncontrast imaging unable to do GI work-up as an outpatient due to other pressing health issues- will need outpt f/u with GI w/u if desired Continues on protonix po BID, carafate QID -Have since restarted DVT prophylaxis 12/13 given high risk for DVT with prolonged hospitalization, recent surgery, infection -Follow CBC periodically-we will obtain in the morning (8) HTN (hypertension): Plan: BPs acceptable -Was on very low dose of immediate release diltiazem-no need for this as only lasts 6 hours and BPs controlled -Have since discontinued the p.o. diltiazem monitor BPs (9) Hyperlipidemia: Plan: Continue statin (10) DM II (diabetes mellitus, type II), controlled: Plan: Blood sugars are very well controlled and he has not required any supplemental insulin in 6 days. A1c checked and was 5.5 Will discontinue lantus for now given BSGs never higher than 140 and poor PO intake and monitor BSG fingersticks for 24 hours, then possible discontinue to prevent multiple pokes vs continue with SSI alone Monitor (11) CAD (coronary artery disease): Plan: ECHO with LV systolic function borderline reduced. EF 45-50%. Borderline global hypokinesis of left ventricle. Mild concentric LVH. No prior study for comparison. Continue plavix, statin no MAREK/ARB given CKD, however given Cr improved, could consider MAREK/ARB but given poor PO intake likely would worsen renal failure and will hold off for now (12) Lacunar stroke: Plan: CVA ~[address] head here - old R occipital lobe cva. Repeat head CT 12/07 negative -continue Plavix, statin (13) Esophagitis: Plan: noted to have thickened esophagus distally on CT abd/pel on admission -cont PPI twice daily -continue carafate x 2 week course (started 12/06, end date 12/20) -completed course of fluconazole for oral/esophageal Candidiasis (14) Dysphagia: Plan: Likely secondary to esophagitis no pain with swallowing reported, advanced to minced and moist by SPeech on 12/12 (15) Acute kidney failure NEC: Plan: resolved likely was sepsis-associated XAVIER (16) Chronic pain syndrome: Plan: per sons he has been on chronic oxycodone for several years PDMP demonstrates such - has been on oxycodone since 2019 -Continue as needed oxycodone moving bowels on opiates without issue, large brown BM am 12/15 (17) COVID-19: Plan: Tested positive on admission; no pulmonary symptoms fortunately No evidence of pneumonia on exam or cxr now off precautions Plan updated son, David 12/15, plans to visit tomorrow. Hopefully will be able to determine rehab vs palliative after their visit clearly patient with FTT, appears to have been ongoing over the past year, is clearer/interactive with myself and stating he does not want anything else done and just wants to go home Admission and Anticipated Discharge Date Admission Date: November 27, 2021 Subjective evaluated this afternoon, getting cleaned up after BM this morning. not much appetite but drinking some boost pain to his amputation, being redressed, umesh and incision look good without erythema/drainage. patient stated year 2017 but knows in hospital. discussed about rehab vs palliative and about [facility]. he states he does not want to go back to [facility] as it was a terrible experience and that everyone was very unkind to him. Discussed talking with Phill and seeing about options. He does not want any other procedures done, and to this note, he states even cutting his fingernails is something he doesn't want to do. Will update/discuss with Phill. Patient states "what's Phill's beef?" when discussing him wanting to see how the patient did inpatient prior to making decision. Discussed with son Phill, and he plans on coming in to visit his dad tomorrow from around 5-6pm. Will re-convene after their visit regarding discharge planning however did relay patient's views on [facility], however Phill states he was well taken care of over there. He did note his dad may have "given up" several months ago. Discussed poor PO intake contributing to overall prognosis. Review of Systems Review of Systems: All systems reviewed & are unremarkable except as noted in HPI & below Physical Exam Physical Exam: General: frail, chronically ill appearing gentleman laying flat in bed getting cleaned up from BM, NAD, general pallor HEENT: head normocephalic, L pupil >R (chronic), mm slightly dry, trachea midline without deviation Resp: non labored breathing, not tachypneic, lungs ctab, diminished in the bases, no c/w, on room air Chest: R sided pacemaker in place CV: RRR, +murmur, no calf tenderness, pulses palpable : scaphoid abdomen, +BS throughout, non tender : morales draining yellow urine MSK/Neuro: LLE AKA stump dressing being changed, umesh c/d/i, no spreading erythema or drainage moves all extremities, normal speech, no facial droop, answering questions appropriately for me Psych: alert to person, knows he is in the hospital, not alert to time, intermittent to events Skin: sacral ulcer with Santyl/dressing (not observed today) Results & Data Results & Data ([facility]) Vital Signs (Past 12 Hours) Vital Signs Temp Pulse Resp BP Pulse Ox O2 Del Method 12/14/21 22:45 36.4 C L 81 18 115/60 100 Room Air Laboratory Results 12/15/21 12/15/21 12/15/21 Range/Units 12:13 08:52 08:27 WBC (4.8-10.8) K/ul RBC (4.63-6.08) M/uL Hgb (14.0-18.0) g/dl Hct (40.1-51.0) % MCV (80.0-100.0) fL MCH (25.0-34.0) pg MCHC (32.0-36.0) g/dL RDW Std Deviation (36.4-46.3) fL RDW Coeff of Rusty (11.5-14.5) % Plt Count (130-400) K/uL MPV (9.4-12.4) fL Immature Gran % (Auto) % Neut % (Auto) % Lymph % (Auto) % [place] % (Auto) % Eos % (Auto) % Baso % (Auto) % Neut # (Auto) (1.4-6.5) K/uL Lymph # (Auto) (1.2-3.4) K/uL [place] # (Auto) (0.24-0.82) K/uL Eos # (Auto) (0-0.50) K/uL Baso # (Auto) (0-0.2) K/uL Immature Gran # (Auto) (0.00-0.02) K/uL Sodium (136-145) mmol/L Potassium (3.5-5.1) mmol/L Chloride (98-107) mmol/L Carbon Dioxide (21-32) mmol/L Anion Gap (3-11) BUN (6-23) mg/dl Creatinine (0.6-1.4) mg/dl Est Cr Clr Drug Dosing ml/min Est GFR ( Amer) ml/min Est GFR (Non-Af Amer) ml/min BUN/Creatinine Ratio (10-20) Glucose (70-99(Fasting)) mg/dl POC Glucose 126 H 98 (70-99) mg/dl Estimat Average Glucose mg/dl Hemoglobin A1c (4.5-5.6) % Calcium (8.5-10.1) mg/dl Magnesium (1.7-2.4) mg/dl Lyme Disease IgG Ab Negative (Negative) Lyme Disease IgM Ab Negative (Negative) 12/15/21 12/15/21 12/15/21 Range/Units 06:53 06:53 06:53 WBC (4.8-10.8) K/ul RBC (4.63-6.08) M/uL Hgb (14.0-18.0) g/dl Hct (40.1-51.0) % MCV (80.0-100.0) fL MCH (25.0-34.0) pg MCHC (32.0-36.0) g/dL RDW Std Deviation (36.4-46.3) fL RDW Coeff of Rusty (11.5-14.5) % Plt Count (130-400) K/uL MPV (9.4-12.4) fL Immature Gran % (Auto) % Neut % (Auto) % Lymph % (Auto) % [place] % (Auto) % Eos % (Auto) % Baso % (Auto) % Neut # (Auto) (1.4-6.5) K/uL Lymph # (Auto) (1.2-3.4) K/uL [place] # (Auto) (0.24-0.82) K/uL Eos # (Auto) (0-0.50) K/uL Baso # (Auto) (0-0.2) K/uL Immature Gran # (Auto) (0.00-0.02) K/uL Sodium 145 (136-145) mmol/L Potassium 3.0 L (3.5-5.1) mmol/L Chloride 113 H (98-107) mmol/L Carbon Dioxide 25 (21-32) mmol/L Anion Gap 7 (3-11) BUN 16 (6-23) mg/dl Creatinine 1.04 (0.6-1.4) mg/dl Est Cr Clr Drug Dosing 55.3 ml/min Est GFR ( Amer) 79.9 ml/min Est GFR (Non-Af Amer) 68.9 ml/min BUN/Creatinine Ratio 15.4 (10-20) Glucose 93 (70-99(Fasting)) mg/dl POC Glucose (70-99) mg/dl Estimat Average Glucose 111 mg/dl Hemoglobin A1c 5.5 (4.5-5.6) % Calcium 8.0 L (8.5-10.1) mg/dl Magnesium 1.9 (1.7-2.4) mg/dl Lyme Disease IgG Ab (Negative) Lyme Disease IgM Ab (Negative) 12/15/21 12/14/21 12/14/21 Range/Units 06:53 20:26 17:26 WBC 4.62 L (4.8-10.8) K/ul RBC 2.77 L (4.63-6.08) M/uL Hgb 8.5 L (14.0-18.0) g/dl Hct 27.0 L (40.1-51.0) % MCV 97.5 (80.0-100.0) fL MCH 30.7 (25.0-34.0) pg MCHC 31.5 L (32.0-36.0) g/dL RDW Std Deviation 54.5 H (36.4-46.3) fL RDW Coeff of Rusty 15.6 H (11.5-14.5) % Plt Count 140 (130-400) K/uL MPV 11.4 (9.4-12.4) fL Immature Gran % (Auto) 1.3 % Neut % (Auto) 48.3 % Lymph % (Auto) 35.7 % [place] % (Auto) 13.4 % Eos % (Auto) 0.9 % Baso % (Auto) 0.4 % Neut # (Auto) 2.23 (1.4-6.5) K/uL Lymph # (Auto) 1.65 (1.2-3.4) K/uL [place] # (Auto) 0.62 (0.24-0.82) K/uL Eos # (Auto) 0.04 (0-0.50) K/uL Baso # (Auto) 0.02 (0-0.2) K/uL Immature Gran # (Auto) 0.06 H (0.00-0.02) K/uL Sodium (136-145) mmol/L Potassium (3.5-5.1) mmol/L Chloride (98-107) mmol/L Carbon Dioxide (21-32) mmol/L Anion Gap (3-11) BUN (6-23) mg/dl Creatinine (0.6-1.4) mg/dl Est Cr Clr Drug Dosing ml/min Est GFR ( Amer) ml/min Est GFR (Non-Af Amer) ml/min BUN/Creatinine Ratio (10-20) Glucose (70-99(Fasting)) mg/dl POC Glucose 110 H 95 (70-99) mg/dl Estimat Average Glucose mg/dl Hemoglobin A1c (4.5-5.6) % Calcium (8.5-10.1) mg/dl Magnesium (1.7-2.4) mg/dl Lyme Disease IgG Ab (Negative) Lyme Disease IgM Ab (Negative) PG Care Time/CCT Total # of Minutes Spent Total Time Spent with Patient: Total time spent is greater than 50% in coordination of care (as documented) at patient's floor/unit and/or counseling patient: Coding Level of Care Code 97615 Subseq Hosp Care Lvl 3 Diagnoses Acute metabolic encephalopathy G93.41 Osteomyelitis of foot, left, acute M86.172 Sacral decubitus ulcer L89.159 Sepsis A41.9 PAD (peripheral artery disease) I73.9 Stage 3b chronic kidney disease (CKD) N18.32 Anemia D64.9 Anemia type: unspecified type HTN (hypertension) I10 Hypertension type: unspecified Hyperlipidemia E78.5 Hyperlipidemia type: unspecified DM II (diabetes mellitus, type II), controlled E11.9 Diabetes mellitus [employer] insulin use: with [employer]orer [employer] use CAD (coronary artery disease) I25.10 Lacunar stroke I63.81 Esophagitis K20.90 Dysphagia R13.10 Acute kidney failure NEC N17.8 Chronic pain syndrome G89.4 COVID-19 U07.1 (1) Anemia Anemia type: unspecified type Qualified Code(s): D64.9 - Anemia, unspecified (2) Hyperlipidemia Hyperlipidemia type: unspecified Qualified Code(s): E78.5 - Hyperlipidemia, unspecified (3) DM II (diabetes mellitus, type II), controlled Diabetes mellitus 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
[2021-12-15] MEDS ORDERED: POTASSIUM CHLORIDE CRTAB 20 MEQ TABCR PO STA (08:06)
[2021-12-15] MEDS: INSULIN ASPART PER UNIT SC SCH ×4 (08:50→20:47)
[2021-12-15] MEDS: TIMOLOL MALEATE 0.5% OP SOLN 5 ML BTL OPB SCH ×2 (08:54→20:18)
[2021-12-15] MEDS: COLLAGENASE OINT 30 GM TUBE EXT SCH (08:59)
[2021-12-15] MEDS: CLOPIDOGREL BISULFATE 75 MG TAB PO SCH (08:59)
[2021-12-15] MEDS: FOLIC ACID 1 MG TAB PO SCH (09:00)
[2021-12-15] MEDS: POLYETHYLENE (MIRALAX) 17 GM PACK PO SCH (09:00)
[2021-12-15] MEDS: SUCRALFATE 1 GM/10 ML UDC PO SCH ×4 (09:00→21:59)
[2021-12-15] MEDS: PANTOprazole 40 MG TAB PO SCH ×2 (09:00→20:18)
[2021-12-15] MEDS: THIAMINE HCL 100 MG TAB PO SCH ×2 (09:00→20:18)
[2021-12-15] MEDS: TAMSULOSIN HCL 0.4 MG CAP PO SCH (09:00)
[2021-12-15] MEDS: ROSUVASTATIN CALCIUM 5 MG TAB PO SCH (09:00)
[2021-12-15] MEDS: DOCUSATE SODIUM 100 MG CAP PO SCH ×2 (09:00→20:18)
[2021-12-15] MEDS: LANTUS PER UNIT CHARGE SQ SCH (09:10)
[2021-12-15 10:17] LABS: Lyme Ab IgG w/WB Rflx Negative (Negative); Lyme Ab IgM w/WB Rflx Negative (Negative)
[2021-12-15] MEDS: POTASSIUM CHLORIDE / WTR 10 MEQ/100 ML PLCT IV SCH ×3 (12:50→16:59)
[2021-12-15] MEDS ORDERED: POTASSIUM CHLORIDE CRTAB 20 MEQ TABCR PO ONE (15:00)
[2021-12-15] MEDS: LATANOPROST 0.005% OP SOLN 2.5 ML BTL OPB SCH (20:17)
[2021-12-15] MEDS: oxyCODONE HCL IR 5 MG TAB (IMMEDIATE RELEASE) PO PRN (20:25)
[2021-12-15] MEDS: ENOXAPARIN INJ 30 MG/0.3 ML SYR SQ SCH (22:00)
[2021-12-16] MEDS: oxyCODONE HCL IR 5 MG TAB (IMMEDIATE RELEASE) PO PRN ×2 (06:10→19:29)
--- NOTE | 2021-12-16 08:03 | Hospitalist Progress Note ---
Date of Service December 16, 2021 Assessment & Plan (1) Acute metabolic encephalopathy: Plan: SEVERE, now improved but persists multifactorial - COVID-19 infection, Left heel OM and subsequent AKA, recent UTI, hospital psychosis, ?baseline memory issues/cognitive impairment with prior CVA, XAVIER CT head 12/07 negative for acute process. checked VBG, ammonia, repeat u/a and urine culture, blood cx's on 12/07 Ur cx with Yeast not albicans-has had Morales for a long time now, likely colonization, no need to treat Was started on high dose IV thiamine on 12/10 and perhaps this helped him improve? Still waxing and waning but overall slightly improved B1 level pending still Still not eating much at all, but is more awake and alert, interactive than previous reports renal function normalized and actually 1.05 on AM labs -- no further IV hydrati on for now and encouraged PO (continued barrier), did not want diet advanced. -continue supportive care, promote good rest/wake cycles -encourage po intake-needs assistance -needs mobilization if can tolerate-awaiting PT/OT to reevaluate -converted to po thiamine 200mg po bid and continue x 1 month, f/u on B1 level when available -- had refused multiple AM medications -Unclear if he will be able to participate with rehab Discussed with son Phill, to visit this evening (12/16), and see how his father is doing in person. He states plan for [facility] at present, however I did relay his father did NOT want to go back there. It seemed as though he would be much more well suited to be at home with family/palliative but will see how meeting goes tomorrow afternoon/evening and go from there. CM following Of note, they are from [place] (patient stated thats where HE LIVES)/[facility] --- pending rehab vs palliative ?ability to look closer to home/cut back on transport (2) Osteomyelitis of foot, left, acute: Plan: Original injury was 8+ months ago. Presented to [facility] on 10/17 with Left heel wound/ulcer with drainage. 10/19 - partial calcanectomy with debridement and primary closure on 10/19. Cultures with MRSA/enterobacter. 10/23 - arteriogram of LLE with moderate to severe disease. Angioplasties were performed. Completed course of broad-spectrum IV abx. Transferred from [facility] to [facility] in [place]. Spent ~3 weeks there. Then transferred to [facility]. CT of left foot while at [facility] (/11/21) concerning for ongoing cellulitis and possible osteomyelitis. 11/27 CT - osteomyelitis and cellulitis worse. Gen surg consult by Dr Hairston - advised AKA of LLE. 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 Plan to leave umesh in place x 1 more month completed course of abx broad spectrum after AKA Remains afebrile -needs rehab placement -Continue oxycodone from home at 10 mg p.o. every 8 hours as needed pain -- states pain controlled (3) Sacral decubitus ulcer: Plan: POA. Wound care nurse recommends santyl for chemical debridement, cover w/ Optifoam, offload pressure Recommend f/u with Wound Nurse at rehab Per wound - ulcer is unstageable at this time. General surgery is aware of this ulcer, and if surgical debridement is ultimately needed, they would be willing but looking good and rec'd santyl and continued f/u wound center at discharge Needs better nutrition but uncertain if that will happen given his failure to thrive. (4) Sepsis: Plan: POA - 2nd to left foot osteomyelitis +/- COVID +/- pre-admission UTI. Now resolved Had some recurrent intermittent low-grade fevers at times but now resolved again for many days after second sepsis workup was pursued (5) PAD (peripheral artery disease): Plan: LLE. Now s/p AKA s/p intervention this summer at [facility] in October. Cont statin. Cont plavix of note, refused meds AM 12/15, taking meds with boost for the most part. clearer today as well, and making it known he does NOT want any further intervention (6) Stage 3b chronic kidney disease (CKD): Plan: Records suggest baseline of 1.5-2. Copious IVF as well as PRBC transfusion provided initially after had XAVIER on admission [employer] back to baseline, actually WELL improved compared to reported prior baseline Avoid nephrotoxic agents/renal dose meds when able K 3.0 on AM labs, mag wnl --> ordered PO but patient didn't take morning 12/15, IV replacment ordered K 3.3 on AM labs, he did take PO replacement BMP in AM (7) Anemia: Plan: Likely anemia of chronic disease. There was a question of melena for months but was on PO iron BID outpatient med list Apparently had witnessed black stools by RN x 3 on 12/01 and 12/03, all brown since then s/p 1 u PRBC on 11/30 the day prior to witnessed black stool for drop in hgb B12/folate WNL. Iron studies without deficiency. Ferritin elevated 742, reactive from COVID and infection as above (was 1953 on admit) hgb has remained stable for 10 days now at 8-9 CTAP on admission with mild rectal wall thickening w/ trace perirectal standing, poss mild proctitis. Does note left upper quadrant varicosities of unknown etiology. Unremarkable liver but noncontrast imaging unable to do GI work-up as an outpatient due to other pressing health issues- will need outpt f/u with GI w/u if desired Continues on protonix po BID, carafate QID -Have since restarted DVT prophylaxis 12/13 given high risk for DVT with prolonged hospitalization, recent surgery, infection -Follow CBC periodically-we will obtain in the morning (8) HTN (hypertension): Plan: BPs acceptable -Was on very low dose of immediate release diltiazem-no need for this as only lasts 6 hours and BPs controlled -Have since discontinued the p.o. diltiazem monitor BPs (9) Hyperlipidemia: Plan: Continue statin (10) DM II (diabetes mellitus, type II), controlled: Plan: Blood sugars are very well controlled and he has not required any supplemental insulin in 6 days. A1c checked and was 5.5 Discontinued lantus 12/15 given lower BSGs Fingersticks without any need for insulin, will discontinue for now, monitor for any symptoms (11) CAD (coronary artery disease): Plan: ECHO with LV systolic function borderline reduced. EF 45-50%. Borderline global hypokinesis of left ventricle. Mild concentric LVH. No prior study for comparison. Continue plavix, statin no MAREK/ARB given CKD, however given Cr improved, could consider MAREK/ARB but g iven poor PO intake likely would worsen renal failure and will hold off for now (12) Lacunar stroke: Plan: CVA ~[address] head here - old R occipital lobe cva. Repeat head CT 8/21 negative -continue Plavix, statin (13) Esophagitis: Plan: noted to have thickened esophagus distally on CT abd/pel on admission -cont PPI twice daily -continue carafate x 2 week course (started 12/06, end date 12/20) -completed course of fluconazole for oral/esophageal Candidiasis (14) Dysphagia: Plan: Likely secondary to esophagitis no pain with swallowing reported, advanced to minced and moist by SPeech on 12/12 (15) Acute kidney failure NEC: Plan: resolved likely was sepsis-associated XAVIER (16) Chronic pain syndrome: Plan: per sons he has been on chronic oxycodone for several years PDMP demonstrates such - has been on oxycodone since 2019 -Continue as needed oxycodone moving bowels on opiates without issue, large brown BM am 12/15 (17) COVID-19: Plan: Tested positive on admission; no pulmonary symptoms fortunately No evidence of pneumonia on exam or cxr now off precautions Plan updated son, David 12/15, plans to visit [facility] with his father. Hopefully will give him more insight to see his father in person and FTT to determine rehab vs decision to be made more comfortable/palliative at [facility] vs rehab w/ transition if status continues to be poor Patient continues to voice he wants to go home to [facility] following Admission and Anticipated Discharge Date Admission Date: November 27, 2021 Subjective Patient evaluated this morning. Doing alright, states appetite ok but need to discuss with nursing as prior not eating much despite stating decent appetite. MM dry, morales with concentrated urine. He continues to voice that he does not want to go to [facility] as they were mean, but son Phill stated that patient previously got excellent care and they he needs therapy intervention/modality and they aren't able to accommodate at present. Proposed idea of hospice closer to home, as that's what patient would like. Son would like [facility] at discharge, patient frustrated with this, but discussed Phill to come and visit this evening and they can have continued conversations and we can come up with a plan after they talk. Justin denies any fever/chills, chest pain or shortness of breath, abdominal pain, nausea or dysphagia at this time. Review of Systems Review of Systems: All systems reviewed & are unremarkable except as noted in HPI & below Physical Exam Physical Exam: General: frail, chronically ill appearing gentleman laying flat in bed, attempting to sleep, general pallor, NAD HEENT: head normocephalic, L pupil >R (chronic), mm slightly dry (same as yesterday), trachea midline without deviation Resp: non labored breathing, not tachypneic, lungs ctab, diminished in the bases, no c/w, on room air Chest: R sided pacemaker in place CV: RRR, +murmur, no calf tenderness, pulses palpable : scaphoid abdomen, +BS throughout, non tender : morales draining concentrated yellow urine MSK/Neuro: LLE AKA stump dressing being changed, umesh c/d/i, no spreading erythema or drainage moves all extremities, normal speech, no facial droop, answering questions appropriately for me Psych: alert to person, knows he is in the hospital, not alert to time, intermittent to events Skin: sacral ulcer with Santyl/dressing (not observed today) Results & Data Results & Data ([facility]) Vital Signs (Past 12 Hours) Vital Signs Temp Pulse Resp BP BP Pulse Ox O2 Del Method 12/16/21 07:36 Room Air 12/16/21 07:33 36.6 C 69 18 139/69 100 Room Air 12/15/21 21:39 37.1 C 73 18 164/67 H 98 Room Air Laboratory Results 12/16/21 12/16/21 12/16/21 Range/Units 12:10 08:16 07:12 Sodium 143 (136-145) mmol/L Potassium 3.3 L (3.5-5.1) mmol/L Chloride 110 H (98-107) mmol/L Carbon Dioxide 24 (21-32) mmol/L Anion Gap 9 (3-11) BUN 14 (6-23) mg/dl Creatinine 1.05 (0.6-1.4) mg/dl Est Cr Clr Drug Dosing 54.8 ml/min Est GFR ( Amer) 79.0 ml/min Est GFR (Non-Af Amer) 68.1 ml/min BUN/Creatinine Ratio 13.3 (10-20) Glucose 79 (70-99(Fasting)) mg/dl POC Glucose 109 H 96 (70-99) mg/dl Calcium 7.8 L (8.5-10.1) mg/dl 12/15/21 12/15/21 Range/Units 20:34 17:15 Sodium (136-145) mmol/L Potassium (3.5-5.1) mmol/L Chloride (98-107) mmol/L Carbon Dioxide (21-32) mmol/L Anion Gap (3-11) BUN (6-23) mg/dl Creatinine (0.6-1.4) mg/dl Est Cr Clr Drug Dosing ml/min Est GFR ( Amer) ml/min Est GFR (Non-Af Amer) ml/min BUN/Creatinine Ratio (10-20) Glucose (70-99(Fasting)) mg/dl POC Glucose 100 H 101 H (70-99) mg/dl Calcium (8.5-10.1) mg/dl PG Care Time/CCT Total # of Minutes Spent Total Time Spent with Patient: Total time spent is greater than 50% in coordination of care (as documented) at patient's floor/unit and/or counseling patient: Coding Level of Care Code 66321 Subseq Hosp Care Lvl 3 Diagnoses Acute metabolic encephalopathy G93.41 Osteomyelitis of foot, left, acute M86.172 Sacral decubitus ulcer L89.159 Sepsis A41.9 PAD (peripheral artery disease) I73.9 Stage 3b chronic kidney disease (CKD) N18.32 Anemia D64.9 Anemia type: unspecified type HTN (hypertension) I10 Hypertension type: unspecified Hyperlipidemia E78.5 Hyperlipidemia type: unspecified DM II (diabetes mellitus, type II), controlled E11.9 Diabetes mellitus jail insulin use: with jail use CAD (coronary artery disease) I25.10 Lacunar stroke I63.81 Esophagitis K20.90 Dysphagia R13.10 Acute kidney failure NEC N17.8 Chronic pain syndrome G89.4 COVID-19 U07.1 (1) Anemia Anemia type: unspecified type Qualified Code(s): D64.9 - Anemia, unspecified (2) Hyperlipidemia Hyperlipidemia type: unspecified Qualified Code(s): E78.5 - Hyperlipidemia, unspecified (3) DM II (diabetes mellitus, type II), controlled Diabetes mellitus [employer] insulin use: with jail use (4) HTN (hypertension) Hypertension type: unspecified Qualified Code(s): I10 - Essential (primary) hypertension
[2021-12-16 08:24] LABS: BUN Creatinine Ratio 13.3 (10-20); Calcium 7.8 mg/dl (8.5-10.1); Creatinine Clr Calc Pharmacy 54.8 ml/min; Est GFR (Non-African American) 68.1 ml/min; Potassium 3.3 mmol/L (3.5-5.1)
[2021-12-16] MEDS: THIAMINE HCL 100 MG TAB PO SCH ×2 (08:36→19:30)
[2021-12-16] MEDS: ROSUVASTATIN CALCIUM 5 MG TAB PO SCH (08:37)
[2021-12-16] MEDS: DOCUSATE SODIUM 100 MG CAP PO SCH ×2 (08:37→19:29)
[2021-12-16] MEDS: PANTOprazole 40 MG TAB PO SCH ×2 (08:37→19:31)
[2021-12-16] MEDS: TAMSULOSIN HCL 0.4 MG CAP PO SCH (08:37)
[2021-12-16] MEDS: CLOPIDOGREL BISULFATE 75 MG TAB PO SCH (08:37)
[2021-12-16] MEDS: FOLIC ACID 1 MG TAB PO SCH (08:37)
[2021-12-16] MEDS: TIMOLOL MALEATE 0.5% OP SOLN 5 ML BTL OPB SCH ×2 (08:38→19:32)
[2021-12-16] MEDS: SUCRALFATE 1 GM/10 ML UDC PO SCH ×4 (08:42→19:29)
[2021-12-16] MEDS: POLYETHYLENE (MIRALAX) 17 GM PACK PO SCH (08:43)
[2021-12-16] MEDS ORDERED: POTASSIUM CHLORIDE CRTAB 20 MEQ TABCR PO STA (08:45)
[2021-12-16] MEDS: COLLAGENASE OINT 30 GM TUBE EXT SCH (08:51)
[2021-12-16] MEDS: INSULIN ASPART PER UNIT SC SCH ×4 (08:52→20:43)
[2021-12-16] MEDS: ENOXAPARIN INJ 30 MG/0.3 ML SYR SQ SCH (19:30)
[2021-12-16] MEDS: LATANOPROST 0.005% OP SOLN 2.5 ML BTL OPB SCH (19:31)
[2021-12-17] MEDS: oxyCODONE HCL IR 5 MG TAB (IMMEDIATE RELEASE) PO PRN (05:43)
--- NOTE | 2021-12-17 07:27 | Hospitalist Progress Note ---
Date of Service December 17, 2021 Assessment & Plan (1) Acute metabolic encephalopathy: Plan: SEVERE, now improved but persists multifactorial - COVID-19 infection, Left heel OM and subsequent AKA, recent UTI, hospital psychosis, ?baseline memory issues/cognitive impairment with prior CVA, XAVIER CT head 12/07 negative for acute process. checked VBG, ammonia, repeat u/a and urine culture, blood cx's on 12/07 Ur cx with Yeast not albicans-has had Morales for a long time now, likely colonization, no need to treat Was started on high dose IV thiamine on 12/10 and perhaps this helped him improve? Still waxing and waning but overall slightly improved Still not eating much at all, but is more awake and alert, interactive than previous reports renal function normalized and actually 1.05 on AM labs -- no further IV hydration for now and encouraged PO (continued barrier), did not want diet advanced. -continue supportive care, promote good rest/wake cycles -encourage po intake-needs assistance, actually ate some peaches this morning for aide (12/17) and last evening a couple bites of cupcake and this morning had applesauce as well as boost Not wanting to participate with therapy Taking pills today and yesterday (refused Wednesday) Converted thiamine to 200mg BID x 1 month, f/u B1 level when available Discussed with son Phill, visited evening 12/16 -- stated father had some delirium but was able to have discussions about some things. Prior discussions with DNR (and patient has voiced on numerous occasions not wanting any other surgery/interventions, even such intervention as cutting his nails). Changed to DNR Phill does agree his father is in no shape for rehab currently. Did discuss SNF. He is open to this and first preference [facility]. Also asked about any additional benefits through [facility] as his father does have benefits but has never used and is worried about cost as insurance will cover 100 days. He is aware palliative process wouldn't be long standing and if his father does not have improvements at SNF with regards to intake/cognition that they can plan to transition to palliative after initial SNF period. Alerted CM, and that they will be reaching out for back up plans if [facility]. (2) Osteomyelitis of foot, left, acute: Plan: Original injury was 8+ months ago. Presented to [facility] on 10/17 with Left heel wound/ulcer with drainage. 10/19 - partial calcanectomy with debridement and primary closure on 10/19. Cultures with MRSA/enterobacter. 10/23 - arteriogram of LLE with moderate to severe disease. Angioplasties were performed. Completed course of broad-spectrum IV abx. Transferred from [facility] to [facility] in [place]. Spent ~3 weeks there. Then transferred to [facility]. CT of left foot while at [facility] (/11/21) concerning for ongoing cellulitis and possible osteomyelitis. 11/27 CT - osteomyelitis and cellulitis worse. Gen surg consult by Dr Hairston - advised AKA of LLE. 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 every 8 hours as needed pain -- states pain controlled (3) Sacral decubitus ulcer: Plan: POA. Wound care nurse recommends santyl for chemical debridement, cover w/ [employer], offload pressure Recommend f/u with Wound Nurse at rehab Per wound - ulcer is unstageable at this time. General surgery is aware of this ulcer, and if surgical debridement is ultimately needed, they would be willing but looking good and rec'd santyl and continued f/u wound center at discharge Needs better nutrition but uncertain if that will happen given his failure to thrive. (4) Sepsis: Plan: POA - 2nd to left foot osteomyelitis +/- COVID +/- pre-admission UTI. Now resolved Had some recurrent intermittent low-grade fevers at times but now resolved again for many days after second sepsis workup was pursued (5) PAD (peripheral artery disease): Plan: LLE. Now s/p AKA s/p intervention this summer at [facility] in October. Cont statin. Cont plavix of note, refused meds AM 12/15, taking meds with boost for the most part since that time clearer today as well, and making it known he does NOT want any further intervention (6) Stage 3b chronic kidney disease (CKD): Plan: Records suggest baseline of 1.5-2. 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 There was a question of melena for months but was on PO iron BID outpatient med list Apparently had witnessed black stools by RN x 3 on 12/01 and 12/03, all brown since then s/p 1 u PRBC on 11/30 the day prior to witnessed black stool for drop in hgb B12/folate WNL. Iron studies without deficiency. Ferritin elevated 742, reactive from COVID and infection as above (was 1953 on admit) hgb has remained stable for 10 days now at 8-9 CTAP on admission with mild rectal wall thickening w/ trace perirectal standing, poss mild proctitis. Does note left upper quadrant varicosities of unknown etiology. Unremarkable liver but noncontrast imaging unable to do GI work-up as an outpatient due to other pressing health issues- will need outpt f/u with GI w/u if desired Continues on protonix po BID, carafate QID -Have since restarted DVT prophylaxis 12/13 given high risk for DVT with prolonged hospitalization, recent surgery, infection -Follow CBC periodically-we will obtain in the morning (8) HTN (hypertension): Plan: -Was on very low dose of immediate release diltiazem-no need for this as only lasts 6 hours and BPs controlled -Have since discontinued the p.o. diltiazem monitor BPs -- 131/71 (9) Hyperlipidemia: Plan: Continue statin (10) DM II (diabetes mellitus, type II), controlled: Plan: Blood sugars are very well controlled and he has not required any supplemental insulin in 6 days. A1c checked and was 5.5 Discontinued lantus 12/15 given lower BSGs Fingersticks without any need for insulin, will discontinue for now, monitor for any symptoms -- STOPPED finger sticks, however had been obtained and acceptable without insulin (11) CAD (coronary artery disease): Plan: ECHO with LV systolic function borderline reduced. EF 45-50%. Borderline global hypokinesis of left ventricle. Mild concentric LVH. No prior study for comparison. Continue plavix, statin no MAREK/ARB given CKD, however given Cr improved, could consider MAREK/ARB but given poor PO intake likely would worsen renal failure and will hold off for now (12) Lacunar stroke: Plan: CVA ~[address] head here - old R occipital lobe cva. Repeat head CT 12/07 negative -continue Plavix, statin (13) Esophagitis: Plan: noted to have thickened esophagus distally on CT abd/pel on admission -cont PPI twice daily -continue carafate x 2 week course (started 12/06, end date 12/20) -completed course of fluconazole for oral/esophageal Candidiasis (14) Dysphagia: Plan: Likely secondary to esophagitis no pain with swallowing reported, advanced to minced and moist by SPeech on 12/12 (15) Acute kidney failure NEC: Plan: resolved likely was sepsis-associated XAVIER (16) Chronic pain syndrome: Plan: per sons he has been on chronic oxycodone for several years PDMP demonstrates such - has been on oxycodone since 2019 -Continue as needed oxycodone moving bowels on opiates without issue, large brown BM am 12/15 (17) COVID-19: Plan: Tested positive on admission; no pulmonary symptoms fortunately No evidence of pneumonia on exam or cxr now off precautions (18) Elevated LFTs: Plan: RUQ ordered for elevated LFTs however normal TB, and NO ABDOMINAL pain on examination and would not want intervention patient does have known gallstones (reported this to me), and also CTAP on admit with cholelithiasis of note, patient stated he would NOT want any further surgeries, worth looking into given delirium for more information/poss abx therapy (had completed broad spectrum following AKA as above however) ?muscle/bone source given AKA, prior fluconazole use? (did have elevations in alk phos previously, AST as well. ALT is new at 68) monitor in AM Plan continued inpatient stay Updated David 12/17 (visited with his father 12/16) and CM following as planning for SNF, possible transition to palliative pending course at SNF Admission and Anticipated Discharge Date Admission Date: November 27, 2021 Supervising Physician Co-Signing Physician Notes Attending Attestation - Chart reviewed, care plan d/w CARMEN Lomas. I agree with the bolton components of her documentation. Mike Noland MD Subjective seen this afternoon aide stated she got patient to eat some peaches this afternoon. took pills with applesauce. Overnight did have some bites of cupcakes. Justin reports he's been eating fine, although we discussed not a substantial amount. Complaining of butt pain, not wanting any medications currently, oxycodone available if needed. Patient denied seeing his son and that he won't talk to him. Denies abdominal pain or nausea, but discussed possible GB issues/stones. He states "he's known about gallstones" before. Discussed checking an ultrasound to be sure not contributing to current issue given weight loss over past several months/poor nutrition as well. Called son Phill this morning, no answer. Calling again this afternoon to see how visit went. Got ahold of son Phill, he states his dad communicated with them, but there was still a lot of delirium with accusations like staff "coming in and beating him" which Phill thinks is . Adamant about no procedures, no feeding tubes, wants to be a DNR. Once place they would hope he would be able to go, is [facility]. Does have benefits through [facility] and consider they might be able to help, especially given financial burden that it places on family for SNF/palliative care. Review of Systems Review of Systems: All systems reviewed & are unremarkable except as noted in HPI & below Physical Exam Physical Exam: General: frail, chronically ill appearing gentleman laying flat in bed, attempting to sleep, general pallor, NAD, trying to reposition the gown around his head as it was too tight HEENT: head normocephalic, L pupil >R (chronic), mm slightly dry (same as yesterday), trachea midline without deviation Resp: non labored breathing, not tachypneic, lungs ctab, diminished in the bases, no c/w, on room air Chest: R sided pacemaker in place CV: RRR, +murmur, no calf tenderness, pulses palpable : scaphoid abdomen, +BS throughout, non tender even to deep palpation RUQ : morales draining concentrated but yellow urine MSK/Neuro: LLE AKA stump dressing being changed, umesh c/d/i, no spreading erythema or drainage moves all extremities, normal speech, no facial droop, answering questions appropriately for me at times, intermittent confusion however knows prior medical history items such as gallstones 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 Psych: alert to person, knows he is in the hospital, not alert to year (thought 2019), intermittent to events Skin: sacral ulcer with Santyl/dressing (not observed today) Results & Data Results & Data ([facility]) Vital Signs (Past 12 Hours) Vital Signs Temp Pulse Resp BP Pulse Ox O2 Del Method 12/16/21 22:43 36.6 C 92 H 16 131/72 96 Room Air Laboratory Results 12/17/21 12/17/21 12/17/21 Range/Units 12:00 08:10 07:45 Sodium 140 (136-145) mmol/L Potassium 3.8 (3.5-5.1) mmol/L Chloride 109 H (98-107) mmol/L Carbon Dioxide 24 (21-32) mmol/L Anion Gap 7 (3-11) BUN 14 (6-23) mg/dl Creatinine 1.06 (0.6-1.4) mg/dl Est Cr Clr Drug Dosing 54.2 ml/min Est GFR ( Amer) 78.1 ml/min Est GFR (Non-Af Amer) 67.4 ml/min BUN/Creatinine Ratio 13.2 (10-20) Glucose 128 H (70-99(Fasting)) mg/dl POC Glucose 171 H 137 H (70-99) mg/dl Calcium 8.0 L (8.5-10.1) mg/dl Magnesium 1.7 (1.7-2.4) mg/dl Total Bilirubin 0.7 (0.2-1.0) mg/dl AST 115 H (13-39) U/L ALT 68 H (7-52) U/L Alkaline Phosphatase 237 H (34-104) U/L Total Protein 6.4 (6.0-8.3) gm/dl Albumin 2.4 L (3.4-5.0) gm/dl Globulin 4.0 (2.5-4.0) gm/dl Albumin/Globulin Ratio 0.6 L (0.9-2) 12/16/21 12/16/21 Range/Units 20:37 17:42 Sodium (136-145) mmol/L Potassium (3.5-5.1) mmol/L Chloride (98-107) mmol/L Carbon Dioxide (21-32) mmol/L Anion Gap (3-11) BUN (6-23) mg/dl Creatinine (0.6-1.4) mg/dl Est Cr Clr Drug Dosing ml/min Est GFR ( Amer) ml/min Est GFR (Non-Af Amer) ml/min BUN/Creatinine Ratio (10-20) Glucose (70-99(Fasting)) mg/dl POC Glucose 127 H 92 (70-99) mg/dl Calcium (8.5-10.1) mg/dl Magnesium (1.7-2.4) mg/dl Total Bilirubin (0.2-1.0) mg/dl AST (13-39) U/L ALT (7-52) U/L Alkaline Phosphatase (34-104) U/L Total Protein (6.0-8.3) gm/dl Albumin (3.4-5.0) gm/dl Globulin (2.5-4.0) gm/dl Albumin/Globulin Ratio (0.9-2) PG Care Time/CCT Total # of Minutes Spent Total Time Spent with Patient: Total time spent is greater than 50% in coordination of care (as documented) at patient's floor/unit and/or counseling patient: Coding Level of Care Code 48119 Subseq Hosp Care Lvl 3 Diagnoses Acute metabolic encephalopathy G93.41 Osteomyelitis of foot, left, acute M86.172 Sacral decubitus ulcer L89.159 Sepsis A41.9 PAD (peripheral artery disease) I73.9 Stage 3b chronic kidney disease (CKD) N18.32 Anemia D64.9 Anemia type: unspecified type HTN (hypertension) I10 Hypertension type: unspecified Hyperlipidemia E78.5 Hyperlipidemia type: unspecified DM II (diabetes mellitus, type II), controlled E11.9 Diabetes mellitus long term care social worker insulin use: with long term care social worker use CAD (coronary artery disease) I25.10 Lacunar stroke I63.81 Esophagitis K20.90 Dysphagia R13.10 Acute kidney failure NEC N17.8 Chronic pain syndrome G89.4 COVID-19 U07.1 Elevated LFTs R79.89 (1) Anemia Anemia type: unspecified type Qualified Code(s): D64.9 - Anemia, unspecified (2) Hyperlipidemia Hyperlipidemia type: unspecified Qualified Code(s): E78.5 - Hyperlipidemia, unspecified (3) DM II (diabetes mellitus, type II), controlled Diabetes mellitus longterm insulin use: with longterm use (4) HTN (hypertension) Hypertension type: unspecified Qualified Code(s): I10 - Essential (primary) hypertension
[2021-12-17 08:47] LABS: Albumin Globulin Ratio 0.6 (0.9-2); Albumin Level 2.4 gm/dl (3.4-5.0); BUN Creatinine Ratio 13.2 (10-20); Bilirubin,Total 0.7 mg/dl (0.2-1.0); Creatinine Clr Calc Pharmacy 54.2 ml/min; Est GFR (African American) 78.1 ml/min; Est GFR (Non-African American) 67.4 ml/min; Magnesium 1.7 mg/dl (1.7-2.4); Potassium 3.8 mmol/L (3.5-5.1); Total Protein 6.4 gm/dl (6.0-8.3)
[2021-12-17] MEDS: INSULIN ASPART PER UNIT SC SCH ×4 (09:15→21:06)
[2021-12-17] MEDS: FOLIC ACID 1 MG TAB PO SCH (09:18)
[2021-12-17] MEDS: ROSUVASTATIN CALCIUM 5 MG TAB PO SCH (09:18)
[2021-12-17] MEDS: DOCUSATE SODIUM 100 MG CAP PO SCH ×3 (09:18→21:05)
[2021-12-17] MEDS: PANTOprazole 40 MG TAB PO SCH ×2 (09:18→21:05)
[2021-12-17] MEDS: THIAMINE HCL 100 MG TAB PO SCH ×2 (09:18→21:05)
[2021-12-17] MEDS: COLLAGENASE OINT 30 GM TUBE EXT SCH (09:18)
[2021-12-17] MEDS: TAMSULOSIN HCL 0.4 MG CAP PO SCH (09:18)
[2021-12-17] MEDS: CLOPIDOGREL BISULFATE 75 MG TAB PO SCH (09:18)
[2021-12-17] MEDS: SUCRALFATE 1 GM/10 ML UDC PO SCH ×4 (09:19→21:04)
[2021-12-17] MEDS: TIMOLOL MALEATE 0.5% OP SOLN 5 ML BTL OPB SCH ×2 (09:19→21:06)
[2021-12-17] MEDS: POLYETHYLENE (MIRALAX) 17 GM PACK PO SCH (09:19)
[2021-12-17] MEDS: ACETAMINOPHEN 325 MG TAB PO PRN (12:53)
--- NOTE | 2021-12-17 20:21 | Ultrasound Report ---
US liver CLINICAL HISTORY: elevated LFTs, cholelithiasis on imaging COMPARISON STUDY: CT of the abdomen and pelvis November 27, 2021. FINDINGS: This exam is compromised by suboptimal penetration. No hepatic lesions are identified. Ther e is no biliary ductal dilatation. Common bile duct measures 2 mm in caliber. Sludge and stones withi n the gallbladder are noted. No sonographic Hill sign was elicited. Gallbladder is mildly distended . There is no gallbladder wall thickening. Pancreas was obscured. There is no right hydronephrosis. IMPRESSION: 1. Sludge and stones within the gallbladder. Mild gallbladder distention. No sonographic Hill sign or gallbladder wall thickening. No convincing evidence for acute cholecystitis. However, if indicated , a hepatobiliary scan could be obtained. 2. No biliary ductal dilatation. 3. Obscured pancreas. ACT 112: Negative or not required by law. Electronically signed by: Eduin Conley M.D. 12/17/2021 8:19 PM
[2021-12-17] MEDS: LATANOPROST 0.005% OP SOLN 2.5 ML BTL OPB SCH (21:06)
[2021-12-17] MEDS: ENOXAPARIN INJ 30 MG/0.3 ML SYR SQ SCH (21:07)
[2021-12-18 08:21] LABS: Hematocrit (blood only) 31.6 % (40.1-51.0); Mean Corpuscular Hemoglobin 31.1 pg (25.0-34.0); Mean Corpuscular Hgb Conc 31.6 g/dL (32.0-36.0); Mean Corpuscular Volume 98.1 fL (80.0-100.0); Mean Platelet Volume 11.3 fL (9.4-12.4); Platelet Count 146 K/uL (130-400); RDW Coefficient of Variation 15.4 % (11.5-14.5); RDW Standard Deviation 55.3 fL (36.4-46.3); Red Blood Count 3.22 M/uL (4.63-6.08); White Blood Count 5.08 K/ul (4.8-10.8)
--- NOTE | 2021-12-18 08:21 | Hospitalist Progress Note ---
Date of Service December 18, 2021 Assessment & Plan (1) Acute metabolic encephalopathy: Plan: SEVERE, now improved but persists multifactorial - COVID-19 infection, Left heel OM and subsequent AKA, recent UTI, hospital psychosis, ?baseline memory issues/cognitive impairment with prior CVA, XAVIER CT head 12/07 negative for acute process. checked VBG, ammonia, repeat u/a and urine culture, blood cx's on 12/07 Ur cx with Yeast not albicans-has had Morales for a long time now, likely colonization, no need to treat Was started on high dose IV thiamine on 12/10 and perhaps this helped him improve? Still waxing and waning but overall slightly improved Still not eating much at all, but is more awake and alert, interactive than previous reports renal function normalized and actually 1.05 on AM labs -- no further IV hydration for now and encouraged PO (continued barrier), did not want diet advanced. -continue supportive care, promote good rest/wake cycles -encourage po intake-needs assistance, actually ate some peaches this morning for aide (12/17) and last evening a couple bites of cupcake and this morning had applesauce as well as boost Not wanting to participate with therapy Taking pills today and yesterday (refused Wednesday) Converted thiamine to 200mg BID x 1 month, f/u B1 level when available Discussed with son Phill, visited evening 12/16 -- stated father had some delirium but was able to have discussions about some things. Prior discussions with DNR (and patient has voiced on numerous occasions not wanting any other surgery/interventions, even such intervention as cutting his nails). Changed to DNR Phill does agree his father is in no shape for rehab currently. Did discuss SNF. He is open to this and first preference [facility]. Also asked about any additional benefits through [facility] as his father does have benefits but has never used and is worried about cost as insurance will cover 100 days. He is aware palliative process wouldn't be long standing and if his father does not have improvements at SNF with regards to intake/cognition that they can plan to transition to palliative after initial SNF period. Alerted CM, and that they will be reaching out for back up plans if [facility]y [facility]. 12/18 RUQ with stones/sludge but no acute geovanni NONtender on exam LFTs improving, ?alk phoos from bone possible? Cognition about the same/waxes and wanes, pleasant and cooperative but DOES NOT WANT ANYTHING DONE, continuly repeated such, son aware as above Continued look for SNF, no longer considering [facility] given lack of participation in therapy (2) Osteomyelitis of foot, left, acute: Plan: Original injury was 8+ months ago. Presented to [facility] on 10/17 with Left heel wound/ulcer with drainage. 10/19 - partial calcanectomy with debridement and primary closure on 10/19. Cultures with MRSA/enterobacter. 10/23 - arteriogram of LLE with moderate to severe disease. Angioplasties were performed. Completed course of broad-spectrum IV abx. Transferred from [facility] to [facility] in [place]. Spent ~3 weeks there. Then transferred to [facility]. CT of left foot while at [facility] (/11/21) concerning for ongoing cellulitis and possible osteomyelitis. 11/27 CT - osteomyelitis and cellulitis worse. Gen surg consult by Dr Hairston - advised AKA of LLE. 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 every 8 hours as needed pain -- states pain controlled (3) Sacral decubitus ulcer: Plan: POA. Wound care nurse recommends santyl for chemical debridement, cover w/ Optifoam, offload pressure Recommend f/u with Wound Nurse at rehab Per wound - ulcer is unstageable at this time. General surgery is aware of this ulcer, and if surgical debridement is ultimately needed, they would be willing but looking good and rec'd santyl and continued f/u wound center at discharge Needs better nutrition but uncertain if that will happen given his failure to thrive. (4) Sepsis: Plan: POA - 2nd to left foot osteomyelitis +/- COVID +/- pre-admission UTI. Now resolved Had some recurrent intermittent low-grade fevers at times but now resolved again for many days after second sepsis workup was pursued (5) PAD (peripheral artery disease): Plan: LLE. Now s/p AKA s/p intervention this summer at [facility] in October. Cont statin. Cont plavix of note, refused meds AM 8/29, taking meds with boost for the most part since that time clearer today as well, and making it known he does NOT want any further intervention (6) Stage 3b chronic kidney disease (CKD): Plan: Records suggest baseline of 1.5-2. Copious IVF as well as PRBC transfusion provided initially after had XAVIER on admission Kit Planner back to baseline, actually WELL improved compared to reported prior baseline 1.01 Avoid nephrotoxic agents/renal dose meds when able K previously low, PO ordered (had refused Wednesday), repeat 3.8 and stable (7) Anemia: Plan: Likely anemia of chronic disease. There was a question of melena for months but was on PO iron BID outpatient med list Apparently had witnessed black stools by RN x 3 on 12/01 and 12/03, all brown since then s/p 1 u PRBC on 11/30 the day prior to witnessed black stool for drop in hgb B12/folate WNL. Iron studies without deficiency. Ferritin elevated 742, reactive from COVID and infection as above (was 1952 on admit) hgb has remained stable for 10 days now at 8-9 CTAP on admission with mild rectal wall thickening w/ trace perirectal standing, poss mild proctitis. Does note left upper quadrant varicosities of unknown etiology. Unremarkable liver but noncontrast imaging unable to do GI work-up as an outpatient due to other pressing health issues- will need outpt f/u with GI w/u if desired Continues on protonix po BID, carafate QID -Have since restarted DVT prophylaxis 12/13 given high risk for DVT with prolonged hospitalization, recent surgery, infection -Follow CBC periodically Hgb actually improved to 10?! (8) HTN (hypertension): Plan: -Was on very low dose of immediate release diltiazem-no need for this as only lasts 6 hours and BPs controlled -Have since discontinued the p.o. diltiazem monitor BPs -- 148/64 (9) Hyperlipidemia: Plan: Continue statin (10) DM II (diabetes mellitus, type II), controlled: Plan: Blood sugars are very well controlled and he has not required any supplemental insulin in 6 days. A1c checked and was 5.5 Discontinued lantus 12/15 given lower BSGs Fingersticks without any need for insulin, will discontinue for now, monitor for any symptoms NO LONGER CHECKING, unless symptomatic (11) CAD (coronary artery disease): Plan: ECHO with LV systolic function borderline reduced. EF 45-50%. Borderline global hypokinesis of left ventricle. Mild concentric LVH. No prior study for comparison. Continue plavix, statin no MAREK/ARB given CKD, however given Cr improved, could consider MAREK/ARB but given poor PO intake likely would worsen renal failure and will hold off for now (12) Lacunar stroke: Plan: CVA ~[address] head here - old R occipital lobe cva. Repeat head CT 12/07 negative -continue Plavix, statin (13) Esophagitis: Plan: noted to have thickened esophagus distally on CT abd/pel on admission -cont PPI twice daily -continue carafate x 2 week course (started 12/06, end date 12/20) -completed course of fluconazole for oral/esophageal Candidiasis (14) Dysphagia: Plan: Likely secondary to esophagitis no pain with swallowing reported, advanced to minced and moist by SPeech on 12/12 (15) Acute kidney failure NEC: Plan: resolved likely was sepsis-associated XAVIER (16) Chronic pain syndrome: Plan: per sons he has been on chronic oxycodone for several years PDMP demonstrates such - has been on oxycodone since 2019 -Continue as needed oxycodone moving bowels on opiates without issue, large brown BM am 12/15 (17) COVID-19: Plan: Tested positive on admission; no pulmonary symptoms fortunately No evidence of pneumonia on exam or cxr now off precautions (18) Elevated LFTs: Plan: RUQ ordered for elevated LFTs however normal TB, and NO ABDOMINAL pain on examination and would not want intervention patient does have known gallstones (reported this to me), and also CTAP on admit with cholelithiasis of note, patient stated he would NOT want any further surgeries, worth looking into given delirium for more information/poss abx therapy (had completed broad spectrum following AKA as above however) ?muscle/bone source given AKA, prior fluconazole use? (did have elevations in alk phos previously, AST as well. ALT is new at 68) LFTs improved on repeat, unclear etiology RUQ with sludge/stones but no evidence for acute geovanni. if further consider for imaging, could consider HIDA scan, but given patient NOT wanting any further surgical intervention will hold off this monitor in AM Plan continued inpatient stay Updated David 12/17 (visited with his father 12/16) and CM following as planning for SNF, possible transition to palliative pending course at SNF CM following, sent info for [facility] as first choice, awaiting return calls Admission and Anticipated Discharge Date Admission Date: November 27, 2021 Supervising Physician Co-Signing Physician Notes Attending Attestation - Chart reviewed, care plan d/w PA Gianna Lomas. I agree with the bolton components of her documentation. Mike Noland MD Subjective Still with poor PO appetite. took some boost/applesauce this morning continued to decline abdominal pain RUQ with sludge/stones, he DOES NOT WANT any more imaging continued inpatient stay awaiting SNF placement currently, CM following Review of Systems Review of Systems: All systems reviewed & are unremarkable except as noted in HPI & below Physical Exam Physical Exam: General: frail, chronically ill appearing gentleman laying flat in bed, attempting to sleep, general pallor, NAD, HEENT: head normocephalic, L pupil >R (chronic), mm slightly dry (same as yesterday), trachea midline without deviation Resp: non labored breathing, not tachypneic, lungs ctab, diminished in the bases, no c/w, on room air Chest: R sided pacemaker in place CV: RRR, +murmur, no calf tenderness, pulses palpable : scaphoid abdomen, +BS throughout, non tender even to deep palpation RUQ : morales draining concentrated but yellow urine MSK/Neuro: LLE AKA umesh c/d/i, no spreading erythema or drainage, covered, dressing c/d/i moves all extremities, normal speech, no facial droop, answering questions appropriately for me at times, intermittent confusion however knows prior medical history items such as gallstones 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 Psych: alert to person, knows he is in the hospital, not alert to year (thought 2018), intermittent to events Skin: sacral ulcer with Santyl/dressing (not observed today) Results & Data Results & Data ([facility]) Vital Signs (Past 12 Hours) Vital Signs Temp Pulse Resp BP Pulse Ox O2 Del Method 12/18/21 05:39 36.6 C 74 16 148/64 H 100 Room Air 12/17/21 22:53 36.7 C 80 16 140/65 98 Room Air Diagnostic Findings Liver Ultrasound 12/17/21 12:56 US liver CLINICAL HISTORY: elevated LFTs, cholelithiasis on imaging COMPARISON STUDY: CT of the abdomen and pelvis November 27, 2021. FINDINGS: This exam is compromised by suboptimal penetration. No hepatic lesions are identified. There is no biliary ductal dilatation. Common bile duct measures 2 mm in caliber. Sludge and stones within the gallbladder are noted. No sonographic Hill sign was elicited. Gallbladder is mildly distended. There is no gallbladder wall thickening. Pancreas was obscured. There is no right hydronephrosis. IMPRESSION: 1. Sludge and stones within the gallbladder. Mild gallbladder distention. No sonographic Hill sign or gallbladder wall thickening. No convincing evidence for acute cholecystitis. However, if indicated, a hepatobiliary scan could be obtained. 2. No biliary ductal dilatation. 3. Obscured pancreas. ACT 112: Negative or not required by law. Electronically signed by: Eduin Conley M.D. 12/17/2021 8:19 PM PG Care Time/CCT Total # of Minutes Spent Total Time Spent with Patient: Total time spent is greater than 50% in coordination of care (as documented) at patient's floor/unit and/or counseling patient: Coding Level of Care Code 02498 Subseq Hosp Care Lvl 2 Diagnoses Acute metabolic encephalopathy G93.41 Osteomyelitis of foot, left, acute M86.172 Sacral decubitus ulcer L89.159 Sepsis A41.9 PAD (peripheral artery disease) I73.9 Stage 3b chronic kidney disease (CKD) N18.32 Anemia D64.9 Anemia type: unspecified type HTN (hypertension) I10 Hypertension type: unspecified Hyperlipidemia E78.5 Hyperlipidemia type: unspecified DM II (diabetes mellitus, type II), controlled E11.9 Diabetes mellitus terminal operations manager insulin use: with terminal operations manager use CAD (coronary artery disease) I25.10 Lacunar stroke I63.81 Esophagitis K20.90 Dysphagia R13.10 Acute kidney failure NEC N17.8 Chronic pain syndrome G89.4 COVID-19 U07.1 Elevated LFTs R79.89 (1) Anemia Anemia type: unspecified type Qualified Code(s): D64.9 - Anemia, unspecified (2) Hyperlipidemia Hyperlipidemia type: unspecified Qualified Code(s): E78.5 - Hyperlipidemia, unspecified (3) DM II (diabetes mellitus, type II), controlled Diabetes mellitus mcfp insulin use: with mcfp use (4) HTN (hypertension) Hypertension type: unspecified Qualified Code(s): I10 - Essential (primary) hypertension
[2021-12-18 08:41] LABS: Albumin Level 2.5 gm/dl (3.4-5.0); BUN Creatinine Ratio 13.9 (10-20); Bilirubin Direct 0.1 mg/dl (0-0.2); Bilirubin,Total 0.7 mg/dl (0.2-1.0); Calcium 8.3 mg/dl (8.5-10.1); Creatinine Clr Calc Pharmacy 56.9 ml/min; Est GFR (African American) 82.8 ml/min; Est GFR (Non-African American) 71.4 ml/min; Potassium 3.8 mmol/L (3.5-5.1); Total Protein 6.4 gm/dl (6.0-8.3)
[2021-12-18] MEDS: PANTOprazole 40 MG TAB PO SCH ×2 (09:53→20:12)
[2021-12-18] MEDS: TIMOLOL MALEATE 0.5% OP SOLN 5 ML BTL OPB SCH ×2 (09:53→20:13)
[2021-12-18] MEDS: TAMSULOSIN HCL 0.4 MG CAP PO SCH (09:53)
[2021-12-18] MEDS: THIAMINE HCL 100 MG TAB PO SCH ×2 (09:53→20:12)
[2021-12-18] MEDS: SUCRALFATE 1 GM/10 ML UDC PO SCH ×4 (09:53→20:13)
[2021-12-18] MEDS: ROSUVASTATIN CALCIUM 5 MG TAB PO SCH (09:53)
[2021-12-18] MEDS: POLYETHYLENE (MIRALAX) 17 GM PACK PO SCH (09:53)
[2021-12-18] MEDS: COLLAGENASE OINT 30 GM TUBE EXT SCH (09:53)
[2021-12-18] MEDS: FOLIC ACID 1 MG TAB PO SCH (09:54)
[2021-12-18] MEDS: CLOPIDOGREL BISULFATE 75 MG TAB PO SCH (09:54)
[2021-12-18] MEDS: DOCUSATE SODIUM 100 MG CAP PO SCH ×2 (09:54→20:13)
[2021-12-18] MEDS: INSULIN ASPART PER UNIT SC SCH ×2 (09:54→12:43)
[2021-12-18] MEDS: oxyCODONE HCL IR 5 MG TAB (IMMEDIATE RELEASE) PO PRN (17:08)
[2021-12-18] MEDS: LATANOPROST 0.005% OP SOLN 2.5 ML BTL OPB SCH (20:13)
[2021-12-18] MEDS: ENOXAPARIN INJ 30 MG/0.3 ML SYR SQ SCH (20:14)
[2021-12-19] MEDS: oxyCODONE HCL IR 5 MG TAB (IMMEDIATE RELEASE) PO PRN ×2 (06:48→18:14)
[2021-12-19] MEDS: FOLIC ACID 1 MG TAB PO SCH (09:29)
[2021-12-19] MEDS: TIMOLOL MALEATE 0.5% OP SOLN 5 ML BTL OPB SCH ×2 (09:29→19:41)
[2021-12-19] MEDS: TAMSULOSIN HCL 0.4 MG CAP PO SCH (09:29)
[2021-12-19] MEDS: DOCUSATE SODIUM 100 MG CAP PO SCH ×2 (09:29→19:41)
[2021-12-19] MEDS: ROSUVASTATIN CALCIUM 5 MG TAB PO SCH (09:29)
[2021-12-19] MEDS: THIAMINE HCL 100 MG TAB PO SCH ×2 (09:29→19:41)
[2021-12-19] MEDS: SUCRALFATE 1 GM/10 ML UDC PO SCH ×4 (09:29→19:41)
[2021-12-19] MEDS: POLYETHYLENE (MIRALAX) 17 GM PACK PO SCH (09:29)
[2021-12-19] MEDS: CLOPIDOGREL BISULFATE 75 MG TAB PO SCH (09:29)
[2021-12-19] MEDS: PANTOprazole 40 MG TAB PO SCH ×2 (09:30→20:00)
[2021-12-19] MEDS: COLLAGENASE OINT 30 GM TUBE EXT SCH (09:30)
[2021-12-19] MEDS: ENOXAPARIN INJ 30 MG/0.3 ML SYR SQ SCH (19:42)
[2021-12-19] MEDS: LATANOPROST 0.005% OP SOLN 2.5 ML BTL OPB SCH (19:42)
--- NOTE | 2021-12-19 20:01 | Hospitalist Progress Note ---
Date of Service December 19, 2021 Assessment & Plan (1) Acute metabolic encephalopathy: Plan: Improved in comparison to my last visit with him about 2 weeks ago, but still confused, thinking he was in [place] today. Likely ongoing hospital psychosis. Supportive care. (2) Osteomyelitis of foot, left, acute: Plan: Original injury was 8+ months ago. Presented to [facility] on 10/17 with Left heel wound/ulcer with drainage. 10/19 - partial calcanectomy with debridement and primary closure on 10/19. Cultures with MRSA/enterobacter. 10/23 - arteriogram of LLE with moderate to severe disease. Angioplasties were performed. Completed course of broad-spectrum IV abx. Transferred from [facility] to [facility] in [place]. Spent ~3 weeks there. Then transferred to [facility]. CT of left foot while at [facility] (/11/21) concerning for ongoing cellulitis and possible osteomyelitis. 11/27 CT - osteomyelitis and cellulitis worse. 12/04 - left AKA by Dr Hairston. All abx have been stopped. (3) Sacral decubitus ulcer: Plan: POA. Supportive care. Frequent turning, local wound care. (4) Sepsis: Plan: POA - 2nd to left foot osteomyelitis +/- COVID +/- pre-admission UTI. Resolved. (5) PAD (peripheral artery disease): Plan: LLE. s/p intervention this summer at [facility] in October. Cont statin. Cont plavix. (6) Stage 3b chronic kidney disease (CKD): Plan: Most recent Cr 1. (7) Anemia: Plan: Anemia of chronic disease. s/p 1 u PRBC on 11/30. Heme + stool during this admission. Has had intermittent melena stool for several months per family. (8) COVID-19: Plan: Tested positive on admission Never had pneumonia Resolved clinically Certainly having post-COVID failure to thrive (9) HTN (hypertension): Plan: BPs wnl (10) Hyperlipidemia: Plan: statin (11) DM II (diabetes mellitus, type II), controlled: Plan: all therapy stopped all BSGs stopped has not required any therapy in quite some time (12) CAD (coronary artery disease): Plan: ECHO with LV systolic function borderline reduced. EF 45-50%. Borderline global hypokinesis of left ventricle. Mild concentric LVH. No prior study for comparison. Continue plavix. Continue statin. No ischemic symptoms. no MAREK/ARB given CKD. (13) Lacunar stroke: Plan: CVA ~[address] head here - old R occipital lobe cva. Repeat head CT 12/07 negative (14) Esophagitis: Plan: cont PPI twice daily (15) Dysphagia: Plan: On minced/moist diet (16) Acute kidney failure NEC: Plan: Peak Cr 3.1 early in stay resolved - now Cr 1 likely was sepsis-associated XAVIER bmp am (17) DVT prophylaxis: Plan: lovenox (18) Candidiasis of mouth and esophagus: Plan: resolved (19) Chronic pain syndrome: Plan: per sons he has been on chronic oxycodone for several years PDMP demonstrates such - has been on oxycodone since 2019 cont oxycodone prn (20) Heme positive stool: Plan: 2nd esophagitis? cont PPI bid cont carafate qid Plan DNR/DNI likely transitioning to palliative care soon; not participating in therapy, hardly eating/drinking, etc dispo - SNF Admission and Anticipated Discharge Date Admission Date: November 27, 2021 Subjective patient resting in bed nursing staff was present during the visit he only took 1-2 boosts throughout the day; no other oral intake he stated "I hurt everywhere" and "I'm not doing so good" he thought he was in [place] doesn't feel like getting out of bed Review of Systems Review of Systems: gen - fatigue cv - no chest pain pulm - no dyspnea GI - no pain Physical Exam Physical Exam: gen - confused, chronically ill-appearing, weak, flat affect mouth - MMM, no lesions, no thrush neck - no JVD heart - 2/6 systolic murmur, RRR, s1 s2 lungs - CTA b/l, no rales, no wheeze abd - soft, NT, ND, BS+ ext - left AKA with dressings over stump; right foot w/o edema, pulses 1-2+ righ t foot psych - oriented to person only; thought he was in [place] Results & Data Results & Data ([facility]) Vital Signs (Past 12 Hours) Vital Signs Temp Pulse Resp BP Pulse Ox O2 Del Method 12/19/21 15:24 36.9 C 86 16 129/71 98 Room Air 12/19/21 08:10 Room Air Laboratory Results Laboratory Results - last 24 hr 12/19/21 08:10 POC Glucose 139 H PG Care Time/CCT Total # of Minutes Spent Total Time Spent with Patient: Total time spent is greater than 50% in coordination of care (as documented) at patient's floor/unit and/or counseling patient: Coding Level of Care Code 50551 Subseq Hosp Care Lvl 1 Diagnoses Acute metabolic encephalopathy G93.41 Osteomyelitis of foot, left, acute M86.172 Sacral decubitus ulcer L89.159 Sepsis A41.9 PAD (peripheral artery disease) I73.9 Stage 3b chronic kidney disease (CKD) N18.32 Anemia D64.9 Anemia type: unspecified type COVID-19 U07.1 HTN (hypertension) I10 Hypertension type: unspecified Hyperlipidemia E78.5 Hyperlipidemia type: unspecified DM II (diabetes mellitus, type II), controlled E11.9 Diabetes mellitus long-term insulin use: with terminal manager use CAD (coronary artery disease) I25.10 Lacunar stroke I63.81 Esophagitis K20.90 Dysphagia R13.10 Acute kidney failure NEC N17.8 DVT prophylaxis Z29.9 Candidiasis of mouth and esophagus B37.81; B37.0 Chronic pain syndrome G89.4 Heme positive stool R19.5 (1) Anemia Anemia type: unspecified type Qualified Code(s): D64.9 - Anemia, unspecified (2) Hyperlipidemia Hyperlipidemia type: unspecified Qualified Code(s): E78.5 - Hyperlipidemia, unspecified (3) DM II (diabetes mellitus, type II), controlled Diabetes mellitus long-term insulin use: with long-term use (4) HTN (hypertension) Hypertension type: unspecified Qualified Code(s): I10 - Essential (primary) hypertension
--- NOTE | 2021-12-20 05:28 | Communication Note ---
Date of Service: December 20, 2021 Patient ripped out IV in the evening and refused replacement. Reviewed meds list; nothing requires IV site. Deferring to day providers regarding IV rep lacement.
[2021-12-20] MEDS: ACETAMINOPHEN 325 MG TAB PO PRN (08:50)
[2021-12-20] MEDS: oxyCODONE HCL IR 5 MG TAB (IMMEDIATE RELEASE) PO PRN (08:50)
[2021-12-20] MEDS: TAMSULOSIN HCL 0.4 MG CAP PO SCH (08:51)
[2021-12-20] MEDS: POLYETHYLENE (MIRALAX) 17 GM PACK PO SCH (08:51)
[2021-12-20] MEDS: TIMOLOL MALEATE 0.5% OP SOLN 5 ML BTL OPB SCH ×2 (08:51→21:07)
[2021-12-20] MEDS: CLOPIDOGREL BISULFATE 75 MG TAB PO SCH (08:52)
[2021-12-20] MEDS: FOLIC ACID 1 MG TAB PO SCH (09:02)
[2021-12-20] MEDS: SUCRALFATE 1 GM/10 ML UDC PO SCH ×4 (09:02→21:12)
[2021-12-20] MEDS: ROSUVASTATIN CALCIUM 5 MG TAB PO SCH (09:02)
[2021-12-20] MEDS: DOCUSATE SODIUM 100 MG CAP PO SCH ×2 (09:02→21:12)
[2021-12-20] MEDS: PANTOprazole 40 MG TAB PO SCH ×2 (09:02→21:12)
[2021-12-20] MEDS: THIAMINE HCL 100 MG TAB PO SCH ×2 (09:02→21:09)
[2021-12-20] MEDS: COLLAGENASE OINT 30 GM TUBE EXT SCH (11:06)
[2021-12-20] MEDS: LATANOPROST 0.005% OP SOLN 2.5 ML BTL OPB SCH (21:07)
[2021-12-20] MEDS: ENOXAPARIN INJ 30 MG/0.3 ML SYR SQ SCH (21:12)
--- NOTE | 2021-12-20 21:19 | Hospitalist Progress Note ---
Date of Service December 20, 2021 Assessment & Plan (1) Acute metabolic encephalopathy: Plan: ongoing likely hospital psychosis - has been in a hospital/LTACH/rehab setting x 2+ months no Rx supportive care (2) Osteomyelitis of foot, left, acute: Plan: s/p AKA by Dr Hairston on 12/04/21 pain meds prn (3) Sacral decubitus ulcer: (4) Sepsis: Plan: 2nd to #2 resolved (5) PAD (peripheral artery disease): (6) Stage 3b chronic kidney disease (CKD): Plan: bmp am (7) Anemia: Plan: cbc am (8) HTN (hypertension): (9) Hyperlipidemia: (10) DM II (diabetes mellitus, type II), controlled: Plan: all insulin and BSGs stopped has not required any Rx in quite some time all BSGs wnl off of any treatment (11) CAD (coronary artery disease): Plan: no ischemic symptoms (12) Lacunar stroke: Plan: history of CT head at [facility] showed 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 (13) Esophagitis: Plan: PPI bid (14) Dysphagia: (15) Acute kidney failure NEC: Plan: peak Cr early in this stay = 3.1 resolved most recent Cr 1 BMP am (16) Chronic pain syndrome: (17) COVID-19: Plan: present on admission resolved never needed Remdesivir, steroids, etc (18) Elevated LFTs: Plan: recent dx liver u/s without pathology likely reactive or due to medication repeat am for stability Plan will update family this weekend prognosis very poor DNR will encourage transition to comfort care pathway - barely eating, etc dispo - SNF - near his sons (patient lives in [place]) Admission and Anticipated Discharge Date Admission Date: November 27, 2021 Subjective pt lying in bed staring out the window "I don't feel well" he asked me to leave poor appetite continues reports pain in numerous locations knows he's in the hospital, but thinks he is in [place] Review of Systems Review of Systems: Unobtainable due to cognitive status Physical Exam Physical Exam: gen - thin, cachetic, NAD, confused mouth - MMM neck - no JVD heart - RRR, s1 s2 lungs - CTA b/l abd - soft, scaphoid/thin, BS+, NT ext - right leg no edema, pulses 2+; left AKA - stump w/ intact dressings skin - multiple optifoams in place on right leg psych - oriented x 2 Results & Data Results & Data ([facility]) Vital Signs (Past 12 Hours) Vital Signs Temp Pulse Resp BP Pulse Ox O2 Del Method 12/20/21 16:17 71 14 145/73 H 94 Room Air 12/20/21 15:28 36.3 C L 97 H 16 155/77 H 96 Room Air PG Care Time/CCT Total # of Minutes Spent Total Time Spent with Patient: Total time spent is greater than 50% in coordination of care (as documented) at patient's floor/unit and/or counseling patient: Coding Level of Care Code 70553 Subseq Hosp Care Lvl 1 Diagnoses Acute metabolic encephalopathy G93.41 Osteomyelitis of foot, left, acute M86.172 Sacral decubitus ulcer L89.159 Sepsis A41.9 PAD (peripheral artery disease) I73.9 Stage 3b chronic kidney disease (CKD) N18.32 Anemia D64.9 Anemia type: unspecified type HTN (hypertension) I10 Hypertension type: unspecified Hyperlipidemia E78.5 Hyperlipidemia type: unspecified DM II (diabetes mellitus, type II), controlled E11.9 Diabetes mellitus joint terminal attack controller insulin use: with mcc use CAD (coronary artery disease) I25.10 Lacunar stroke I63.81 Esophagitis K20.90 Dysphagia R13.10 Acute kidney failure NEC N17.8 Chronic pain syndrome G89.4 COVID-19 U07.1 Elevated LFTs R79.89 (1) Anemia Anemia type: unspecified type Qualified Code(s): D64.9 - Anemia, unspecified (2) Hyperlipidemia Hyperlipidemia type: unspecified Qualified Code(s): E78.5 - Hyperlipidemia, unspecified (3) DM II (diabetes mellitus, type II), controlled Diabetes mellitus mcc insulin use: with mcc use (4) HTN (hypertension) Hypertension type: unspecified Qualified Code(s): I10 - Essential (primary) hypertension
[2021-12-21] MEDS: ACETAMINOPHEN 325 MG TAB PO PRN ×3 (05:56→21:08)
[2021-12-21] MEDS: COLLAGENASE OINT 30 GM TUBE EXT SCH ×2 (07:14→16:40)
[2021-12-21 08:40] LABS: Hematocrit (blood only) 28.6 % (40.1-51.0); Hemoglobin 9.1 g/dl (14.0-18.0); Mean Corpuscular Hgb Conc 31.8 g/dL (32.0-36.0); Mean Corpuscular Volume 97.3 fL (80.0-100.0); Mean Platelet Volume 11.3 fL (9.4-12.4); Platelet Count 160 K/uL (130-400); RDW Coefficient of Variation 15.4 % (11.5-14.5); RDW Standard Deviation 54.5 fL (36.4-46.3); Red Blood Count 2.94 M/uL (4.63-6.08)
[2021-12-21 09:21] LABS: Albumin Globulin Ratio 0.7 (0.9-2); Albumin Level 2.5 gm/dl (3.4-5.0); BUN Creatinine Ratio 15.9 (10-20); Bilirubin,Total 0.9 mg/dl (0.2-1.0); Calcium 8.4 mg/dl (8.5-10.1); Creatinine Clr Calc Pharmacy 53.7 ml/min; Est GFR (African American) 77.2 ml/min; Est GFR (Non-African American) 66.6 ml/min; Globulin 3.8 gm/dl (2.5-4.0); Magnesium 1.6 mg/dl (1.7-2.4); Total Protein 6.3 gm/dl (6.0-8.3)
[2021-12-21] MEDS ORDERED: MAGNESIUM OXIDE 400 MG TAB PO SCH (10:15)
[2021-12-21] MEDS: CLOPIDOGREL BISULFATE 75 MG TAB PO SCH (11:30)
[2021-12-21] MEDS: TAMSULOSIN HCL 0.4 MG CAP PO SCH (11:31)
[2021-12-21] MEDS: THIAMINE HCL 100 MG TAB PO SCH (11:36)
[2021-12-21] MEDS: PANTOprazole 40 MG TAB PO SCH ×2 (11:36→21:10)
[2021-12-21] MEDS: DOCUSATE SODIUM 100 MG CAP PO SCH (11:38)
[2021-12-21] MEDS: SUCRALFATE 1 GM/10 ML UDC PO SCH ×3 (11:39→16:53)
[2021-12-21] MEDS: POLYETHYLENE (MIRALAX) 17 GM PACK PO SCH (11:39)
[2021-12-21] MEDS: FOLIC ACID 1 MG TAB PO SCH (11:39)
[2021-12-21] MEDS: ROSUVASTATIN CALCIUM 5 MG TAB PO SCH (11:39)
[2021-12-21] MEDS: TIMOLOL MALEATE 0.5% OP SOLN 5 ML BTL OPB SCH ×2 (11:40→21:09)
[2021-12-21] MEDS: oxyCODONE HCL IR 5 MG TAB (IMMEDIATE RELEASE) PO PRN (16:53)
--- NOTE | 2021-12-21 20:38 | Hospitalist Progress Note ---
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 on 12/04/21 pain meds prn (3) Sacral decubitus ulcer: Plan: santyl's pain meds prn (4) Sepsis: Plan: 2nd to #2 resolved (5) PAD (peripheral artery disease): (6) Stage 3b chronic kidney disease (CKD): (7) Anemia: (8) HTN (hypertension): (9) Hyperlipidemia: (10) DM II (diabetes mellitus, type II), controlled: Plan: all insulin and BSGs stopped has not required any Rx in quite some time (11) CAD (coronary artery disease): (12) Lacunar stroke: Plan: history of CT head at [facility] showed 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 (13) Esophagitis: Plan: PPI bid (14) Dysphagia: (15) Acute kidney failure NEC: Plan: peak Cr early in this stay = 3.1 resolved most recent Cr 1 (16) Chronic pain syndrome: (17) COVID-19: Plan: present on admission resolved never needed Remdesivir, steroids, etc (18) Elevated LFTs: Plan: recent dx liver u/s without pathology likely reactive or due to medication repeat levels still high no additional w/u -- transition to comfort care Plan I spoke with David Canales, pt's son He and his family have watched their father decline over the summer and even prior to such They feel that their father does not want any further medicinal intervention and they request to "keep him comfortable" I explained what comfort care measures entail -- son in agreement stop vitals, BSGs, labs stop unnecessary meds ativan prn, pain meds prn, etc all comfort measure orders placed dispo - SNF with hospice/comfort care - near his sons (patient lives in [place]) Admission and Anticipated Discharge Date Admission Date: November 27, 2021 Subjective no changes overnight when I found the patient he was lying in bed staring out the window he was incontinent of stool asked me not to "touch my legs" doesn't know where he is staff report minimal PO intake Review of Systems Review of Systems: c/o pain "all over" - like previous visits asked him where he hurt specifically and again said "all over" Physical Exam Physical Exam: gen - thin, cachetic, NAD, confused mouth - MMM neck - no JVD heart - RRR, s1 s2 lungs - CTA b/l abd - soft, scaphoid/thin, BS+, NT ext - right leg no edema, pulses 2+; left AKA - stump w/ intact dressings skin - multiple optifoams in place on right leg and foot psych - oriented x 1 (person only) Results & Data Results & Data ([facility]) Vital Signs (Past 12 Hours) Vital Signs Temp Pulse Resp BP Pulse Ox O2 Del Method 12/21/21 18:25 36.8 C 91 H 14 134/72 95 Room Air Laboratory Results Laboratory Results - last 24 hr 12/21/21 12/21/21 08:10 08:10 WBC 4.40 L RBC 2.94 L Hgb 9.1 L Hct 28.6 L MCV 97.3 MCH 31.0 MCHC 31.8 L RDW Std Deviation 54.5 H RDW Coeff of Rusty 15.4 H Plt Count 160 MPV 11.3 Sodium 140 Potassium 4.0 Chloride 105 Carbon Dioxide 27 Anion Gap 8 BUN 17 Creatinine 1.07 Est Cr Clr Drug Dosing 53.7 Est GFR ( Amer) 77.2 Est GFR (Non-Af Amer) 66.6 BUN/Creatinine Ratio 15.9 Glucose 123 H Calcium 8.4 L Magnesium 1.6 L Total Bilirubin 0.9 AST 116 H ALT 94 H Alkaline Phosphatase 241 H Total Protein 6.3 Albumin 2.5 L Globulin 3.8 Albumin/Globulin Ratio 0.7 L PG Care Time/CCT Total # of Minutes Spent Total Time Spent with Patient: Total time spent is greater than 50% in coordination of care (as documented) at patient's floor/unit and/or counseling patient: Coding Level of Care Code 20684 Subseq Hosp Care Lvl 2 Diagnoses Acute metabolic encephalopathy G93.41 Osteomyelitis of foot, left, acute M86.172 Sacral decubitus ulcer L89.159 Sepsis A41.9 PAD (peripheral artery disease) I73.9 Stage 3b chronic kidney disease (CKD) N18.32 Anemia D64.9 Anemia type: unspecified type HTN (hypertension) I10 Hypertension type: unspecified Hyperlipidemia E78.5 Hyperlipidemia type: unspecified DM II (diabetes mellitus, type II), controlled E11.9 Diabetes mellitus alf insulin use: with alf use CAD (coronary artery disease) I25.10 Lacunar stroke I63.81 Esophagitis K20.90 Dysphagia R13.10 Acute kidney failure NEC N17.8 Chronic pain syndrome G89.4 COVID-19 U07.1 Elevated LFTs R79.89 (1) Anemia Anemia type: unspecified type Qualified Code(s): D64.9 - Anemia, unspecified (2) Hyperlipidemia Hyperlipidemia type: unspecified Qualified Code(s): E78.5 - Hyperlipidemia, unspecified (3) DM II (diabetes mellitus, type II), controlled 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
[2021-12-21] MEDS ORDERED: ONDANSETRON 4 MG OD TAB PO PRN (20:48)
[2021-12-21] MEDS ORDERED: LORazepam 0.5 MG TAB PO PRN (20:48)
[2021-12-21] MEDS: LATANOPROST 0.005% OP SOLN 2.5 ML BTL OPB SCH (21:09)
[2021-12-22] MEDS: oxyCODONE HCL IR 5 MG TAB (IMMEDIATE RELEASE) PO PRN ×2 (01:59→17:55)
[2021-12-22] MEDS: COLLAGENASE OINT 30 GM TUBE EXT SCH (08:43)
[2021-12-22] MEDS: PANTOprazole 40 MG TAB PO SCH ×3 (08:43→21:05)
[2021-12-22] MEDS: TIMOLOL MALEATE 0.5% OP SOLN 5 ML BTL OPB SCH ×2 (08:43→21:07)
[2021-12-22] MEDS: LATANOPROST 0.005% OP SOLN 2.5 ML BTL OPB SCH (21:08)
--- NOTE | 2021-12-22 21:23 | Hospitalist Progress Note ---
Date of Service December 22, 2021 Assessment & Plan (1) Palliative care encounter: Plan: full comfort care measures initiated 12/21/21 patient routinely c/o pain "all over" he has been on chronic narcotics for several years per family and per the PDMP start fentanyl patch 12mcg q72h cont oxycodone prn cont ativan prn patient requested a beer - can order for him tomorrow (2) Need for comfort care: Plan: as above (3) Acute metabolic encephalopathy: Plan: ongoing likely hospital psychosis - has been in a hospital/LTACH/rehab setting x 2+ months supportive care transitioned to comfort care measures (4) Osteomyelitis of foot, left, acute: Plan: s/p AKA by Dr Hairston on 12/04/21 pain meds prn (5) Sacral decubitus ulcer: Plan: santyl's pain meds prn (6) Sepsis: Plan: 2nd to #2 resolved (7) PAD (peripheral artery disease): (8) Stage 3b chronic kidney disease (CKD): (9) Anemia: (10) HTN (hypertension): (11) Hyperlipidemia: (12) DM II (diabetes mellitus, type II), controlled: Plan: all insulin and BSGs stopped (13) CAD (coronary artery disease): (14) Lacunar stroke: Plan: history of CT head at [facility] showed 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 (15) Esophagitis: Plan: PPI bid if he will take otherwise can simply discontinue it (16) Dysphagia: (17) Acute kidney failure NEC: Plan: peak Cr early in this stay = 3.1 resolved most recent Cr 1 (18) Chronic pain syndrome: Plan: add fentanyl patch 12mcg q72h (19) COVID-19: Plan: present on admission resolved never needed Remdesivir, steroids, etc (20) Elevated LFTs: Plan: recent dx liver u/s without pathology likely reactive or due to medication repeat levels still high no additional w/u -- transitioned to comfort care Plan I spoke with David Canales, pt's son, on 12/21/21 He and his family have watched their father decline over the summer and even prior to such They feel that their father does not want any further medicinal intervention and they request to "keep him comfortable" I explained what comfort care measures entail -- son in agreement with full comfort care cont comfort care pathway dispo - SNF with hospice/comfort care (SNF [place] his [place] who [place] of [place]) Admission and Anticipated Discharge Date Admission Date: November 27, 2021 Subjective staff report next to no oral intake - few sips of boost here/there refused his PPI this am during rounds he asked for a beer c/o pain again "all over the place" but worst in the right ankle he asks for his sons Review of Systems Review of Systems: cv - denies cp pulm - denies dyspnea GI - denies abd pain Physical Exam Physical Exam: gen - thin, cachetic, NAD, confused mouth - MMM neck - no JVD heart - RRR, s1 s2 lungs - CTA b/l abd - soft, scaphoid/thin, BS+, NT ext - right leg no edema, pulses 2+; left AKA - stump w/ intact dressings skin - multiple optifoams in place on right leg and foot; pressure sore of heel stable; pressure sore of base of 5th metatarsal - stable psych - oriented x 1 (person only) PG Care Time/CCT Total # of Minutes Spent Total Time Spent with Patient: Total time spent is greater than 50% in coordination of care (as documented) at patient's floor/unit and/or counseling patient: Coding Level of Care Code 60633 Subseq Hosp Care Lvl 1 Diagnoses Palliative care encounter Z51.5 Need for comfort care Acute metabolic encephalopathy G93.41 Osteomyelitis of foot, left, acute M86.172 Sacral decubitus ulcer L89.159 Sepsis A41.9 PAD (peripheral artery disease) I73.9 Stage 3b chronic kidney disease (CKD) N18.32 Anemia D64.9 Anemia type: unspecified type HTN (hypertension) I10 Hypertension type: unspecified Hyperlipidemia E78.5 Hyperlipidemia type: unspecified DM II (diabetes mellitus, type II), controlled E11.9 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: with usp use CAD (coronary artery disease) I25.10 Lacunar stroke I63.81 Esophagitis K20.90 Dysphagia R13.10 Acute kidney failure NEC N17.8 Chronic pain syndrome G89.4 COVID-19 U07.1 Elevated LFTs R79.89 (1) Anemia Anemia type: unspecified type Qualified Code(s): D64.9 - Anemia, unspecified (2) Hyperlipidemia Hyperlipidemia type: unspecified Qualified Code(s): E78.5 - Hyperlipidemia, unspecified (3) DM II (diabetes mellitus, type II), controlled Diabetes mellitus usp insulin use: with usp use (4) HTN (hypertension) Hypertension type: unspecified Qualified Code(s): I10 - Essential (primary) hypertension
[2021-12-23] MEDS: oxyCODONE HCL IR 5 MG TAB (IMMEDIATE RELEASE) PO PRN ×2 (03:12→18:41)
[2021-12-23] MEDS ORDERED: fentaNYL 12 MCG/HR TDSY TD SCH (08:00)
[2021-12-23] MEDS: COLLAGENASE OINT 30 GM TUBE EXT SCH (09:13)
[2021-12-23] MEDS: PANTOprazole 40 MG TAB PO SCH ×2 (09:29→22:01)
[2021-12-23] MEDS: TIMOLOL MALEATE 0.5% OP SOLN 5 ML BTL OPB SCH ×2 (09:29→22:02)
--- NOTE | 2021-12-23 16:46 | Hospitalist Progress Note ---
Date of Service December 23, 2021 Assessment & Plan (1) Palliative care encounter: Plan: full comfort care measures initiated 12/21/21 patient routinely c/o pain "all over" but this is improved since starting Fentanyl patch he has been on chronic narcotics for several years per family and per the PDMP cont fentanyl patch 12mcg q72h and titrate up as needed cont oxycodone prn-has not taken any since early AM 12/23 cont ativan prn (2) Need for comfort care: Plan: as above (3) Acute metabolic encephalopathy: Plan: ongoing likely hospital psychosis - had been in a hospital/LTACH/rehab setting x 2+ months supportive care transitioned to comfort care measures (4) Osteomyelitis of foot, left, acute: Plan: s/p AKA by Dr Hairston on 12/04/21 pain meds prn (5) Sacral decubitus ulcer: Plan: santyl's pain meds prn (6) Sepsis: Plan: 2nd to #2 resolved (7) PAD (peripheral artery disease): (8) Stage 3b chronic kidney disease (CKD): (9) Anemia: (10) HTN (hypertension): (11) Hyperlipidemia: (12) DM II (diabetes mellitus, type II), controlled: Plan: all insulin and BSGs stopped (13) CAD (coronary artery disease): (14) Lacunar stroke: Plan: history of CT head at [facility] showed 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 (15) Esophagitis: Plan: PPI bid if he will take otherwise can simply discontinue it (16) Dysphagia: (17) Acute kidney failure NEC: Plan: peak Cr early in this stay = 3.1 resolved most recent Cr 1 (18) Chronic pain syndrome: (19) COVID-19: Plan: present on admission resolved never needed Remdesivir, steroids, etc (20) Elevated LFTs: Plan: recent dx liver u/s without pathology likely reactive or due to medication repeat levels still high no additional w/u -- transitioned to comfort care Plan Previous hospitalist spoke with David Canales, pt's son, on 12/21/21 He and his family have watched their father decline over the summer and even prior to such They feel that their father does not want any further medicinal intervention and they request to "keep him comfortable" - explained what comfort care measures entail -- son in agreement with full comfort care cont comfort care pathway dispo - SNF with hospice/comfort care (SNF near his sons who live south of [place]) -tentative plan for tomorrow at [facility] Admission and Anticipated Discharge Date Admission Date: November 27, 2021 Subjective Pt reports his pain is a little better today since starting the Fentanyl patch yesterday. Reports he is eating. Review of Systems Review of Systems: All systems reviewed & are unremarkable except as noted in HPI & below Physical Exam 2 Constitutional: WD/WN, vitals as above Eyes: + anicteric sclerae Neck: trachea midline, no thyromegaly Respiratory: normal respiratory effort, lungs clear to auscultation Cardiovascular: RRR, no murmur, no edema Chest (Breasts): Chest: normal inspection of chest Gastrointestinal (Abdomen): normal bowel sounds, soft, nontender, no hepatosplenomegaly Musculoskeletal: Extremities: + extremities abnormal to inspection (LLE AKA with dressing in place), no cyanosis and no clubbing Skin: no rashes, warm and dry (multiple areas ecchymosis arms) Neurologic: moves all extremities and awake; no focal motor deficits Speech / Cognition: normal speech Motor/Sensory: no tremor Psychiatric: Orientation: alert, oriented to person, oriented to place and cooperative Lymphatic: no lymphedema PG Care Time/CCT Total # of Minutes Spent Total Time Spent with Patient: Total time spent is greater than 50% in coordination of care (as documented) at patient's floor/unit and/or counseling patient: Coding Level of Care Code 39703 Subseq Hosp Care Lvl 1 Diagnoses Palliative care encounter Z51.5 Need for comfort care Acute metabolic encephalopathy G93.41 Osteomyelitis of foot, left, acute M86.172 Sacral decubitus ulcer L89.159 Sepsis A41.9 PAD (peripheral artery disease) I73.9 Stage 3b chronic kidney disease (CKD) N18.32 Anemia D64.9 Anemia type: unspecified type HTN (hypertension) I10 Hypertension type: unspecified Hyperlipidemia E78.5 Hyperlipidemia type: unspecified DM II (diabetes mellitus, type II), controlled E11.9 Diabetes mellitus group home insulin use: with group home use CAD (coronary artery disease) I25.10 Lacunar stroke I63.81 Esophagitis K20.90 Dysphagia R13.10 Acute kidney failure NEC N17.8 Chronic pain syndrome G89.4 COVID-19 U07.1 Elevated LFTs R79.89 (1) Anemia Anemia type: unspecified type Qualified Code(s): D64.9 - Anemia, unspecified (2) HTN (hypertension) Hypertension type: unspecified Qualified Code(s): I10 - Essential (primary) hypertension (3) Hyperlipidemia Hyperlipidemia type: unspecified Qualified Code(s): E78.5 - Hyperlipidemia, unspecified (4) DM II (diabetes mellitus, type II), controlled Diabetes mellitus group home insulin use: with group home use
[2021-12-23] MEDS: CHECK fentaNYL PATCH PLACEMENT SCH (16:52)
[2021-12-23] MEDS: BEER 1 CAN PO SCH (22:01)
[2021-12-23] MEDS: LATANOPROST 0.005% OP SOLN 2.5 ML BTL OPB SCH (22:01)
[2021-12-24] MEDS: CHECK fentaNYL PATCH PLACEMENT SCH ×3 (00:32→16:27)
[2021-12-24] MEDS: COLLAGENASE OINT 30 GM TUBE EXT SCH (09:05)
[2021-12-24] MEDS: PANTOprazole 40 MG TAB PO SCH ×2 (09:05→22:03)
[2021-12-24] MEDS: TIMOLOL MALEATE 0.5% OP SOLN 5 ML BTL OPB SCH ×2 (09:05→22:03)
[2021-12-24] MEDS: oxyCODONE HCL IR 5 MG TAB (IMMEDIATE RELEASE) PO PRN (09:07)
--- NOTE | 2021-12-24 15:06 | Hospitalist Progress Note ---
Date of Service December 24, 2021 Assessment & Plan (1) Palliative care encounter: Plan: full comfort care measures initiated 12/21/21 patient routinely c/o pain "all over" but this is improved since starting Fentanyl patch he has been on chronic narcotics for several years per family and per the PDMP cont fentanyl patch 12mcg q72h and titrate up as needed cont oxycodone prn-taking far less frequently since being on Fentanyl patch cont ativan prn Will be going to SNF for skilled care initially but if fails, will need to transition to Hospice (2) Need for comfort care: Plan: as above (3) Acute metabolic encephalopathy: Plan: ongoing Does not have capacity to make decisions at this time due to ongoing confusion likely hospital psychosis - had been in a hospital/LTACH/rehab setting x 2+ months supportive care transitioned to comfort care measures (4) Osteomyelitis of foot, left, acute: Plan: s/p AKA by Dr Hairston on 12/04/21 pain meds prn (5) Sacral decubitus ulcer: Plan: santyl's pain meds prn (6) Sepsis: Plan: 2nd to #2 resolved (7) PAD (peripheral artery disease): (8) Stage 3b chronic kidney disease (CKD): (9) Anemia: (10) HTN (hypertension): (11) Hyperlipidemia: (12) DM II (diabetes mellitus, type II), controlled: Plan: all insulin and BSGs stopped (13) CAD (coronary artery disease): (14) Lacunar stroke: Plan: history of CT head at [facility] showed 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 (15) Esophagitis: Plan: PPI bid if he will take otherwise can simply discontinue it (16) Dysphagia: (17) Acute kidney failure NEC: Plan: peak Cr early in this stay = 3.1 resolved most recent Cr 1 (18) Chronic pain syndrome: (19) COVID-19: Plan: present on admission resolved never needed Remdesivir, steroids, etc (20) Elevated LFTs: Plan: recent dx liver u/s without pathology likely reactive or due to medication repeat levels still high no additional w/u -- transitioned to comfort care Plan I spoke with David Canales, pt's son, on 12/24/21 and reconfirmed desire for comfort and no aggressive measures but willing to trial rehab at SNF before transitioning to hospice dispo - SNF (SNF near his sons who live [place] of [place]) -tentative plan for tomorrow at [facility] Admission and Anticipated Discharge Date Admission Date: November 27, 2021 Subjective Pt confused today, hoarse voice. Says a few times "take this shit off of me!" Not eating or drinking. Does deny pain. Not able to answer my other questions Review of Systems Review of Systems: Unobtainable due to cognitive status Physical Exam Constitutional: WD/WN, vitals as above Eyes: + anicteric sclerae Neck: trachea midline, no thyromegaly Respiratory: normal respiratory effort, lungs clear to auscultation Cardiovascular: RRR, no murmur, no edema Chest (Breasts): Chest: normal inspection of chest Gastrointestinal (Abdomen): normal bowel sounds, soft, nontender, no hepatosplenomegaly Musculoskeletal: Extremities: + extremities abnormal to inspection (LLE AKA with dressing in place), no cyanosis and no clubbing Skin: no rashes, warm and dry (multiple areas ecchymosis arms) Neurologic: moves all extremities and awake; no focal motor deficits Motor/Sensory: no tremor Psychiatric: lethargic, closes eyes frequently, confused Lymphatic: no lymphedema PG Care Time/CCT Total # of Minutes Spent Total Time Spent with Patient: Total time spent is greater than 50% in coordination of care (as documented) at patient's floor/unit and/or counseling patient: Coding Level of Care Code 57515 Subseq Hosp Care Lvl 1 Diagnoses Palliative care encounter Z51.5 Need for comfort care Acute metabolic encephalopathy G93.41 Osteomyelitis of foot, left, acute M86.172 Sacral decubitus ulcer L89.159 Sepsis A41.9 PAD (peripheral artery disease) I73.9 Stage 3b chronic kidney disease (CKD) N18.32 Anemia D64.9 Anemia type: unspecified type HTN (hypertension) I10 Hypertension type: unspecified Hyperlipidemia E78.5 Hyperlipidemia type: unspecified DM II (diabetes mellitus, type II), controlled E11.9 Diabetes mellitus correction 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 CAD (coronary artery disease) I25.10 Lacunar stroke I63.81 Esophagitis K20.90 Dysphagia R13.10 Acute kidney failure NEC N17.8 Chronic pain syndrome G89.4 COVID-19 U07.1 Elevated LFTs R79.89 (1) Anemia Anemia type: unspecified type Qualified Code(s): D64.9 - Anemia, unspecified (2) HTN (hypertension) Hypertension type: unspecified Qualified Code(s): I10 - Essential (primary) hypertension (3) Hyperlipidemia Hyperlipidemia type: unspecified Qualified Code(s): E78.5 - Hyperlipidemia, unspecified (4) DM II (diabetes mellitus, type II), controlled 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
[2021-12-24] MEDS: BEER 1 CAN PO SCH (22:03)
[2021-12-24] MEDS: LATANOPROST 0.005% OP SOLN 2.5 ML BTL OPB SCH (22:03)
[2021-12-25] MEDS: CHECK fentaNYL PATCH PLACEMENT SCH ×2 (00:05→07:57)
[2021-12-25] MEDS: oxyCODONE HCL IR 5 MG TAB (IMMEDIATE RELEASE) PO PRN (08:05)
[2021-12-25] MEDS: TIMOLOL MALEATE 0.5% OP SOLN 5 ML BTL OPB SCH (08:06)
[2021-12-25] MEDS: PANTOprazole 40 MG TAB PO SCH (08:06)
[2021-12-25] MEDS: COLLAGENASE OINT 30 GM TUBE EXT SCH (08:06)
--- NOTE | 2021-12-25 11:06 | Surgery Progress Note ---
Date of Service December 25, 2021 Assessment & Plan (1) Osteomyelitis of foot, left, acute: Plan: s/p L AKA on 12/[address] Hairston Dispo planning in effect. Pt is comfort measures Looked at patient's incision, it's c/d/i. No drainage. no signs of infection Continue to change dressing on a prn basis May wash over incisions as needed Surgical umesh to be removed 1 month post surgery Admission and Anticipated Discharge Date Admission Date: November 27, 2021 Subjective Patient pleasant this AM. Says grabiel. Reports pain when asked Physical Exam Skin: L AKA dressing c/d/i, staple line intact. no drainage or signs of infection PG Care Time/CCT Total # of Minutes Spent Total Time Spent with Patient: Total time spent is greater than 50% in coordination of care (as documented) at patient's floor/unit and/or counseling patient: Coding Level of Care Code None Diagnoses Osteomyelitis of foot, left, acute M86.172
[2021-12-25] MEDS: ACETAMINOPHEN 325 MG TAB PO PRN (12:02)
--- NOTE | 2021-12-25 15:03 | Discharge Summary ---
Date of Service December 25, 2021 Admission HPI Per Admitting Provider Justin is a 76 year old male with a PMH significant for known left heel wound after penetrating injury S/P Calcanectomy, Previous Lacunar stroke with baseline right-sided weakness and waxing mentation/orientation, sacral pressure injury, HTN, DLD, CAD S/P biventricular pacemaker placement, Systolic CHF, CKD stage 3B, PAD, DMII who presented to the [facility] ED for fevers. Per chart review and discussions with [facility] staff, the patient has been at [facility] for treatment of his left heel ulcer. It appears the heel cultures has grown MRSA and Enterobacter but [facility] was treating him with Ceftriaxone only. There was concern for possible osteomyelitis which increased since the patient has been spiking fevers while on ceftriaxone. In the ED the patient was found to have an elevated procal at 2.85, C- reactive protein at 9.21, ESR of 44, potassium of 5.4, and was found to be Coivd positive. Xray of the left foot revealed OM of the heel and surrounding cellulitis. CT of the abdomen and pelvis revealed mild rectal wall thickening with trace perirectal stranding. The patient was started on Zosyn and Daptomycin for the osteomyelitis and was found to be stable on room air. Per chart review and discussions with staff at [facility], the patient has baseline right-sided weakness with waxing mentation and orientation as a result of his previous stroke. EMS confirmed with nursing staff upon arrival that the patient was at his baseline neurologic status. At the time of the exam the patient was lying in bed in no acute distress. He was alert and responded to sternal rubbing and would answer questions for a short period of time. He noted some abdominal pain during my abdominal exam but would not interact more during the rest of my exam. Principal Diagnosis Osteomyelitis foot, s/p left AKA, encephalopathy, failure to thrive, COVID-19, severe PAD Discharge Exam Constitutional WD/WN, vitals as above Eyes + anicteric sclerae Neck trachea midline, no thyromegaly Respiratory normal respiratory effort, lungs clear to auscultation Cardiovascular RRR, no murmur, no edema Chest (Breasts) Chest: normal inspection of chest Gastrointestinal (Abdomen) normal bowel sounds, soft, nontender, no hepatosplenomegaly Musculoskeletal Extremities: + extremities abnormal to inspection (LLE AKA with dressing in place), no cyanosis and no clubbing Skin no rashes, warm and dry (multiple areas ecchymosis arms) Neurologic moves all extremities and awake; no focal motor deficits Speech / Cognition: normal speech Motor/Sensory: no tremor Psychiatric Orientation: alert, oriented to person, oriented to place and cooperative Lymphatic no lymphedema Discharge Data Allergies Allergy/AdvReac Type Severity Reaction Status Date / Time atorvastatin Allergy Unknown Unknown Verified 11/27/21 18:05 ezetimibe Allergy Unknown Unknown Verified 11/27/21 18:05 rivaroxaban Allergy Unknown Unknown Verified 11/27/21 18:05 simvastatin Allergy Unknown Unknown Verified 11/27/21 18:05 sitagliptin Allergy Unknown Unknown Verified 11/27/21 18:05 sulfamethoxazole Allergy Unknown Unknown Verified 11/27/21 18:05 [From Bactrim] trimethoprim [From Bactrim] Allergy Unknown Unknown Verified 11/27/21 18:05 lactose AdvReac Unknown Unknown Verified 11/27/21 18:05 Consultations 11/27/21 18:50 ED Decision to Admit Stat 11/28/21 08:39 Consult Orthopedic Surgery Routine 11/30/21 16:50 Consult Vascular Surgery Routine 12/02/21 11:31 Consult General Surgery Routine 12/11/21 09:35 Consult Palliative Care Routine Procedures Performed Operation Date: 11/30/21 11:30 <No data on this case meets the specified criteria> Operation Date: 12/01/21 07:00 <No data on this case meets the specified criteria> Operation Date: 12/04/21 10:40 Actual Procedures p Left Above Knee Amputation(Left) - Ortiz Hairston MD, FACS Ordered Studies 11/27/21 14:24 CT Abd and Pelvis [CT abd pelvis wo con] Stat CT foot LT wo con Stat 11/30/21 16:50 CT head/brain wo con Routine 12/07/21 17:57 CT head/brain wo con Urgent 12/17/21 12:56 US RUQ [US liver] Routine Hospital Course (1) Palliative care encounter: full comfort care measures initiated 12/21/21 patient routinely c/o pain "all over" but this is improved since starting Fentanyl patch he has been on chronic narcotics for several years per family and per the PDMP cont fentanyl patch 12mcg q72h and titrate up as needed cont oxycodone prn-taking far less frequently since being on Fentanyl patch Will be going to SNF for skilled care initially but if fails, will need to transition to Hospice He and family do not desire any aggressive measures (2) Need for comfort care: as above (3) Acute metabolic encephalopathy: ongoing Does not have capacity to make decisions at this time due to ongoing confusion likely hospital psychosis - had been in a hospital/LTACH/rehab setting x 2+ months supportive care transition to comfort care measures if fails at rehab (4) Osteomyelitis of foot, left, acute: s/p AKA by Dr Hairston on 12/04/21 pain meds as above (5) Sacral decubitus ulcer: santyl's daily pain meds as above (6) Sepsis: 2nd to #2 resolved (7) PAD (peripheral artery disease): severe, failed multiple grafts, now with AKA (8) Stage 3b chronic kidney disease (CKD): stable no further labs needed (9) Anemia: stable in 8-9 range, did require PRBC transfusion this admission early on no further labs needed (10) HTN (hypertension): BPs controlled no meds needed (11) Hyperlipidemia: dcd statin due to failure to thrive (12) DM II (diabetes mellitus, type II), controlled: all insulin and BSGs stopped (13) CAD (coronary artery disease): no acute issues (14) Lacunar stroke: history of CT head at [facility] showed 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 continue Plavix (15) Esophagitis: PPI bid (16) Dysphagia: minced and moist diet recommended (17) Acute kidney failure NEC: peak Cr early in this stay = 3.1 resolved most recent Cr 1 (18) Chronic pain syndrome: fentanyl patch and oxycodone prn (19) COVID-19: present on admission resolved never needed Remdesivir, steroids, etc (20) Elevated LFTs: recent dx liver u/s without pathology likely reactive or due to medication repeat levels still high no additional w/u -- transitioned to comfort care Plan I spoke with David Canales, pt's son, on 12/24/21 and reconfirmed desire for comfort and no aggressive measures but willing to trial rehab at SNF before transitioning to hospice dispo - SNF ([place]NF near his [place] who [place] of [place]) -dc today to [facility] Total Time Total Time Spent Total Time Spent (In Minutes): 35 min Discharge Plan Discharge Items Patient Disposition: Transfer Group Home Fac Reason For Visit: Osteomyelitis Discharge Diagnosis: Osteomyelitis of the foot s/p left AKA, severe PAD, encephalopathy, failure to thrive,sepsis, sacral ulcer Condition on Discharge: Fair Activity: As commented below Lifting: Gradually increase as tolerated Bathing: No limitations Exercise/Sports: Gradually increase as tolerated Non-emergency contact: Primary Care Provider and Surgeon Call non-emergency contact if: you have any medication questions and your symptoms worsen Follow-up/Referrals: Ortiz Hairston MD, FACS [Surgeon] - (Please call to schedule follow up in clinic within 1 week) [facility] [Primary Care Provider] - Diet: Regular Diet Comment: Minced and moist diet Addtl Attending Provider Instructions: You have surgical umesh in place that will be removed at your follow up appointment Addtl [employer] Provider Instructions: Please participate in rehab if you can. Continue the Fentanyl patch and oxycodone as needed for pain. Continue dressing changes as needed for your leg stump. For your sacral wound, please change dressings daily and off load pressure and turn frequently. Your Melendez catheter can remain in place for comfort and should be changed in 2 weeks. Pending Studies at Discharge: No Stand-Alone Forms: [facility], Smoking Cessation Skilled Items Patient informed of condition?: Yes DNR: Yes Discharge Level of Care: Skilled Communicable Disease: No Discharge Prognosis: Stable Lines: None Urinary Catheter: Yes Medications and DC Order Prescriptions: New fentanyl 12 mcg/hr Patch 72 Hour 12 mcg transdermal Q3D Qty: 5 0RF Santyl 250 unit/gram Ointment 1 applic EXT DAILY Qty: 30 0RF Continued latanoprost 0.005 % Drops 1 drp OPB HS clopidogrel [Plavix] 75 mg Tablet 75 mg PO DAILY timolol 0.5 % Drops 1 drp OPB BID pantoprazole 40 mg Tablet,Delayed Release (Dr/Ec) 40 mg PO BID Rx Instructions: PRIOR TO MEALS. rosuvastatin 10 mg Tablet 5 mg PO DAILY difluprednate 0.05 % Drops 1 drp OPL DAILY netarsudil 0.02 % Drops 1 drp OPR HS oxycodone 5 mg Tablet 10 mg PO Q8H PRN (Reason: breakthrough pain) Qty: 18 0RF Discontinued nystatin 100,000 unit/mL Suspension 5 ml PO TID Rx Instructions: swish and swallow potassium chloride 10 mEq Capsule, Extended Release 20 meq PO DAILY acetaminophen [Tylenol] 325 mg Tablet 650 mg PO Q4H PRN (Reason: Pain) ondansetron HCl [Zofran] 4 mg Tablet 4 mg PO Q6H PRN (Reason: NAUSEA/VOMITING) sennosides-docusate sodium [Senokot-S] 8.6-50 mg Tablet 1 tab-cap PO QDL PRN (Reason: Constipation) ceftriaxone 1 gram Recon Soln 1 g IV DAILY Rx Instructions: UNSURE WHEN STARTED, NOT ON MED LIST magnesium hydroxide [Milk of Magnesia] 400 mg/5 mL Suspension 30 ml PO DAILY PRN (Reason: Constipation) ascorbic acid (vitamin C) [Vitamin C] 500 mg Tablet 500 mg PO BIDM tamsulosin 0.4 mg Capsule 0.4 mg PO DAILY bisacodyl 10 mg Suppository 10 mg UT DAILY PRN (Reason: Constipation) ferrous sulfate 325 mg (65 mg iron) Tablet 325 mg PO BIDM Humulin R Regular U-100 Insuln 100 unit/mL Solution 1 sliding scale dose SUBCUT ACHS docusate sodium 100 mg Capsule 100 mg PO BID folic acid 1 mg Tablet 1 mg PO DAILY mirtazapine 15 mg Tablet 15 mg PO HS polyethylene glycol 3350 [Miralax] 17 gram/dose Powder 17 g PO QDL PRN (Reason: Constipation) diltiazem HCl 30 mg Tablet 30 mg PO DAILY enoxaparin [Lovenox] 30 mg/0.3 mL Syringe 30 mg SUBCUT QPM Rx Instructions: GIVEN AT 1900 naloxone 4 mg/actuation [place],Non-Aerosol 4 mg INTRANASAL ONCE PRN (Reason: OVERSEDATION) Discharge Orders: Discharge Order (Routine); Ordered 12/25/21 Ordered By: Karin Hayes Admission Data Admit Date/Time: 11/27/21 18:56 Attending Provider: Karin Hayes Admit Provider: Jean-Pierre aRm Primary Care Provider: Lynn Casey Other [facility]: [facility] ; Jean-Pierre Ram ; Jh Templeton ; Kt Saldana ; Lex Adkins ; Carmen Cochran ; Carlos Hawthorne ; Angie Kelley ; Juwan Tejeda ; Rao Penn ; Benjamin Carbone ; Lito Bruno ; Eder Cruz ; Gigi Darling ; Aries Jacome ; Markell Fonseca ; Angie Dubois ; Brian Rodrigues ; Deyanira Salas ; Froylan Green ; Gianna Liang ; Alexx Arce ; Caleb Bar ; Jagdish Vegas ; Maggie Coyle Coding Level of Care Code D/C DAY MANAGEMENT >30 MINS Diagnoses Palliative care encounter Z51.5 Need for comfort care Acute metabolic encephalopathy G93.41 Osteomyelitis of foot, left, acute M86.172 Sacral decubitus ulcer L89.159 Sepsis A41.9 PAD (peripheral artery disease) I73.9 Stage 3b chronic kidney disease (CKD) N18.32 Anemia D64.9 Anemia type: unspecified type HTN (hypertension) I10 Hypertension type: unspecified Hyperlipidemia E78.5 Hyperlipidemia type: unspecified DM II (diabetes mellitus, type II), controlled E11.9 Diabetes mellitus intermediate manager insulin use: with intermediate manager use CAD (coronary artery disease) I25.10 Lacunar stroke I63.81 Esophagitis K20.90 Dysphagia R13.10 Acute kidney failure NEC N17.8 Chronic pain syndrome G89.4 COVID-19 U07.1 Elevated LFTs R79.89
== END 2021-12-25 15:33 | DRG 853 ==
LOC: ED 13:04 → SUATTDRO 18:56 → 3N 18:56